=== PATIENT | female | born 1980 | race Caucasian/White ===

== ENCOUNTER 2024-10-04 16:39 | Outpatient (OUT) | payer OTHER, SELFPAY ==
--- NOTE | 2024-10-04 17:07 | US_ITS ---
[address] [address] Patient Name: TOI KNIGHT MRN: [id number] date: 1980 Sex: F Assigned Patient Location: US Current Patient Location: Accession/Order Number: [id number] Exam Date: 10/04/2024 17:50 Report Date: 10/05/2024 07:43 At the request of: ASH HAQ Procedure: US pelvis w/ transvaginal EXAMINATION: US pelvis w/ transvaginal HISTORY: Left lower quadrant abdominal pain, R10.32 COMPARISON: No relevant comparison available. TECHNIQUE: Transabdominal and/or transvaginal sonographic examination was performed as indicated by examination type. FINDINGS: UTERUS: Normal size and appearance. Small nabothian cysts within cervix. Uterus size: 10.7 x 4.7 x 4.9 cm ENDOMETRIUM: Normal homogeneous appearance. Endometrial thickness: 9 mm RIGHT OVARY: Normal size and appearance. Duplex Doppler demonstrates normal waveform and flow; resistive index 0.4. Ovary size: 3.0 x 1.6 x 2.3 cm LEFT OVARY: Contains a 1.6 cm round hypoechoic complex cyst versus mass with increased surrounding blood flow. Duplex Doppler demonstrates normal waveform and flow; resistive index 0.4. Ovary size: 3.5 x 2.1 x 2.8 cm CUL-DE-SAC: Unremarkable. No significant free fluid. BLADDER: Unremarkable. OTHER: None. US/US pelvis w/ transvaginal IMPRESSION: 1. Left ovary contains a 1.6 cm complex cyst versus mass. There is increased surrounding blood flow which can be seen with a corpus lutein cyst, however, no increased endometrial thickening to suggest . Consider follow-up ultrasound in 6 weeks to document resolution. Electronically authenticated by: EAN WEBB Date: 10/05/2024 07:43
== END 2024-10-04 16:40 | disposition home or self-care (01) ==
LOC: US 16:41
PROVIDERS: PCP Family Medicine; Visit Provider Obstetrics & Gynecology
DX: R10.32 Left lower quadrant pain (principal); N83.292 Other ovarian cyst, left side
CPT/HCPCS: 76830; 76856

== ENCOUNTER 2024-11-17 07:30 | Outpatient (OUT) | payer OTHER, SELFPAY ==
--- NOTE | 2024-11-17 07:33 | US_ITS ---
The [address] [address] Patient Name: TOI KNIGHT MRN: [id number] date: 1980 Sex: F Assigned Patient Location: US Current Patient Location: LAB Accession/Order Number: [id number] Exam Date: 11/17/2024 11:04 Report Date: 11/17/2024 11:06 At the request of: ASH HAQ DO Procedure: US pelvis w/ transvaginal Pelvic ultrasound. Reason for exam: Left lower quadrant pain. Comparison: none Technique: Transabdominal imaging of the uterus and ovaries was performed. Transvaginal imaging of the uterus and ovaries was also obtained. Additional spectral Doppler analysis of the ovaries was also obtained. Findings: Uterus measures 8.8 x 4.8 x 4.2 cm. No fibroid is seen. Endometrium measures 4.2 mm without focal abnormality. Right ovary measures 3.0 x 2.2 x 2.1 cm. Left ovary measures 2.8 x 2.8 x 2.0 cm. No adnexal mass or cyst. Normal arterial and venous Doppler waveforms. No free fluid is seen. US/US pelvis w/ transvaginal Impression: Unremarkable pelvic ultrasound. Impression dictated by: Ankit Atwood Jr., D.O.11/17/2024 11:06 AM Dictation Location: [place] [address] Electronically authenticated by: [id number] Y Date: 11/17/2024 11:06
--- OUTSIDE RECORDS SUMMARY | 2024-11-17 07:33 | XMS_ITS | CCD ---
Author Organization [facility] Care Team Providers Care 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 Name Role Phone ENRIQUE, DR HOGAN Admitting Unavailable ENRIQUE, DR HOGAN Attending Unavailable ENRIQUE, DR HOGAN Consulting Unavailable ENRIQUE, DR HOGAN Primary Care Unavailable TYRELL, DR ALEMAN Attending Unavailable TYRELL, DR ALEMAN Admitting Unavailable HOY, DR HOGAN Primary Care Unavailable TYRELL, DR ALEMAN Attending Unavailable TYRELL, DR ALEMAN Consulting Unavailable TYRELL, DR ALEMAN Admitting Unavailable ENRIQUE, DR HOGAN Primary Care Unavailable TYRELL, DR ALEMAN Attending Unavailable TYRELL, DR ALEMAN Consulting Unavailable TYRELL, DR ALEMAN Admitting Unavailable HOY, DR HOGAN Primary Care Unavailable JOSSIE CAPPS Consulting Unavailable MILO, GIOVANA HARRELL Consulting Unava ilable ENRIQUE, DR HOGAN Primary Care Unavailable TYRELL, DR ALEMAN Attending Unavailable TYRELL, DR ALEMAN Consulting Unavailable TYRELL, DR ALEMAN Admitting Unavailable Edison Timmons MD Primary Care Provider [phone] MARLENE MALONEY Attending Unavailable MARLENE MALONEY Attending Unavailable MARLENE MALONEY Attending Unavailable MARLENE MALONEY Attending Unavailable Medications Current Medications Medication Drug Class(es) Dates Sig (Normalized) Sig (Original) predniSONE 10 mg oral tablet (13 sources) Start: 06-27-2024 take 2 tablets by mouth twice daily, then take 1 tablet by mouth twice daily, then take 1 tablet by mouth once daily predniSONE (Deltasone) 10 MG tablet Indications: Plantar fasciitis Take 2 pills by mouth twice daily for 5 days, take 1 pill twice daily for 5 days then 1 pill once daily for 5 days. 35 tablet 06/27/2024 Active Problems Active Problems Problem Classification Problem Date Documented Da te Episodic/Chronic Contraceptive and procreative management (5 sources) Encounter for sterilization; Translations: [ENCOUNTER FOR STERILIZATION] Onset: 06-06-2022 Episodic Other connective tissue disease (8 sources) Plantar fasciitis; Translations: [Plantar fascial fibromatosis] 06-27-2024 Episodic Other connective tissue disease (8 sources) Pain of left heel; Translations: [Pain in left foot] 06-27-2024 Episodic Other connective tissue disease (8 sources) Pain in right heel; Translations: [Pain in right foot] 06-27-2024 Episodic Other connective tissue disease (2 sources) Bilateral heel pain; Translations: [Pain in right foot] 06-27-2024 Episodic Other gastrointestinal disorders (1 source) Peritoneal adhesions (postprocedural) (postinfection); Translations: [PERITONEAL ADHES POSTPROC POSTINF] Onset: 08-07-2022 Episodic Other nutritional; endocrine; and metabolic disorders (1 source) Obesity, unspecified; Translations: [OBESITY UNSPECIFIED] Onset: 08-07-2022 Chronic Other nutritional; endocrine; and metabolic disorders (1 source) Body mass index (BMI) 33.0-33.9, adult; Translations: [BODY MASS INDEX BMI 33.0-33.9 ADULT] Onset: 08-07-2022 Chronic Screening and history of mental health and substance abuse codes (1 source) Personal history of nicotine dependence; Translations: [PERSONAL HISTORY OF NICOTINE DEPEND] Onset: 08-07-2022 Episodic Unclassified (1 source) CONTACT W/AND (SUSP) EXPOS COVID-19; Translations: [CONTACT W/AND (SUSP) EXPOS COVID-19] Onset: 06-12-2022 Past or Other Problems Problem Classification Problem Date Documented Date Episodic/Chronic Immunizations and screening for infectious disease (1 source) Encounter for screening for human papillomavirus (HPV); Translations: [ENC SCREENING HUMAN PAPILLOMAVIRUS] Onset: 03-25-2022 Episodic Other screening for suspected conditions (not mental disorders or infectious disease) (4 sources) Encounter for screening for malignant neoplasm of cervix; Translations: [ENC SCREENING MALIG NEOPLASM CERV] Onset: 03-24-2022 Episodic Results Test Name Value Interpretation Reference Range Facility US PELVIS W/ TRANSVAGINALon 10-05-[address] [address] Ultrasound Report Signed Patient: TOI ROONEY MR#: [id number] : 1980 Acct:[id number] Age/Sex: 44 / F ADM Date: 10/04/24 Loc: US Attending Dr: Ash Santillan D.O. Ordering Physician: Ash Santillan D.O. Date of Service: 10/04/24 Procedure(s): US pelvis w/ transvaginal Accession Number(s): [id number] cc: Ash Santillan D.O.; Edison Timmons M.D. [place] [id number] Patient Name: TOI ROONEY MRN: [facility]:[id number] date: 1980 Sex: F Assigned Patient Location: US Current Patient Location: Accession/Order Number: [id number] Exam Date: 10/04/2024 17:50 Report Date: 10/05/2024 07:43 At the request of: ASH SANTILLAN Procedure: US pelvis w/ transvaginal EXAMINATION: US pelvis w/ transvaginal HISTORY: Left lower quadrant abdominal pain, R10.32 COMPARISON: No relevant comparison available. TECHNIQUE: Transabdominal and/or transvaginal sonographic examination was performed as indicated by examination type. FINDINGS: UTERUS: Normal size and appearance. Small nabothian cysts within cervix. Uterus size: 10.7 x 4.7 x 4.9 cm ENDOMETRIUM: Normal homogeneous appearance. Endometrial thickness: 9 mm RIGHT OVARY: Normal size and appearance. Duplex Doppler demonstrates normal waveform and flow; resistive index 0.4. Ovary size: 3.0 x 1.6 x 2.3 cm LEFT OVARY: Contains a 1.6 cm round hypoechoic complex cyst versus mass with increased surrounding blood flow. Duplex Doppler demonstrates normal waveform and flow; resistive index 0.4. Ovary size: 3.5 x 2.1 x 2.8 cm CUL-DE-SAC: Unremarkable. No significant free fluid. BLADDER: Unremarkable. OTHER: None. US/US pelvis w/ transvaginal IMPRESSION: 1. Left ovary contains a 1.6 cm complex cyst versus mass. There is increased surrounding blood flow which can be seen with a corpus lutein cyst, however, no increased endometrial thickening to suggest . Consider follow-up ultrasound in 6 weeks to document resolution. Electronically authenticated by: BALTAZAR DENNY Date: 10/05/2024 07:43 Dictated By: Baltazar Denny M.D. Signed By: 10/05/24 0746 DD/ TD/TT: Communication Coordinator: [facility] Radiology, Radiologist, MD - 10/05/2024 [place] [address] Ultrasound Report Signed Patient: TOI ROONEY MR#: [id number] : 1980 Acct:[id number] Age/Sex: 44 / F ADM Date: 10/04/24 Loc: US Attending Dr: Ash Santillan D.O. Ordering Physician: Ash Santillan D.O. Date of Service: 10/04/24 Procedure(s): US pelvis w/ transvaginal Accession Number(s): [id number] cc: Ash Santillan D.O.; Edison Timmons M.D. The [place] [id number] Patient Name: TOI ROONEY MRN: [facility]:[id number] date: 1980 Sex: F Assigned Patient Location: Current Patient Location: Accession/Order Number: [id number] Exam Date: 10/04/2024 17:50 Report Date: 10/05/2024 07:43 At the request of: ASH SANTILLAN Procedure: US pelvis w/ transvaginal EXAMINATION: US pelvis w/ transvaginal HISTORY: Left lower quadrant abdominal pain, R10.32 COMPARISON: No relevant comparison available. TECHNIQUE: Transabdominal and/or transvaginal sonographic examination was performed as indicated by examination type. FINDINGS: UTERUS: Normal size and appearance. Small nabothian cysts within cervix. Uterus size: 10.7 x 4.7 x 4.9 cm ENDOMETRIUM: Normal homogeneous appearance. Endometrial thickness: 9 mm RIGHT OVARY: Normal size and appearance. Duplex Doppler demonstrates normal waveform and flow; resistive index 0.4. Ovary size: 3.0 x 1.6 x 2.3 cm LEFT OVARY: Contains a 1.6 cm round hypoechoic complex cyst versus mass with increased surrounding blood flow. Duplex Doppler demonstrates normal waveform and flow; resistive index 0.4. Ovary size: 3.5 x 2.1 x 2.8 cm CUL-DE-SAC: Unremarkable. No significant free fluid. BLADDER: Unremarkable. OTHER: None. US/US pelvis w/ transvaginal IMPRESSION: 1. Left ovary contains a 1.6 cm complex cyst versus mass. There is increased surrounding blood flow which can be seen with a corpus lutein cyst, however, no increased endometrial thickening to suggest . Consider follow-up ultrasound in 6 weeks to document resolution. Electronically authenticated by: BALTAZAR DENNY Date: 10/05/2024 07:43 Dictated By: Baltazar Denny M.D. Signed By: 10/05/24 0746 DD/ 0743 TD/TT: Communication Coordinator: [facility] Radiology Study observation (narrative) [facility] US PELVIS W/ TRANSVAGINALOrd ered By: Radiologist Radiology on 10-05-[address] [facility] Work Phone: XR Calcaneus - left [facility] 06-27-2024 Imaging Result: One views of the left heel: Lateral were performed today in the office. Radiographs were read by myself and demonstrate: No evidence of acute fracture or dislocation. No coalition noted. Spur formation is noted at the plantar calcaneus [facility] Radiology Study observation (narrative) [facility] XR Calcaneus - right [facility] 06-27-2024 Imaging Result: One views of the right heel: Lateral were performed today in the office. Radiographs were read by myself and demonstrate: No evidence of acute fracture or dislocation. No coalition noted. Spur formation is noted at the plantar calcaneus [facility] Radiology Study observation (narrative) [facility] CBC AUTO DIFFon 06-13-2022 BASO # 0.0 103/ul Normal 0.0-0.1 [facility] Comment on above: Performed By: #### C BC #### [facility] [address] [place] [address] [address] Amee Mckeon Basophils/100 WBC (Bld) 0.5 % Normal 0.2-2.0 [facility] Comment on above: Performed By: #### C BC #### [facility] [address] [place] [address] Dr. Amee Mckeon EO # 0.2 103/ul Normal 0.0-0.7 [facility] Comment on above: Performed By: #### C BC #### [facility] [address] [place] [address] Dr. Amee Mckeon Eosinophils/100 WBC (Bld) 1.9 % Normal 0.9-7.0 [facility] Comment on above: Performed By: #### C BC #### [facility] [address] [place] [address] Dr. Amee Mckeon Erythrocyte distribution width (RBC) [Ratio] 11.9 % Normal 11.0-15.0 [facility] Comment on above: Performed By: #### C BC #### [facility] [address] [place] [address] Dr. Amee Mckeon Hematocrit (Bld) [Volume fraction] 43.6 % Normal 36.0-48.0 [facility] Comment on above: Performed By: #### C BC #### [facility] [address] [place] [address] Dr. Amee Mckeon Hemoglobin (Bld) [Mass/Vol] 14.8 g/dL Normal 12.0-16.0 [facility] Comment on above: Performed By: #### C BC #### [facility] [address] [place] [address] Dr. Amee Mckeon IG # 0.03 10e3/ul Normal 0.00-0.03 [facility] Comment on above: Performed By: #### C BC #### [facility] [address] [place] [address] Dr. Amee Mckeon IG % 0.4 % Normal 0.0-0.5 [facility] Comment on above: Performed By: #### C BC #### [facility] [address] [place] [address] Dr. Amee Mckeon LYMPH # 2.5 103/ul Normal 1.2-3.8 [facility] Comment on above: Performed By: #### C BC #### [facility] [address] [place] [address] Dr. Amee Mckeon Lymphocytes/100 WBC (Bld) 31.4 % Normal 20.5-60.0 [facility] Comment on above: Performed By: #### C BC #### [facility] [address] [place] [address] Dr. Amee Mckeon MANUAL DIFF REQ NO Normal [facility] Comment on above: Performed By: #### C BC #### [facility] [address] [place] [address] Dr. Amee Mckeon MCH (RBC) [Entitic mass] 31.6 pg Normal 26.7-34.0 [facility] Comment on above: Performed By: #### C BC #### [facility] [address] [place] [address] Dr. Amee Mckeon MCHC (RBC) [Mass/Vol] 33.9 g/dL Normal 29.9-35.2 [facility] Comment on above: Performed By: #### C BC #### [facility] [address] [place] [address] Dr. Amee Mckeon MCV (RBC) [Entitic vol] 93.2 fL Normal 81.0-99.0 [facility] Comment on above: Performed By: #### C BC #### [facility] [address] [place] [address] Dr. Amee Mckeon MONO # 0.5 103/ul Normal 0.3-0.8 [facility] Comment on above: Performed By: #### C BC #### [facility] [address] [place] [address] Dr. Amee Mckeon Monocytes/100 WBC (Bld) 6.8 % Normal 1.7-12.0 [facility] Comment on above: Performed By: #### C BC #### [facility] [address] [place] [address] Dr. Amee Mckeon NEUT # 4.7 103/ul Normal 1.4-6.5 [facility] Comment on above: Performed By: #### C BC #### [facility] [address] [place] [address] Dr. Amee Mckeon Neutrophils/100 WBC (Bld) 59.0 % Normal 43.0-75.0 [facility] Comment on above: Performed By: #### C BC #### [facility] [address] [place] [address] Dr. Amee Mckeon Platelet mean volume (Bld) [Entitic vol] 9.6 fL Normal 9.5-13.5 [facility] Comment on above: Performed By: #### C BC #### [facility] [address] [place] [address] Dr. Amee Mckeon PLT 289 103/ul Normal 150-450 [facility] Comment on above: Performed By: #### C BC #### [facility] [address] [place] [address] Dr. Amee Mckeon RBC 4.68 106/ul Normal 4.20-5.40 [facility] Comment on above: Performed By: #### C BC #### [facility] [address] [place] [address] Dr. Amee Mckeon WBC 7.9 103/ul Normal 4.0-11.0 [facility] Comment on above: Performed By: #### C BC #### [facility] [address] [place] [address] Dr. Amee Mckeon PREG HCG QUALon 06-13-2022 , QUAL Negative Normal NEGATIVE [facility] Comment on above: Performed By: #### P REG #### [facility] [address] [place] [address] Dr. Amee Mckeon Covid-19 PCR (CVDTBH)on 05-31 SARS-CoV-2 (COVID-19) RNA ADOLPH+probe Ql (Unsp spec) Not detected Normal NOT DETECTED [facility] Comment on above: Result Comment: This test is not yet approved or cleared by the [place] FDA. When there are no FDA-approved or cleared tests available, and other criteria are met, FDA can make tests available under an emergency access mechanism called an Emergency Use Authorization (EUA). The EUA for this test is supported by the [place] of Health and Human Service's (HHS's) declaration that circumstances exist to justify the emergency use of in vitro diagnostics for the detection and/or diagnosis of the virus that causes COVID-19. This EUA will remain in effect (meaning this test can be used) for the duration of the COVID-19 declaration justifying emergency of IVDs, unless it is terminated or revoked by FDA (after which the test may no longer be used). When diagnostic testing is negative, the possibility of a false negative should be considered in the context of a patient's recent exposures and the presence of clinical signs and symptoms consistent with SARS-CoV-2. Performed By: #### C VDTB #### [facility] [address] [place] [address] Dr. Amee Mckeon [facility] CBC AUTO DIFFon 04-17-2022 BASO # 0.0 103/ul Normal 0.0-0.1 [facility] Comment on above: Performed By: #### H FPFCBC #### [facility] [address] [place] [address] Dr. Amee Mckeon Basophils/100 WBC (Bld) 0.3 % Normal 0.2-2.0 [facility] Comment on above: Performed By: #### H FPFCBC #### [facility] [address] [place] [address] Dr. Amee Mckeon EO # 0.1 103/ul Normal 0.0-0.7 [facility] Comment on above: Performed By: #### H FPFCBC #### [facility] [address] [place] [address] Dr. Amee Mckeon Eosinophils/100 WBC (Bld) 1.5 % Normal 0.9-7.0 [facility] Comment on above: Performed By: #### H FPFCBC #### [facility] [address] [place] [address] Dr. Amee Mckeon Erythrocyte distribution width (RBC) [Ratio] 12.5 % Normal 11.0-15.0 [facility] Comment on above: Performed By: #### H FPFCBC #### [facility] [address] [place] [address] Dr. Amee Mckeon Hematocrit (Bld) [Volume fraction] 41.6 % Normal 36.0-48.0 [facility] Comment on above: Performed By: #### H FPFCBC #### [facility] [address] [place] [address] Dr. Amee Mckeon Hemoglobin (Bld) [Mass/Vol] 14.1 g/dL Normal 12.0-16.0 [facility] Comment on above: Performed By: #### H FPFCBC #### [facility] [address] [place] [address] Dr. Amee Mckeon IG # 0.03 10e3/ul Normal 0.00-0.03 [facility] Comment on above: Performed By: #### H FPFCBC #### [facility] [address] [place] [address] Dr. Amee Mckeon IG % 0.3 % Normal 0.0-0.5 [facility] Comment on above: Performed By: #### H FPFCBC #### [facility] [address] [place] [address] Dr. Amee Mckeon LYMPH # 2.2 103/ul Normal 1.2-3.8 [facility] Comment on above: Performed By: #### H FPFCBC #### [facility] [address] [place] [address] Dr. Amee Mckeon Lymphocytes/100 WBC (Bld) 25.3 % Normal 20.5-60.0 [facility] Comment on above: Performed By: #### H FPFCBC #### [facility] [address] [place] [address] Dr. Amee Mckeon MCH (RBC) [Entitic mass] 31.3 pg Normal 26.7-34.0 [facility] Comment on above: Performed By: #### H FPFCBC #### [facility] [address] [place] [address] Dr. Amee Mckeon MCHC (RBC) [Mass/Vol] 33.9 g/dL Normal 29.9-35.2 [facility] Comment on above: Performed By: #### H FPFCBC #### [facility] [address] [place] [address] Dr. Amee Mckeon MCV (RBC) [Entitic vol] 92.4 fL Normal 81.0-99.0 [facility] Comment on above: Performed By: #### H FPFCBC #### [facility] [address] [place] [address] Dr. Amee Mckeon MONO # 0.5 103/ul Normal 0.3-0.8 [facility] Comment on above: Performed By: #### H FPFCBC #### [facility] [address] [place] [address] Dr. Amee Mckeon Monocytes/100 WBC (Bld) 5.5 % Normal 1.7-12.0 [facility] Comment on above: Performed By: #### H FPFCBC #### [facility] [address] [place] [address] Dr. Amee Mckeon NEUT # 5.8 103/ul Normal 1.4-6.5 [facility] Comment on above: Performed By: #### H FPFCBC #### [facility] [address] [place] [address] Dr. Amee Mckeon Neutrophils/100 WBC (Bld) 67.1 % Normal 43.0-75.0 [facility] Comment on above: Performed By: #### H FPFCBC #### [facility] [address] [place] [address] Dr. Amee Mckeon Platelet mean volume (Bld) [Entitic vol] 10.2 fL Normal 9.5-13.5 [facility] Comment on above: Performed By: #### H FPFCBC #### [facility] [address] [place] [address] Dr. Amee Mckeon PLT 278 103/ul Normal 150-450 [facility] Comment on above: Performed By: #### H FPFCBC #### [facility] [address] [place] [address] Dr. Amee Mckeon RBC 4.50 106/ul Normal 4.20-5.40 [facility] Comment on above: Performed By: #### H FPFCBC #### [facility] [address] [place] [address] Dr. Amee Mckeon WBC 8.6 103/ul Normal 4.0-11.0 [facility] Comment on above: Performed By: #### H FPFCBC #### [facility] [address] [place] [address] Dr. Amee Mckeon [facility] PROFILEon 022 Albumin [Mass/Vol] 3.8 g/dL Normal 3.4-5.0 [facility] Comment on above: Performed By: #### H FPF #### [facility] [address] [place] [address] Dr. Amee Mckeon Albumin/Globulin [Mass ratio] 1.1 {ratio} Normal [facility] Comment on above: Performed By: #### H FPF #### [facility] [address] [place] [address] Dr. Amee Mckeon ALP [Catalytic activity/Vol] 50 U/L Normal 46-116 [facility] Comment on above: Performed By: #### H FPF #### [facility] [address] [place] [address] Dr. Amee Mckeon ALT [Catalytic activity/Vol] 31 U/L Normal 14-59 [facility] Comment on above: Performed By: #### H FPF #### [facility] [address] [place] [address] Dr. Amee Mckeon AST [Catalytic activity/Vol] 15 U/L Normal 15-37 [facility] Comment on above: Performed By: #### H FPF #### [facility] [address] [place] [address] Dr. Amee Mckeon Bilirubin [Mass/Vol] 0.6 mg/dL Normal 0.2-1.0 [facility] Comment on above: Performed By: #### H FPF #### [facility] [address] [place] [address] Dr. Amee Mckeon Calcium [Mass/Vol] 8.8 mg/dL Normal 8.5-10.1 [facility] Comment on above: Performed By: #### H FPF #### [facility] [address] [place] [address] [address] Amee Mckeon Chloride [Moles/Vol] 104 mmol/L Normal 98-107 [facility] Comment on above: Performed By: #### H FPF #### [facility] [address] [address] [address] Amee Mckeon CHOL-HDL RATIO NORM SEE BELOW Normal [facility] Comment on above: Result Comment: 3.3 - 4.4 LOW RISK 4.4 - 7.1 AVERAGE RISK 7.1 - 11.0 MODERATE RISK >11.0 HIGH RISK Performed By: #### H FPF #### [facility] [address] [place] [address] [address] Amee Mckeon Cholesterol [Mass/Vol] 216 mg/dL Critically high <=200 [facility] Comment on above: Performed By: #### H FPF #### [facility] [address] [place] [address] [address] Amee Mckeon Cholesterol in HDL [Mass/Vol] 51 mg/dL Normal 40-60 [facility] Comment on above: Performed By: #### H FPF #### [facility] [address] [place] [address] [address] Amee Mckeon Cholesterol in LDL [Mass/Vol] 141.6 mg/dL Normal [facility] Comment on above: Performed By: #### H FPF #### [facility] [address] [place] [address] [address] Amee Mckeon Cholesterol.total/[place] sterol in HDL [Mass ratio] 4.2 {ratio} Normal [facility] Comment on above: Performed By: #### H FPF #### [facility] [address] [address] [address] Amee Mckeon CO2 [Moles/Vol] 26.1 mmol/L Normal 21.0-32.0 [facility] Comment on above: Performed By: #### H FPF #### [facility] [address] [address] [address] Amee Mckeon Creatinine [Mass/Vol] 0.75 mg/dL Normal 0.55-1.02 [facility] Comment on above: Performed By: #### H FPF #### [facility] [address] [address] [address] Amee Mckeon Globulin (S) [Mass/Vol] 3.4 g/dL Normal [facility] Comment on above: Performed By: #### H FPF #### [facility] [address] [address] [address] Amee Mckeon Glucose [Mass/Vol] 94 mg/dL Normal 74-106 [facility] Comment on above: Performed By: #### H FPF #### [facility] [address] [address] [address] Amee Mckeon HDL NORMAL > or = 60 mg/dl - LOW CARDIOVASCULAR RISK <40 mg/dl - HIGH CARDIOVASCULAR RISK Normal [facility] Comment on above: Performed By: #### H FPF #### [facility] [address] [place] [address] Dr. Amee Mckeon LDL CALC NORMAL SEE BELOW Normal [facility] Comment on above: Result Comment: <100 mg/dl OPTIMAL 100 - 129 mg/dl NEAR OR ABOVE OPTIMAL 130 - 159 mg/dl BORDERLINE HIGH 160 - 189 mg/dl HIGH >190 mg/dl VERY HIGH Performed By: #### H FPF #### [facility] [address] [place] [address] Dr. Amee Mckeon Potassium [Moles/Vol] 3.7 mmol/L Normal 3.5-5.1 [facility] Comment on above: Performed By: #### H FPF #### [facility] [address] [address] [address] Amee Mckeon Protein [Mass/Vol] 7.2 g/dL Normal 6.4-8.2 [facility] Comment on above: Performed By: #### H FPF #### [facility] [address] [place] [address] Dr. Amee Mckeon Sodium [Moles/Vol] 137 mmol/L Normal 136-145 [facility] Comment on above: Performed By: #### H FPF #### [facility] [address] [address] [address] Amee Mckeon Triglyceride [Mass/Vol] 117 mg/dL Normal <=[address] [facility] Comment on above: Performed By: #### H FPF #### [facility] [address] [address] [address] Amee Mckeon TSH 1.647 uIU/mL Normal 0.358-3.740 [facility] Comment on above: Performed By: #### H FPF #### [facility] [address] [place] [address] Dr. Amee Mckeon Urea nitrogen [Mass/Vol] 18.0 mg/dL Normal 7.0-18.0 [facility] Comment on above: Performed By: #### H FPF #### [facility] [address] [place] [address] Dr. Amee Mckeon Urea nitrogen/Creatinine [Mass ratio] 24.0 mg/mg Normal [facility] Comment on above: Performed By: #### H FPF #### [facility] [address] [place] [address] Dr. Amee Mckeon VLDL CALC 23.4 mg/dL [facility] Comment on above: Performed By: #### H FPF #### [facility] [address] [place] [address] Dr. Amee Mckeon PAP ACOG PANEL 2: 30 to 65on 03-26-2022 . . Normal [facility] Comment on above: Result Comment: Perf ormed at: WB Performed By: #### [id number] #### [facility] [address] [place] [address] Dr. Amee Mckeon Age Gdln ACOG Testing 30-65 [facility] Comment on above: Performed By: #### [id number] #### [facility] [address] [place] [address] Dr. Amee Mckeon DIAGNOSIS: Comment Normal [facility] Comment on above: Result Comment: NEGA TIVE FOR INTRAEPITHELIAL LESION OR MALIGNANCY. Performed at: WB Performed By: #### [id number] #### [facility] [address] [place] [address] Dr. Amee Mckeon HPV Aptima Negative Normal Negative [facility] Comment on above: Result Comment: This nucleic acid amplification test detects fourteen high-risk HPV types (16,18,31,33,35,39,45,51,52,56,58,59,66,68) without differentiation. Performed at: =G Performed By: #### [id number] #### [facility] [address] [place] [address] Dr. Amee Mckeon Methodology: Comment Normal [facility] Comment on above: Result Comment: This liquid based ThinPrep(R) pap test was screened with the use of an image guided system. Performed at: WB Performed By: #### [id number] #### [facility] [address] [place] [address] Dr. Amee Mckeon Note: Comment Normal [facility] Comment on above: Result Comment: The Pap smear is a screening test designed to aid in the detection of premalignant and malignant conditions of the uterine cervix. It is not a diagnostic procedure and should not be used as the sole means of detecting cervical cancer. Both false-positive and false-negative reports do occur. . Performed at: WB Performed By: #### [id number] #### [facility] [address] [place] [address] Dr. Amee Mckeon Performed by: Comment Normal [facility] Comment on above: Result Comment: [employer] Map (ASCP) Performed at: WB Performed By: #### [id number] #### [facility] [address] [place] [address] Dr. Amee Mckeon Specimen adequacy: Comment Normal [facility] Comment on above: Result Comment: Sati sfactory for evaluation. No endocervical component is identified. Performed at: WB Performed By: #### [id number] #### [facility] [address] [place] [address] Dr. Amee Mckeon Encounters Encounter Date Encounter Type Care Provider Facility Start: 10-20-2024 End: 10-20-2024 Bamboo flowsheet Marlene Maloney DPM Work Phone: [facility] Start: 10-20-2024 End: 10-20-2024 Bamboo flowsheet Marlene Maloney DPM Work Phone: [facility] Start: 10-20-2024 End: 10-20-2024 Office outpatient visit 15 minutes Marlene Maloney DPM Work Phone: [facility] Comment on above: Plantar fasciitis (P rimary Dx); Pain of left heel; Pain of right heel Start: 10-20-2024 End: 10-20-2024 ambulatory MARLENE MALONEY Not Available Start: 10-05-2024 End: 10-05-2024 Clinisync Result Encounter Ash Tyrell DO Work Phone: [facility] External Department Unsolicited Start: 10-05-2024 End: 10-05-2024 Clinisync Result Encounter Ash Tyrell DO Work Phone: [facility] External Department Unsolicited Start: 09-07-2024 End: 09-07-2024 Bamboo flowsheet Marlene Maloney DPM Work Phone: [facility] Start: 09-07-2024 End: 09-07-2024 Bamboo flowsheet Marlene Strickland Maloney DPM Work Phone: [facility] Start: 09-07-2024 End: 09-07-2024 ambulatory MARLENE MALONEY Not Available Start: 09-07-2024 End: 09-07-2024 Office outpatient visit 15 minutes Marleen Maloney DPM Work Phone: [facility] Comment on above: Plantar fasciitis (P rimary Dx); Pain of left heel; Pain of right heel Start: 07-26-2024 End: 07-26-2024 Bamboo flowsheet Marlene Strickland Maloney DPM Work Phone: [facility] Start: 07-26-2024 End: 07-26-2024 Bamboo flowsheet Marlene Strickland Maloney DPM Work Phone: [facility] Start: 07-26-2024 End: 07-26-2024 ambulatory MARLENE MALONEY Not Available Start: 07-26-2024 End: 07-26-2024 Office outpatient visit 15 minutes Marlene Maloney DPM Work Phone: [facility] Comment on above: Plantar fasciitis (P rimary Dx); Pain of left heel; Pain of right heel Start: 06-27-2024 End: 06-27-2024 Bamboo flowsheet Marlene Maloney DPM Work Phone: [facility] Start: 06-27-2024 End: 06-27-2024 Bamboo flowsheet Marlene Maloney DPM Work Phone: [facility] Start: 06-27-2024 End: 06-27-2024 Telephone encounter Marlene Maloney DPM Work Phone: [facility] Comment on above: script check Start: 06-27-2024 End: 06-27-2024 ambulatory MARLENE MALONEY Not Available Start: 06-27-2024 End: 06-27-2024 Office outpatient new 30 minutes Marlene Maloney DPM Work Phone: [facility] Comment on above: Plantar fasciitis (P rimary Dx); Pain of left heel; Pain of right heel; Pain of both heels Start: 06-13-2022 End: 06-13-[address] ASH SANTILLAN Facility:[facility] Start: 06-12-2022 Encounter for preprocedural laboratory examination DR ASH SANTILLAN [facility] Start: 06-10-2022 End: 06-11-[address] ASH SANTILLAN Facility:[facility] Start: 06-10-2022 End: 06-11-2022 Encounter for preprocedural laboratory examination DR ASH SANTILLAN Facility:[facility] Start: 06-06-2022 Encounter for other preprocedural examination DR ASH SANTILLAN [facility] Start: 06-04-2022 End: 06-05-[address] ASH SANTILLAN Facility:[facility] Start: 06-04-2022 End: 06-05-2022 Encounter for other preprocedural examination DR ASH SANTILLAN Facility:[facility] Start: 04-17-2022 End: 04-18-[address] EDISON TIMMONS Facility:[facility] Start: 03-24-2022 End: 03-24-[address] EDISON TIMMONS Facility:[facility] Procedures Date Procedure Procedure Detail Performing Clinician Start: 10-05-2024 US PELVIS W/ TRANSVAGINAL Ash Santillan DO Work Phone: Start: 06-27-2024 Radex calcaneus mini mum 2 views Marlene Maloney DPM Work Phone: Start: 06-27-2024 Radex calcaneus mini mum 2 views Marlene Maloney DPM Work Phone: Plan of Treatment Date Care Activity Detail Author Start: 11-21-2024 End: 11-21-2024 Patient encounter procedure 11/21/2024 4:30 PM EDT Office Visit [facility] [address] [place] [id number] Marlene Maloney, DPM [address] [place] [address] [facility] Start: 10-20-2024 End: 10-20-2024 Patient encounter procedure 10/20/2024 11:00 AM EST Office Visit [facility] [address] [place] [address] Marlene Maloney, DPM [address] [place] [address] Arrived [facility] Comment on above: Arrived Start: 09-07-2024 End: 09-07-2024 Patient encounter procedure 09/07/2024 1:45 PM EST Office Visit [facility] [address] [place] [phone] Marlene Maloney, DPM [address] [place] [address] [facility] Start: 07-26-2024 End: 07-26-2024 Patient encounter procedure 07/26/2024 1:45 PM EST Office Visit [facility] [address] [place] [phone] Marlene Maloney, DPM [address] [place] [address] [facility] Payers Date Payer Category Payer Medicaid [id number] 2019 Private Health Insurance [id number] 1982 Unknown [id number] 2.16.84 [id number] 1982 Unknown [id number] 2.16.84 [id number] 1982 Unknown [id number] 2.16.84 [id number] 1982 Unknown [id number] 2.16.84 [id number] 1982 Unknown [id number] 2.16.84 [id number] 1982 Unknown [id number] 2.16.84 [id number] 1982 Unknown [id number] 2.16.84 [id number] 1982 Unknown [id number] 2.16.84 [id number] 1959 Self-pay [id number] 1959 Unknown [id number] 1957 Unknown [id number] Unknown [id number] 2.16.84 [id number] Social History Date Type Detail Facility Tobacco smoking stat [facility] Tobacco smoking consumption unknown [facility] Start: 1980 Sex assigned at Not on file N [facility] Start: 07-26-2024 End: 10-20-2024 Gender identity Not on file [facility] Start: 07-26-2024 Tobacco smoking stat [facility] Ex-smoker [facility] History of tobacco use Current smoker [facility] History of tobacco use Cigarette Smoker N [facility] Start: 07-26-2024 Tobacco use and exposure Smokeless t obacco non-user [facility] Start: 07-26-2024 End: 10-20-2024 History of Social function [facility] Clinical Notes 06-13-2022 to 10-20-2024 Marlene Maloney DPM - 10/20/2024 11:00 AM Joleen Maloney DPM - 09/07/2024 1:45 PM Joleen Maloney DPM - 07/26/2024 1:45 PM Joleen Maloney DPM - 06/27/2024 1:00 PM EDT Note Date & Type Note Facility 10-20-2024 History of Presen t illness Narrative Images from the original note were not included. HPI: Patient relates pain in bottom of the right and left heel for the past chronic. Pain occurs after periods of rest and when first getting out of bed consistent with post-static dyskinesia. Patient describes the pain as a sharp pain to the bottom of the heel which has increased with time. Treatment has consisted of ortotics, cortisone injections and prednisone. Pt stated prednisone helped but then the pain stared to come back but not as severe. No other complaints. Exam: General Examination: GENERAL APPEARANCE: awake, aware of surroundings, in no acute distress Vascular: DORSALIS PEDIS PULSE: 2/4, bilaterally POSTERIOR TIBIAL PULSE: 2/4, bilaterally TEMPERATURE GRADIENT: warm to cool EDEMA: none CAPILLARY FILLING TIME(sec): capillary fill intact bilateral digits less than 3 secs Neurologic: NEUROLOGIC: light touch is intact to the plantar foot Dermatologic: SKIN FINDINGS: normal HYPERKERATOSIS: none NAIL PATHOLOGY: digits 1-5 bilateral are intact SKIN PATHOLOGY: texture, turgor, hair growth, within normal limits Orthopedic: FOOT MORPHOLOGY: neutral JOINT RANGE OF MOTION: without pain or crepitus DEFORMITIES: none PAIN ELICITED WITH PALPATION OF: There is pain noted with palpation to the bilateral heel at the plantar medial tubercle of the calcaneus. positive pain to palpation of the medial band of the plantar fascia. No pain noted with compression of the calcaneus or to palpation of the Achilles tendon bilateral. No pain with palpation along the course of the posterior tibial tendon PAIN ELICITED WITH ROM: none MUSCLE STRENGTH: 5/5 for all pedal groups tested Assessments: ICD M72.2 - Plantar fasciitis: ICD M79.672 - Pain in left foot: ICD M77.32 - Calcaneal spur, left: ICD M79.671 - Pain in right foot: ICD M77.31 - Calcaneal spur, right: Plan: Plantar Fasciitis: 1. Discussed with the patient the next options for treatment including night splint, injection and physical therapy. 2. Discussed with the patient a corticosteroid injection in the plantar bilateral heel today. R/B/P/A/C discussed with the patient who consents to proceed. The area was prepped with alcohol. Attention was directed to the plantar medial tubercle where the patient was noted to have pain. Injection was performed with 2cc of 2% Lidocaine plain and 1cc of Kenalog 40. Patient tolerated the injection well. Instructed on home care. 3. Instructed patient to continue with the stretching exercises, supportive shoe gear and other conservative treatment options we have previously discussed. 4. RTC: 4-6 weeks. documented in this encounter [facility] 09-07-2024 History of Presen t illness Narrative Images from the original note were not included. HPI: Patient relates pain in bottom of the right and left heel for the past chronic. Pain occurs after periods of rest and when first getting out of bed consistent with post-static dyskinesia. Patient describes the pain as a sharp pain to the bottom of the heel which has increased with time. Treatment has consisted of ortotics, cortisone injections and prednisone. Pt stated prednisone helped but then the pain stared to come back but not as severe. No other complaints. Exam: General Examination: GENERAL APPEARANCE: awake, aware of surroundings, in no acute distress Vascular: DORSALIS PEDIS PULSE: 2/4, bilaterally POSTERIOR TIBIAL PULSE: 2/4, bilaterally TEMPERATURE GRADIENT: warm to cool EDEMA: none CAPILLARY FILLING TIME(sec): capillary fill intact bilateral digits less than 3 secs Neurologic: NEUROLOGIC: light touch is intact to the plantar foot Dermatologic: SKIN FINDINGS: normal HYPERKERATOSIS: none NAIL PATHOLOGY: digits 1-5 bilateral are intact SKIN PATHOLOGY: texture, turgor, hair growth, within normal limits Orthopedic: FOOT MORPHOLOGY: neutral JOINT RANGE OF MOTION: without pain or crepitus DEFORMITIES: none PAIN ELICITED WITH PALPATION OF: There is pain noted with palpation to the bilateral heel at the plantar medial tubercle of the calcaneus. positive pain to palpation of the medial band of the plantar fascia. No pain noted with compression of the calcaneus or to palpation of the Achilles tendon bilateral. No pain with palpation along the course of the posterior tibial tendon PAIN ELICITED WITH ROM: none MUSCLE STRENGTH: 5/5 for all pedal groups tested Assessments: ICD M72.2 - Plantar fasciitis: ICD M79.672 - Pain in left foot: ICD M77.32 - Calcaneal spur, left: ICD M79.671 - Pain in right foot: ICD M77.31 - Calcaneal spur, right: Plan: Plantar Fasciitis: Discussed with the patient further options for treatment. They are doing very well with little to minimal symptoms to the affected heel. I advised importance of continued stretching exercises as well as other conservative measures including supportive shoes and [id number] inserts or custom inserts as applicable. We did discuss that there is a slight possibility of recurrence of the heel pain but to be very vigilant about continuing with the stretching exercises especially if they notice any recurrent symptoms. Patient should follow up as needed if they have any worsening pain or symptoms to the heel. documented in this encounter [facility] 07-26-2024 History of Presen t illness Narrative Images from the original note were not included. HPI: Patient relates pain in bottom of the right and left heel for the past chronic. Pain occurs after periods of rest and when first getting out of bed consistent with post-static dyskinesia. Patient describes the pain as a sharp pain to the bottom of the heel which has increased with time. Treatment has consisted of ortotics, cortisone injections and prednisone. Pt stated prednisone helped but then the pain stared to come back but not as severe. No other complaints. Exam: General Examination: GENERAL APPEARANCE: awake, aware of surroundings, in no acute distress Vascular: DORSALIS PEDIS PULSE: 2/4, bilaterally POSTERIOR TIBIAL PULSE: 2/4, bilaterally TEMPERATURE GRADIENT: warm to cool EDEMA: none CAPILLARY FILLING TIME(sec): capillary fill intact bilateral digits less than 3 secs Neurologic: NEUROLOGIC: light touch is intact to the plantar foot Dermatologic: SKIN FINDINGS: normal HYPERKERATOSIS: none NAIL PATHOLOGY: digits 1-5 bilateral are intact SKIN PATHOLOGY: texture, turgor, hair growth, within normal limits Orthopedic: FOOT MORPHOLOGY: neutral JOINT RANGE OF MOTION: without pain or crepitus DEFORMITIES: none PAIN ELICITED WITH PALPATION OF: There is pain noted with palpation to the bilateral heel at the plantar medial tubercle of the calcaneus. positive pain to palpation of the medial band of the plantar fascia. No pain noted with compression of the calcaneus or to palpation of the Achilles tendon bilateral. No pain with palpation along the course of the posterior tibial tendon PAIN ELICITED WITH ROM: none MUSCLE STRENGTH: 5/5 for all pedal groups tested Assessments: ICD M72.2 - Plantar fasciitis: ICD M79.672 - Pain in left foot: ICD M77.32 - Calcaneal spur, left: ICD M79.671 - Pain in right foot: ICD M77.31 - Calcaneal spur, right: Plan: Plantar Fasciitis: 1. Discussed with the patient the next options for treatment including night splint, injection and physical therapy. 2. Discussed with the patient a corticosteroid injection in the plantar bilateral heel today. R/B/P/A/C discussed with the patient who consents to proceed. The area was prepped with alcohol. Attention was directed to the plantar medial tubercle where the patient was noted to have pain. Injection was performed with 2cc of 0.25% Sensorcaine plain and 1cc of Kenalog 40. Patient tolerated the injection well. Instructed on home care. 3. Instructed patient to continue with the stretching exercises, supportive shoe gear and other conservative treatment options we have previously discussed. 4. RTC: 4-6 weeks. documented in this encounter [facility] 06-27-2024 Telephone encount er Note Rx was sent to [facility] in [place]. [facility] 06-27-2024 Miscellaneous Notes Formattin g of this note might be different from the original. Rx was sent to [facility] in [place]. Pt called to check in on script, and to change her preferred pharmacy to the [facility] in [place]. documented in this encounter [facility] 06-27-2024 Telephone encount er Note Pt called to check in on script, and to change her preferred pharmacy to the [facility] in [place]. [facility] 06-27-2024 History of Presen t illness Narrative Images from the original note were not included. HPI: Patient relates pain in bottom of the right and left heel for the past chronic. Pain occurs after periods of rest and when first getting out of bed consistent with post-static dyskinesia. Patient describes the pain as a sharp pain to the bottom of the heel which has increased with time. Treatment has consisted of ortotics, cortisone injectios. No other complaints. Exam: General Examination: GENERAL APPEARANCE: awake, aware of surroundings, in no acute distress Vascular: DORSALIS PEDIS PULSE: 2/4, bilaterally POSTERIOR TIBIAL PULSE: 2/4, bilaterally TEMPERATURE GRADIENT: warm to cool EDEMA: none CAPILLARY FILLING TIME(sec): capillary fill intact bilateral digits less than 3 secs Neurologic: NEUROLOGIC: light touch is intact to the plantar foot Dermatologic: SKIN FINDINGS: normal HYPERKERATOSIS: none NAIL PATHOLOGY: digits 1-5 bilateral are intact SKIN PATHOLOGY: texture, turgor, hair growth, within normal limits Orthopedic: FOOT MORPHOLOGY: neutral JOINT RANGE OF MOTION: without pain or crepitus DEFORMITIES: none PAIN ELICITED WITH PALPATION OF: There is pain noted with palpation to the bilateral heel at the plantar medial tubercle of the calcaneus. positive pain to palpation of the medial band of the plantar fascia. No pain noted with compression of the calcaneus or to palpation of the Achilles tendon bilateral. No pain with palpation along the course of the posterior tibial tendon PAIN ELICITED WITH ROM: none MUSCLE STRENGTH: 5/5 for all pedal groups tested Assessments: ICD M72.2 - Plantar fasciitis: ICD M79.672 - Pain in left foot: ICD M77.32 - Calcaneal spur, left: ICD M79.671 - Pain in right foot: ICD M77.31 - Calcaneal spur, right: Plan: ICD M72.2 - Plantar fasciitis: I reviewed the patients condition, eitiology, options for care treatment plan and prognosis including shoe gear changes, stretching, physical therapy, immobilization, night splints and anti-inflammatories. We have three clinical objectives to reduce inflammatory processe and expedite repair of the achilles tendon, re-establish biomechanical function of the foot in relation to the Achilles tendon and re-establish appropriate strength, range of motion and tolerance to normal gait forces relative to standing, walking, and running. Our goal is for the condition and symptoms to not advance to becoming chronic or recalcitrant. 1. Patient advised to perform stretching exercise, icing, and to make appropriate shoe gear changes to include wearing athletic-type shoes with supportive insoles. No barefoot walking. Also demonstrated to patient the instructions on how to correctly perform the stretching of the Achilles tendon/calf stretches, and the heel spur/plantar fasciitis regimen and patient instructions were given. 2. Discussed with the patient OTC insoles including Powerstep which patient can purchase today if interested. Patient advised that these modalities used in conjunction are able to alleviate most symptoms from this condition. 3. Prescription for prednisone was sent to the patient's preferred pharmacy. She was instructed on side effects and use. If she encounters any side effects or contraindications she was advised to discontinue the medication and call the office. 4. RTC: 4-6 weeks. Discussed next step of steroid injection, custom FO, therapy if needed. documented in this encounter [facility] 06-27-2024 Instructions Marlene Maloney DPM - 06/27/2024 1:00 PM EDT Images from the original note were not included. Plantar Fasciitis Plantar fasciitis is an inflammatory condition involving the plantar fascia, a thick band of connective tissue found on the bottom of the foot. This is an overuse injury which may also be attributed to an increase in weight, , change in shoe gear, change in activity level, or change in working surfaces. One of the main causes of developing this type of heel pain is tightness in the calf muscle or Achilles tendon. This thick band of tissue extends from the heel to the ball of the foot, and aids in support and stabilization of the foot (especially the arch) during walking and running. Symptoms involve two areas: the arch and the bottom of the heel. Severe pain can be present, especially in the morning after getting out of bed and after periods of rest. This pain usually decreases somewhat with initial activity and then, as the day progresses, can become quite painful, depending on the activity level. Swelling, redness, and heat are usually not present. Many patients use the term stone bruise to describe this condition because of the intense, localized area of discomfort. Pain also occurs because of the extreme stretch in the fascia when standing after periods of rest that can cause tearing in the individual fibers of the fascia. The most common cause of plantar fasciitis is overuse, an excessive amount of activity over a given period of time. This excessive activity causes a stretching or pulling force on the heel area, resulting in a fatigue failure or breakdown of the tissue. Over a period of time, this traction, or pulling force, can result in heel spur formation, which can be seen on x-rays. Certain generalized arthritic problems and a specific nerve impingement can also be responsible for plantar fasciitis/heel spur syndrome and should be considered. Evaluation by the doctor will determine if further testing is needed for these conditions. Treatment of the problem is accomplished by stretching and controlling the biomechanics. The conservative treatment for plantar fasciitis is very successful at resolving symptoms, but the treatment time usually takes over 6-8 months to completely resolve your pain if not longer. Initial Treatment: Supportive/stable shoes, No barefoot walking Stretching exercises to stretch the Achilles tendon and plantar fascia. This should be done in the morning, before and after activity. Ice application after activity or at the end of the day. This can be combined with massage by using a frozen water bottle and rolling the foot and heel over the water bottle. Hmqm-zid-dusvjxo (OTC) arch supports: Spenco, Powerstep, UCOs Continued Treatment: Local anesthetic steroid injections Custom made foot orthotics Night splint - stretches plantar fascia while at rest Physical therapy: deep tissue massage, ultrasound, steroid iontophoresis, concentrated stretching and balance exercises Magnetic Resonance Imaging (MRI): to further diagnosis injury and presence of possible tearing or nerve impingement Surgery Four to twelve weeks is usually the amount of time necessary for symptoms to improve significantly. Conservative treatment is curative 95% of the time for this problem. Detailed Treatment for Plantar Fasciitis Stretching - This is the most important treatment that you can do for plantar fasciitis. Wall Stretch: Stand an arm's length away from a wall, place your hands shoulder length apart on the wall with one foot in front of the other. The painful heel should be in the back. Lean forward while keeping the back leg straight, your back straight and head up while bending the other knee. You can point your toes slightly inward. Place pressure on the back of your heel to keep it in contact with the ground. Hold this stretch for 45-60 seconds, repeat 5-10 times. You should feel this stretch in your calf and arch. Do this stretch in the morning and before activity. Towel Stretch: Place a towel, belt or exercise band across the ball of the affected foot. Pull the towel toward you while keeping your knee straight. Hold this stretch for 15-20 seconds, repeat 10 times. You will feel this stretch in the back of the calf and arch of the foot. Do this stretch in the morning before getting out of before and after periods of rest before standing or activity. Shoes- It is important that the shoes have a stiff heel counter in order to control pronation or flatting of the arch. Shoes should also have good arch supports. Try to wear your shoes at all times, do not go barefoot. Women with narrow heals often need to switch to the athletic shoe brand. When shopping for shoes, go near the end of the day when your feet may be slightly larger from swelling throughout the day. Also check to make sure that there is some built in arch support in the shoe which will help with this condition. It is also important to see that when you bend the shoe, the point of bending is not in the arch. It should be at the ball of the foot or near the toes. This shows that there is support in the arch. Also make sure that the back of the heel is stiff and that you cannot push it in with one finger. This will help to ensure that your heel stays in the shoe and in contact with an arch support if you are using one. Over the counter arch supports- These supports must have a deep heel cup as well as a firm arch support. The doctor may have given you an OTC arch support called a UCO. This is a semi-rigid device that gives arch support and also cushioning to the foot. Other options including Spenco and Powerstep which are have firm support in the arch in order to relieve stress on the plantar fascia. Custom molded orthotics- This is a prescription device that is placed in your shoe made from a mold that is taken of your foot held in its correct biomechanical position. This position allows your foot to function the way it functioned prior to injury. This device may require that you purchase shoes that are slightly larger in order to accommodate this device. Shoes worn with orthotics should have a stiff heel counter. Night Splints - These are devices that are typically worn while sleeping at night. They keep the foot at 90 to the ankle. This is allows for a constant passive stretch to the plantar fascia all night long. If interested in obtaining these, the best place is to get them is at an online supplier. [employer] offers many options for night splints. There are two main differences in the night splints offered, which are ones that goes along the back of the heel and ones that go on the front of the foot and ankle. The ones that go on the back of the heel and foot provides a better stretch because the heel cannot slide out of the device like it can for the ones that are applied on the front. The devices that are most recommended: [employer] Plantar Fasciitis Splint Plantar Fasciitis Night Splint by [employer] Night Splint Getting a brand that has various sizes based upon your specific shoe size will also provide a better overall fit than a universal one size fits all device. Also, most of these devices are able to be applied to the left or right foot. It will take some time to be able to wear this device all thru the night without waking up, but remember that any stretch will help the plantar fascia to not be as tight when you wake up in the morning and provide mcfp flexibility to help decrease the chance of this problem recurring. Icing - Place a block of ice on the bottom of the foot where the pain or inflammation is located. This should be done for twenty minutes at a time. This will help reduce the inflammation, which is the cause of the pain. Massage- Massage is also helpful to reduce the formation of thick calcification in the fascia from the repetitive tearing. Massage with a tennis ball or can of food will help to break up these tearing and relieve pain. You can combine the icing and massage by freezing a water bottle and rolling your foot over it. Anti-inflammatory medications- Take Motrin 800mg three times a day with food if instructed by your doctor. Non-steroidal anti-inflammatory product should be taken as directed or the maximum benefit will not be obtained. Do not take these products if you have gastric ulcers. Steroid injections- A small amount of steroid can be injected into the area of inflammation. This is usually mixed or used in combination with a local anesthetic. It may cause a hard nodule at the area of injection. This will be temporary, lasting only a few hours. Long-term benefits are inconsistent. Physical Therapy- Physical Therapy is helpful for plantar fasciitis because it is a dedicated stretching regimen for the calf muscle and fascia. It will also incorporate modalities such as ultrasound and electrical stimulation to help reduce the pain and symptoms in the heel. Immobilization- This is one of the most effective treatments for plantar fasciitis. Immobilization is best done with a cast, but people can get relief with a walking boot if used properly for a total period of immobilization of 6-8 weeks. documented in this encounter [facility] 10-14-2022 Note OPERATIVE NOTE OPERATION DATE: 06/13/2022 PROCEDURE: Bilateral laparoscopic salpingectomy, lysis of adhesions, omental adhesions from the anterior abdominal wall. PREOPERATIVE DIAGNOSIS: Desires permanent sterilization. POSTOPERATIVE DIAGNOSIS: Desire permanent sterilization. ANESTHESIA: General. SURGEON: Ash Santillan D.O. PATCH WORKER: SHAR Rdz URINE OUTPUT: Yellow and clear. BLOOD LOSS: 5 mL. SPECIMENS: Bilateral tubes. PROCEDURE: The patient was taken back to the Operating Room where she was given general anesthesia without difficulty. She was then prepped and draped in the normal sterile fashion after being placed in a dorsal lithotomy position. A wet sponge stick was placed into the patient's vagina. Attention was then turned to the patient's abdomen, where a scalpel was used to make a small infraumbilical incision. The S retractors were then used to dissect the underlying layers until the fascia could be seen. The fascia was then grasped with Kim clamps and tented up. A knife was then used to make a small incision to the fascia. The muscle was identified, at that time two sutures of #0 Vicryl on a GI needle was then used and placed through the fascia. The peritoneum was then identified and entered bluntly. The 10-4 Fredis was then placed into the patient's abdomen. This was confirmed with direct visualization of the bowel, using the laparoscope. The patient's abdomen was then insufflated using approximately 4 liters of CO2 gas. Survey of the patient's abdomen demonstrated ovaries were normal in appearance as well as both tubes and uterus. A second and third rt and lt lateral ports which were 7-8 and 5 mm in size, was then placed after the skin incision was made under direct visualization The patient's tube on the patient's right side was identified and tented up using a grasper, the LigaSure apparatus was then used to come across the mesosalpinx from the fimbriated end to the insertion site at the uterus, the tube was then amputated and removed in its entirety. This was done on the contralateral side. The tubes were the removed from the patient's abdomen. Excellent hemostasis was noted. The lateral ports were then moved under direct visualization with excellent hemostasis. All instruments were removed from the patient's abdomen. The fascia was closed using the #0 Vicryl on GI needle. The skin was closed using 4-0 Vicryl subcuticularly. All instruments were removed from the patient's vagina as well. The patient was taken out of the dorsal lithotomy position and placed in the supine position and taken to recovery in stable condition. Sponge, lap and needle counts were correct x2. [facility] Evaluation note Diagnosis Plantar fasciitis- Primary Plantar fascial fibromatosis Pain of left heel Pain of right heel Pain of both heels documented in this encounter [facility] HealthcareEvaluation note* Diagnosis Plantar fasciitis- Primary Plantar fascial fibromatosis Pain of left heel Pain of right heel documented in this encounter [facility] HealthcareEvaluation note* Diagnosis Plantar fasciitis- Primary Plantar fascial fibromatosis Pain of left heel Pain of right heel documented in this encounter [facility] Healthcare Summary Purpose Family History No Family History Records FoundNo Family History Records Found Advance Directives No Advanced Directives Records FoundNo Advanced Directives Records Found Additional Source Comments INFORMATION SOURCE (unrecogn ized section and content) DATE CREATED AUTHOR 08/07/2022 [facility] DATE CREATED AUTHOR AUTHOR'S ORGANIZ ATION 10/22/2024 [facility] Care Teams (unrecognized sec tion and content) 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 Relationship Specialty Start Date End Date Edison Timmons MD [address] [place] [address] PCP - General Family Medicine 06/27/24 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 Relationship Specialty Start Date End Date Edison Timmons MD [address] [place] [address] PCP - General Family Medicine 06/27/24 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 Relationship Specialty Start Date End Date Edison Timmons MD [address] [place] [address] PCP - General Family Medicine 06/27/24 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 Relationship Specialty Start Date End Date Edison Timmons MD [address] [place] [address] PCP - General Family Medicine 06/27/24 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 This clinical summary was aggregated from multiple sources. Caution should be exercised in using it in the provision of clinical care. This summary normalizes information from multiple sources, and as a consequence, information in this document may materially change the coding, format and clinical context of patient data. In addition, data may be omitted in some cases. CLINICAL DECISIONS SHOULD BE BASED ON THE PRIMARY CLINICAL RECORDS. [employer] provides no warranty or guarantee of the accuracy or completeness of information in this document.
== END 2024-11-17 07:31 | disposition home or self-care (01) ==
LOC: US 07:30
PROVIDERS: PCP Family Medicine; Visit Provider Obstetrics & Gynecology
DX: R10.32 Left lower quadrant pain (principal); R00.2 Palpitations; D64.9 Anemia, unspecified; E03.9 Hypothyroidism, unspecified
CPT/HCPCS: 36415; 76830; 76856; 80053; 83540; 84436; 84443; 84481; 85025

== ENCOUNTER 2024-11-17 10:48 | Outpatient (OUT) | payer OTHER, SELFPAY ==
--- OUTSIDE RECORDS SUMMARY | 2024-11-17 11:13 | XMS_ITS | CCD ---
Author Organization [facility] Care Team Providers Care Reimbursement Consultant Name Role Phone ENRIQUE, DR HOGAN Admitting [...] Unavailable Edison Timmons MD Primary Care Provider [phone] MARLENE MALONEY Attending Unavailable MARLENE MALONEY Attending [...] [facility] Facility US PELVIS W/ TRANSVAGINALon 10-05-[address] [address] Ultrasound Report Signed Patient: TOI ROONEY MR#: [id number] : 1980 Acct:[id number] Age/Sex: 44 / F ADM Date: 10/04/24 Loc: US Attending Dr: Ash Santillan D.O. Ordering Physician: Ash Santillan D.O. Date of Service: 10/04/24 Procedure(s): US pelvis w/ transvaginal Accession Number(s): [id number] cc: Ash Santillan D.O.; Edison Timmons M.D. [place] [address] Patient Name: TOI ROONEY MRN: [facility]:[id number] date: 1980 Sex: F Assigned Patient Location: US Current Patient Location: Accession/Order Number: [id number] Exam Date: 10/04/2024 17:50 Report Date: 10/05/2024 [...] M.D. 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 Ordering Physician: Ash Santillan D.O. Date of Service: 10/04/24 Procedure(s): US pelvis w/ transvaginal Accession Number(s): [id number] cc: Ash Santillan D.O.; Edison Timmons M.D. 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 Radiographs were read by myself and demonstrate: No evidence of acute fracture or dislocation. No coalition noted. Spur formation is noted at the plantar calcaneus [facility] Rad[facility] Study observation (narrative) [facility] XR Calcaneus - right [facility] 06-27-2024 Imaging Result: One views of the right heel: Lateral were performed today in the office. Radiographs were read by myself and demonstrate: No evidence of acute fracture or dislocation. No coalition noted. Spur formation is noted at the plantar calcaneus [facility] Study observation (narrative) [facility] CBC AUTO DIFFon 06-13-2022 BASO # 0.0 103/ul Normal 0.0-0.1 [facility] Comment on above: Performed By: #### C BC #### [facility] [address] [address] [address] Amee Mckeon Basophils/100 WBC (Bld) 0.5 % Normal 0.2-2.0 [facility] Comment on above: Performed By: #### C BC #### [facility] [address] [place] [address] Dr. Amee Mckeon EO # 0.2 103/ul Normal 0.0-0.7 [facility] Comment on above: Performed By: #### C BC #### [facility] [address] [place] [address] Dr. Amee Mckeon Eosinophils/100 WBC (Bld) 1.9 % Normal 0.9-7.0 [facility] Comment on above: Performed By: #### C BC #### [facility] [address] [place] [address] Dr. Amee Mckeon Erythrocyte distribution width (RBC) [Ratio] 11.9 % Normal 11.0-15.0 [facility] Comment on above: Performed By: #### C BC #### [facility] [address] [place] [address] Dr. Amee Mckeon Hematocrit (Bld) [Volume fraction] 43.6 % Normal 36.0-48.0 [facility] Comment on above: Performed By: #### C BC #### [facility] [address] [place] [address] Dr. Amee Mckeon Hemoglobin (Bld) [Mass/Vol] 14.8 g/dL Normal 12.0-16.0 [facility] Comment on above: Performed By: #### C BC #### [facility] [address] [place] [address] Dr. Amee Mckeon IG # 0.03 10e3/ul Normal 0.00-0.03 [facility] Comment on above: Performed By: #### C BC #### [facility] [address] [place] [address] Dr. Amee Mckeon IG % 0.4 % Normal 0.0-0.5 [facility] Comment on above: Performed By: #### C BC #### [facility] [address] [place] [address] Dr. Amee Mckeon LYMPH # 2.5 103/ul Normal 1.2-3.8 [facility] Comment on above: Performed By: #### C BC #### [facility] [address] [place] [address] Dr. Amee Mckeon Lymphocytes/100 WBC (Bld) 31.4 % Normal 20.5-60.0 [facility] Comment on above: Performed By: #### C BC #### [facility] [address] [place] [address] Dr. Amee Mckeon MANUAL DIFF REQ NO Normal [facility] Comment on above: Performed By: #### C BC #### [facility] [address] [place] [address] Dr. Amee Mckeon MCH (RBC) [Entitic mass] 31.6 pg Normal 26.7-34.0 [facility] Comment on above: Performed By: #### C BC #### [facility] [address] [place] [address] Dr. Amee Mckeon MCHC (RBC) [Mass/Vol] 33.9 g/dL Normal 29.9-35.2 [facility] Comment on above: Performed By: #### C BC #### [facility] [address] [place] [address] Dr. Amee Mckeon MCV (RBC) [Entitic vol] 93.2 fL Normal 81.0-99.0 [facility] Comment on above: Performed By: #### C BC #### [facility] [address] [place] [address] Dr. Amee Mckeon MONO # 0.5 103/ul Normal 0.3-0.8 [facility] Comment on above: Performed By: #### C BC #### [facility] [address] [place] [address] Dr. Amee Mckeon Monocytes/100 WBC (Bld) 6.8 % Normal 1.7-12.0 [facility] Comment on above: Performed By: #### C BC #### [facility] [address] [place] [address] Dr. Amee Mckeon NEUT # 4.7 103/ul Normal 1.4-6.5 [facility] Comment on above: Performed By: #### C BC #### [facility] [address] [place] [address] Dr. Amee Mckeon Neutrophils/100 WBC (Bld) 59.0 % Normal 43.0-75.0 [facility] Comment on above: Performed By: #### C BC #### [facility] [address] [place] [address] Dr. Amee Mckeon Platelet mean volume (Bld) [Entitic vol] 9.6 fL Normal 9.5-13.5 [facility] Comment on above: Performed By: #### C BC #### [facility] [address] [place] [address] Dr. Amee Mckeon PLT 289 103/ul Normal 150-450 [facility] Comment on above: Performed By: #### C BC #### [facility] [address] [place] [address] Dr. Amee Mckeon RBC 4.68 106/ul Normal 4.20-5.40 [facility] Comment on above: Performed By: #### C BC #### [facility] [address] [place] [address] Dr. Amee Mckeon WBC 7.9 103/ul Normal 4.0-11.0 [facility] Comment on above: Performed By: #### C BC #### [facility] [address] [place] [address] Dr. Amee Mckeon PREG HCG QUALon 06-13-2022 , QUAL Negative Normal NEGATIVE [facility] Comment on above: Performed By: #### P REG #### [facility] [address] [place] [address] Dr. Amee Mckeon Covid-19 PCR (CVDTBH)on 05-31 SARS-CoV-2 (COVID-19) RNA ADOLPH+probe Ql (Unsp spec) Not detected Normal NOT DETECTED [facility] Comment on above: Result Comment: This test is not yet approved or cleared by the [place] FDA. When there are no FDA-approved or cleared tests available, and other criteria are met, FDA can make tests available under an emergency access mechanism called an Emergency Use Authorization (EUA). The EUA for this test is supported by the [place] of Health and Human Service's (HHS's) declaration [...] SARS-CoV-2. Performed By: #### C VDTB #### [facility] [address] [place] [address] [facility] CBC AUTO DIFFon 04-17-2022 BASO # 0.0 103/ul Normal 0.0-0.1 [facility] Comment on above: Performed By: #### H FPFCBC #### [facility] [address] [place] [address] Dr. Amee Mckeon Basophils/100 WBC (Bld) 0.3 % Normal 0.2-2.0 [facility] Comment on above: Performed By: #### H FPFCBC #### [facility] [address] [place] [address] Dr. Amee Mckeon EO # 0.1 103/ul Normal 0.0-0.7 [facility] Comment on above: Performed By: #### H FPFCBC #### [facility] [address] [place] [address] Dr. Amee Mckeon Eosinophils/100 WBC (Bld) 1.5 % Normal 0.9-7.0 [facility] Comment on above: Performed By: #### H FPFCBC #### [facility] [address] [place] [address] Dr. Amee Mckeon Erythrocyte distribution width (RBC) [Ratio] 12.5 % Normal 11.0-15.0 [facility] Comment on above: Performed By: #### H FPFCBC #### [facility] [address] [place] [address] Dr. Amee Mckeon Hematocrit (Bld) [Volume fraction] 41.6 % Normal 36.0-48.0 [facility] Comment on above: Performed By: #### H FPFCBC #### [facility] [address] [place] [address] Dr. Amee Mckeon Hemoglobin (Bld) [Mass/Vol] 14.1 g/dL Normal 12.0-16.0 [facility] Comment on above: Performed By: #### H FPFCBC #### [facility] [address] [place] [address] Dr. Amee Mckeon IG # 0.03 10e3/ul Normal 0.00-0.03 [facility] Comment on above: Performed By: #### H FPFCBC #### [facility] [address] [place] [address] Dr. Amee Mckeon IG % 0.3 % Normal 0.0-0.5 [facility] Comment on above: Performed By: #### H FPFCBC #### [facility] [address] [place] [address] Dr. Amee Mckeon LYMPH # 2.2 103/ul Normal 1.2-3.8 [facility] Comment on above: Performed By: #### H FPFCBC #### [facility] [address] [place] [address] Dr. Amee Mckeon Lymphocytes/100 WBC (Bld) 25.3 % Normal 20.5-60.0 [facility] Comment on above: Performed By: #### H FPFCBC #### [facility] [address] [place] [address] Dr. Amee Mckeon MCH (RBC) [Entitic mass] 31.3 pg Normal 26.7-34.0 [facility] Comment on above: Performed By: #### H FPFCBC #### [facility] [address] [place] [address] Dr. Amee Mckeon MCHC (RBC) [Mass/Vol] 33.9 g/dL Normal 29.9-35.2 [facility] Comment on above: Performed By: #### H FPFCBC #### [facility] [address] [place] [address] Dr. Amee Mckeon MCV (RBC) [Entitic vol] 92.4 fL Normal 81.0-99.0 [facility] Comment on above: Performed By: #### H FPFCBC #### [facility] [address] [place] [address] Dr. Amee Mckeon MONO # 0.5 103/ul Normal 0.3-0.8 [facility] Comment on above: Performed By: #### H FPFCBC #### [facility] [address] [place] [address] Dr. Amee Mckeon Monocytes/100 WBC (Bld) 5.5 % Normal 1.7-12.0 [facility] Comment on above: Performed By: #### H FPFCBC #### [facility] [address] [place] [address] Dr. Amee Mckeon NEUT # 5.8 103/ul Normal 1.4-6.5 [facility] Comment on above: Performed By: #### H FPFCBC #### [facility] [address] [place] [address] Dr. Amee Mckeon Neutrophils/100 WBC (Bld) 67.1 % Normal 43.0-75.0 [facility] Comment on above: Performed By: #### H FPFCBC #### [facility] [address] [place] [address] Dr. Amee Mckeon Platelet mean volume (Bld) [Entitic vol] 10.2 fL Normal 9.5-13.5 [facility] Comment on above: Performed By: #### H FPFCBC #### [facility] [address] [place] [address] Dr. Amee Mckeon PLT 278 103/ul Normal 150-450 [facility] Comment on above: Performed By: #### H FPFCBC #### [facility] [address] [place] [address] Dr. Amee Mckeon RBC 4.50 106/ul Normal 4.20-5.40 [facility] Comment on above: Performed By: #### H FPFCBC #### [facility] [address] [place] [address] Dr. Amee Mckeon WBC 8.6 103/ul Normal 4.0-11.0 [facility] Comment on above: Performed By: #### H FPFCBC #### [facility] [address] [place] [address] Dr. Amee Mckeon [facility] PROFILEon 022 Albumin [Mass/Vol] 3.8 g/dL Normal 3.4-5.0 [facility] Comment on above: Performed By: #### H FPF #### [facility] [address] [place] [address] Dr. Amee Mckeon Albumin/Globulin [Mass ratio] 1.1 {ratio} Normal [facility] Comment on above: Performed By: #### H FPF #### [facility] [address] [place] [address] Dr. Amee Mckeon ALP [Catalytic activity/Vol] 50 U/L Normal 46-116 [facility] Comment on above: Performed By: #### H FPF #### [facility] [address] [place] [address] Dr. Amee Mckeon ALT [Catalytic activity/Vol] 31 U/L Normal 14-59 [facility] Comment on above: Performed By: #### H FPF #### [facility] [address] [place] [address] Dr. Amee Mckeon AST [Catalytic activity/Vol] 15 U/L Normal 15-37 [facility] Comment on above: Performed By: #### H FPF #### [facility] [address] [place] [address] Dr. Amee Mckeon Bilirubin [Mass/Vol] 0.6 mg/dL Normal 0.2-1.0 [facility] Comment on above: Performed By: #### H FPF #### [facility] [address] [place] [address] Dr. Amee Mckeon Calcium [Mass/Vol] 8.8 mg/dL Normal 8.5-10.1 [facility] Comment on above: Performed By: #### H FPF #### [facility] [address] [address] [address] Amee Mckeon Chloride [Moles/Vol] 104 mmol/L Normal 98-107 [facility] Comment on above: Performed By: #### H FPF #### [facility] [address] [address] [address] Amee Mckeon CHOL-HDL RATIO NORM SEE BELOW Normal [facility] Comment on above: Result Comment: 3.3 - 4.4 LOW RISK 4.4 - 7.1 AVERAGE RISK 7.1 - 11.0 MODERATE RISK >11.0 HIGH RISK Performed By: #### H FPF #### [facility] [address] [address] [address] Amee Mckeon Cholesterol [Mass/Vol] 216 mg/dL Critically high <=200 [facility] Comment on above: Performed By: #### H FPF #### [facility] [address] [address] [address] Amee Mckeon Cholesterol in HDL [Mass/Vol] 51 mg/dL Normal 40-60 [facility] Comment on above: Performed By: #### H FPF #### [facility] [address] [address] [address] Amee Mckeon Cholesterol in LDL [Mass/Vol] 141.6 mg/dL Normal [facility] Comment on above: Performed By: #### H FPF #### [facility] [address] [address] [address] Amee Mckeon Cholesterol.total/[place] sterol in HDL [Mass ratio] 4.2 {ratio} Normal [facility] Comment on above: Performed By: #### H FPF #### [facility] [address] [address] [address] Amee Mckeon CO2 [Moles/Vol] 26.1 mmol/L Normal 21.0-32.0 [facility] Comment on above: Performed By: #### H FPF #### [facility] [address] [address] [address] Amee Mckeon Creatinine [Mass/Vol] 0.75 mg/dL Normal 0.55-1.02 [facility] Comment on above: Performed By: #### H FPF #### [facility] [address] [address] [address] Amee Mckeon Globulin (S) [Mass/Vol] 3.4 g/dL Normal [facility] Comment on above: Performed By: #### H FPF #### [facility] [address] [address] [address] Amee Mckeon Glucose [Mass/Vol] 94 mg/dL Normal 74-106 [facility] Comment on above: Performed By: #### H FPF #### [facility] [address] [address] [address] Amee Mckeon HDL NORMAL > or = 60 mg/dl - LOW CARDIOVASCULAR RISK <40 mg/dl - HIGH CARDIOVASCULAR RISK Normal [facility] Comment on above: Performed By: #### H FPF #### [facility] [address] [place] [address] Dr. Amee Mckeon LDL CALC NORMAL SEE BELOW Normal [facility] Comment on above: Result Comment: <100 mg/dl OPTIMAL 100 - 129 mg/dl NEAR OR ABOVE OPTIMAL 130 - 159 mg/dl BORDERLINE HIGH 160 - 189 mg/dl HIGH >190 mg/dl VERY HIGH Performed By: #### H FPF #### [facility] [address] [place] [address] Dr. Amee Mckeon Potassium [Moles/Vol] 3.7 mmol/L Normal 3.5-5.1 [facility] Comment on above: Performed By: #### H FPF #### [facility] [address] [address] [address] Amee Mckeon Protein [Mass/Vol] 7.2 g/dL Normal 6.4-8.2 [facility] Comment on above: Performed By: #### H FPF #### [facility] [address] [place] [address] Dr. Amee Mckeon Sodium [Moles/Vol] 137 mmol/L Normal 136-145 [facility] Comment on above: Performed By: #### H FPF #### [facility] [address] [address] [address] Amee Mckeon Triglyceride [Mass/Vol] 117 mg/dL Normal <=150 [facility] Comment on above: Performed By: #### H FPF #### [facility] [address] [address] [address] Amee Mckeon TSH 1.647 uIU/mL Normal 0.358-3.740 [facility] Comment on above: Performed By: #### H FPF #### [facility] [address] [place] [address] Dr. Amee Mckeon Urea nitrogen [Mass/Vol] 18.0 mg/dL Normal 7.0-18.0 [facility] Comment on above: Performed By: #### H FPF #### [facility] [address] [place] [address] Dr. Amee Mckeon Urea nitrogen/Creatinine [Mass ratio] 24.0 mg/mg Normal [facility] Comment on above: Performed By: #### H FPF #### [facility] [address] [place] [address] Dr. Amee Mckeon VLDL CALC 23.4 mg/dL [facility] Comment on above: Performed By: #### H FPF #### [facility] [address] [place] [address] Dr. Amee Mckeon PAP ACOG PANEL 2: 30 to 65on 03-26-2022 . . Normal [facility] Comment on above: Result Comment: Perf ormed at: WB Performed By: #### [id number] #### [facility] [address] [place] [address] Dr. Amee Mckeon Age Gdln ACOG Testing 30-65 [facility] Comment on above: Performed By: #### [id number] #### [facility] [address] [place] [address] Dr. Amee Mckeon DIAGNOSIS: Comment Normal [facility] Comment on above: Result Comment: NEGA TIVE FOR INTRAEPITHELIAL LESION OR MALIGNANCY. Performed at: WB Performed By: #### [id number] #### [facility] [address] [place] [address] Dr. Amee Mckeon HPV Aptima Negative Normal Negative [facility] Comment on above: Result Comment: This nucleic acid amplification test detects fourteen high-risk HPV types (16,18,31,33,35,39,45,51,52,56,58,59,66,68) without differentiation. Performed at: =G Performed By: #### [id number] #### [facility] [address] [place] [address] Dr. Amee Mckeon Methodology: Comment Normal [facility] Comment on above: Result Comment: This liquid based ThinPrep(R) pap test was screened with the use of an image guided system. Performed at: WB Performed By: #### [id number] #### [facility] [address] [place] [address] Dr. Amee Mckeon Note: Comment Normal [facility] Comment on above: Result Comment: The Pap smear is a screening test designed to aid in the detection of premalignant and malignant conditions of the uterine cervix. It is not a diagnostic procedure and should not be used as the sole means of detecting cervical cancer. Both false-positive and false-negative reports do occur. . Performed at: WB Performed By: #### [id number] #### [facility] [address] [place] [address] Dr. Amee Mckeon Performed by: Comment Normal [facility] Comment on above: Result Comment: Lourdes Farrell Rotary Drill Operator (ASCP) Performed at: WB Performed By: #### [id number] #### [facility] [address] [place] [address] Dr. Amee Mckeon Specimen adequacy: Comment Normal [facility] Comment on above: Result Comment: Sati sfactory for evaluation. No endocervical component is identified. Performed at: WB Performed By: #### [id number] #### [facility] [address] [place] [address] Dr. Amee Mckeon Encounters Encounter Date Encounter Type Care Provider Facility Start: 10-20-2024 End: 10-20-2024 Bamboo flowsheet Marlene Maloney DPM Work Phone: [facility] Start: 10-20-2024 End: 10-20-2024 Bamboo flowsheet Marlene Maloney DPM Work Phone: [facility] Start: 10-20-2024 End: 10-20-2024 Office outpatient visit 15 minutes Marlene Maloney DPM Work Phone: [facility] Comment on above: Plantar fasciitis (P rimary Dx); Pain of left heel; Pain of right heel Start: 10-20-2024 End: 10-20-2024 ambulatory MARLENE MALONEY Not Available Start: 10-05-2024 End: 10-05-2024 [facility] Result Encounter Ash Tyrell DO Work Phone: [facility] External Department Unsolicited Start: 10-05-2024 End: 10-05-2024 [facility] Result Encounter Ash Tyrell DO Work Phone: [facility] External Department Unsolicited Start: 09-07-2024 End: 09-07-2024 Bamboo flowsheet Marlene Maloney DPM Work Phone: [facility] Start: 09-07-2024 End: 09-07-2024 Bamboo flowsheet Marlene Strickland Maloney DPM Work Phone: [facility] Start: 09-07-2024 End: 09-07-2024 ambulatory MARLENE MALONEY Not Available Start: 09-07-2024 End: 09-07-2024 Office outpatient visit 15 minutes Marlene Maloney DPM Work Phone: [facility] Comment on above: Plantar fasciitis (P rimary Dx); Pain of left heel; Pain of right heel Start: 07-26-2024 End: 07-26-2024 Bamboo flowsheet Marlene Strickland Maloney DPM Work Phone: [facility] Start: 07-26-2024 End: 07-26-2024 Bamboo flowsheet Marlene Strickland Maloney DPM Work Phone: [facility] Start: 07-26-2024 End: 07-26-2024 ambulatory MARLENE MALONEY Not Available Start: 07-26-2024 End: 07-26-2024 Office outpatient visit 15 minutes Marlene Maloney DPM Work Phone: [facility] Comment on above: Plantar fasciitis (P rimary Dx); Pain of left heel; Pain of right heel Start: 06-27-2024 End: 06-27-2024 Bamboo flowsheet Marlene Maloney DPM Work Phone: [facility] Start: 06-27-2024 End: 06-27-2024 Bamboo flowsheet Marlene Maloney DPM Work Phone: [facility] Start: 06-27-2024 End: 06-27-2024 Telephone encounter Marlene Maloney DPM Work Phone: [facility] Comment on above: script check Start: 06-27-2024 End: 06-27-2024 ambulatory MARLENE MALONEY Not Available Start: 06-27-2024 End: 06-27-2024 Office outpatient new 30 minutes Marlene Maloney DPM Work Phone: [facility] Comment on above: Plantar fasciitis (P rimary Dx); Pain of left heel; Pain of right heel; Pain of both heels Start: 06-13-2022 End: 06-13-[address] ASH SANTILLAN Facility:[facility] Start: 06-12-2022 Encounter for preprocedural laboratory examination DR ASH SANTILLAN [facility] Start: 06-10-2022 End: 06-11-[address] ASH SANTILLAN Facility:[facility] Start: 06-10-2022 End: 06-11-2022 Encounter for preprocedural laboratory examination DR ASH SANTILLAN Facility:[facility] Start: 06-06-2022 Encounter for other preprocedural examination DR ASH SANTILLAN [facility] Start: 06-04-2022 End: 06-05-[address] [...] [address] [place] [id number] Marlene Maloney, DPM [address] [place] [address] [facility] Start: 10-20-2024 End: 10-20-2024 Patient encounter procedure 10/20/2024 11:00 AM EST Office Visit [facility] [address] [place] [address] Marlene Maloney, DPM [address] [place] [address] Arrived [facility] [facility]ATRY Comment on above: Arrived Start: 09-07-2024 End: 09-07-2024 Patient encounter procedure 09/07/2024 1:45 PM EST Office Visit [facility] [address] [place] [phone] Marlene Maloney, DPM [address] [place] [address] [facility] Start: 07-26-2024 End: 07-26-2024 Patient encounter procedure 07/26/2024 1:45 PM EST Office Visit [facility] [address] [place] [phone] Marlene Maloney, DPM [address] [place] [address] [facility] Payers Date Payer Category Payer Medicaid [id number] 2019 Private Health Insurance [id number] 1982 Unknown [id number] 2.16.84 [id number] 1982 Unknown [id number] 2.16.84 [id number] 1982 Unknown [id number] 2.16.84 [id number] 1982 Unknown [id number] 2.16.84 [id number] 1982 Unknown [id number] 2.16.84 [id number] 1982 Unknown [id number] 2.16.84 [id number] 1982 Unknown [id number] 2.16.84 [id number] 1982 Unknown [id number] 2.16.84 [id number] 1959 Self-pay [id number] 1959 Unknown [id number] 1959 Unknown [id number] Unknown [id number] 2.16.84 [id number] Social History Date Type Detail Facility Tobacco smoking stat [facility] Tobacco smoking consumption unknown [facility] Start: 1980 Sex assigned at Not on file [facility] Start: 07-26-2024 End: 10-20-2024 Gender identity Not on file [facility] Start: 07-26-2024 Tobacco smoking stat [facility] Ex-smoker [facility] History of tobacco use Current smoker [facility] History of tobacco use Cigarette Smoker [facility] Start: 07-26-2024 Tobacco use and exposure Smokeless t obacco non-user [facility] Start: 07-26-2024 End: 10-20-2024 History of Social function [facility] Clinical Notes 06-13-2022 to 10-20-2024 Marlene [...] RTC: 4-6 weeks. documented in this encounter [facility] 09-07-2024 History of Presen t illness Narrative [...] other conservative measures including supportive shoes and vpwz-yuu-ubyzeig inserts or custom inserts as applicable. We did discuss that there is a slight possibility of recurrence of the heel pain but to be very vigilant about continuing with the stretching exercises especially if they notice any recurrent symptoms. Patient should follow up as needed if they have any worsening pain or symptoms to the heel. documented in this encounter [facility] 07-26-2024 History of Presen t illness Narrative [...] RTC: 4-6 weeks. documented in this encounter [facility] 06-27-2024 Telephone encount er Note Rx was sent to [facility] in [place]. [facility] 06-27-2024 Miscellaneous Notes Formattin g of this note might be different from the original. Rx was sent to [facility] in [place]. Pt called to check in on script, and to change her preferred pharmacy to the [facility] in [place]. documented in this encounter [facility] 06-27-2024 Telephone encount er Note Pt called to check in on script, and to change her preferred pharmacy to the [facility] in [place]. [facility] 06-27-2024 History of Presen t illness Narrative [...] therapy if needed. documented in this encounter [facility] 06-27-2024 Instructions Marlene Maloney DPM - 06/27/2024 [...] foot and heel over the water bottle. Krrk-mkv-ibfngpx (OTC) arch supports: Spenco, Powerstep, UCOs Continued [...] get them is at an online supplier. [employer] offers many options for night splints. There [...] wake up in the morning and provide penitentiary flexibility to help decrease the chance of [...] of 6-8 weeks. documented in this encounter [facility] 10-14-2022 Note OPERATIVE NOTE OPERATION DATE: 06/13/2022 PROCEDURE: Bilateral laparoscopic salpingectomy, lysis of adhesions, omental adhesions from the anterior abdominal wall. PREOPERATIVE DIAGNOSIS: Desires permanent sterilization. POSTOPERATIVE DIAGNOSIS: Desire permanent sterilization. ANESTHESIA: General. SURGEON: sAh Santillan D.O. SHINGLE CATCHER: SHAR Rdz URINE OUTPUT: Yellow and clear. [...] and needle counts were correct x2. [facility] Evaluation note Diagnosis Plantar fasciitis- Primary Plantar fascial fibromatosis Pain of left heel Pain of right heel Pain of both heels documented in this encounter [facility] Diagnosis Plantar fasciitis- Primary Plantar fascial fibromatosis Pain of left heel Pain of right heel documented in this encounter [facility] Diagnosis Plantar fasciitis- Primary Plantar fascial fibromatosis Pain of left heel Pain of right heel documented in this encounter [facility] Summary Purpose Family History No Family History Records FoundNo Family History Records Found Advance Directives No Advanced Directives Records FoundNo Advanced Directives Records Found Additional Source Comments INFORMATION SOURCE (unrecogn ized section and content) DATE CREATED AUTHOR 08/07/2022 [facility] DATE CREATED AUTHOR AUTHOR'S ORGANIZ ATION 10/22/2024 [facility] Care Teams (unrecognized sec tion and content) Reimbursement Consultant Relationship Specialty Start Date End Date Edison Timmons MD [address] [place] [address] PCP - General Family Medicine 06/27/24 Reimbursement Consultant Relationship Specialty Start Date End Date Edison Timmons MD [address] [place] [address] PCP - General Family Medicine 06/27/24 Reimbursement Consultant Relationship Specialty Start Date End Date Edison Timmons MD [address] [place] [address] PCP - General Family Medicine 06/27/24 Reimbursement Consultant Relationship Specialty Start Date End Date Edison Timmons MD [address] [place] [address] PCP - General Family Medicine 06/27/24 Reimbursement Consultant Relationship Specialty Start Date End Date Edison Timmons MD [address] [place] [address] PCP - General Family Medicine 06/27/24 Reimbursement Consultant Relationship Specialty Start Date End Date Edison Timmons MD [address] [place] [phone] PCP - General Family Medicine 06/27/24 Reason [...] BE BASED ON THE PRIMARY CLINICAL RECORDS. [employer] provides no warranty or guarantee of the accuracy or completeness of information in this document.
[2024-11-17 11:30] LABS: Basophils Percent Auto 0.4 % (0.2-2.0); Eosinophils Absolute Auto 0.1 10^3/uL (0.0-0.7); Hematocrit 44.3 % (36.0-48.0); Hemoglobin 15.3 g/dL (12.0-16.0); Immature Granulocytes Abs Auto 0.02 10^3/uL (0.00-0.03); Immature Granulocytes Pct Auto 0.2 % (0.0-0.5); Lymphocytes Absolute Auto 2.1 10^3/uL (1.2-3.8); Lymphocytes Percent Auto 22.2 % (20.5-60.0); Mean Corpuscular HGB Conc 34.5 g/dL (29.9-35.2); Mean Corpuscular Hemoglobin 32.1 pg (26.7-34.0); Mean Corpuscular Volume 93.1 fL (81.0-99.0); Mean Platelet Volume 9.9 fL (9.5-13.5); Monocytes Absolute Auto 0.5 10^3/uL (0.3-0.8); Neutrophils Absolute Auto 6.7 10^3/uL (1.4-6.5); Neutrophils Percent Auto 71.2 % (43.0-75.0); Platelet Count 287 10^3/uL (150-450); Red Blood Count 4.76 10^6/uL (4.20-5.40); Red Cell Distribution Width 11.8 % (11.0-15.0); White Blood Count 9.4 10^3/uL (4.0-11.0)
[2024-11-17 12:06] LABS: Alanine Aminotransferase 34 U/L (14-59); Albumin Globulin Ratio 1.2; Albumin Level 4.1 g/dL (3.4-5.0); Alkaline Phosphatase 61 U/L (46-116); Anion Gap 8.6; Aspartate Amino Transferase 21 U/L (15-37); BUN Creatinine Ratio 16.9; Bilirubin Total 0.6 mg/dL (0.2-1.0); Calcium 9.3 mg/dL (8.5-10.1); Carbon Dioxide 32.3 mmol/L (21.0-32.0); Chloride 105 mmol/L (98-107); Estimated GFR (African America >60 (>=60 mL/min/1.73m^2); Estimated GFR (Non-African Ame >60 (>=60 mL/min/1.73m^2); Free T3 2.59 pg/mL (2.18-3.98); Globulin 3.4 g/dL; Glucose 97 mg/dL (74-106); Potassium 3.9 mmol/L (3.5-5.1); Sodium 142 mmol/L (136-145); Thyroid Stimulating Hormone 1.604 uIU/mL (0.358-3.740); Total Protein 7.5 g/dL (6.4-8.2)
== END 2024-11-17 10:49 | disposition home or self-care (01) ==
LOC: LAB 10:51
PROVIDERS: PCP Family Medicine; Visit Provider Family Medicine
DX: R00.2 Palpitations (principal); D64.9 Anemia, unspecified
CPT/HCPCS: 36415; 80053; 83540; 84436; 84443; 84481; 85025

== ENCOUNTER 2024-11-21 07:54 | Outpatient (OUT) | payer OTHER, SELFPAY ==
--- OUTSIDE RECORDS SUMMARY | 2024-11-21 08:05 | XMS_ITS | CCD ---
Author Organization [facility] Care Team Providers Care Mold Carpenter Name Role Phone ENRIQUE, DR HOGAN Admitting [...] Unavailable Edison Timmons MD Primary Care Provider [phone] MARLENE MALONEY Attending Unavailable MARLEEN MALONEY Attending Unavailable MARLENE MALONEY Attending Unavailable [...] [facility] Facility US PELVIS W/ TRANSVAGINALon 10-05-[address] [address] Ultrasound Report Signed Patient: TOI ROONEY MR#: [id number] : 1980 Acct:[id number] Age/Sex: 44 / F ADM Date: 10/04/24 Loc: US Attending Dr: Ash Santillan D.O. Ordering Physician: Ash Santillan D.O. Date of Service: 10/04/24 Procedure(s): US pelvis w/ transvaginal Accession Number(s): [id number] cc: Ash Santillan D.O.; Edison Timmons M.D. [place] [address] Patient Name: TOI ROONEY MRN: [facility]:[id number] date: 1980 Sex: F Assigned Patient Location: US Current Patient Location: Accession/Order Number: [id number] Exam Date: 10/04/2024 17:50 Report Date: 10/05/2024 [...] M.D. Signed By: 10/05/24 0746 DD/ TD/TT: Automobile Rental Representative: [facility] Radiology, Radiologist, MD - 10/05/2024 [place] [address] Ultrasound Report Signed Patient: TOI ROONEY MR#: [id number] : 1980 Acct:[id number] Age/Sex: 44 / F ADM Date: 10/04/24 Loc: US Attending Dr: Ash Santillan D.O. Ordering Physician: Ash Santillan D.O. Date of Service: 10/04/24 Procedure(s): US pelvis w/ transvaginal Accession Number(s): [id number] cc: Ash Santillan D.O.; Edison Timmons M.D. The [place] [id number] Patient Name: TOI ROONEY MRN: [facility]:[id number] date: 1980 Sex: F Assigned Patient Location: Current Patient Location: Accession/Order Number: [id number] Exam Date: 10/04/2024 17:50 Report Date: 10/05/2024 [...] Signed By: 10/05/24 0746 DD/ 0743 TD/TT: Automobile Rental Representative: [facility] Radiology Study observation (narrative) [facility] US PELVIS W/ TRANSVAGINALOrd ered By: Radiologist Radiology on 10-05-2024 [facility] Work Phone: XR Calcaneus - left [facility] 06-27-2024 Imaging Result: One views of the left heel: Lateral were performed today in the office. Radiographs were read by myself and demonstrate: No evidence of acute fracture or dislocation. No coalition noted. Spur formation is noted at the plantar calcaneus [facility] Radiology Study observation (narrative) [facility] XR Calcaneus - right [facility] 06-27-2024 Imaging Result: One views of the right heel: Lateral were performed today in the office. Radiographs were read by myself and demonstrate: No evidence of acute fracture or dislocation. No coalition noted. Spur formation is noted at the plantar calcaneus [facility] Radiology Study observation (narrative) [facility] CBC AUTO DIFFon 06-13-2022 BASO # 0.0 103/ul Normal 0.0-0.1 [facility] Comment on above: Performed By: #### C BC #### [facility] [address] [address] [address] Amee Mckeon Basophils/100 WBC (Bld) 0.5 % Normal 0.2-2.0 [facility] Comment on above: Performed By: #### C BC #### [facility] [address] [place] [address] Dr. Amee Mckeon EO # 0.2 103/ul Normal 0.0-0.7 [facility] Comment on above: Performed By: #### C BC #### [facility] [address] [place] [address] Dr. Amee Mckeon Eosinophils/100 WBC (Bld) 1.9 % Normal 0.9-7.0 [facility] Comment on above: Performed By: #### C BC #### [facility] [address] [place] [address] Dr. Amee Mckeon Erythrocyte distribution width (RBC) [Ratio] 11.9 % Normal 11.0-15.0 [facility] Comment on above: Performed By: #### C BC #### [facility] [address] [place] [address] Dr. Amee Mckeon Hematocrit (Bld) [Volume fraction] 43.6 % Normal 36.0-48.0 [facility] Comment on above: Performed By: #### C BC #### [facility] [address] [place] [address] Dr. Amee Mckeon Hemoglobin (Bld) [Mass/Vol] 14.8 g/dL Normal 12.0-16.0 [facility] Comment on above: Performed By: #### C BC #### [facility] [address] [place] [address] Dr. Amee Mckeon IG # 0.03 10e3/ul Normal 0.00-0.03 [facility] Comment on above: Performed By: #### C BC #### [facility] [address] [place] [address] Dr. Amee Mckeon IG % 0.4 % Normal 0.0-0.5 [facility] Comment on above: Performed By: #### C BC #### [facility] [address] [place] [address] Dr. Amee Mckeon LYMPH # 2.5 103/ul Normal 1.2-3.8 [facility] Comment on above: Performed By: #### C BC #### [facility] [address] [place] [address] Dr. Amee Mckeon Lymphocytes/100 WBC (Bld) 31.4 % Normal 20.5-60.0 [facility] Comment on above: Performed By: #### C BC #### [facility] [address] [place] [address] Dr. Amee Mckeon MANUAL DIFF REQ NO Normal [facility] Comment on above: Performed By: #### C BC #### [facility] [address] [place] [address] Dr. Amee Mckeon MCH (RBC) [Entitic mass] 31.6 pg Normal 26.7-34.0 [facility] Comment on above: Performed By: #### C BC #### [facility] [address] [place] [address] Dr. Amee Mckeon MCHC (RBC) [Mass/Vol] 33.9 g/dL Normal 29.9-35.2 [facility] Comment on above: Performed By: #### C BC #### [facility] [address] [place] [address] Dr. Amee Mckeon MCV (RBC) [Entitic vol] 93.2 fL Normal 81.0-99.0 [facility] Comment on above: Performed By: #### C BC #### [facility] [address] [place] [address] Dr. Amee Mckeon MONO # 0.5 103/ul Normal 0.3-0.8 [facility] Comment on above: Performed By: #### C BC #### [facility] [address] [place] [address] Dr. Amee Mckeon Monocytes/100 WBC (Bld) 6.8 % Normal 1.7-12.0 [facility] Comment on above: Performed By: #### C BC #### [facility] [address] [place] [address] Dr. Amee Mckeon NEUT # 4.7 103/ul Normal 1.4-6.5 [facility] Comment on above: Performed By: #### C BC #### [facility] [address] [place] [address] Dr. Amee Mckeon Neutrophils/100 WBC (Bld) 59.0 % Normal 43.0-75.0 [facility] Comment on above: Performed By: #### C BC #### [facility] [address] [place] [address] Dr. Amee Mckeon Platelet mean volume (Bld) [Entitic vol] 9.6 fL Normal 9.5-13.5 [facility] Comment on above: Performed By: #### C BC #### [facility] [address] [place] [address] Dr. Amee Mckeon PLT 289 103/ul Normal 150-450 [facility] Comment on above: Performed By: #### C BC #### [facility] [address] [place] [address] Dr. Amee Mckeon RBC 4.68 106/ul Normal 4.20-5.40 [facility] Comment on above: Performed By: #### C BC #### [facility] [address] [place] [address] Dr. Amee Mckeon WBC 7.9 103/ul Normal 4.0-11.0 [facility] Comment on above: Performed By: #### C BC #### [facility] [address] [place] [address] Dr. Amee Mckeon PREG HCG QUALon 06-13-2022 , QUAL Negative Normal NEGATIVE [facility] Comment on above: Performed By: #### P REG #### [facility] [address] [place] [address] Dr. Amee Mckeon Covid-19 PCR (CVDTBH)on 05-31 SARS-CoV-2 (COVID-19) RNA ADOLPH+probe Ql (Unsp spec) Not detected Normal NOT DETECTED [facility] Comment on above: Result Comment: This test is not yet approved or cleared by the [place] FDA. When there are no FDA-approved or cleared tests available, and other criteria are met, FDA can make tests available under an emergency access mechanism called an Emergency Use Authorization (EUA). The EUA for this test is supported by the [place] of Health and Human Service's (HHS's) declaration [...] SARS-CoV-2. Performed By: #### C VDTB #### [facility] [address] [place] [address] Dr. Amee Mckeon [facility] CBC AUTO DIFFon 04-17-2022 BASO # 0.0 103/ul Normal 0.0-0.1 [facility] Comment on above: Performed By: #### H FPFCBC #### [facility] [address] [place] [address] Dr. Amee Mckeon Basophils/100 WBC (Bld) 0.3 % Normal 0.2-2.0 [facility] Comment on above: Performed By: #### H FPFCBC #### [facility] [address] [place] [address] Dr. Amee Mckeon EO # 0.1 103/ul Normal 0.0-0.7 [facility] Comment on above: Performed By: #### H FPFCBC #### [facility] [address] [place] [address] Dr. Amee Mckeon Eosinophils/100 WBC (Bld) 1.5 % Normal 0.9-7.0 [facility] Comment on above: Performed By: #### H FPFCBC #### [facility] [address] [place] [address] Dr. Amee Mckeon Erythrocyte distribution width (RBC) [Ratio] 12.5 % Normal 11.0-15.0 [facility] Comment on above: Performed By: #### H FPFCBC #### [facility] [address] [place] [address] Dr. Amee Mckeon Hematocrit (Bld) [Volume fraction] 41.6 % Normal 36.0-48.0 [facility] Comment on above: Performed By: #### H FPFCBC #### [facility] [address] [place] [address] Dr. Amee Mckeon Hemoglobin (Bld) [Mass/Vol] 14.1 g/dL Normal 12.0-16.0 [facility] Comment on above: Performed By: #### H FPFCBC #### [facility] [address] [place] [address] Dr. Amee Mckeon IG # 0.03 10e3/ul Normal 0.00-0.03 [facility] Comment on above: Performed By: #### H FPFCBC #### [facility] [address] [place] [address] Dr. Amee Mckeon IG % 0.3 % Normal 0.0-0.5 [facility] Comment on above: Performed By: #### H FPFCBC #### [facility] [address] [place] [address] Dr. Amee Mckeon LYMPH # 2.2 103/ul Normal 1.2-3.8 [facility] Comment on above: Performed By: #### H FPFCBC #### [facility] [address] [place] [address] Dr. Amee Mckeon Lymphocytes/100 WBC (Bld) 25.3 % Normal 20.5-60.0 [facility] Comment on above: Performed By: #### H FPFCBC #### [facility] [address] [place] [address] Dr. Amee Mckeon MCH (RBC) [Entitic mass] 31.3 pg Normal 26.7-34.0 [facility] Comment on above: Performed By: #### H FPFCBC #### [facility] [address] [place] [address] Dr. Amee Mckeon MCHC (RBC) [Mass/Vol] 33.9 g/dL Normal 29.9-35.2 [facility] Comment on above: Performed By: #### H FPFCBC #### [facility] [address] [place] [address] Dr. Amee Mckeon MCV (RBC) [Entitic vol] 92.4 fL Normal 81.0-99.0 [facility] Comment on above: Performed By: #### H FPFCBC #### [facility] [address] [place] [address] Dr. Amee Mckeon MONO # 0.5 103/ul Normal 0.3-0.8 [facility] Comment on above: Performed By: #### H FPFCBC #### [facility] [address] [place] [address] Dr. Amee Mckeon Monocytes/100 WBC (Bld) 5.5 % Normal 1.7-12.0 [facility] Comment on above: Performed By: #### H FPFCBC #### [facility] [address] [place] [address] Dr. Amee Mckeon NEUT # 5.8 103/ul Normal 1.4-6.5 [facility] Comment on above: Performed By: #### H FPFCBC #### [facility] [address] [place] [address] Dr. Amee Mckeon Neutrophils/100 WBC (Bld) 67.1 % Normal 43.0-75.0 [facility] Comment on above: Performed By: #### H FPFCBC #### [facility] [address] [place] [address] Dr. Amee Mckeon Platelet mean volume (Bld) [Entitic vol] 10.2 fL Normal 9.5-13.5 [facility] Comment on above: Performed By: #### H FPFCBC #### [facility] [address] [place] [address] Dr. Amee Mckeon PLT 278 103/ul Normal 150-450 [facility] Comment on above: Performed By: #### H FPFCBC #### [facility] [address] [place] [address] Dr. Amee Mckeon RBC 4.50 106/ul Normal 4.20-5.40 [facility] Comment on above: Performed By: #### H FPFCBC #### [facility] [address] [place] [address] Dr. Amee Mckeon WBC 8.6 103/ul Normal 4.0-11.0 [facility] Comment on above: Performed By: #### H FPFCBC #### [facility] [address] [place] [address] Dr. Amee Mckeon [employer] PROFILEon 022 Albumin [Mass/Vol] 3.8 g/dL Normal 3.4-5.0 [facility] Comment on above: Performed By: #### H FPF #### [facility] [address] [place] [address] Dr. Amee Mckeon Albumin/Globulin [Mass ratio] 1.1 {ratio} Normal [facility] Comment on above: Performed By: #### H FPF #### [facility] [address] [place] [address] Dr. Amee Mckeon ALP [Catalytic activity/Vol] 50 U/L Normal 46-116 [facility] Comment on above: Performed By: #### H FPF #### [facility] [address] [place] [address] Dr. Amee Mckeon ALT [Catalytic activity/Vol] 31 U/L Normal 14-59 [facility] Comment on above: Performed By: #### H FPF #### [facility] [address] [place] [address] Dr. Amee Mckeon AST [Catalytic activity/Vol] 15 U/L Normal 15-37 [facility] Comment on above: Performed By: #### H FPF #### [facility] [address] [place] [address] Dr. Amee Mckeon Bilirubin [Mass/Vol] 0.6 mg/dL Normal 0.2-1.0 [facility] Comment on above: Performed By: #### H FPF #### [facility] [address] [place] [address] Dr. Amee Mckeon Calcium [Mass/Vol] 8.8 mg/dL Normal 8.5-10.1 [facility] Comment on above: Performed By: #### H FPF #### [facility] [address] [address] [address] Amee Mckeon Chloride [Moles/Vol] 104 mmol/L Normal 98-107 [facility] Comment on above: Performed By: #### H FPF #### [facility] [address] [address] [address] Amee Mckeon CHOL-HDL RATIO NORM SEE BELOW Normal [facility] Comment on above: Result Comment: 3.3 - 4.4 LOW RISK 4.4 - 7.1 AVERAGE RISK 7.1 - 11.0 MODERATE RISK >11.0 HIGH RISK Performed By: #### H FPF #### [facility] [address] [address] [address] Amee Mckeon Cholesterol [Mass/Vol] 216 mg/dL Critically high <=200 [facility] Comment on above: Performed By: #### H FPF #### [facility] [address] [address] [address] Amee Mckeon Cholesterol in HDL [Mass/Vol] 51 mg/dL Normal 40-60 [facility] Comment on above: Performed By: #### H FPF #### [facility] [address] [address] [address] Amee Mckeon Cholesterol in LDL [Mass/Vol] 141.6 mg/dL Normal [facility] Comment on above: Performed By: #### H FPF #### [facility] [address] [address] [address] Amee Mckeon Cholesterol.total/[place] sterol in HDL [Mass ratio] 4.2 {ratio} Normal [facility] Comment on above: Performed By: #### H FPF #### [facility] [address] [address] [address] Amee Mckeon CO2 [Moles/Vol] 26.1 mmol/L Normal 21.0-32.0 [facility] Comment on above: Performed By: #### H FPF #### [facility] [address] [address] [address] Amee Mckeon Creatinine [Mass/Vol] 0.75 mg/dL Normal 0.55-1.02 [facility] Comment on above: Performed By: #### H FPF #### [facility] [address] [address] [address] Amee Mckeon Globulin (S) [Mass/Vol] 3.4 g/dL Normal T [facility] Comment on above: Performed By: #### H FPF #### [facility] [address] [address] [address] Amee Mckeon Glucose [Mass/Vol] 94 mg/dL Normal 74-106 [facility] Comment on above: Performed By: #### H FPF #### [facility] [address] [address] [address] Amee Mckeon HDL NORMAL > or = 60 mg/dl - LOW CARDIOVASCULAR RISK <40 mg/dl - HIGH CARDIOVASCULAR RISK Normal [facility] Comment on above: Performed By: #### H FPF #### [facility] [address] [place] [address] Dr. Amee Mckeon LDL CALC NORMAL SEE BELOW Normal [facility] Comment on above: Result Comment: <100 mg/dl OPTIMAL 100 - 129 mg/dl NEAR OR ABOVE OPTIMAL 130 - 159 mg/dl BORDERLINE HIGH 160 - 189 mg/dl HIGH >190 mg/dl VERY HIGH Performed By: #### H FPF #### [facility] [address] [place] [address] Dr. Amee Mckeon Potassium [Moles/Vol] 3.7 mmol/L Normal 3.5-5.1 [facility] Comment on above: Performed By: #### H FPF #### [facility] [address] [address] [address] Amee Mckeon Protein [Mass/Vol] 7.2 g/dL Normal 6.4-8.2 [facility] Comment on above: Performed By: #### H FPF #### [facility] [address] [place] [address] Dr. Amee Mckeon Sodium [Moles/Vol] 137 mmol/L Normal 136-145 [facility] Comment on above: Performed By: #### H FPF #### [facility] [address] [address] [address] Amee Mckeon Triglyceride [Mass/Vol] 117 mg/dL Normal <=150 T [facility] Comment on above: Performed By: #### H FPF #### [facility] [address] [address] [address] Amee Mckeon TSH 1.647 uIU/mL Normal 0.358-3.740 [facility] Comment on above: Performed By: #### H FPF #### [facility] [address] [place] [address] Dr. Amee Mckeon Urea nitrogen [Mass/Vol] 18.0 mg/dL Normal 7.0-18.0 [facility] Comment on above: Performed By: #### H FPF #### [facility] [address] [place] [address] Dr. Amee Mckeon Urea nitrogen/Creatinine [Mass ratio] 24.0 mg/mg Normal [facility] Comment on above: Performed By: #### H FPF #### [facility] [address] [place] [address] Dr. Amee Mckeon VLDL CALC 23.4 mg/dL [facility] Comment on above: Performed By: #### H FPF #### [facility] [address] [place] [address] Dr. Amee Mckeon PAP ACOG PANEL 2: 30 to 65on 03-26-2022 . . Normal [facility] Comment on above: Result Comment: Perf ormed at: [facility] Performed By: #### [id number] #### [facility] [address] [place] [address] Dr. Amee Mckeon Age Gdln ACOG Testing 30-[address] [facility] Comment on above: Performed By: #### [id number] #### [facility] [address] [place] [address] Dr. Amee Mckeon DIAGNOSIS: Comment Normal [facility] Comment on above: Result Comment: NEGA TIVE FOR INTRAEPITHELIAL LESION OR MALIGNANCY. Performed at: [facility] Performed By: #### [id number] #### [facility] [address] [place] [address] Dr. Amee Mckeon HPV Aptima Negative Normal Negative [facility] Comment on above: Result Comment: This nucleic acid amplification test detects fourteen high-risk HPV types (16,18,31,33,35,39,45,51,52,56,58,59,66,68) without differentiation. Performed at: =G Performed By: #### [id number] #### [facility] [address] [place] [address] Dr. Amee Mckeon Methodology: Comment Normal [facility] Comment on above: Result Comment: This liquid based ThinPrep(R) pap test was screened with the use of an image guided system. Performed at: WB Performed By: #### [id number] #### [facility] [address] [place] [address] Dr. Amee Mckeon Note: Comment Normal [facility] Comment on above: Result Comment: The Pap smear is a screening test designed to aid in the detection of premalignant and malignant conditions of the uterine cervix. It is not a diagnostic procedure and should not be used as the sole means of detecting cervical cancer. Both false-positive and false-negative reports do occur. . Performed at: WB Performed By: #### [id number] #### [facility] [address] [place] [address] Dr. Amee Mckeon Performed by: Comment Normal [facility] Comment on above: Result Comment: [employer]ourdes [employer]rell Seater [employer]sembler (ASCP) Performed at: WB Performed By: #### [id number] #### [facility] [address] [place] [address] Dr. Amee Mckeon Specimen adequacy: Comment Normal [facility] Comment on above: Result Comment: Sati sfactory for evaluation. No endocervical component is identified. Performed at: WB Performed By: #### [id number] #### [facility] [address] [place] [address] Dr. Amee Mckeon Encounters Encounter Date Encounter Type Care Provider Facility Start: 10-20-2024 End: 10-20-2024 Bamboo flowsheet Marlene Maloney DPM Work Phone: [facility] Start: 10-20-2024 End: 10-20-2024 Bamboo flowsheet Marlene Maloney DPM Work Phone: [facility] Start: 10-20-2024 End: 10-20-2024 Office outpatient visit 15 minutes Marlene Maloney DPM Work Phone: [facility] Comment on above: Plantar fasciitis (P rimary Dx); Pain of left heel; Pain of right heel Start: 10-20-2024 End: 10-20-2024 ambulatory MARLENE MALONEY Not Available Start: 10-05-2024 End: 10-05-2024 [facility] Result Encounter Ash Tyrell DO Work Phone: [facility] External Department Unsolicited Start: 10-05-2024 End: 10-05-2024 Clinisync Result Encounter Ash Tyrell DO Work Phone: [facility] External Department Unsolicited Start: 09-07-2024 End: 09-07-2024 Bamboo flowsheet Marlene Maloney DPM Work Phone: [facility] Start: 09-07-2024 End: 09-07-2024 Bamboo flowsheet Marlene Strickland Maloney DPM Work Phone: [facility] Start: 09-07-2024 End: 09-07-2024 ambulatory MARLENE MALONEY Not Available Start: 09-07-2024 End: 09-07-2024 Office outpatient visit 15 minutes Marlene Maloney DPM Work Phone: [facility] Comment on above: Plantar fasciitis (P rimary Dx); Pain of left heel; Pain of right heel Start: 07-26-2024 End: 07-26-2024 Bamboo flowsheet Marlene Strickland Maloney DPM Work Phone: [facility] Start: 07-26-2024 End: 07-26-2024 Bamboo flowsheet Marlene Strickland Maloney DPM Work Phone: [facility] Start: 07-26-2024 End: 07-26-2024 ambulatory MARLENE MALONEY Not Available Start: 07-26-2024 End: 07-26-2024 Office outpatient visit 15 minutes Marlene Maloney DPM Work Phone: [facility] Comment on above: Plantar fasciitis (P rimary Dx); Pain of left heel; Pain of right heel Start: 06-27-2024 End: 06-27-2024 Bamboo flowsheet Marlene Maloney DPM Work Phone: [facility] Start: 06-27-2024 End: 06-27-2024 Bamboo flowsheet Marlene Maloney DPM Work Phone: [facility] Start: 06-27-2024 End: 06-27-2024 Telephone encounter Marlene Maloney DPM Work Phone: [facility] Comment on above: script check Start: 06-27-2024 End: 06-27-2024 ambulatory MARLENE MALONEY Not Available Start: 06-27-2024 End: 06-27-2024 Office outpatient new 30 minutes Marlene Maloney DPM Work Phone: [facility] Comment on above: Plantar fasciitis (P rimary Dx); Pain of left heel; Pain of right heel; Pain of both heels Start: 06-13-2022 End: 06-13-[address] ASH SANTILLAN Facility:[facility] Start: 06-12-2022 Encounter for preprocedural laboratory examination DR ASH SANTILLAN [facility] Start: 06-10-2022 End: 06-11-[address] ASH SANTILLAN Facility:[facility] Start: 06-10-2022 End: 06-11-2022 Encounter for preprocedural laboratory examination DR ASH SANTILLAN Facility:[facility] Start: 06-06-2022 Encounter for other preprocedural examination DR ASH SANTILLAN [facility] Start: 06-04-2022 End: 06-05-[address] [...] [address] [place] [id number] Marlene Maloney, DPM [address] [place] [address] [facility] Start: 10-20-2024 End: 10-20-2024 Patient encounter procedure 10/20/2024 11:00 AM EST Office Visit [facility] [address] [place] [address] Marlene Maloney, DPM [address] [place] [address] Arrived [facility] Comment on above: Arrived Start: 09-07-2024 End: 09-07-2024 Patient encounter procedure 09/07/2024 1:45 PM EST Office Visit [facility] [address] [place] [phone] Marlene Maloney, DPM [address] [place] [address] [facility] Start: 07-26-2024 End: 07-26-2024 Patient encounter procedure 07/26/2024 1:45 PM EST Office Visit [facility] [address] [place] [phone] Marlene Maloney, DPM [address] [place] [address] [facility] Payers Date Payer Category Payer Medicaid [id number] 2019 Private Health Insurance [id number] 1982 Unknown [id number] 2.16.84 [id number] 1982 Unknown [id number] 2.16.84 [id number] 1982 Unknown [id number] 2.16.84 [id number] 1982 Unknown [id number] 2.16.84 [id number] 1982 Unknown [id number] 2.16.84 [id number] 1982 Unknown [id number] 2.16.84 [id number] 1982 Unknown [id number] 2.16.84 [id number] 1982 Unknown [id number] 2.16.84 [id number] 1959 Self-pay [id number] 1959 Unknown [id number] 1959 Unknown [id number] Unknown [id number] 2.16.84 [id number] Social History Date Type Detail Facility Tobacco smoking stat [facility] Tobacco smoking consumption unknown [facility] Start: 1980 Sex assigned at Not on file [facility] Start: 07-26-2024 End: 10-20-2024 Gender identity Not on file [facility] Start: 07-26-2024 Tobacco smoking stat [facility] Ex-smoker [facility] History of tobacco use Current smoker [facility] History of tobacco use Cigarette Smoker [facility] Start: 07-26-2024 Tobacco use and exposure Smokeless t obacco non-user [facility] Start: 07-26-2024 End: 10-20-2024 History of Social function [facility] Clinical Notes 06-13-2022 to 10-20-2024 Marlene [...] RTC: 4-6 weeks. documented in this encounter [facility] 09-07-2024 History of Presen t illness Narrative [...] other conservative measures including supportive shoes and ussf-sgu-qrrsunt inserts or custom inserts as applicable. We did discuss that there is a slight possibility of recurrence of the heel pain but to be very vigilant about continuing with the stretching exercises especially if they notice any recurrent symptoms. Patient should follow up as needed if they have any worsening pain or symptoms to the heel. documented in this encounter [facility] 07-26-2024 History of Presen t illness Narrative [...] RTC: 4-6 weeks. documented in this encounter [facility] 06-27-2024 Telephone encount er Note Rx was sent to [facility] in [place]. [facility] 06-27-2024 Miscellaneous Notes Formattin g of this note might be different from the original. Rx was sent to [facility] in [place]. Pt called to check in on script, and to change her preferred pharmacy to the [facility] in [place]. documented in this encounter [facility] 06-27-2024 Telephone encount er Note Pt called to check in on script, and to change her preferred pharmacy to the [facility] in [place]. [facility] 06-27-2024 History of Presen t illness Narrative [...] therapy if needed. documented in this encounter [facility] 06-27-2024 Instructions Marlene Maloney DPM - 06/27/2024 [...] foot and heel over the water bottle. Dtny-jna-zatjbqp (OTC) arch supports: Spenco, Powerstep, UCOs Continued [...] get them is at an online supplier. [employer] offers many options for night splints. There [...] wake up in the morning and provide group home flexibility to help decrease the chance of [...] of 6-8 weeks. documented in this encounter [facility] 10-14-2022 Note OPERATIVE NOTE OPERATION DATE: 06/13/2022 PROCEDURE: Bilateral laparoscopic salpingectomy, lysis of adhesions, omental adhesions from the anterior abdominal wall. PREOPERATIVE DIAGNOSIS: Desires permanent sterilization. POSTOPERATIVE DIAGNOSIS: Desire permanent sterilization. ANESTHESIA: General. SURGEON: Ash Santillan D.O. COMMERCIAL CLEANER: SHAR Rdz URINE OUTPUT: Yellow and clear. [...] and needle counts were correct x2. [facility] Evaluation note Diagnosis Plantar fasciitis- Primary Plantar fascial fibromatosis Pain of left heel Pain of right heel Pain of both heels documented in this encounter [facility]* Diagnosis Plantar fasciitis- Primary Plantar fascial fibromatosis Pain of left heel Pain of right heel documented in this encounter [facility]* Diagnosis Plantar fasciitis- Primary Plantar fascial fibromatosis Pain of left heel Pain of right heel documented in this encounter [facility] Summary Purpose Family History No Family History Records FoundNo Family History Records Found Advance Directives No Advanced Directives Records FoundNo Advanced Directives Records Found Additional Source Comments INFORMATION SOURCE (unrecogn ized section and content) DATE CREATED AUTHOR 08/07/2022 [facility] DATE CREATED AUTHOR AUTHOR'S ORGANIZ ATION 10/22/2024 [facility] Care Teams (unrecognized sec tion and content) Mold Carpenter Relationship Specialty Start Date End Date Edison Timmons MD [address] [place] [address] PCP - General Family Medicine 06/27/24 Mold Carpenter Relationship Specialty Start Date End Date Edison Timmons MD [address] [place] [address] PCP - General Family Medicine 06/27/24 Mold Carpenter Relationship Specialty Start Date End Date Edison Timmons MD [address] [place] [address] PCP - General Family Medicine 06/27/24 Mold Carpenter Relationship Specialty Start Date End Date Edison Timmons MD [address] [place] [address] PCP - General Family Medicine 06/27/24 Mold Carpenter Relationship Specialty Start Date End Date Edison Timmons MD [address] [place] [address] PCP - General Family Medicine 06/27/24 Mold Carpenter Relationship Specialty Start Date End Date Edison Timmons MD [address] [place] [phone] PCP - General Family Medicine 06/27/24 Reason [...] BE BASED ON THE PRIMARY CLINICAL RECORDS. [email or web address] provides no warranty or guarantee of the accuracy or completeness of information in this document.
== END 2024-11-21 07:55 | disposition home or self-care (01) ==
LOC: CARD 07:56
PROVIDERS: PCP Family Medicine; Visit Provider Family Medicine
DX: R00.2 Palpitations (principal)
CPT/HCPCS: 93242

== ENCOUNTER 2024-12-16 07:50 | Outpatient (OUT) | payer OTHER, SELFPAY ==
--- OUTSIDE RECORDS SUMMARY | 2024-12-16 08:06 | XMS_ITS | CCD ---
Author Organization [facility] Care Team Providers Care Tool Design Drafter Name Role Phone ENRIQUE, DR HOGAN Admitting Unavailable ENRIQUE, DR HOGAN Attending Unavailable ENRIQUE, DR HOGAN Consulting Unavailable ENRIQUE, DR HOGAN Primary Care Unavailable TYRELL, DR ALEMAN Attending Unavailable TYRELL, DR ALEMAN Admitting Unavailable ENRIQUE, DR HOGAN Primary Care Unavailable TYRELL, DR ALEMAN Attending Unavailable TYRELL, DR ALEMAN Consulting Unavailable TYRELL, DR ALEMAN Admitting Unavailable ENRIQUE, DR HOGNA Primary Care Unavailable TYRELL, DR ALEMAN Attending Unavailable TYRELL, DR ALEMAN Consulting Unavailable TYRELL, DR ALEMAN Admitting Unavailable MARIELYY, DR HOGAN Primary Care Unavailable JOSSIE CAPPS Consulting Unavailable MILO, GIOVANA HARRELL Consulting Unava ilable ENRIQUE, DR HOGAN Primary Care Unavailable TYRELL, DR ALEMAN Attending Unavailable TYRELL, DR ALEMAN Consulting Unavailable TYRELL, DR ALEMAN Admitting Unavailable Edison Timmons MD Primary Care Provider [phone] MARLENE MALONEY Attending Unavailable MARLENE MALONEY Attending Unavailable MARLENE MALONEY Attending Unavailable MARLENE MALONEY Attending Unavailable MARLENE MALONEY Attending Unavailable URSULA FALL Attending Unavailable MARLENE MALONEY Referring Unavailable URSULA FALL Attending Unavailable MARLENE MALONEY Referring Unavailable URSULA FALL Attending Unavailable MARLENE MALONEY Referring Unavailable ASH SANTILLAN Attending Unavailable URSULA FALL Attending Unavailable MARLENE MALONEY Referring Unavailable Medications Current Medications Medication Drug Class(es) Dates Sig (Normalized) Sig (Original) celecoxib 200 mg oral capsule (8 sources) Nonsteroidal Anti-inflammatory Drug Start: 11-21-2024 End: 12-21-2024 take 1 capsule by mouth once daily celecoxib (CeleBREX) 200 MG capsule Indications: Plantar fasciitis Take 1 capsule (200 mg) by mouth Daily 30 capsule 11/21/2024 12/21/2024 Active Completed/Discontinued Medications Medication Drug Class(es) Dates Sig (Normalized) Sig (Original) predniSONE 10 mg oral tablet (20 sources) Start: 06-27-2024 End: 12-13-2024 take 2 tablets by mouth twice daily, then take 1 tablet by mouth twice daily, then take 1 tablet by mouth once daily predniSONE (Deltasone) 10 MG tablet Indications: Plantar fasciitis Take 2 pills by mouth twice daily for 5 days, take 1 pill twice daily for 5 days then 1 pill once daily for 5 days. 35 tablet 06/27/2024 12/13/2024 Discontinued (Therapy completed) Problems Active Problems Problem Classification Problem Date Documented Da te Episodic/Chronic Abdominal pain (2 sources) Pain in female pelvis; Translations: [Pelvic and perineal pain] 12-13-2024 Episodic Contraceptive and procreative management (5 sources) Encounter for sterilization; Translations: [ENCOUNTER FOR STERILIZATION] Onset: 06-06-2022 Episodic Other connective tissue disease (11 sources) Plantar fasciitis; Translations: [Plantar fascial fibromatosis] 06-27-2024 Episodic Other connective tissue disease (8 sources) Pain of left heel; Translations: [Pain in left foot] 06-27-2024 Episodic Other connective tissue disease (8 sources) Pain in right heel; Translations: [Pain in right foot] 06-27-2024 Episodic Other connective tissue disease (2 sources) Bilateral heel pain; Translations: [Pain in right foot] 06-27-2024 Episodic Other connective tissue disease (4 sources) Bilateral plantar fasciitis; Translations: [Plantar fascial fibromatosis] 11-30-2024 Episodic Other endocrine disorders (2 sources) Polycystic ovary syndrome; Translations: [Polycystic ovarian syndrome] 12-13-2024 Chronic Other female genital disorders (2 sources) Abnormal uterine bleeding; Translations: [Abnormal uterine and vaginal bleeding, unspecified] 12-13-2024 Chronic Other gastrointestinal disorders (1 source) Peritoneal adhesions [...] [facility] Facility US PELVIS W/ TRANSVAGINALon 10-05-2024 [place] [address] Ultrasound Report Signed Patient: TOI ROONEY MR#: [id number] : 1980 Acct:[id number] Age/Sex: 44 / F ADM Date: 10/04/24 Loc: US Attending Dr: Ash Santillan D.O. Ordering Physician: Ash Santillan D.O. Date of Service: 10/04/24 Procedure(s): US pelvis w/ transvaginal Accession Number(s): [id number] cc: Ash Santillan D.O.; Edison Timmons M.D. [address] [address] Patient Name: TOI ROONEY MRN: [id number] date: 1980 Sex: F Assigned Patient Location: US Current Patient Location: Accession/Order Number: [id number] Exam Date: 10/04/2024 17:50 Report Date: 10/05/2024 [...] Signed By: 10/05/24 0746 DD/ 0743 TD/TT: Desulfurizer Hand: [facility] Radiology, Radiologist, MD - 10/05/2024 [place] [address] Ultrasound Report Signed Patient: TOI ROONEY MR#: [id number] : 1980 Acct:[id number] Age/Sex: 44 / F ADM Date: 10/04/24 Loc: US Attending Dr: Ash Santillan D.O. Ordering Physician: Ash Santillan D.O. Date of Service: 10/04/24 Procedure(s): US pelvis w/ transvaginal Accession Number(s): [id number] cc: Ash Santillan D.O.; Edison Timmons M.D. [place] [address] Patient Name: TOI ROONEY MRN: [id number] date: 1980 Sex: F Assigned Patient Location: US Current Patient Location: Accession/Order Number: [id number] Exam Date: 10/04/2024 17:50 Report Date: 10/05/2024 [...] Signed By: 10/05/24 0746 DD/ 0743 TD/TT: Desulfurizer Hand: [facility] Radiology Study observation (narrative) [facility] US PELVIS W/ TRANSVAGINALOrd ered By: Radiologist Radiology on 10-05-2024 [facility] Work Phone: XR Calcaneus - left [facility] 06-27-2024 Imaging Result: One views of the left heel: Lateral were performed today in the office. Radiographs were read by myself and demonstrate: No evidence of acute fracture or dislocation. No coalition noted. Spur formation is noted at the plantar calcaneus [facility] Radiology Study observation (narrative) [facility] XR Calcaneus - right [facility] 06-27-2024 Imaging Result: One views of the right heel: Lateral were performed today in the office. Radiographs were read by myself and demonstrate: No evidence of acute fracture or dislocation. No coalition noted. Spur formation is noted at the plantar calcaneus [facility] Radiology Study observation (narrative) [facility] CBC AUTO DIFFon 06-13-2022 BASO # 0.0 103/ul Normal 0.0-0.1 [facility] Comment on above: Performed By: #### C BC #### [facility] [address] [place] [address] Dr. Amee Mckeon Basophils/100 WBC (Bld) 0.5 % Normal 0.2-2.0 [facility] Comment on above: Performed By: #### C BC #### [facility] [address] [place] [address] Dr. Amee Mckeon EO # 0.2 103/ul Normal 0.0-0.7 [facility] Comment on above: Performed By: #### C BC #### [facility] [address] [address] [address] Amee Mckeon Eosinophils/100 WBC (Bld) 1.9 % Normal 0.9-7.0 [facility] Comment on above: Performed By: #### C BC #### [facility] [address] [place] [address] Dr. Amee Mckeon Erythrocyte distribution width (RBC) [Ratio] 11.9 % Normal 11.0-15.0 [facility] Comment on above: Performed By: #### C BC #### [facility] [address] [place] [address] Dr. Amee Mckeon Hematocrit (Bld) [Volume fraction] 43.6 % Normal 36.0-48.0 [facility] Comment on above: Performed By: #### C BC #### [facility] [address] [place] [address] Dr. Amee Mckeon Hemoglobin (Bld) [Mass/Vol] 14.8 g/dL Normal 12.0-16.0 [facility] Comment on above: Performed By: #### C BC #### [facility] [address] [place] [address] Dr. Amee Mckeon IG # 0.03 10e3/ul Normal 0.00-0.03 [facility] Comment on above: Performed By: #### C BC #### [facility] [address] [place] [address] Dr. Amee Mckeon IG % 0.4 % Normal 0.0-0.5 [facility] Comment on above: Performed By: #### C BC #### [facility] [address] [place] [address] Dr. Amee Mckeon LYMPH # 2.5 103/ul Normal 1.2-3.8 [facility] Comment on above: Performed By: #### C BC #### [facility] [address] [place] [address] Dr. Amee Mckeon Lymphocytes/100 WBC (Bld) 31.4 % Normal 20.5-60.0 [facility] Comment on above: Performed By: #### C BC #### [facility] [address] [place] [address] Dr. Amee Mckeon MANUAL DIFF REQ NO Normal [facility] Comment on above: Performed By: #### C BC #### [facility] [address] [place] [address] Dr. Amee Mckeon MCH (RBC) [Entitic mass] 31.6 pg Normal 26.7-34.0 [facility] Comment on above: Performed By: #### C BC #### [facility] [address] [address] [address] Amee Mckeon MCHC (RBC) [Mass/Vol] 33.9 g/dL Normal 29.9-35.2 [facility] Comment on above: Performed By: #### C BC #### [facility] [address] [address] [address] Amee Mckeon MCV (RBC) [Entitic vol] 93.2 fL Normal 81.0-99.0 [facility] Comment on above: Performed By: #### C BC #### [facility] [address] [place] [address] Dr. Amee Mckeon MONO # 0.5 103/ul Normal 0.3-0.8 [facility] Comment on above: Performed By: #### C BC #### [facility] [address] [place] [address] Dr. Amee Mckeon Monocytes/100 WBC (Bld) 6.8 % Normal 1.7-12.0 [facility] Comment on above: Performed By: #### C BC #### [facility] [address] [place] [address] Dr. Amee Mckeon NEUT # 4.7 103/ul Normal 1.4-6.5 [facility] Comment on above: Performed By: #### C BC #### [facility] [address] [place] [address] Dr. Amee Mckeon Neutrophils/100 WBC (Bld) 59.0 % Normal 43.0-75.0 [facility] Comment on above: Performed By: #### C BC #### [facility] [address] [place] [address] Dr. Amee Mckeon Platelet mean volume (Bld) [Entitic vol] 9.6 fL Normal 9.5-13.5 [facility] Comment on above: Performed By: #### C BC #### [facility] [address] [place] [address] Dr. Amee Mckeon PLT 289 103/ul Normal 150-[address] [facility] Comment on above: Performed By: #### C BC #### [facility] [address] [address] [address] Amee Mckeon RBC 4.68 106/ul Normal 4.20-5.[address] [facility] Comment on above: Performed By: #### C BC #### [facility] [address] [address] [address] Amee Mckeon WBC 7.9 103/ul Normal 4.0-11.[address] [facility] Comment on above: Performed By: #### C BC #### [facility] [address] [address] [address] Amee Mckeon PREG HCG QUALon 06-13-2022 , QUAL Negative Normal NEGATIVE [facility] Comment on above: Performed By: #### P REG #### [facility] [address] [place] [address] Dr. Amee Mckeon Covid-19 PCR (CVDTBH)on 05-31 SARS-CoV-2 (COVID-19) RNA ADOLPH+probe Ql (Unsp spec) Not detected Normal NOT DETECTED [facility] Comment on above: Result Comment: This test is not yet approved or cleared by the [place] FDA. When there are no FDA-approved or cleared tests available, and other criteria are met, FDA can make tests available under an emergency access mechanism called an Emergency Use Authorization (EUA). The EUA for this test is supported by the [place] of Health and Human Service's (HHS's) declaration [...] consistent with SARS-CoV-2. Performed By: #### C VDTBH #### [facility] [address] [address] [address] Amee Mckeon [facility] CBC AUTO DIFFon 04-17-2022 BASO # 0.0 103/ul Normal 0.0-0.1 [facility] Comment on above: Performed By: #### H FPFCBC #### [facility] [address] [place] [address] Dr. Amee Mckeon Basophils/100 WBC (Bld) 0.3 % Normal 0.2-2.0 [facility] Comment on above: Performed By: #### H FPFCBC #### [facility] [address] [place] [address] Dr. Amee Mckeon EO # 0.1 103/ul Normal 0.0-0.7 [facility] Comment on above: Performed By: #### H FPFCBC #### [facility] [address] [place] [address] Dr. Amee Mckeon Eosinophils/100 WBC (Bld) 1.5 % Normal 0.9-7.0 [facility] Comment on above: Performed By: #### H FPFCBC #### [facility] [address] [place] [address] Dr. Amee Mckeon Erythrocyte distribution width (RBC) [Ratio] 12.5 % Normal 11.0-15.0 [facility] Comment on above: Performed By: #### H FPFCBC #### [facility] [address] [place] [address] Dr. Amee Mckeon Hematocrit (Bld) [Volume fraction] 41.6 % Normal 36.0-48.0 [facility] Comment on above: Performed By: #### H FPFCBC #### [facility] [address] [place] [address] Dr. Amee Mckeon Hemoglobin (Bld) [Mass/Vol] 14.1 g/dL Normal 12.0-16.0 [facility] Comment on above: Performed By: #### H FPFCBC #### [facility] [address] [place] [address] Dr. Amee Mckeon IG # 0.03 10e3/ul Normal 0.00-0.03 [facility] Comment on above: Performed By: #### H FPFCBC #### [facility] [address] [place] [address] Dr. Amee Mckeon IG % 0.3 % Normal 0.0-0.5 [facility] Comment on above: Performed By: #### H FPFCBC #### [facility] [address] [place] [address] Dr. Amee Mckeon LYMPH # 2.2 103/ul Normal 1.2-3.8 [facility] Comment on above: Performed By: #### H FPFCBC #### [facility] [address] [place] [address] Dr. Amee Mckeon Lymphocytes/100 WBC (Bld) 25.3 % Normal 20.5-60.0 [facility] Comment on above: Performed By: #### H FPFCBC #### [facility] [address] [place] [address] Dr. Amee Mckeon MCH (RBC) [Entitic mass] 31.3 pg Normal 26.7-34.0 [facility] Comment on above: Performed By: #### H FPFCBC #### [facility] [address] [place] [address] Dr. Amee Mckeon MCHC (RBC) [Mass/Vol] 33.9 g/dL Normal 29.9-35.2 [facility] Comment on above: Performed By: #### H FPFCBC #### [facility] [address] [place] [address] Dr. Amee Mckeon MCV (RBC) [Entitic vol] 92.4 fL Normal 81.0-99.0 [facility] Comment on above: Performed By: #### H FPFCBC #### [facility] [address] [place] [address] Dr. Amee Mckeon MONO # 0.5 103/ul Normal 0.3-0.8 [facility] Comment on above: Performed By: #### H FPFCBC #### [facility] [address] [place] [address] Dr. Amee Mckeon Monocytes/100 WBC (Bld) 5.5 % Normal 1.7-12.0 [facility] Comment on above: Performed By: #### H FPFCBC #### [facility] [address] [address] [address] Amee Mckeon NEUT # 5.8 103/ul Normal 1.4-6.5 [facility] Comment on above: Performed By: #### H FPFCBC #### [facility] [address] [address] [address] Amee Mckeon Neutrophils/100 WBC (Bld) 67.1 % Normal 43.0-75.0 [facility] Comment on above: Performed By: #### H FPFCBC #### [facility] [address] [place] [address] Dr. Amee Mckeon Platelet mean volume (Bld) [Entitic vol] 10.2 fL Normal 9.5-13.5 [facility] Comment on above: Performed By: #### H FPFCBC #### [facility] [address] [place] [address] Dr. Amee Mckeon PLT 278 103/ul Normal 150-450 [facility] Comment on above: Performed By: #### H FPFCBC #### [facility] [address] [place] [address] Dr. Amee Mckeon RBC 4.50 106/ul Normal 4.20-5.40 [facility] Comment on above: Performed By: #### H FPFCBC #### [facility] [address] [place] [address] Dr. Amee Mckeon WBC 8.6 103/ul Normal 4.0-11.0 [facility] Comment on above: Performed By: #### H FPFCBC #### [facility] [address] [place] [address] Dr. Amee Mckeon [facility] PROFILEon 022 Albumin [Mass/Vol] 3.8 g/dL Normal 3.4-5.0 [facility] Comment on above: Performed By: #### H FPF #### [facility] [address] [place] [address] Dr. Amee Mckeon Albumin/Globulin [Mass ratio] 1.1 {ratio} Normal [facility] Comment on above: Performed By: #### H FPF #### [facility] [address] [address] [address] Amee Mckeon ALP [Catalytic activity/Vol] 50 U/L Normal 46-116 [facility] Comment on above: Performed By: #### H FPF #### [facility] [address] [address] [address] Amee Mckeon ALT [Catalytic activity/Vol] 31 U/L Normal 14-59 [facility] Comment on above: Performed By: #### H FPF #### [facility] [address] [address] [address] Amee Mckeon AST [Catalytic activity/Vol] 15 U/L Normal 15-37 [facility] Comment on above: Performed By: #### H FPF #### [facility] [address] [address] [address] Amee Mckeon Bilirubin [Mass/Vol] 0.6 mg/dL Normal 0.2-1.0 [facility] Comment on above: Performed By: #### H FPF #### [facility] [address] [address] [address] Amee Mckeon Calcium [Mass/Vol] 8.8 mg/dL Normal 8.5-10.1 [facility] Comment on above: Performed By: #### H FPF #### [facility] [address] [address] [address] Amee Mckeon Chloride [Moles/Vol] 104 mmol/L Normal 98-107 [facility] Comment on above: Performed By: #### H FPF #### [facility] [address] [address] [address] Amee Mckeon CHOL-HDL RATIO NORM SEE BELOW Normal [facility] Comment on above: Result Comment: 3.3 - 4.4 LOW RISK 4.4 - 7.1 AVERAGE RISK 7.1 - 11.0 MODERATE RISK >11.0 HIGH RISK Performed By: #### H FPF #### [facility] [address] [address] [address] Amee Mckeon Cholesterol [Mass/Vol] 216 mg/dL Critically high <=200 [facility] Comment on above: Performed By: #### H FPF #### [facility] [address] [address] [address] Amee Mckeon Cholesterol in HDL [Mass/Vol] 51 mg/dL Normal 40-60 [facility] Comment on above: Performed By: #### H FPF #### [facility] [address] [address] [address] Amee Mckeon Cholesterol in LDL [Mass/Vol] 141.6 mg/dL Normal [facility] Comment on above: Performed By: #### H FPF #### [facility] [address] [address] [address] Amee Mckeon Cholesterol.total/[place] sterol in HDL [Mass ratio] 4.2 {ratio} Normal [facility] Comment on above: Performed By: #### H FPF #### [facility] [address] [address] [address] Amee Mckeon CO2 [Moles/Vol] 26.1 mmol/L Normal 21.0-32.0 [facility] Comment on above: Performed By: #### H FPF #### [facility] [address] [address] [address] Amee Mckeon Creatinine [Mass/Vol] 0.75 mg/dL Normal 0.55-1.02 [facility] Comment on above: Performed By: #### H FPF #### [facility] [address] [address] [address] Amee Mckeon Globulin (S) [Mass/Vol] 3.4 g/dL Normal [facility] Comment on above: Performed By: #### H FPF #### [facility] [address] [address] [address] Amee Mckeon Glucose [Mass/Vol] 94 mg/dL Normal 74-106 [facility] Comment on above: Performed By: #### H FPF #### [facility] [address] [address] [address] Amee Mckeon HDL NORMAL > or = 60 mg/dl - LOW CARDIOVASCULAR RISK <40 mg/dl - HIGH CARDIOVASCULAR RISK Normal [facility] Comment on above: Performed By: #### H FPF #### [facility] [address] [address] [address] Amee Mckeon LDL CALC NORMAL SEE BELOW Normal [facility] Comment on above: Result Comment: <100 mg/dl OPTIMAL 100 - 129 mg/dl NEAR OR ABOVE OPTIMAL 130 - 159 mg/dl BORDERLINE HIGH 160 - 189 mg/dl HIGH >190 mg/dl VERY HIGH Performed By: #### H FPF #### [facility] [address] [address] [address] Amee Mckeon Potassium [Moles/Vol] 3.7 mmol/L Normal 3.5-5.1 [facility] Comment on above: Performed By: #### H FPF #### [facility] [address] [address] [address] Amee Mckeon Protein [Mass/Vol] 7.2 g/dL Normal 6.4-8.2 [facility] [place] Comment on above: Performed By: #### H FPF #### [facility] [address] [address] [address] Amee Mckeon Sodium [Moles/Vol] 137 mmol/L Normal 136-145 [facility] [place] Comment on above: Performed By: #### H FPF #### [facility] [address] [address] [address] Amee Mckeon Triglyceride [Mass/Vol] 117 mg/dL Normal <=150 [facility] Comment on above: Performed By: #### H FPF #### [facility] [address] [address] [address] Amee Mckeon TSH 1.647 uIU/mL Normal 0.358-3.740 [facility] Comment on above: Performed By: #### H FPF #### [facility] [address] [address] [address] Amee Mckeon Urea nitrogen [Mass/Vol] 18.0 mg/dL Normal 7.0-18.0 [facility] Comment on above: Performed By: #### H FPF #### [facility] [address] [place] [address] Dr. Amee Mckeon Urea nitrogen/Creatinine [Mass ratio] 24.0 mg/mg Normal [facility] Comment on above: Performed By: #### H FPF #### [facility] [address] [place] [address] Dr. Amee Mckeon VLDL CALC 23.4 mg/dL Normal [facility] Comment on above: Performed By: #### H FPF #### [facility] [address] [place] [address] Dr. Amee Mckeon PAP ACOG PANEL 2: 30 to 67on 03-26-2022 . . Normal [facility] Comment on above: Result Comment: Perf ormed at: WB Performed By: #### [id number] #### [facility] [address] [place] [address] Dr. Amee Mckeon Age Gdln ACOG Testing -67 [facility] Comment on above: Performed By: #### [id number] #### [facility] [address] [place] [address] Dr. Amee Mckeon DIAGNOSIS: Comment Normal [facility] Comment on above: Result Comment: NEGA TIVE FOR INTRAEPITHELIAL LESION OR MALIGNANCY. Performed at: WB Performed By: #### [id number] #### [facility] [address] [place] [address] Dr. Amee Mckeon HPV Aptima Negative Normal Negative [facility] Comment on above: Result Comment: This nucleic acid amplification test detects fourteen high-risk HPV types (16,18,31,33,35,39,45,51,52,56,58,59,66,68) without differentiation. Performed at: =G Performed By: #### [id number] #### [facility] [address] [place] [address] Dr. Amee Mckeon Methodology: Comment Normal [facility] Comment on above: Result Comment: This liquid based ThinPrep(R) pap test was screened with the use of an image guided system. Performed at: WB Performed By: #### [id number] #### [facility] [address] [place] [address] Dr. Amee Mckeon Note: Comment Normal [facility] Comment on above: Result Comment: The Pap smear is a screening test designed to aid in the detection of premalignant and malignant conditions of the uterine cervix. It is not a diagnostic procedure and should not be used as the sole means of detecting cervical cancer. Both false-positive and false-negative reports do occur. . Performed at: WB Performed By: #### [id number] #### [facility] [address] [place] [address] Dr. Amee Mckeon Performed by: Comment Normal [facility] Comment on above: Result Comment: Lourdes Farrell, Joint Filler (ASCP) Performed at: WB Performed By: #### [id number] #### [facility] [address] [place] [address] Dr. Amee Mckeon Specimen adequacy: Comment Normal [facility] Comment on above: Result Comment: Sati sfactory for evaluation. No endocervical component is identified. Performed at: WB Performed By: #### [id number] #### [facility] [address] [place] [address] Dr. Amee Mckeon Vital Signs Date Time Vital Sign Value Performing Clinician Faci lity 12-13-2024 11:02-0400 Body mass index (BMI) [Ratio] 37.55 kg/m2 [employer] Phone: [facility] Healthcare 12-13-2024 11:02-0400 Body weight 87.2 kg [employer] Phone: [facility] Healthcare Encounters Encounter Date Encounter Type Care Provider Facility Start: 12-14-2024 End: 12-14-2024 ambulatory URSULA FALL Not Available Comment on above: Plantar fasciitis, b ilateral (Primary Dx); Plantar fasciitis Start: 12-13-2024 End: 12-13-2024 Bamboo flowsheet [employer] Work Phone: [facility] Start: 12-13-2024 End: 12-13-2024 Bamboo flowsheet [employer] Work Phone: [facility] Start: 12-13-2024 End: 12-13-2024 ambulatory ASH SANTILLAN Not Available Start: 12-13-2024 End: 12-13-2024 Office outpatient visit 15 minutes Ash Santillan DO Work Phone: [facility] Comment on above: Pelvic pain in femal e; PCOS (polycystic ovarian syndrome); Abnormal uterine bleeding (AUB) Start: 12-07-2024 End: 12-08-2024 ambulatory Ursula Fall PT [facility] Comment on above: Plantar fasciitis, b ilateral (Primary Dx); Plantar fasciitis Start: 12-05-2024 End: 12-06-2024 ambulatory Ursula Fall PT [facility] Comment on above: Plantar fasciitis, b ilateral (Primary Dx) Start: 11-30-2024 End: 12-01-2024 ambulatory Ursula Fall PT [facility] Comment on above: Plantar fasciitis, b ilateral (Primary Dx); Plantar fasciitis Start: 11-30-2024 End: 11-30-2024 Bamboo flowsheet Ursula Fall PT [facility] Start: 11-30-2024 End: 11-30-2024 Bamboo flowsheet Ursula Fall PT [facility] Start: 11-21-2024 End: 11-21-2024 ambulatory MARLENE MALONEY Not Available Start: 11-21-2024 End: 11-21-2024 Bamboo flowskeshia Maloney DPM Work Phone: [facility] Start: 11-21-2024 End: 11-21-2024 Bamboo flowskeshia Maloney DPM Work Phone: [facility] Start: 10-20-2024 End: 10-20-2024 Bamboo flowskeshia Maloney DPM Work Phone: [facility] Start: 10-20-2024 End: 10-20-2024 Bamboo flowskeshia Malonye DPM Work Phone: [facility] Start: 10-20-2024 End: 10-20-2024 Office outpatient visit 15 minutes Marlene Maloney DPM Work Phone: [facility] Comment on above: Plantar fasciitis (P rimary Dx); Pain of left heel; Pain of right heel Start: 10-20-2024 End: 10-20-2024 ambulatory MARLENE MALONEY Not Available Start: 10-05-2024 End: 10-05-2024 Clinisync Result Encounter Ash Tyrell DO Work Phone: [facility] External Department Unsolicited Start: 10-05-2024 End: 10-05-2024 Clinisync Result Encounter Ash Tyrell DO Work Phone: [facility] External Department Unsolicited Start: 09-07-2024 End: 09-07-2024 Bamboo flowsheet Marlene Maloney DPM Work Phone: [facility] Start: 09-07-2024 End: 09-07-2024 Bamboo flowsheet Marlene Maloney DPM Work Phone: [facility] Start: 09-07-2024 End: 09-07-2024 ambulatory MARLENE MALONEY Not Available Start: 09-07-2024 End: 09-07-2024 Office outpatient visit 15 minutes Marlene Maloney DPM Work Phone: [facility] Comment on above: Plantar fasciitis (P rimary Dx); Pain of left heel; Pain of right heel Start: 07-26-2024 End: 07-26-2024 Bamboo flowsheet Marlene Maloney DPM Work Phone: [facility] Start: 07-26-2024 End: 07-26-2024 Bamboo flowsheet Marlene Maloney DPM Work Phone: [facility] Start: 07-26-2024 End: 07-26-2024 ambulatory MARLENE MALONEY Not Available Start: 07-26-2024 End: 07-26-2024 Office outpatient visit 15 minutes Marlene Maloney DPM Work Phone: [facility] Comment on above: Plantar fasciitis (P rimary Dx); Pain of left heel; Pain of right heel Start: 06-27-2024 End: 06-27-2024 Bamboo flowsheet Marlene Maloney DPM Work Phone: [facility] Start: 06-27-2024 End: 06-27-2024 Bamboo flowsheet Marlene Maloney DPM Work Phone: [facility] Start: 06-27-2024 End: 06-27-2024 Telephone encounter Marlene Maloney DPM Work Phone: [facility] Comment on above: script check Start: 06-27-2024 End: 06-27-2024 ambulatory MARLENE MALONEY Not Available Start: 06-27-2024 End: 06-27-2024 Office outpatient new 30 minutes Marlene Maloney DPM Work Phone: [facility] Comment on above: Plantar fasciitis (P rimary Dx); Pain of left heel; Pain of right heel; Pain of both heels Start: 06-13-2022 End: 06-13-[address] ASH SANTILLAN Facility:[facility] Start: 06-12-2022 Encounter for preprocedural laboratory examination DR ASH SANTILLAN [facility] Start: 06-10-2022 End: 06-11-[address] ASH SANTILLAN Facility:[facility] Start: 06-10-2022 End: 06-11-2022 Encounter for preprocedural laboratory examination DR ASH SANTILLAN Facility:[facility] Start: 06-06-2022 Encounter for other preprocedural examination DR ASH SANTILLAN [facility] Start: 06-04-2022 End: 06-05-[address] [...] Treatment Date Care Activity Detail Author Start: 05-11-2025 End: 05-11-2025 Patient encounter procedure 05/11/2025 9:00 AM EDT Office Visit [facility] [address] [place] [id number] Ash Santillan, DO [address] [place] [address] [facility] Start: 12-29-2024 End: 12-29-2024 Patient encounter procedure 12/29/2024 10:40 AM EDT Office Visit [facility] [address] [place] [id number] Ash Santillan, DO [address] [place] [address] [facility] Start: 12-28-2024 End: 12-28-2024 ambulatory 12/28/2024 5:00 PM EDT Treatment [facility] [address] [facility] [address] [place] [address] Ursula Fall, PT [facility] Start: 12-21-2024 End: 12-21-2024 ambulatory 12/21/2024 5:00 PM EDT Treatment [facility] [address] [facility] [address] [place] [address] Ursula Fall, PT [facility] Start: 12-19-2024 End: 12-19-2024 ambulatory 12/19/2024 5:00 PM EDT Treatment [facility] [address] [facility] [address] [place] [address] Ursula Fall, PT [facility] Start: 12-14-2024 End: 12-14-2024 ambulatory 12/14/2024 5:00 PM EDT Treatment [facility] [address] [facility] [address] [place] [address] Ursula Fall, PT [facility] Start: 12-13-2024 End: 12-13-2025 Cortisol AM Cortisol AM Lab Routine Pelvic pain in female Abnormal uterine bleeding (AUB) Expected: 12/13/2024 (Approximate), Expires: 12/13/2025 [facility] Comment on above: Expected: 12/13/2024 (Approximate), Expires: 12/13/2025 Start: 12-13-2024 End: 12-13-2025 DHEA DHEA Lab Routine PCOS (polycystic ovarian syndrome) Expected: 12/13/2024 (Approximate), Expires: 12/13/2025 [facility] Comment on above: Expected: 12/13/2024 (Approximate), Expires: 12/13/2025 Start: 12-13-2024 End: 12-13-2024 Patient encounter procedure 12/13/2024 10:50 AM EDT Office Visit [facility] [address] [facility] [phone] Ash Santillan, DO [address] [facility] [place] [place] [address] [facility] Start: 12-07-2024 End: 12-07-2024 ambulatory 12/07/2024 5:00 PM EDT Treatment [facility] [address] [facility] [address] [place] [address] Ursula Fall, PT [facility] Start: 11-21-2024 End: 11-21-2024 Patient encounter procedure [facility] Comment on above: Arrived Start: 10-20-2024 End: 10-20-2024 Patient encounter procedure 10/20/2024 11:00 AM EST [facility] [address] [place] [address] Marlene Maloney, DPM [address] [place] [address] Arrived [facility] Comment on above: Arrived Start: 09-07-2024 End: 09-07-2024 Patient encounter procedure 09/07/2024 1:45 PM EST Office Visit [facility] [address] [place] [phone] Marlene Maloney, DPM [address] [place] [address] [facility] Start: 07-26-2024 End: 07-26-2024 Patient encounter procedure 07/26/2024 1:45 PM EST Office Visit [facility] [address] [place] [address] Marlene Maloney, DPM [address] [place] [address] [facility] DHEA-sulfate DHEA-sulfate Lab Routine PCOS (polycystic ovarian syndrome) Ordered: 12/13/2024 [facility] Comment on above: Ordered: 12/13/2024 Follicle stimulating hormone Follicle stimulating hormone Lab Routine PCOS (polycystic ovarian syndrome) Ordered: 12/13/2024 [facility] Comment on above: Ordered: 12/13/2024 hCG, quantitative, hCG, quantitative, Lab Routine PCOS (polycystic ovarian syndrome) Ordered: 12/13/2024 [facility] Work Phone: Comment on above: Ordered: 12/13/2024 Hemoglobin A1c/Hemoglobin.total in Blood Hemoglobin A1c Lab Routine Pelvic pain in female Abnormal uterine bleeding (AUB) Ordered: 12/13/2024 [facility] Comment on above: Ordered: 12/13/2024 Luteinizing hormone Luteinizing hormone Lab Routine PCOS (polycystic ovarian syndrome) Ordered: 12/13/2024 [facility] Comment on above: Ordered: 12/13/2024 Prolactin Prolactin Lab Ro utine Pelvic pain in female Abnormal uterine bleeding (AUB) Ordered: 12/13/2024 [facility] Comment on above: Ordered: 12/13/2024 Payers Date Payer Category Payer Medicaid [id number] 2019 Private Health Insurance [id number] 1982 Unknown [id number] 2.16.84 [id number] 1982 Unknown [id number] 2.16.84 [id number] 1982 Unknown [id number] 2.16.84 [id number] 1982 Unknown [id number] 2.16.84 [id number] 1982 Unknown [id number] 2.16.84 0.1.465177.3.579.2.1259 1982 Unknown [id number] 2.16.84 0.1.135611.3.579.2.1259 1982 Unknown [id number] 2.16.84 0.1.228231.3.579.2.1259 1982 Unknown [id number] 2.16.84 0.1.241526.3.579.2.1259 1982 Unknown [id number] 2.16.84 0.1.621201.3.579.2.9 1982 Unknown [id number] 2.16.84 0.1.824992.3.579.2.1259 1982 Unknown [id number] 2.16.84 0.1.581172.3.579.2.1259 1982 Unknown [id number] 2.16.84 0.1.185692.3.579.2.1259 1982 Unknown [id number] 2.16.84 0.1.031436.3.579.2.1259 1982 Unknown [id number] 2.16.84 [id number] 1959 Self-pay [id number] 1959 Unknown [id number] 1959 Unknown [id number] Unknown [id number] 2.16.84 [id number] Social History Date Type Detail Facility Tobacco smoking stat [facility] Tobacco smoking consumption unknown [facility] Start: 1980 Sex assigned at Not on file [facility] Start: 07-26-2024 End: 11-21-2024 Gender identity Not on file [facility] Start: 07-26-2024 Tobacco smoking stat [facility] Ex-smoker [facility] History of tobacco use Current smoker [facility] History of tobacco use Cigarette Smoker [facility] Start: 07-26-2024 Tobacco use and exposure Smokeless t obacco non-user [facility] Start: 07-26-2024 End: 11-21-2024 History of Social function [facility] Clinical Notes 06-13-2022 to 12-14-2024 Ursual Fall, PT - 12/14/2024 5:00 PM Shivam Ortega LPN - 12/13/2024 10:50 AM Yang Fall, PT - 12/07/2024 5:00 PM Yang Fall, PT - 12/05/2024 5:00 PM EDT Note Date & Type Note Facility 12-14-2024 History of Presen t illness Narrative Images from the original note were not included. Physical Therapy Treatment Visit Patient Name: Toi Rooney Today's Date: 12/14/2024 Encounter Diagnoses Name Primary? Plantar fasciitis, bilateral Yes Plantar fasciitis Visit number: 4 Timed Code Treatment Minutes: 40 minutes Total Treatment Time: 40 minutes Time In: 1658 Time Out: 1740 History: Pt states she has been having issued with bilateral feet for quite some time. Has had multiple injections in the past. Sx's started to return in July of last year. Started on oral steroid which helped sx's but they gradually returned. Has had 2 injection since that time, each only last about 4 weeks. Pt is not currently using any time of inserts for support. Does do some stretching when pain is present. Does occasional massage at home. Precautions: Lyons Subjective: Pt states she felt better after session. Wearing arch support. States arches feel good but heels still hurt. Pain: 4-01/07 Objective: PT Evaluation (11/30/2024) Bilateral ANKLE AROM: RIGHT: 5 degrees DF knee extended, 12 degrees DF knee flexed, 32 degrees inversion, 6 degree eversion ; LEFT: 7 degrees DF knee extended, 15 degrees DF knee flexed, 33 degrees inversion, 7 degree eversion PROM: RIGHT: 12 degrees DF knee extended, 22 degrees DF knee flexed; LEFT: 11 degrees DF knee extended, 21 degrees DF knee flexed Joint play: Laxity with right anterior drawer testing right ankle Strength: grossly 4+ to 5/5 bilateral Palpation: mild to moderate tenderness with palpation bilateral calcaneus Observation: Mild to moderate pes planus bilateral, right > left Treatment: Education: HEP education with demonstration, Educated on Eval Findings and POC Manual Therapy: (12 minutes) Passive ROM, Joint mobilization, Soft Tissue Mobilization, Myofascial Release, Muscle Energy Technique, Neural Mobilization, Myofascial Cupping, Dry Needling, IASTM, and Scar mobilization as needed. IDN bilateral heels with static placement of 3 needles bilateral (not today). IASTM to bilateral lower legs in prone. Manual stretching bilateral ankles in prone to increase DF ROM. Therapeutic Exercise: (28 minutes) Strength, Endurance, Flexibility, ROM, HEP, Neural Mobilization, Power, and Core Stability as needed. Reviewed and performed HEP this date with good pt understanding. Performed exercises per grid with good/fair toni. Progressions made for strength and stability, some standing exercises performed without shoes. Therapeutic Activity: Exercises to improve dynamic activities, functional tasks, functional mobility to return to prior activity level as needed. Neuromuscular re-education: Balance Training, Muscle Facilitation, Dynamic Stability, Core Stabilization, and Blood Flow Restriction Training (BFRT) as needed. Modalities: Heat, Ice, Electrical Stimulation, Ultrasound, Cervical Mechanical Traction, Lumbar Mechanical Traction, Iontophoresis, and Fluidotherapy as needed. US x 5 mins bilateral heels (not today). CP declined this date Assessment: Pt has completed 4 PT sessions for bilateral plantar fasciitis. Pt continues with mild to moderate tenderness with palpation. Less pain reported in standing following manual therapy. ROM bilateral ankles maintains WFL. Will continue to monitor pain and progress appropriately. Outcome Measure: Lower Extremity Functional Scale (LEFS): 45/80 Rehab Diagnosis: bilateral foot pain, difficulty walking, Short Term Goal: To be met in 2 weeks Goal 1: Pt to be instructed in home exercise program. Half-Way Goals: To be met in 10 weeks Goal 1: Pt to report independence and compliance with home program. Goal 2: Pt to have little to no tenderness bilateral heels indicating improved tissue quality and tolerance to standing activities. Goal 3: Pt to achieve 5/5 strength bilateral ankle PF to assist with functional mobility and stairs. Goal 4: Pt to report pain no greater than 1/10 with prolong standing activities. Goal 5: Pt to score no less than 60/80 on LEFS indicating improved QOL. Pt will benefit from skilled PT for 2-3x/week from 11/30/2024 to 02/08/2025 to address the above impairments. I hereby deem this POC medically necessary. Please sign below. Date: documented in this encounter [facility] 12-13-2024 History of Presen t illness Narrative Reason for Appointment: Patient ID: Toi Rooney is a 44 y.o. female who presents for Pelvic Pain Patient presents today for Follow up appointment to discuss results. MEDICATIONS Current Outpatient Medications Medication Instructions celecoxib (CELEBREX) 200 mg, Oral, Daily ALLERGIES No Known Allergies PROBLEMS Active Ambulatory Problems Diagnosis Date Noted No Active Ambulatory Problems Resolved Ambulatory Problems Diagnosis Date Noted No Resolved Ambulatory Problems No Additional Past Medical History HISTORY PAST MEDICAL HISTORY SOCIAL HISTORY No past medical history on file. Social History Tobacco Use Smoking status: Former Types: Cigarettes Smokeless tobacco: Never Substance Use Topics Alcohol use: Not on file Drug use: Not on file FAMILY HISTORY No family history on file. SURGICAL HISTORY Past Surgical History: Procedure Laterality Date SECTION, CLASSIC TUBAL LIGATION REVIEW OF SYSTEMS Review of Systems: Review of Systems Constitutional: Negative. HENT: Negative. Eyes: Negative. Respiratory: Negative. Cardiovascular: Negative. Gastrointestinal: Negative. Genitourinary: Positive for pelvic pain. Musculoskeletal: Negative. Skin: Negative. Neurological: Negative. All other systems reviewed and are negative. Hematological: Negative. Endocrine: Negative. Allergic/Immunologic: Negative. OBJECTIVE Objective: Physical Exam Constitutional: Appearance: Normal appearance. She is well-developed. Cardiovascular: Rate and Rhythm: Normal rate and regular rhythm. Pulmonary: Effort: Pulmonary effort is normal. Breath sounds: Normal breath sounds. Abdominal: General: Bowel sounds are normal. There is no distension. Palpations: Abdomen is soft. Tenderness: There is no abdominal tenderness. There is no guarding or rebound. Musculoskeletal: General: No swelling. Normal range of motion. Right lower leg: No edema. Left lower leg: No edema. Neurological: Mental Status: She is alert and oriented to person, place, and time. Skin: General: Skin is warm and dry. Psychiatric: Mood and Affect: Mood normal. Behavior: Behavior normal. Vitals and nursing note reviewed. Exam conducted with a slitter creaser slotter helper present. Vitals: Estimated body mass index is 37.55 kg/m as calculated from the following: Height as of 06/26/22: 5'. Weight as of this encounter: 192 lb 4 oz. BP: No LMP recorded. ASSESSMENT & PLAN ICD-10-CM 1. Pelvic pain in female R10.2 Pt presents with pelvic pain on left side. Ultrasound remarkable- reviewed with pt. Pt to be scheduled for dx lap with poss CYNDY poss FOE, with d&c hysteroscopy. Pt having spotting for menstrual cycle. Pt has not had cycle since August. Just spotting since. Pt given labs to have obtained Pt has complaints of weight gain in face. Documented by Katalina Ortega LPN on behalf of: Ash Santillan DO documented in this encounter [facility] 12-07-2024 History of Presen t illness Narrative Images from the original note were not included. Physical Therapy Treatment Visit Patient Name: Toi Rooney Today's Date: 12/07/2024 Encounter Diagnoses Name Primary? Plantar fasciitis, bilateral Yes Plantar fasciitis Visit number: 3 Timed Code Treatment Minutes: 25 minutes Total Treatment Time: 25 minutes Time In: 1658 Time Out: 1730 History: Pt states she has been having issued with bilateral feet for quite some time. Has had multiple injections in the past. Sx's started to return in July of last year. Started on oral steroid which helped sx's but they gradually returned. Has had 2 injection since that time, each only last about 4 weeks. Pt is not currently using any time of inserts for support. Does do some stretching when pain is present. Does occasional massage at home. Precautions: Lyons Subjective: Pt states bilateral calf muscles and heels were sore after last session. Heels still a little painful today. Inserts were delivered today. Pain: 5/10 Objective: PT Evaluation (11/30/2024) Bilateral ANKLE AROM: RIGHT: 5 degrees DF knee extended, 12 degrees DF knee flexed, 32 degrees inversion, 6 degree eversion ; LEFT: 7 degrees DF knee extended, 15 degrees DF knee flexed, 33 degrees inversion, 7 degree eversion PROM: RIGHT: 12 degrees DF knee extended, 22 degrees DF knee flexed; LEFT: 11 degrees DF knee extended, 21 degrees DF knee flexed Joint play: Laxity with right anterior drawer testing right ankle Strength: grossly 4+ to 5/5 bilateral Palpation: mild to moderate tenderness with palpation bilateral calcaneus Observation: Mild to moderate pes planus bilateral, right > left Treatment: Education: HEP education with demonstration, Educated on Eval Findings and POC Manual Therapy: Passive ROM, Joint mobilization, Soft Tissue Mobilization, Myofascial Release, Muscle Energy Technique, Neural Mobilization, Myofascial Cupping, Dry Needling, IASTM, and Scar mobilization as needed. IDN bilateral heels with static placement of 3 needles bilateral (not today) Therapeutic Exercise: (25 minutes) Strength, Endurance, Flexibility, ROM, HEP, Neural Mobilization, Power, and Core Stability as needed. Reviewed and performed HEP this date with good pt understanding. Performed exercises per grid with good/fair toni. Progressions made for strength and stability. Therapeutic Activity: Exercises to improve dynamic activities, functional tasks, functional mobility to return to prior activity level as needed. Neuromuscular re-education: Balance Training, Muscle Facilitation, Dynamic Stability, Core Stabilization, and Blood Flow Restriction Training (BFRT) as needed. Modalities: Heat, Ice, Electrical Stimulation, Ultrasound, Cervical Mechanical Traction, Lumbar Mechanical Traction, Iontophoresis, and Fluidotherapy as needed. US x 5 mins bilateral heels (not today). CP declined this date Assessment: Pt has completed 3 PT sessions for bilateral plantar fasciitis. Held manual therapy this date and progressed HEP. Pt with improved comfort reported with shoe inserts. Will continue to progress as able. Outcome Measure: Lower Extremity Functional Scale (LEFS): 45/80 Rehab Diagnosis: bilateral foot pain, difficulty walking, Short Term Goal: To be met in 2 weeks Goal 1: Pt to be instructed in home exercise program. [employer] Education Science Teacher Goals: To be met in 10 weeks Goal 1: Pt to report independence and compliance with home program. Goal 2: Pt to have little to no tenderness bilateral heels indicating improved tissue quality and tolerance to standing activities. Goal 3: Pt to achieve 5/5 strength bilateral ankle PF to assist with functional mobility and stairs. Goal 4: Pt to report pain no greater than 1/10 with prolong standing activities. Goal 5: Pt to score no less than 60/80 on LEFS indicating improved QOL. Pt will benefit from skilled PT for 2-3x/week from 11/30/2024 to 02/08/2025 to address the above impairments. I hereby deem this POC medically necessary. Please sign below. Date: documented in this encounter [facility] 12-05-2024 History of Presen t illness Narrative Images from the original note were not included. Physical Therapy Treatment Visit Patient Name: Toi Rooney Today's Date: 12/05/2024 Encounter Diagnoses Name Primary? Plantar fasciitis, bilateral Yes Visit number: 2 Timed Code Treatment Minutes: 35 minutes Total Treatment Time: 50 minutes Time In: 1655 Time Out: 1751 History: Pt states she has been having issued with bilateral feet for quite some time. Has had multiple injections in the past. Sx's started to return in July of last year. Started on oral steroid which helped sx's but they gradually returned. Has had 2 injection since that time, each only last about 4 weeks. Pt is not currently using any time of inserts for support. Does do some stretching when pain is present. Does occasional massage at home. Precautions: [place] Subjective: Pt states heels feel about the same. Stretching at home without difficulty. Still has not purchased OTC inserts. Pain: 5/10 Objective: PT Evaluation (11/30/2024) Bilateral ANKLE AROM: RIGHT: 5 degrees DF knee extended, 12 degrees DF knee flexed, 32 degrees inversion, 6 degree eversion ; LEFT: 7 degrees DF knee extended, 15 degrees DF knee flexed, 33 degrees inversion, 7 degree eversion PROM: RIGHT: 12 degrees DF knee extended, 22 degrees DF knee flexed; LEFT: 11 degrees DF knee extended, 21 degrees DF knee flexed Joint play: Laxity with right anterior drawer testing right ankle Strength: grossly 4+ to 5/5 bilateral Palpation: mild to moderate tenderness with palpation bilateral calcaneus Observation: Mild to moderate pes planus bilateral, right > left Treatment: Education: HEP education with demonstration, Educated on Eval Findings and POC Manual Therapy: Passive ROM, Joint mobilization, Soft Tissue Mobilization, Myofascial Release, Muscle Energy Technique, Neural Mobilization, Myofascial Cupping, Dry Needling, IASTM, and Scar mobilization as needed. IDN bilateral heels with static placement of 3 needles bilateral (5 mins, no charge) Therapeutic Exercise: (25 minutes) Strength, Endurance, Flexibility, ROM, HEP, Neural Mobilization, Power, and Core Stability as needed. Reviewed and performed HEP this date with good pt understanding. Performed exercises per grid with good/fair toni. Therapeutic Activity: Exercises to improve dynamic activities, functional tasks, functional mobility to return to prior activity level as needed. Neuromuscular re-education: Balance Training, Muscle Facilitation, Dynamic Stability, Core Stabilization, and Blood Flow Restriction Training (BFRT) as needed. Modalities: Heat, Ice, Electrical Stimulation, Ultrasound, Cervical Mechanical Traction, Lumbar Mechanical Traction, Iontophoresis, and Fluidotherapy as needed. US x 5 mins bilateral heels (10 minutes, no charge). CP x 10 mins at end of session in sitting. Assessment: Pt has completed 2 PT sessions for bilateral plantar fasciitis. Performed heel raises this date; however, pt with reports of pain increase from 5-7/10 during last set. Will continue with focus on pain reduction. Outcome Measure: Lower Extremity Functional Scale (LEFS): 45/80 Rehab Diagnosis: bilateral foot pain, difficulty walking, Short Term Goal: To be met in 2 weeks Goal 1: Pt to be instructed in home exercise program. Half-Way Goals: To be met in 10 weeks Goal 1: Pt to report independence and compliance with home program. Goal 2: Pt to have little to no tenderness bilateral heels indicating improved tissue quality and tolerance to standing activities. Goal 3: Pt to achieve 5/5 strength bilateral ankle PF to assist with functional mobility and stairs. Goal 4: Pt to report pain no greater than 1/10 with prolong standing activities. Goal 5: Pt to score no less than 60/80 on LEFS indicating improved QOL. Pt will benefit from skilled PT for 2-3x/week from 11/30/2024 to 02/08/2025 to address the above impairments. I hereby deem this POC medically necessary. Please sign below. Date: documented in this encounter [facility] 10-20-2024 History of Presen t illness Narrative [...] RTC: 4-6 weeks. documented in this encounter [facility] 09-07-2024 History of Presen t illness Narrative [...] other conservative measures including supportive shoes and upik-xlu-obpwxpm inserts or custom inserts as applicable. We did discuss that there is a slight possibility of recurrence of the heel pain but to be very vigilant about continuing with the stretching exercises especially if they notice any recurrent symptoms. Patient should follow up as needed if they have any worsening pain or symptoms to the heel. documented in this encounter [facility] 07-26-2024 History of Presen t illness Narrative [...] RTC: 4-6 weeks. documented in this encounter [facility] 06-27-2024 Telephone encount er Note Rx was sent to [facility] in [place]. [facility] 06-27-2024 Miscellaneous Notes Formattin g of this note might be different from the original. Rx was sent to [facility] in [place]. Pt called to check in on script, and to change her preferred pharmacy to the [facility] in [place]. documented in this encounter [facility] 06-27-2024 Telephone encount er Note Pt called to check in on script, and to change her preferred pharmacy to the [facility] in [place]. [facility] 06-27-2024 History of Presen t illness Narrative [...] therapy if needed. documented in this encounter [facility] 06-27-2024 Instructions Marlene Maloney DPM - 06/27/2024 [...] foot and heel over the water bottle. Brbl-vrs-dahorrk (OTC) arch supports: Arlyn Martineztep, [employer] Continued Treatment: Local anesthetic steroid injections [...] get them is at an online supplier. [employer] offers many options for night splints. There [...] front. The devices that are most recommended: Hema Plantar Fasciitis Splint Plantar Fasciitis Night Splint [...] wake up in the morning and provide nursing home flexibility to help decrease the chance [...] of 6-8 weeks. documented in this encounter [facility] 06-13-2022 Note OPERATIVE NOTE OPERATION DATE: 06/13/2022 PROCEDURE: Bilateral laparoscopic salpingectomy, lysis of adhesions, omental adhesions from the anterior abdominal wall. PREOPERATIVE DIAGNOSIS: Desires permanent sterilization. POSTOPERATIVE DIAGNOSIS: Desire permanent sterilization. ANESTHESIA: General. SURGEON: Ash Santillan D.O. PMO LEAD: SHAR Rdz URINE OUTPUT: Yellow and clear. [...] and needle counts were correct x2. The [facility] Evaluation note Diagnosis Plantar fasciitis- Primary Plantar fascial fibromatosis Pain of left heel Pain of right heel Pain of both heels documented in this encounter [facility] HealthcareEvaluation note* Diagnosis Plantar fasciitis- Primary Plantar fascial fibromatosis Pain of left heel Pain of right heel documented in this encounter [facility] HealthcareEvaluation note* Diagnosis Plantar fasciitis- Primary Plantar fascial fibromatosis Pain of left heel Pain of right heel documented in this encounter [facility]* Diagnosis Plantar fasciitis, bilateral- Primary Plantar fasciitis Plantar fascial fibromatosis documented in this encounter [facility] HealthcareEvaluation note* Diagnosis Plantar fasciitis, bilateral- Primary documented in this encounter [facility]Evaluation note* Diagnosis Plantar fasciitis, bilateral- Primary Plantar fasciitis Plantar fascial fibromatosis documented in this encounter [facility]Evaluation note* Diagnosis Pelvic pain in female Unspecified symptom associated with female genital organs PCOS (polycystic ovarian syndrome) Polycystic ovaries Abnormal uterine bleeding (AUB) documented in this encounter [facility]* Diagnosis Plantar fasciitis, bilateral- Primary Plantar fasciitis Plantar fascial fibromatosis documented in this encounter [facility] HealthcareReason for visit Narrative* Rehabilitation - Outpatient (Routine) - Pending Review Specialty Diagnoses / Procedures Referred By Long redding Referred To Contact Physical Therapy Diagnoses Plantar fasciitis Procedures [place] OFFICE/OUTPATIENT [facility] 60 MINUTES Marlene Maloney DPM [address] [place] [address] Phone: tel: fax: Ursula Fall, PT Referral ID Status Reason Start Date Expiration Date Visits Requested Visits Authorized [id number] Pending Review Specialty Services Required 11/21/2024 05/20/2025 2 2 [facility]* Rehabilitation - Outpatient (Routine) - Authorized Specialty Diagnoses / Procedures Referred By Long t Referred To Contact Physical Therapy Diagnoses Plantar fasciitis Procedures [place] OFFICE/OUTPATIENT [facility] 60 MINUTES Marlene Maloney, DPM [address] [place] [address] Phone: tel: fax: Ursula Fall, SINDY Referral ID Status Reason Start Date Expiration Date Visits Requested Visits Authorized [id number] Authorized Specialty Services Required 11/21/2024 08/30/2025 12 12 [facility] Summary Purpose Family History No Family History Records FoundNo Family History Records Found Advance Directives No Advanced Directives Records FoundNo Advanced Directives Records Found Additional Source Comments INFORMATION SOURCE (unrecogn ized section and content) DATE CREATED AUTHOR 08/07/2022 [facility] pital DATE CREATED AUTHOR AUTHOR'S ORGANIZ ATION 12/14/2024 [facility] EPIC Care Teams (unrecognized sec tion and content) Tool Design Drafter Relationship Specialty Start Date End Date Edison Timmons MD [address] [place] [address] PCP - General Family Medicine 06/27/24 Tool Design Drafter Relationship Specialty Start Date End Date Edison Timmons MD [address] [place] [address] PCP - General Family Medicine 06/27/24 Tool Design Drafter Relationship Specialty Start Date End Date Edison Timmons MD [address] [place] [address] PCP - General Family Medicine 06/27/24 Tool Design Drafter Relationship Specialty Start Date End Date Edison Timmons MD [address] [facility] [place] [address] PCP - General Family Medicine 06/27/24 Tool Design Drafter Relationship Specialty Start Date End Date Edison Timmons MD [address] [facility] [place] [address] PCP - General Family Medicine 06/27/24 Tool Design Drafter Relationship Specialty Start Date End Date Edison Timmons MD [address] [facility] [place] [address] PCP - General Family Medicine 06/27/24 Tool Design Drafter Relationship Specialty Start Date End Date Edison Timmons MD [address] [facility] [place] [address] PCP - General Family Medicine 06/27/24 Tool Design Drafter Relationship Specialty Start Date End Date Edison Timmons MD [address] [facility] [place] [address] PCP - General Family Medicine 06/27/24 Tool Design Drafter Relationship Specialty Start Date End Date Edison Timmons MD [address] [facility] [place] [address] PCP - General Family Medicine 06/27/24 Tool Design Drafter Relationship Specialty Start Date End Date Edison Timmons MD [address] [facility] [place] [address] PCP - General Family Medicine 06/27/24 Tool Design Drafter Relationship Specialty Start Date End Date Edison Timmons MD [address] [facility] [place] [address] PCP - General Family Medicine 06/27/24 Tool Design Drafter Relationship Specialty Start Date End Date Edison Timmons MD [address] [place] [address] PCP - General Family Medicine 06/27/24 Tool Design Drafter Relationship Specialty Start Date End Date Edison Timmons MD [address] [place] [address] [phone] PCP - General Family Medicine 06/27/24 Reason for Visit (unrecogniz ed section and content) Reason Onset Date Comments script check 06/27/2024 Reason Comments Pelvic Pain FOR RECORDS PERTAINING TO PATIENTS WHO ARE [...] BE BASED ON THE PRIMARY CLINICAL RECORDS. [employer] [facility]. provides no warranty or guarantee of the accuracy or completeness of information in this document.
[2024-12-16 08:50] LABS: HCG Quantitative <1 mIU/mL
[2024-12-16 09:37] LABS: Estimated Average Glucose 103 mg/dL; Glycohemoglobin A1C 5.2 % (4.5-6.2)
[2024-12-17 04:07] LABS: DHEA-Sulfate 34.4 ug/dL (57.3-279.2); FSH 7.1 mIU/mL (.); Luteinizing Hormone(LH) 15.5 mIU/mL (.); Prolactin 12.7 ng/mL (4.8-33.4)
== END 2024-12-16 07:51 | disposition home or self-care (01) ==
LOC: LAB 07:52
PROVIDERS: PCP Family Medicine; Visit Provider Obstetrics & Gynecology
DX: E28.2 Polycystic ovarian syndrome (principal); R10.2 Pelvic and perineal pain; N93.9 Abnormal uterine and vaginal bleeding, unspecified
CPT/HCPCS: 36415; 82533; 82626; 82627; 83001; 83002; 83036; 84146; 84702

== ENCOUNTER 2024-12-27 16:27 | Outpatient (OUT) | payer OTHER, SELFPAY ==
[2024-12-27 17:06] LABS: INR 0.98; Partial Thromboplastin Time 23.7 sec (22.3-36.2); Prothrombin Time 10.4 sec (9.0-11.6)
== END 2024-12-27 16:28 | disposition home or self-care (01) ==
LOC: LAB 16:27
PROVIDERS: PCP Family Medicine; Visit Provider Family Medicine
DX: Z01.812 Encounter for preprocedural laboratory examination (principal); Z01.818 Encounter for other preprocedural examination
CPT/HCPCS: 36415; 85610; 85730

== ENCOUNTER 2025-01-18 12:28 | Outpatient (OUT) | payer OTHER, SELFPAY ==
--- OUTSIDE RECORDS SUMMARY | 2024-12-19 12:49 | XMS_ITS ---
Author Organization The [facility] in [place] Address [address] [place] [address] Care Team Providers Care Draw End Hand Name Role Phone Francis Timmons Primary Care Provider [phone] REASON FOR VISIT Holter Results Encounters Encounter Location Date Provider Diagnosis [facility] [address] [place] [address] 12/19/2024 Francis Timmons Encounter for other preprocedural examination Z01.818 Assessments Encounter Date Diagnosis (ICD Code) Assessment Notes Treatment Notes Treatment Clinical Notes Section Notes 12/19/2024 Encounter for other preprocedural examination (ICD-10 - Z01.818) Plan Of Treatment Pending Test Test Name Order Date PT (PROTIME), INR AND PTT (PT/INR AND PT T) 12/19/2024 Progress Notes * Racheal KNIGHT LDOB:[birth year] (44 yo F)Acc No.[id number]:12/19/2024 Patient: Chaparro CJ Racheal Desouza :1980 A ge:44 Y S ex:Female Address:[address] [place] [phone] Subjective: * Chief Complaints: * H olter Results * Medical History: * Surgical History: * Hospitalization/Major Diagno stic Procedure: * Medications: Objective: * Vitals: * Physical Examination: Assessment: * Assessment: 1. E ncounter for other preprocedural examination - Z01.818 (Primary) Plan: * Treatment: * Procedure Codes: * true * Date: Generated for Charles delgado/Sander/Octaviano on: 0 01/18/2025 12:30 PM EDT
--- OUTSIDE RECORDS SUMMARY | 2024-12-21 16:15 | XMS_ITS ---
Author Organization The [facility] in [place] Address [address] [place] [address] Care Team Providers Care Asphalt Paving Machine Operator Name Role Phone Francis Timmons Primary Care Provider REASON FOR VISIT Holter results Encounters Encounter Location Date Provider Diagnosis [facility] [address] [place] [address] 12/21/2024 Francis Timmons Plan Of Treatment No Information Progress Notes * Racheal KNIGHT LDOB:[birth year] (44 yo F)Acc No.[id number]:12/21/2024 Patient: Chaparro Racheal CORONA :1980 A ge:44 Y S ex:Female Address:[address] [place] [phone] * true * Date: Generated for Charles delgado/Sander/eTransmitting on: 0 01/18/2025 12:31 PM EDT
--- OUTSIDE RECORDS SUMMARY | 2025-01-09 07:30 | XMS_ITS ---
Author Organization [facility] [place] Address [address] [place] [address] Care Team Providers Care Bible Teacher Name Role Phone Francis Timmons Primary Care Provider Allergies No Known Allergies REASON FOR VISIT Presents to office for surgery clearance with Dr. Maloney at [facility] in [place]. Plantar fasciitis left foot Social History Tobacco [...] fasciitis, left (M72.2) Active confirmed Vital Signs Blood pressure systolic 122 mm Hg 01/10/20 25 Blood pressure diastolic 78 mm Hg 025 Height 61 in 01/09/2025 Weight 194.4 lbs 01/09/2025 BMI 36.73 kg/m2 01/09/2025 Encounters Encounter Location Date Provider Diagnosis [facility] [address] [place] [address] 01/09/2025 Francis Timmons Plantar fasciitis, left M72.2 Assessments Encounter Date Diagnosis (ICD Code) Assessment Notes Treatment Notes Treatment Clinical Notes Section Notes 01/09/2025 Plantar fasciitis, left (ICD-10 - M72.2) clered for OR Plan Of Treatment Treatment Notes Assessment Notes Plantar fasciitis, left clered for OR Progress Notes * Racheal KNIGHT LDOB:[birth year] (44 yo F)Acc No.[id number]:01/09/2025 Progress Note Patient: Racheal COLLINS Provider: Jose Antonio Timmons ([facility])MD :1980 A ge:44 Y S ex:Female Date:01/09/2025 Address:[address] [place], [place] [id number] Check In:11:29 AM ESTCheck O ut:12:13 PM EST Subjective: * Chief Complaints: * P resents to office for surgery clearance with Dr. Maloney at [facility] in [place]. Plantar fasciitis left foot * HPI: G [...] Procedure Codes: * Preventive Medicine: Screenings/Counseling: B AK ACTION PLAN Above Normal BMI Follow-up D ietary management education, guidance, and counseling See treatment section of progress note for complete details of management plan. * * Sign off status: Completed Visit Status: C HK (Check Out) true * Provider: Jose Antonio Timmons ([facility])MD Date: 0 01/09/2025 Generated for Printi ng/Farufinag/eTransmitting on: 0 01/18/2025 12:31 PM EDT History and Physical Notes * [...]
--- OUTSIDE RECORDS SUMMARY | 2025-01-09 13:30 | XMS_ITS | Encounter Summary ---
Author Organization [facility] Address [address] [place] [address] Care Team Providers Care Floating Operator Name Role Phone Harsha Timmons MD Primary Care Provider [phone] Reason for Visit * Reason Comments Pre-op Visit Encounter Details Date Type Department Care Team ([facility] Contact Info) Description 01/09/2025 1:30 PM EDT Consult [facility] [address] [place] [phone] Jhon Santillan DO [address] [place] [address] Pre-op examination; Pelvic pain in female; PCOS (polycystic ovarian syndrome); Abnormal uterine bleeding (AUB); Left lower quadrant abdominal pain Social History Tobacco Use Types Packs/Day Years Used Date Smoking Tobacco: Former Cigarettes Smokeless Tobacco: Never Comments Unknown Sex and Gender Information Value Date Recorded Sex Assigned at Not on file Legal Sex Female 7:08 PM EDT Gender Identity Not on file Sexual Orientation Not on file documented as of this encounter Last Filed Vital Signs Vital Sign Reading Time Taken Comments Blood Pressure 120/76 01/09/2025 1:58 PM EDT Pulse - - Temperature - - Respiratory Rate - - Oxygen Saturation - - Inhaled Oxygen Concentration - - Weight 88 kg (194 lb) 01/09/2025 1:58 PM EDT Height - - Body Mass Index 37.89 06/26/2022 12:00 PM EDT documented in this encounter Progress Notes * Alanis Hill - 01/09/2025 1:30 PM EDT Reason for Appointment: Patient ID: Racheal Rooney is a 44 y.o. female who presents for Pre-op Visit Patient presents today for Pre Op appointment. Patient is scheduled to undergo Diagnostic Laparoscopy, possible CYNDY, possible FOE, possible BSO and D&C Hysteroscopy, possible Myosure on 01/27/[address] Santillan at [facility]. MEDICATIONS No current outpatient medications ALLERGIES No Known Allergies PROBLEMS Active Ambulatory Problems Diagnosis Date Noted ??? No Active Ambulatory Problems Resolved Ambulatory Problems Diagnosis Date Noted ??? No Resolved Ambulatory Problems No Additional Past Medical History HISTORY PAST MEDICAL HISTORY SOCIAL HISTORY History reviewed. No pertinent past medical history. Social History Tobacco Use ??? Smoking status: Former Types: Cigarettes ??? Smokeless tobacco: Never Substance Use Topics ??? Alcohol use: Not on file ??? Drug use: Not on file FAMILY HISTORY No family history on file. SURGICAL HISTORY Past Surgical History: Procedure Laterality Date ??? SECTION, LOW TRANSVERSE 05/19/2014 ??? SECTION, LOW TRANSVERSE 01/10/2011 ??? TUBAL LIGATION 06/13/2022 REVIEW OF SYSTEMS Review of Systems: Review of Systems Constitutional: Negative. HENT: Negative. Eyes: Negative. Respiratory: Negative. Cardiovascular: Negative. Gastrointestinal: Negative. Genitourinary: Positive for menstrual problem and pelvic pain. Musculoskeletal: Negative. Skin: Negative. Neurological: Negative. All other systems reviewed and are negative. Hematological: Negative. Endocrine: Negative. Allergic/Immunologic: Negative. OBJECTIVE Objective: Physical Exam Constitutional: Appearance: Normal appearance. She is well-developed. Genitourinary: Vulva normal. Cardiovascular: Rate and Rhythm: Normal rate and [...] nursing note reviewed. Exam conducted with a superintendent production present. Vitals: Estimated body mass index is 37.89 kg/m?? as calculated from the following: Height as of 22: 5'. Weight as of this encounter: 194 lb. BP: 120/76 Patient's last menstrual period was 01/07/2025. ASSESSMENT & PLAN ICD-10-CM 1. Pre-op examination Z01.818 POCT , urine manually resulted POCT urinalysis dipstick manually resulted 2. Pelvic pain in female R10.2 3. PCOS (polycystic ovarian syndrome) E28.2 4. Abnormal uterine bleeding (AUB) N93.9 5. Left lower quadrant abdominal pain R10.32 Patient presents today for an annual exam and PAP will be deferred at post op appointment. Patient is to schedule Annual with Dr. Santillan, so then post operative appointment could be discussed at that time as well. Discussed Endometrial Ablation in the future and patient will setup Ablation appointment. Patient does have up coming foot surgery for podiatry reasons. Pre Op: Patient is doing well but has complaints of pelvic pain and AUB. I have discussed conservative management vs. surgical management with the patient in detail and patient desires surgical management atthis time. Patient will undergo Diagnostic Laparoscopy, possible CYNDY, possible FOE, possible BSO and D&C Hysteroscopy, possible Myosure on 01/27/25. Surgical consents were signed, mmc was reviewed, and patient is to proceed to [facility] OR. Follow Up: Patient is to follow up between 1-2 weeks post operative to assess proper healing and recovery fromprocedure. Documented by Adriana Dale LPN on behalf of: Jhon Santillan DO documented in this encounter Plan of Treatment Upcoming Encounters Date Type Department Care Team (Late st Contact Info) Description 01/24/2025 11:30 AM EDT Office Visit [facility] [address] [place] [phone] Candelario Rojas DPM [address] [place] [address] 02/13/2025 9:50 AM EDT Office Visit [facility] [address] [place] [phone] Jhon Santillan, DO [address] [place] [address] 02/13/2025 11:00 AM EDT Office Visit [facility] [address] [place] [phone] Nikkie Maloney, DPM [address] [place] [address] documented as of this encounter Procedures Procedure Name Priority Date/Time Associated Diagnosis Comments POCT , URINE Routine 01/09/2025 2:04 PM EDT Pre-op examination POCT URINALYSIS DIPSTICK Routine 01/09/2025 2:04 PM EDT Pre-op examination documented in this encounter Results * POCT urinalysis dipstick manually resulted (01/09/2025 2:04 PM EDT) Color, UA Yellow Clarity, UA Clear Glucose, UA Negative Negative - 2000(110) ++++ mg/dL Bilirubin, UA Negative Negative - 4(70) +++ mg/dL Ketones, UA Negative Negative - 160(16) ++++ mg/dL Spec Grav, UA 1.025 1 - 1.03 Blood, UA Negative Negative - 50 Efrain/mcL pH, UA 6.5 5 - 9 Protein, UA Negative Negative - 2000(20) ++++ mg/dL Urobilinogen, UA 0.2 0.2 - 12 mg/dL Leukocytes, UA Negative Negative - 500+++ Diana/mcL Nitrite, UA Negative Negative - Positive Urine 01/09/2025 2:04 PM EDT us Jhon Santillan DO POINT OF CARE TEST ENTER/EDIT OR DERABLES Final Result * POCT , urine manually resulted (01/09/2025 2:04 PM EDT) Preg Test, Ur Negative Negative Urine 01/09/2025 2:04 PM EDT Jhon Santillan DO POINT OF CARE TEST ENTER/EDIT OR DERABLES Final Result documented in this encounter Visit Diagnoses Diagnosis Pre-op examination Pelvic pain in female Unspecified symptom associated with female genital organs PCOS (polycystic ovarian syndrome) Polycystic ovaries Abnormal uterine bleeding (AUB) Left lower quadrant abdominal pain documented in this encounter Care Teams Floating Operator Relationship Specialty Start Date End Date Harsha Timmons MD PCP - General Family Medicine 06/27/24 documented as of this encounter
--- OUTSIDE RECORDS SUMMARY | 2025-01-16 10:45 | XMS_ITS | Encounter Summary ---
Author Organization [facility] Address [address] [place] [address] Care Team Providers Care Canary Breeder Name Role Phone Harsha Timmons MD Primary Care Provider [phone] Encounter Details Date Type Department Care Team (Late st Contact Info) Description 01/16/2025 10:45 AM EDT Office Visit [facility] [address] [facility] 100 [place] [phone] Nikkie Maloney DPM [address] [facility] 100 [place] [address] Plantar fasciitis (Primary Dx); Postoperative examination [Z09]; Pain of left heel Social History Tobacco Use Types Packs/Day Years Used Date Smoking Tobacco: Former Cigarettes Smokeless Tobacco: Never Comments Unknown Sex and Gender Information Value Date Recorded Sex Assigned at Not on file Legal Sex Female 7:08 PM EDT Gender Identity Not on file Sexual Orientation Not on file documented as of this encounter Progress Notes * Nikkie Maloney DPM - 01/16/2025 10:45 AM EDT Images from the original note were not included. HPI: Racheal Rooney presents today for post-op appointment of EPF left foot. Surgery was performed on 01/13/2025 at [facility]. Patient complains of pain 0. Current symptoms are dull. Majority of her symptoms are along the surgical sites. Patient has been icing and elevating as instructed. Exam: General Examination: GENERAL APPEARANCE: awake, aware of surroundings, in no acute distress Vascular: DORSALIS PEDIS PULSE: 2/4, bilaterally POSTERIOR TIBIAL PULSE: 2/4, bilaterally TEMPERATURE GRADIENT: warm to cool EDEMA: to the medial/lateral left heel CAPILLARY FILLING TIME(sec): capillary fill intact bilateral digits less than 3 secs Neurologic: NEUROLOGIC: light touch is intact to the plantar foot Dermatologic: SKIN FINDINGS: incision sites to the medial and lateral heel are well copated with sutures intact. There is ecchymosis noted to the medial, lateral and plantar heel HYPERKERATOSIS: none NAIL PATHOLOGY: digits 1-5 bilateral are intact SKIN PATHOLOGY: texture, turgor, hair growth, within normal limits Orthopedic: FOOT MORPHOLOGY: neutral JOINT RANGE OF MOTION: without pain or crepitus DEFORMITIES: none PAIN ELICITED WITH PALPATION OF: Mild pain with palpation to the surgical sites left heel. No evidence of tightness along the course of the plantar fascia left. There is pain noted with palpation to the right heel at the plantar medial tubercle of the calcaneus. positive pain to palpation of the medial band of the plantar fascia. No pain noted with compression of the calcaneus or to palpation of the Achilles tendon right. No pain with palpation along the course of the posterior tibial tendon PAIN ELICITED WITH ROM: none MUSCLE STRENGTH: 5/5 for all pedal groups tested Assessments: Surgery follow-up examination: ICD M72.2 - Plantar fasciitis: ICD M79.672 - Pain in left foot: ICD M77.32 - Calcaneal spur, left: ICD M79.671 - Pain in right foot: ICD M77.31 - Calcaneal spur, right: Plan: Surgery Follow-up Examination: Betadine and Band-Aid was applied to the incision sites along the medial and lateral heel. Patient was given dressing supplies and instructed that they can begin to get the area wet and should use Betadine over the incisions after bathing. If she notices any increased moisture or maceration, I advised them to keep the area dry and continue with the Betadine. Encouraged patient to continue with use of the walking boot at all times when weightbearing. She can begin passive range of motion exercises if needed to help prevent stiffness in the ankle. Patient will follow-up in 10-14 days for sutureremoval. documented in this encounter Plan of Treatment Upcoming Encounters Date Type Department Care Team (Late st Contact Info) Description 01/24/2025 11:30 AM EDT Office Visit [facility] [address] [facility] 100 [place] [phone] Candelario Rojas, COREY [address] [facility] 100 [place] [address] 02/13/2025 9:50 AM EDT Office Visit [facility] [address] [place] [phone] Jhon Santillan, DO [address] [place] [address] 02/13/2025 11:00 AM EDT Office Visit [facility] [address] [facility] [address] [place] [phone] Nikkie Maloney, DPM [address] [facility] [address] [place] [address] documented as of this encounter Visit Diagnoses Diagnosis Plantar fasciitis- Primary Plantar fascial fibromatosis Postoperative examination [Z09] Follow-up examination, following unspecified surgery Pain of left heel documented in this encounter Care Teams Canary Breeder Relationship Specialty Start Date End Date Harsha Timmons MD PCP - General Family Medicine 06/27/24 documented as of this encounter
--- OUTSIDE RECORDS SUMMARY | 2025-01-18 12:31 | XMS_ITS | Encounter Summary ---
Author Organization [facility] Address [address] [place] [address] Care Team Providers Care Sausage Grinder Name Role Phone Harsha Timmons MD Primary Care Provider [phone] Encounter Details Date Type Department Care Team (Latest Contact Info) Description 01/16/2025 Travel Social History Tobacco Use Types Packs/Day Years Used Date Smoking Tobacco: Former Cigarettes Smokeless Tobacco: Never Comments Unknown Sex and Gender Information Value Date Recorded Sex Assigned at Not on file Legal Sex Female 7:08 PM EDT Gender Identity Not on file Sexual Orientation Not on file documented as of this encounter Plan of Treatment Upcoming Encounters Date Type Department Care Team (Late st Contact Info) Description 01/24/2025 11:30 AM EDT Office Visit [facility] [address] [facility] 100 [place] [phone] Candelario Rojas DPM [address] [facility] 100 [place] [address] 02/13/2025 9:50 AM EDT Office Visit [facility] [address] [facility] [place] [phone] Jhon Santillan DO [address] [facility] [place] [address] 02/13/2025 11:00 AM EDT Office Visit [facility] [address] [facility] [address] [place] [phone] Nikkie Maloney DPM [address] [facility] 100 [place] [address] documented as of this encounter Visit Diagnoses Not on filedocumented in this encounter Care Teams Sausage Grinder Relationship Specialty Start Date End Date Harsha Timmons MD PCP - General Family Medicine 06/27/24 documented as of this encounter
--- OUTSIDE RECORDS SUMMARY | 2025-01-18 12:31 | XMS_ITS | Encounter Summary ---
Author Organization [facility] Address [address] [place] [address] Care Team Providers Care Heavy Equipment Sales Manager Name Role Phone Harsha Timmons MD Primary Care Provider [phone] Encounter Details Date Type Department Care Team (Late Contact Info) Description 01/09/2025 Bamboo flowsheet [facility] [address] [place] [address] Jhon Santillan, DO [address] [place], [facility] Social History Tobacco Use Types Packs/Day Years Used Date Smoking Tobacco: Former Cigarettes Smokeless Tobacco: Never Comments Unknown Sex and Gender Information Value Date Recorded Sex Assigned at Not on file Legal Sex Female 7:08 PM EDT Gender Identity Not on file Sexual Orientation Not on file documented as of this encounter Plan of Treatment Upcoming Encounters Date Type Department Care Team (Late Contact Info) Description 01/24/2025 11:30 AM EDT Office Visit [facility] [address] [facility] 100 [place] [address] Candelario Rojas DPM [address] [facility] 100 [place] [address] 02/13/2025 9:50 AM EDT Office Visit [facility] [address] [facility] [place] [address] Jhon Santillan, DO [address] [place] [address] 02/13/2025 11:00 AM EDT Office Visit [facility] [address] [facility] 100 [place] [phone] Nikkie Maloney DPM [address] [facility] [address] [facility] 100 [place] [address] documented as of this encounter Visit Diagnoses Not on filedocumented in this encounter Care Teams Heavy Equipment Sales Manager Relationship Specialty Start Date End Date Harsha Timmons MD PCP - General Family Medicine 06/27/24 documented as of this encounter
--- OUTSIDE RECORDS SUMMARY | 2025-01-18 12:31 | XMS_ITS | Encounter Summary ---
Author Organization [facility] Address [address] [facility] [place] [address] Care Team Providers Care Crepe Box Tender Name Role Phone Harsha Timmons MD Primary Care Provider [phone] Encounter Details Date Type Department Care Team (Late Contact Info) Description 01/16/2025 Bamboo flowsheet [facility] [address] [facility] 100 [place] [phone] Nikkie Maloney DPM [address] [facility] 100 [place] [address] Social History Tobacco Use Types Packs/Day Years [...] [facility] [address] [facility] 100 [place] [phone] Candelario Rojas DPM [address] [facility] 100 [place] [address] 02/13/2025 9:50 AM EDT Office Visit [facility] [address] [place] [phone] Jhon Santillan DO [address] [facility] [place] [address] 02/13/2025 11:00 AM EDT Office Visit [facility] [address] [facility] 100 [place] [phone] Nikkie Maloney DPM [address] [facility] 100 [place] [address] documented as of this encounter Visit Diagnoses Not on filedocumented in this encounter Care Teams Crepe Box Tender Relationship Specialty Start Date End Date Harsha Timmons MD PCP - General Family Medicine 06/27/24 documented as of this encounter
--- OUTSIDE RECORDS SUMMARY | 2025-01-18 12:31 | XMS_ITS | Encounter Summary ---
Author Organization [facility] Address [address] [place] [address] Care Team Providers Care Metal Tile Setter Name Role Phone Harsha Timmons MD Primary Care Provider [phone] Encounter Details Date Type Department Care Team (Late Contact Info) Description 01/12/2025 Abstract [facility] [address] [place] [phone] Jhon Santillan, [facility] David [place], [facility]11 Social History Tobacco Use Types Packs/Day Years [...] Office Visit [facility] [address] [facility] 100 [place] [address] Candelario Rojas DPM [address] [facility] 100 [place] [address] 02/13/2025 9:50 AM EDT Office Visit [facility] [address] [place] [phone] Jhon Santillan, DO [address] [place] [address] 02/13/2025 11:00 AM EDT Office Visit [facility] [address] [facility] 100 [place] [address] Nikkie Maloney DPM [address] [facility] 100 [place] [address] documented as of this encounter Visit Diagnoses Not on filedocumented in this encounter Care Teams Metal Tile Setter Relationship Specialty Start Date End Date Harsha Timmons MD PCP - General Family Medicine 06/27/24 documented as of this encounter
--- OUTSIDE RECORDS SUMMARY | 2025-01-18 12:32 | XMS_ITS | Patient Health Record ---
Author Organization [facility] in [place] Address [address] [place] [address] Care Team Providers Care Property Management Specialist Name Role Phone Francis Timmons Primary Care Provider [phone] Allergies No Known Allergies Results Component Value Reference Range Notes CBC AUTO DIFF Reviewed date:04/17/2024 05:03:25 PM Interpretation: Performing Lab: Notes/Report: [facility] , White Blood Count 9.8 4.0-11.0 10 3/uL Red Blood Count 4.75 4.20-5.40 10 6/uL Hemoglobin 14.7 12.0-16.0 g/dL Hematocrit 44.0 36.0-48.0 % Mean Corpuscular Volume 92.6 81.0-99.0 fL Mean Corpuscular Hemoglobin 30.9 26.7-34.0 pg Mean Corpuscular HGB Conc 33.4 29.9-35.2 g/dL Red Cell Distribution Width 12.4 11.0-15.0 % Platelet Count 324 150-450 10 3/uL Mean Platelet Volume 10.2 9.5-13.5 fL Neutrophils Percent Auto 56.0 43.0-75.0 % Lymphocytes Percent Auto 33.2 20.5-60.0 % Monocytes Percent Auto 5.3 1.7-12.0 % Eosinophils Percent Auto 4.3 0.9-7.0 % Basophils Percent Auto 0.9 0.2-2.0 % Immature Granulocytes Pct Auto 0.3 0.0-0.5 % Neutrophils Absolute Auto 5.5 1.4-6.5 10 3/uL Lymphocytes Absolute Auto 3.3 1.2-3.8 10 3/uL Monocytes Absolute Auto 0.5 0.3-0.8 10 3/uL Eosinophils Absolute Auto 0.4 0.0-0.7 10 3/uL Basophils Absolute Auto 0.1 0.0-0.1 10 3/uL Immature Granulocytes Abs Auto 0.03 0.00-0.03 10 3/uL Performing Lab: see note ML - [facility] US pelvis w/ transvaginal Reviewed date:10/19/2024 06:57:01 PM Interpretation: Performing Lab: Notes/Report: Source Facility: [place] [address] Ultrasound Report Signed Patient: BONNIE KNIGHT MR#: [id number] : 1980 Acct:[id number] Age/Sex: 44 / F ADM Date: 10/04/24 Loc: US Attending Dr: Ash Santillan D.O. Ordering Physician: Ash Santillan D.O. Date of Service: 10/04/24 Procedure(s): US pelvis w/ transvaginal Accession Number(s): [id number] cc: Ash Santillan D.O.; Harsha Timmons M.D. [place] [address] Patient Name: BONNIE KNIGHT MRN: [id number] date: 1980 Sex: F Assigned Patient Location: Current Patient Location: Accession/Order Number: [id number] Exam Date: 10/04/2024 17:50 Report Date: 10/05/2024 [...] Dictated By: Baltazar Denny M.D. Signed By: 10/05/2446 DD/ TD/TT: [facility]: [place] [address] Ultrasound Report Signed Patient: TANYA KNIGHT MR#: [id number] : 1980 Acct:[id number] Age/Sex: 44 / F ADM Date: 10/04/24 Loc: US Attending Dr: Ash Santillan D.O. Ordering Physician: Ash Santillan D.O. Date of Service: 10/04/24 Procedure(s): US pelvis w/ transvaginal Accession Number(s): [id number] cc: Ash Santillan D.O. ; Harsha Timmons M.D. [address] [address] Patient Name: BONNIE KNIGHT MRN: [id number] date: 1980 Sex: F Assigned Patient Location: US Current Patient Location: Accession/Order Number: [id number] Exam Date: 10/04/2024 17:50 Report Date: 10/05/2024 07:43 At the request of: ASH SANTILLAN Procedure: US pelvis w/ transvaginal EXAMINATION: US pelv is w/ transvaginal HISTORY: Left lower quadrant abdominal pain, R10.32 COMPARISON: No relevant comparison available. TECHNIQUE: Transabdominal and/or transvaginal sonographic examination was performed as indicat ed by examination type. FINDINGS: UTERUS: Normal size and appearance. Small nabothian cysts within cervix. Uterus size: 10.7 x 4.7 x 4 .9 cm ENDOMETRIUM: Normal homogeneous appearance. Endometrial thickness: 9 mm RIGHT OVARY: Normal size and appearance. Duplex Doppler demonstrates normal waveform and flow; resistive index 0.4. Ovary size: 3.0 x 1.6 x 2.3 cm LEFT OVARY: Contains a 1.6 cm round hypoechoic complex cyst versus mass with increased surroundin g blood flow. Duplex Doppler demonstrates normal waveform and flow; resistive index 0.4. Ovary size: 3.5 x 2.1 x 2.8 cm CUL-DE-SAC: Unremarkable. No significant free fluid. BLADDER: Unremarkable. OTHER: None. US/US pelvis w/ transvaginal IMPRESSION: 1. Left ovary contai ns a 1.6 cm complex cyst versus mass. There is increased surrounding blood fl ow which can be seen with a corpus lutein cyst, however, no increased endometria l thickening to suggest . Consider follow-up ultrasound in 6 week s to document resolution. Electronically authenticated by: BALTAZAR DENNY Date: 10/05/2024 07:43 Dictated By: Baltazar Denny M.D. Signed By: 10/05/24 0746 DD/ 0743 TD/TT: [facility]: CBC AUTO DIFF Reviewed date:11/17/2024 06:24:49 PM Interpretation: Performing Lab: Notes/Report: [facility] , White Blood Count 9.4 4.0-11.0 10 3/uL Red Blood Count 4.76 4.20-5.40 10 6/uL Hemoglobin 15.3 12.0-16.0 g/dL Hematocrit 44.3 36.0-48.0 % Mean Corpuscular Volume 93.1 81.0-99.0 fL Mean Corpuscular Hemoglobin 32.1 26.7-34.0 pg Mean Corpuscular HGB Conc 34.5 29.9-35.2 g/dL Red Cell Distribution Width 11.8 11.0-15.0 % Platelet Count 287 150-450 10 3/uL Mean Platelet Volume 9.9 9.5-13.5 fL Neutrophils Percent Auto 71.2 43.0-75.0 % Lymphocytes Percent Auto 22.2 20.5-60.0 % Monocytes Percent Auto 5.0 1.7-12.0 % Eosinophils Percent Auto 1.0 0.9-7.0 % Basophils Percent Auto 0.4 0.2-2.0 % Immature Granulocytes Pct Auto 0.2 0.0-0.5 % Neutrophils Absolute Auto 6.7 1.4-6.5 10 3/uL Lymphocytes Absolute Auto 2.1 1.2-3.8 10 3/uL Monocytes Absolute Auto 0.5 0.3-0.8 10 3/uL Eosinophils Absolute Auto 0.1 0.0-0.7 10 3/uL Basophils Absolute Auto 0.0 0.0-0.1 10 3/uL Immature Granulocytes Abs Auto 0.02 0.00-0.03 10 3/uL Performing Lab: see note ML - [facility] FREE T3 Reviewed date:11/17/2024 06:24:49 PM Interpretation: Performing Lab: Notes/Report: [facility] , Free T3 2.59 2.18-3.98 pg/mL Performing Lab: see note ML - [facility] LB IRON Reviewed date:11/17/2024 06:24:49 PM Interpretation: Performing Lab: Notes/Report: [facility] , Iron 82.0 50.0-170.0 ug/dL Performing Lab: see note ML - [facility] LB PROF 14(COMP METB) Reviewed date:11/17/2024 06:24:49 PM Interpretation: Performing Lab: Notes/Report: [facility] , Sodium 142 136-145 mmol/L Potassium 3.9 3.5-5.1 mmol/L Chloride 105 98-107 mmol/L Carbon Dioxide 32.3 21.0-32.0 mmol/L Anion Gap 8.6 Glucose 97 74-106 mg/dL Blood Urea Nitrogen 14.0 7.0-18.0 mg/dL Creatinine 0.83 0.55-1.02 mg/dL Estimated GFR ( Chely >60 >=60 mL/min/1.73m 2 Estimated GFR (Non- Anuja >60 >=60 mL/min/1.73m 2 BUN Creatinine Ratio 16.9 Calcium 9.3 8.5-10.1 mg/dL Bilirubin Total 0.6 0.2-1.0 mg/dL Aspartate Amino Transferase 21 15-37 U/L Alanine Aminotransferase 34 14-59 U/L Alkaline Phosphatase 61 46-116 U/L Total Protein 7.5 6.4-8.2 g/dL Albumin Level 4.1 3.4-5.0 g/dL Globulin 3.4 Albumin Globulin Ratio 1.2 Performing Lab: see note ML - [facility] LB T4 Reviewed date:11/17/2024 06:24:49 PM Interpretation: Performing Lab: Notes/Report: [facility] , T4 Thyroxine 10.30 4.80-13.90 ug/dL Performing Lab: see note ML - [facility] LB TSH Reviewed date:11/17/2024 06:24:49 PM Interpretation: Performing Lab: Notes/Report: [facility] , Thyroid Stimulating Hormone 1.604 0.358-3.740 uIU/mL Performing Lab: see note ML - [facility] LB CORTISOL AM Reviewed date:12/19/2024 02:04:58 PM Interpretation: Performing Lab: Notes/Report: [facility] , Cortisol - AM 17.0 6.2-19.4 ug/dL [address] [place], [place] [id number] Logging Crew Supervisor: Leonardo House PhD, Phone: [phone] Performed at: - [facility] Performing Lab: see note - [facility] LB PREG QUANT HCG Reviewed date:12/17/2024 11:42:21 AM Interpretation: Performing Lab: Notes/Report: [facility] , HCG Quantitative <1 500-10,000 3-4 WEEKS 5-50 0.2-1 WEEK 10,000-100,000 2-3 MONTHS 50-500 1-2 WEEKS 15,000-200,000 6-8 WEEKS 1,000-50,000 4-5 WEEKS 10,000-100,000 5-6 WEEKS 100-5,000 2-3 WEEKS Performing Lab: see note - [facility] PROLACTIN Reviewed date:12/19/2024 02:04:58 PM Interpretation: Performing Lab: Notes/Report: [facility] , Prolactin 12.7 4.8-33.4 ng/mL [address] [place], [place] [id number] Logging Crew Supervisor: Leonardo House PhD, Phone: [phone] Performed at: [facility] Performing Lab: see note [facility] DHEA, Serum Reviewed date:12/27/2024 12:22:11 PM Interpretation: Performing Lab: Notes/Report: [facility] , DHEA, Serum 47 31-701 ng/dL approved by the Food and Drug Administration. Performed at: [facility] Logging Crew Supervisor: Roxanna Manrique MD, Phone: [phone] [address] [place] [phone] This test was developed and its performance characteristics determined by [facility]. It has not been cleared or Performing Lab: see note [facility] FSH Reviewed date:12/19/2024 02:04:58 PM Interpretation: Performing Lab: Notes/Report: [facility] , FSH 7.1 . mIU/mL Follicular phase 3.5 - 12.5 Adult Female Range Postmenopausal 25.8 - 134.8 Ovulation phase 4.7 - 21.5 Luteal phase 1.7 - 7.7 Performing Lab: see note [facility] PTT Reviewed date:12/27/2024 06:59:41 PM Interpretation: Performing Lab: Notes/Report: [facility] , Partial Thromboplastin Time 23.7 22.3-36.2 sec Performing Lab: see note ML - [facility] Prothrombin Time INR Reviewed date:12/27/2024 06:59:41 PM Interpretation: Performing Lab: Notes/Report: [facility] , Prothrombin Time 10.4 9.0-11.6 sec INR 0.98 2.5-3.5 RECURRENT THROMBOSIS DESIRED INR: 2.0-3.0 CONDITIONS NOT LISTED BELOW 2.5-3.5 FOR PROSTHETIC HEART VALVE REPLACEMENT Performing Lab: see note - [facility] DHEA-Sulfate Reviewed date:12/19/2024 02:04:58 PM Interpretation: Performing Lab: Notes/Report: [facility] , DHEA-Sulfate 34.4 57.3-279.2 ug/dL Performing Lab: see note - [facility] LB Luteinizing Hormone(LH) Reviewed date:12/19/2024 02:04:58 PM Interpretation: Performing Lab: Notes/Report: [facility] , Luteinizing Hormone(LH) 15.5 . mIU/mL Luteal phase 1.0 - 11.4 Postmenopausal 7.7 - 58.5 Follicular phase 2.4 - 12.6 Adult Female Range Ovulation phase 14.0 - 95.6 Performing Lab: see note LC - [facility] LB GLYCOHEMOGLOBIN A1C Reviewed date:12/17/2024 11:42:21 AM Interpretation: Performing Lab: Notes/Report: [facility] , Glycohemoglobin A1C 5.2 4.5-6.2 % ADA RECOMMENDED LIMIT 4.0 - 6.0 ACTION SUGGESTED > 7.0 ADA THERAPEUTIC TARGET < 7.0 Estimated Average Glucose 103 Performing Lab: see note [facility] US pelvis w/ transvaginal Reviewed date:11/17/2024 06:24:49 PM Interpretation: Performing Lab: Notes/Report: Source Facility: [place] [address] Ultrasound Report Signed Patient: BONNIE KNIGHT MR#: [id number] : 1980 Acct:[id number] Age/Sex: 44 / F ADM Date: 11/17/24 Loc: US Attending Dr: Ash Santillan D.O. Ordering Physician: Ash Santillan D.O. Date of Service: 11/17/24 Procedure(s): US pelvis w/ transvaginal Accession Number(s): [id number] cc: Ash Santillan D.O.; Harsha Timmons M.D. [place] [address] Patient Name: BONNIE KNIGHT MRN: [id number] date: 1980 Sex: F Assigned Patient Location: US Current Patient Location: LAB Accession/Order Number: [id number] Exam Date: 11/17/2024 11:04 Report Date: 11/17/2024 11:06 At the request of: ASH SANTILLAN DO Procedure: US pelvis w/ transvaginal Pelvic ultrasound. Reason for exam: Left lower quadrant pain. Comparison: none Technique: Transabdominal imaging of the uterus and ovaries was performed. Transvaginal imaging of the uterus and ovaries was also obtained. Additional spectral Doppler analysis of the ovaries was also obtained. Findings: Uterus measures 8.8 x 4.8 x 4.2 cm. No fibroid is seen. Endometrium measures 4.2 mm without focal abnormality. Right ovary measures 3.0 x 2.2 x 2.1 cm. Left ovary measures 2.8 x 2.8 x 2.0 cm. No adnexal mass or cyst. Normal arterial and venous Doppler waveforms. No free fluid is seen. US/US pelvis w/ transvaginal Impression: Unremarkable pelvic ultrasound. Impression dictated by: Ankit Atwood Jr., D.O.11/17/2024 11:06 AM Dictation Location: [place] [address] Electronically authenticated by: [id number] Y Date: 11/17/2024 11:06 Dictated By: Ankit Atwood M.D. Signed By: 11/17/24 1109 DD/ 1106 TD/TT: [facility]: [place] [address] Ultrasound Report Signed Patient: TANYA KNIGHT MR#: [id number] : 1980 Acct:[id number] Age/Sex: 44 / F ADM Date: 11/17/24 Loc: US Attending Dr: Ash Santillan D.O. Ordering Physician: Ash Santillan D.O. Date of Service: 11/17/24 Procedure(s): US pelvis w/ transvaginal Accession Number(s): [id number] cc: Ash Santillan D.O. ; Harsha Timmons M.D. [place] [id number] Patient Name: BONNIE KNIGHT MRN: [facility]:[id number] date: 1980 Sex: F Assigned Patient Location: Current Patient Location: LAB Accession/Order Number: [id number] Exam Date: 11/17/2024 11:04 Report Date: 11/17/2024 11:06 At the request of: ASH SANTILLAN DO Procedure: US pelvis w/ transvaginal Pelvic ultrasound. Reason for exam: Lef t lower quadrant pain. Comparison: none Technique: Transabdominal imaging of the uterus and ovaries was performed. Transvaginal imaging of the uterus and ovaries was also obtained. Additional spectral Doppler analysis of the ovaries was also obtained. Findings: Uterus measures 8.8 x 4.8 x 4.2 cm. No fibroid is seen. Endometrium measures 4.2 mm without focal abnormality. Right ovary measures 3.0 x 2.2 x 2.1 cm. Left ovary measures 2.8 x 2.8 x 2.0 cm. No adnexal mass or cyst. Normal arterial and venous Doppler waveforms. No free fluid is seen. US/US pelvis w/ transvaginal Impression: Unremarkable pelvic ultrasound. Impression dictated by: Ankit Atwood Jr., D.O.11/17/2024 11:06 AM Dictation Location: [place] [address] Electronically authenticated by: [id number] Y Date: 11/17/2024 11:06 Dictated By: Ankit Atwood M.D. Signed By: 11/17/24 1109 DD/ 1106 TD/TT: [facility]: TSH Reviewed date:04/17/2024 05:03:25 PM Interpretation: Performing Lab: Notes/Report: [facility] , Thyroid Stimulating Hormone 2.517 0.358-3.740 uIU/mL Performing Lab: see note ML - [facility] LB PROF 14(COMP METB) Reviewed date:04/17/2024 05:03:25 PM Interpretation: Performing Lab: Notes/Report: [facility] , Sodium 138 136-145 mmol/L Potassium 4.2 3.5-5.1 mmol/L Chloride 102 98-107 mmol/L Carbon Dioxide 28.5 21.0-32.0 mmol/L Anion Gap 11.7 Glucose 79 74-106 mg/dL Blood Urea Nitrogen 16.0 7.0-18.0 mg/dL Creatinine 0.69 0.55-1.02 mg/dL Estimated GFR ( Chely >60 >=60 Estimated GFR (Non- Anuja >60 >=60 BUN Creatinine Ratio 23.2 Calcium 8.9 8.5-10.1 mg/dL Bilirubin Total 0.7 0.2-1.0 mg/dL Aspartate Amino Transferase 29 15-37 U/L Alanine Aminotransferase 62 14-59 U/L Alkaline Phosphatase 64 46-116 U/L Total Protein 6.9 6.4-8.2 g/dL Albumin Level 3.7 3.4-5.0 g/dL Globulin 3.2 Albumin Globulin Ratio 1.2 Performing Lab: see note ML - [facility] LB LIPID PROFILE Reviewed date:04/17/2024 05:03:25 PM Interpretation: Performing Lab: Notes/Report: [facility] , Triglycerides 255 <=150 mg/dL Cholesterol 216 <=200 mg/dL HDL Cholesterol 40 40-60 mg/dL <40 mg/dl - HIGH CARDIOVASCULAR RISK > or =60 mg/dl - LOW CARDIOVASCULAR RISK LDL Cholesterol Calculated 125.0 >190 mg/dl VERY HIGH 130-159 mg/dl BORDERLINE HIGH 100-129 mg/dl NEAR OR ABOVE OPTIMAL <100 mg/dl OPTIMAL 160-189 mg/dl HIGH VLDL CHOLESTEROL 51.0 Chol HDL Ratio 5.4 4.4 - 7.1 AVERAGE RISK >11.0 HIGH RISK 7.1 - 11.0 MODERATE RISK 3.3 - 4.4 LOW RISK Performing Lab: see note ML - [facility] LB Reason For Referral No Information Social History Tobacco Use: Social History Observation Description Date Details (start date - stop date) Former Smoker 10/29/2001 - 10/29/2012 Tobacco Control (Standard) Question Answer Notes Tobacco use: Former smoker When did you start smoking? 10/29/2001 When did you stop smoking? 10/29/2012 How long has it been since you last smoked? [address] ter than 10 years AUDIT-C (Standard) Question [...] Problem Status W/U Status Risk Notes Problem Palpitations (70118697) Palpitation (R00.2) Active confirmed Problem Hypertriglyceridemia (656869745) Hypertriglyceridemia (E78.1) Active confirmed Problem Plantar fasciiti s, left (M72.2) Active confirmed Vital Signs Blood pressure diastolic 78 mm Hg 01/09/2025 Height 61 in 01/09/2025 Blood pressure systolic 122 mm Hg 01/09/2025 Weight 194.4 lbs 01/09/2025 BMI 36.73 kg/m2 01/09/2025 Procedures Procedure Date Ordered Date Performed Result Body Sit e Holter Monitor - 3 days up to 14 days 11/17/2024 N/A Encounters Encounter Location Date Provider Diagnosis [place] [address] [place] [address] 04/17/2024 Francis Timmons [place] [address] [place] [address] 11/17/2024 Francis [facility] [address] [place] [address] 12/19/2024 Francis Timmons Encounter for other preprocedural examination Z01.818 [place] [address] [place] [address] 12/21/2024 Francis Timmons [facility] [address] [place] [address] 01/09/2025 Francis Timmons Plantar fasciitis, l eft M72.2 [place] [address] [place] [address] 11/17/2024 Francis Timmons Palpitation R00.2 Assessments Encounter Date Diagnosis (ICD Code) Assessment Notes Treatment Notes Treatment Clinical Notes Section Notes 11/17/2024 Palpitation (ICD-10 - R00.2) 01/09/2025 Plantar fasciitis, left (ICD-10 - M72.2) clered for OR 12/19/2024 Encounter for other preprocedural examination (ICD-10 - Z01.818) Plan Of Treatment Pending Test Test Name Order Date IRON, TOTAL 11/17/2024 PT (PROTIME), INR AND PTT (PT/INR AND PT T) 12/19/2024 THYROID PANEL (T4/TSH/FREE T3) 5 Holter Monitor - 3 days up to 14 days CMP (COMP MET STOLL) w/eGFR CKD-EPI 2024 CBC WITH DIFF 11/17/2024 Insurance Providers Payer Name Payer Address Payer Phone Subscriber Number Group Number Insured Name Patient Relationship to Insured Coverage Start Date Coverage End Date MMO [employer] [address] [place] [address] [phone] [id number] Bonnie Knight Self - patient is the insured [employer] [place] [employer] [address] [place] [address] [id number] Bonnie Knight Self - patient is the insured Medical (General) History Medical History History ICD Code Hypertriglyceridemia E78.1 Surgical History Surgery Date(Month/Year) tubal ligation x2 Hospitalization History Reason Date(Month/Year) see above
--- OUTSIDE RECORDS SUMMARY | 2025-01-18 12:33 | XMS_ITS | CCD ---
Author Organization [facility] CliniSywv Care Team Providers Care Knot Picker Cloth Name Role Phone ENRIQUE, DR HOGAN Admitting Unavailable ENRIQUE, DR HOGAN Attending Unavailable ENRIQUE, DR HOGAN Consulting Unavailable ENRIQUE, DR HOGAN Primary Care Unavailable TYRELL, DR ALEMAN Attending Unavailable TYRELL, DR ALEMAN Admitting Unavailable ENRIQUE, DR HOGAN Primary Care Unavailable TYRELL, DR ALEMAN Attending Unavailable TYRELL, DR ALEMAN Consulting Unavailable TYRELL, DR ALMEAN Admitting Unavailable ENRIQUE, DR HOGAN Primary Care Unavailable TYRELL, DR ALEMAN Attending Unavailable TYRELL, DR ALEMAN Consulting Unavailable TYRELL, DR ALEMAN Admitting Unavailable MARIELYY, DR HOGAN Primary Care Unavailable JOSSIE CAPPS Consulting Unavailable GIOVANA PEDRAZA Consulting Unava ilable ENRIQUE, DR HOGAN Primary Care Unavailable TYRELL, DR ALEMAN Attending Unavailable TYRELL, DR ALEMAN Consulting Unavailable TYRELL, DR ALEMAN Admitting Unavailable Edison Timmons MD Primary Care Provider [phone] Edison Timmons MD Primary Care Provider [phone] MARLENE MALONEY Attending Unavailable MARLENE MALONEY Attending Unavailable URSULA FALL Attending Unavailable JASMINA MALONEYANDRA H Referring Unavailable URSULA FALL Attending Unavailable JASMINA MALONEYANDRA H Referring Unavailable URSULA FALL Attending Unavailable JASMINA MALONEYANDRA H Referring Unavailable ASH SANTILLAN Attending Unavailable MARLENE MALONEY Attending Unavailable MARLENE MALONEY Attending Unavailable URSULA FALL Attending Unavailable GIUSEPPE, MARLENE H Referring Unavailable URSULA FALL Attending Unavailable GIUSEPPE, MARLENE H Referring Unavailable MARLENE MALONEY H Attending Unavailable MARLENE MALONEY Attending Unavailable ASH SANTILLAN Attending Unavailable MARLENE MALONEY Attending Unavailable MARLENE MALONEY Attending Unavailable Medications Current Medications Medication Drug Class(es) Dates Sig (Normalized) Sig (Original) celecoxib 200 mg oral capsule (13 sources) Nonsteroidal Anti-inflammatory Drug Start: 11-21-2024 End: 12-21-2024 take 1 capsule by mouth once daily celecoxib (CeleBREX) 200 MG capsule Indications: Plantar fasciitis Take 1 capsule (200 mg) by mouth Daily 30 capsule 11/21/2024 12/21/2024 Active Completed/Discontinued Medications Medication Drug Class(es) Dates Sig (Normalized) Sig (Original) acetaminophen 325 mg / HYDROcodone bitartrate 5 mg oral tablet (3 sources) Opioid Agonist Start: 12-29-2024 End: 01-09-2025 take 1 tablet by mouth every six hours for pain HYDROcodone-acetami nophen (Aurora) 5-325 MG tablet Indications: Plantar fasciitis Take 1 tablet by mouth every 6 (six) hours if needed for severe pain for up to 5 days 20 tablet 12/29/2024 01/09/2025 Discontinued predniSONE 10 mg oral tablet (20 sources) [...] Date Documented Da te Episodic/Chronic Abdominal pain (4 sources) Pain in female pelvis; Translations: [Pelvic and perineal pain] 12-13-2024 Episodic Contraceptive and procreative management (5 sources) Encounter for sterilization; Translations: [ENCOUNTER FOR STERILIZATION] Onset: 06-06-2022 Episodic Other aftercare (2 sources) Surgical follow-up; Translations: [Encounter for follow-up examination after completed treatment for conditions other than malignant neoplasm] 01-16-2025 Episodic Other connective tissue disease (18 sources) Plantar fasciitis; Translations: [Plantar fascial fibromatosis] 06-27-2024 Episodic Other connective tissue disease (14 sources) Pain of left heel; Translations: [Pain in left foot] 06-27-2024 Episodic Other connective tissue disease (10 sources) Pain in right heel; Translations: [Pain in right foot] 06-27-2024 Episodic Other connective tissue disease (2 sources) Bilateral heel pain; Translations: [Pain in right foot] 06-27-2024 Episodic Other connective tissue disease (5 sources) Bilateral plantar fasciitis; Translations: [Plantar fascial fibromatosis] 11-30-2024 Episodic Other endocrine disorders (3 sources) Polycystic ovary syndrome; Translations: [Polycystic ovarian syndrome] 12-13-2024 Chronic Other female genital disorders (3 sources) Abnormal uterine bleeding; Translations: [Abnormal uterine [...] Test Name Value Interpretation Reference Range Facility HCG ( test) Ql (U)O rdered By: Alka Martinez on 01-09-2025 Interpretation and review of laboratory results Normal [facility] Work Phone: Preg Test, Ur Negative Negative [facility] Work Phone: [facility] Work Phone: Urinalysis macro (dipstick) panel (U)on 01-09-2025 Bilirubin, UA Negative Negative - 4(70) +++ mg/dL [facility] Blood, UA Negative Negative - 50 Efrain/mcL [facility] Clarity, UA Clear [facility] Color, UA Yellow [facility] Glucose, UA Negative Negative - 1999(110) ++++ mg/dL [facility] Interpretation and review of laboratory results Normal [facility] Ketones, UA Negative Negative - 160(16) ++++ mg/dL [facility] Leukocytes, UA Negative Negative - 500+++ Diana/mcL [facility] Nitrite, UA Negative Negative - Positive [facility] pH, UA 6.5 5 - 9 [facility] Protein, UA Negative Negative - 1999(20) ++++ mg/dL [facility] Spec Grav, UA 1.025 1 - 1.03 [facility] Urobilinogen, UA 0.2 0.2 - 12 mg/dL [facility] PREG QUANT HCGon 025 HCG QUANTITATIVE <1 mIU/mL [facility] Comment on above: 5-50 0.2-1 WEEK 50-500 1-2 WEEKS 100-5,000 2-3 WEEKS 500-10,000 3-4 WEEKS 1,000-50,000 4-5 WEEKS 10,000-100,000 5-6 WEEKS 15,000-200,000 6-8 WEEKS 10,000-100,000 2-3 MONTHS [facility] US PELVIS W/ TRANSVAGINALon 10-05-2024 [place] [address] Ultrasound Report Signed Patient: TOI ROONEY MR#: [id number] : 1980 Acct:[id number] Age/Sex: 44 / F ADM Date: 10/04/24 Loc: US Attending Dr: Ash Santillan D.O. Ordering Physician: Ash Santillan D.O. Date of Service: 10/04/24 Procedure(s): US pelvis w/ transvaginal Accession Number(s): [id number] cc: Ash Santillan D.O.; Edison Timmons M.D. [facility] [place] [id number] Patient Name: TOI ROONEY MRN: [facility]:[id number] date: 1980 Sex: F Assigned Patient Location: US Current Patient Location: Accession/Order Number: [id number] Exam Date: 10/04/2024 17:50 Report Date: 10/05/2024 [...] Signed By: 10/05/24 0746 DD/ 0743 TD/TT: Demonstrator Knitting: [facility] Radiology, Radiologist, MD - 10/05/2024 [place] [address] Ultrasound Report Signed Patient: TOI ROONEY MR#: [id number] : 1980 Acct:[id number] Age/Sex: 44 / F ADM Date: 10/04/24 Loc: US Attending Dr: Ash Santillan D.O. Ordering Physician: Ash Santillan D.O. Date of Service: 10/04/24 Procedure(s): US pelvis w/ transvaginal Accession Number(s): [id number] cc: Ash Santillan D.O.; Edison Timmons M.D. [facility] [place] [id number] Patient Name: TOI ROONEY MRN: [id number] date: 1980 Sex: F Assigned Patient Location: US Current Patient Location: Accession/Order Number: [id number] Exam Date: 10/04/2024 17:50 Report Date: 10/05/2024 [...] Denny M.D. Signed By: 10/05/2446 DD/ TD/TT: Demonstrator Knitting: [facility] Radiology Study observation (narrative) [facility] US PELVIS W/ TRANSVAGINALOrd ered By: Radiologist Radiology on 10-05-2024 [facility] Work Phone: XR Calcaneus - left [facility] 06-27-2024 Imaging Result: One views of the left heel: Lateral were performed today in the office. Radiographs were read by myself and demonstrate: No evidence of acute fracture or dislocation. No coalition noted. Spur formation is noted at the plantar calcaneus [facility] Study observation (narrative) [facility] XR Calcaneus - right [facility] 06-27-2024 Imaging Result: One views of the right heel: Lateral were performed today in the office. Radiographs were read by myself and demonstrate: No evidence of acute fracture or dislocation. No coalition noted. Spur formation is noted at the plantar calcaneus [facility] Study observation (narrative) [facility] CBC AUTO DIFFon 06-13-2022 BASO # 0.0 103/ul Normal 0.0-0.[address] [facility] Comment on above: Performed By: #### C BC #### [facility] [address] [address] [address] Amee Mckeon Basophils/100 WBC (Bld) 0.5 % Normal 0.2-2.0 [facility] Comment on above: Performed By: #### C BC #### [facility] [address] [address] [address] Amee Mckeon EO # 0.2 103/ul Normal 0.0-0.[address] [facility] Comment on above: Performed By: #### C BC #### [facility] [address] [place] [address] Dr. Amee Mckeon Eosinophils/100 WBC (Bld) 1.9 % Normal 0.9-7.[address] [facility] Comment on above: Performed By: #### C BC #### [facility] [address] [place] [address] Dr. Amee Mckeon Erythrocyte distribution width (RBC) [Ratio] 11.9 % Normal 11.0-15.[address] [facility] Comment on above: Performed By: #### C BC #### [facility] [address] [place] [address] Dr. Amee Mckeon Hematocrit (Bld) [Volume fraction] 43.6 % Normal 36.0-48.[address] [facility] Comment on above: Performed By: #### C BC #### [facility] [address] [place] [address] Dr. Amee Mckeon Hemoglobin (Bld) [Mass/Vol] 14.8 g/dL Normal 12.0-16.[address] [facility] Comment on above: Performed By: #### C BC #### [facility] [address] [place] [address] Dr. Amee Mckeon IG # 0.03 10e3/ul Normal 0.00-0.[address] [facility] Comment on above: Performed By: #### C BC #### [facility] [address] [place] [address] Dr. Amee Mckeon IG % 0.4 % Normal 0.0-0.5 [facility] Comment on above: Performed By: #### C BC #### [facility] [address] [place] [address] Dr. Amee Mckeon LYMPH # 2.5 103/ul Normal 1.2-3.8 [facility] Comment on above: Performed By: #### C BC #### [facility] [address] [place] [address] Dr. Amee Mckeon Lymphocytes/100 WBC (Bld) 31.4 % Normal 20.5-60.0 [facility] Comment on above: Performed By: #### C BC #### [facility] [address] [place] [address] Dr. Amee Mckeon MANUAL DIFF REQ NO Normal [facility] Comment on above: Performed By: #### C BC #### [facility] [address] [place] [address] Dr. Amee Mckeon MCH (RBC) [Entitic mass] 31.6 pg Normal 26.7-34.[address] [facility] Comment on above: Performed By: #### C BC #### [facility] [address] [place] [address] Dr. Amee Mckeon MCHC (RBC) [Mass/Vol] 33.9 g/dL Normal 29.9-35.[address] [facility] Comment on above: Performed By: #### C BC #### [facility] [address] [place] [address] Dr. Amee Mckeon MCV (RBC) [Entitic vol] 93.2 fL Normal 81.0-99.0 [facility] Comment on above: Performed By: #### C BC #### [facility] [address] [place] [address] Dr. Amee Mckeon MONO # 0.5 103/ul Normal 0.3-0.[address] [facility] Comment on above: Performed By: #### C BC #### [facility] [address] [place] [address] Dr. Amee Mckeon Monocytes/100 WBC (Bld) 6.8 % Normal 1.7-12.0 [facility] Comment on above: Performed By: #### C BC #### [facility] [address] [place] [address] Dr. Amee Mckeon NEUT # 4.7 103/ul Normal 1.4-6.[address] [facility] Comment on above: Performed By: #### C BC #### [facility] [address] [place] [address] Dr. Amee Mckeon Neutrophils/100 WBC (Bld) 59.0 % Normal 43.0-75.[address] [facility] Comment on above: Performed By: #### C BC #### [facility] [address] [address] [address] Amee Mckeon Platelet mean volume (Bld) [Entitic vol] 9.6 fL Normal 9.5-13.[address] [facility] Comment on above: Performed By: #### C BC #### [facility] [address] [place] [address] Dr. Amee Mckeon PLT 289 103/ul Normal 150-450 [facility] Comment on above: Performed By: #### C BC #### [facility] [address] [place] [address] Dr. Amee Mckeon RBC 4.68 106/ul Normal 4.20-5.[address] [facility] Comment on above: Performed By: #### C BC #### [facility] [address] [place] [address] Dr. Amee Mckeon WBC 7.9 103/ul Normal 4.0-11.[address] [facility] Comment on above: Performed By: #### C BC #### [facility] [address] [place] [address] Dr. Amee Mckeon PREG HCG QUALon 06-13-2022 , QUAL Negative Normal NEGATIVE [facility] Comment on above: Performed By: #### P REG #### [facility] [address] [place] [address] Dr. Amee Mckeon Covid-19 PCR (CVDTB)on 05-31 SARS-CoV-2 (COVID-19) RNA ADOLPH+probe Ql (Unsp spec) Not detected Normal NOT DETECTED [facility] Comment on above: Result Comment: This test is not yet approved or cleared by the [place] FDA. When there are no FDA-approved or cleared tests available, and other criteria are met, FDA can make tests available under an emergency access mechanism called an Emergency Use Authorization (EUA). The EUA for this test is supported by the Em Physician of Health and Human Service's (HHS's) declaration [...] SARS-CoV-2. Performed By: #### C VDTBH #### [facility] [address] [place] [address] Dr. Amee Mckeon [facility] CBC AUTO DIFFon 04-17-2022 BASO # 0.0 103/ul Normal 0.0-0.[address] [facility] Comment on above: Performed By: #### H FPFCBC #### [facility] [address] [place] [address] Dr. Amee Mckeon Basophils/100 WBC (Bld) 0.3 % Normal 0.2-2.0 [facility] Comment on above: Performed By: #### H FPFCBC #### [facility] [address] [place] [address] Dr. Amee Mckeon EO # 0.1 103/ul Normal 0.0-0.[address] [facility] Comment on above: Performed By: #### H FPFCBC #### [facility] [address] [place] [address] Dr. Amee Mckeon Eosinophils/100 WBC (Bld) 1.5 % Normal 0.9-7.[address] [facility] Comment on above: Performed By: #### H FPFCBC #### [facility] [address] [place] [address] Dr. Amee Mckeon Erythrocyte distribution width (RBC) [Ratio] 12.5 % Normal 11.0-15.[address] [facility] Comment on above: Performed By: #### H FPFCBC #### [facility] [address] [place] [address] Dr. Amee Mckeon Hematocrit (Bld) [Volume fraction] 41.6 % Normal 36.0-48.[address] [facility] Comment on above: Performed By: #### H FPFCBC #### [facility] [address] [place] [address] Dr. Amee Mckeon Hemoglobin (Bld) [Mass/Vol] 14.1 g/dL Normal 12.0-16.[address] [facility] Comment on above: Performed By: #### H FPFCBC #### [facility] [address] [place] [address] Dr. Amee Mckeon IG # 0.03 10e3/ul Normal 0.00-0.[address] [facility] Comment on above: Performed By: #### H FPFCBC #### [facility] [address] [place] [address] Dr. Amee Mckeon IG % 0.3 % Normal 0.0-0.[address] [facility] Comment on above: Performed By: #### H FPFCBC #### [facility] [address] [place] [address] Dr. Amee Mckeon LYMPH # 2.2 103/ul Normal 1.2-3.[address] [facility] Comment on above: Performed By: #### H FPFCBC #### [facility] [address] [place] [address] Dr. Amee Mckeon Lymphocytes/100 WBC (Bld) 25.3 % Normal 20.5-60.[address] [facility] Comment on above: Performed By: #### H FPFCBC #### [facility] [address] [place] [address] Dr. Amee Mckeon MCH (RBC) [Entitic mass] 31.3 pg Normal 26.7-34.[address] [facility] Comment on above: Performed By: #### H FPFCBC #### [facility] [address] [place] [address] Dr. Amee Mckeon MCHC (RBC) [Mass/Vol] 33.9 g/dL Normal 29.9-35.[address] [facility] Comment on above: Performed By: #### H FPFCBC #### [facility] [address] [place] [address] Dr. Amee Mckeon MCV (RBC) [Entitic vol] 92.4 fL Normal 81.0-99.0 [facility] Comment on above: Performed By: #### H FPFCBC #### [facility] [address] [place] [address] Dr. Amee Mckeon MONO # 0.5 103/ul Normal 0.3-0.[address] [facility] Comment on above: Performed By: #### H FPFCBC #### [facility] [address] [place] [address] Dr. Amee Mckeon Monocytes/100 WBC (Bld) 5.5 % Normal 1.7-12.0 [facility] Comment on above: Performed By: #### H FPFCBC #### [facility] [address] [place] [address] Dr. Amee Mckeon NEUT # 5.8 103/ul Normal 1.4-6.[address] [facility] Comment on above: Performed By: #### H FPFCBC #### [facility] [address] [place] [address] Dr. Amee Mckeon Neutrophils/100 WBC (Bld) 67.1 % Normal 43.0-75.[address] [facility] Comment on above: Performed By: #### H FPFCBC #### [facility] [address] [place] [address] Dr. Amee Mckeon Platelet mean volume (Bld) [Entitic vol] 10.2 fL Normal 9.5-13.[address] [facility] Comment on above: Performed By: #### H FPFCBC #### [facility] [address] [place] [address] Dr. Amee Mckeon PLT 278 103/ul Normal 150-450 [facility] Comment on above: Performed By: #### H FPFCBC #### [facility] [address] [place] [address] Dr. Amee Mckeon RBC 4.50 106/ul Normal 4.20-5.[address] [facility] Comment on above: Performed By: #### H FPFCBC #### [facility] [address] [place] [address] Dr. Amee Mckeon WBC 8.6 103/ul Normal 4.0-11.0 [facility] Comment on above: Performed By: #### H FPFCBC #### [facility] [address] [place] [address] Dr. Amee Mckeon [facility] PROFILEon 04-17- 022 Albumin [Mass/Vol] 3.8 g/dL Normal 3.4-5.0 [facility] Comment on above: Performed By: #### H FPF #### [facility] [address] [place] [address] Dr. Amee Mckeon Albumin/Globulin [Mass ratio] 1.1 {ratio} Normal [facility] Comment on above: Performed By: #### H FPF #### [facility] [address] [place] [address] Dr. Amee Mckeon ALP [Catalytic activity/Vol] 50 U/L Normal 46-[address] [facility] Comment on above: Performed By: #### H FPF #### [facility] [address] [place] [address] Dr. Amee Mckeon ALT [Catalytic activity/Vol] 31 U/L Normal 14-[address] [facility] Comment on above: Performed By: #### H FPF #### [facility] [address] [place] [address] Dr. Amee Mckeon AST [Catalytic activity/Vol] 15 U/L Normal 15-[address] [facility] Comment on above: Performed By: #### H FPF #### [facility] [address] [place] [address] Dr. Amee Mckeon Bilirubin [Mass/Vol] 0.6 mg/dL Normal 0.2-1.[address] [facility] Comment on above: Performed By: #### H FPF #### [facility] [address] [place] [address] Dr. Amee Mckeon Calcium [Mass/Vol] 8.8 mg/dL Normal 8.5-10.1 [facility] Comment on above: Performed By: #### H FPF #### [facility] [address] [place] [address] Dr. Amee Mckeon Chloride [Moles/Vol] 104 mmol/L Normal 98-107 [facility] Comment on above: Performed By: #### H FPF #### [facility] [address] [place], [place] [id number] Dr. Amee Mckeon CHOL-HDL RATIO NORM SEE BELOW Normal [facility] Comment on above: Result Comment: 3.3 - 4.4 LOW RISK 4.4 - 7.1 AVERAGE RISK 7.1 - 11.0 MODERATE RISK >11.0 HIGH RISK Performed By: #### H FPF #### [facility] [address] [place] [address] Dr. Amee Mckeon Cholesterol [Mass/Vol] 216 mg/dL Critically high <=[address] [facility] Comment on above: Performed By: #### H FPF #### [facility] [address] [address] [address] Amee Mckeon Cholesterol in HDL [Mass/Vol] 51 mg/dL Normal 40-[address] [facility] Comment on above: Performed By: #### H FPF #### [facility] [address] [place] [address] Dr. Amee Mckeon Cholesterol in LDL [Mass/Vol] 141.6 mg/dL Normal [facility] Comment on above: Performed By: #### H FPF #### [facility] [address] [place] [address] Dr. Amee Mckeon Cholesterol.total/Idalia sterol in HDL [Mass ratio] 4.2 {ratio} Normal [facility] Comment on above: Performed By: #### H FPF #### [facility] [address] [place] [address] Dr. Amee Mckeon CO2 [Moles/Vol] 26.1 mmol/L Normal 21.0-32.0 [facility] Comment on above: Performed By: #### H FPF #### [facility] [address] [place] [address] Dr. Amee Mckeon Creatinine [Mass/Vol] 0.75 mg/dL Normal 0.55-1.[address] [facility] Comment on above: Performed By: #### H FPF #### [facility] [address] [place] [address] Dr. Amee Mckeon Globulin (S) [Mass/Vol] 3.4 g/dL Normal [facility] Comment on above: Performed By: #### H FPF #### [facility] [address] [address] [address] Amee Mckeon Glucose [Mass/Vol] 94 mg/dL Normal 74-106 [facility] Comment on above: Performed By: #### H FPF #### [facility] [address] [address] [address] Amee Mckeon HDL NORMAL > or = 60 mg/dl - LOW CARDIOVASCULAR RISK <40 mg/dl - HIGH CARDIOVASCULAR RISK Normal [facility] Comment on above: Performed By: #### H FPF #### [facility] [address] [place] [address] Dr. Amee Mckeon LDL CALC NORMAL SEE BELOW Normal [facility] Comment on above: Result Comment: <100 mg/dl OPTIMAL 100 - 129 mg/dl NEAR OR ABOVE OPTIMAL 130 - 159 mg/dl BORDERLINE HIGH 160 - 189 mg/dl HIGH >190 mg/dl VERY HIGH Performed By: #### H FPF #### [facility] [address] [place] [address] Dr. Amee Mckeon Potassium [Moles/Vol] 3.7 mmol/L Normal 3.5-5.[address] [facility] Comment on above: Performed By: #### H FPF #### [facility] [address] [place] [address] Dr. Amee Mckeon Protein [Mass/Vol] 7.2 g/dL Normal 6.4-8.2 [facility] Comment on above: Performed By: #### H FPF #### [facility] [address] [place] [address] Dr. Amee cMkeon Sodium [Moles/Vol] 137 mmol/L Normal 136-145 [facility] Comment on above: Performed By: #### H FPF #### [facility] [address] [place] [address] Dr. Amee Mckeon Triglyceride [Mass/Vol] 117 mg/dL Normal <=150 [facility] Comment on above: Performed By: #### H FPF #### [facility] [address] [place] [address] Dr. Amee Mckeon TSH 1.647 uIU/mL Normal 0.358-3.740 [facility] Comment on above: Performed By: #### H FPF #### [facility] [address] [place] [address] Dr. Amee Mckeon Urea nitrogen [Mass/Vol] 18.0 mg/dL Normal 7.0-18.[address] [facility] Comment on above: Performed By: #### H FPF #### [facility] [address] [place] [address] Dr. Amee Mckeon Urea nitrogen/Creatinine [Mass ratio] 24.0 mg/mg Normal [facility] Comment on above: Performed By: #### H FPF #### [facility] [address] [place] [address] Dr. Amee Mckeon VLDL CALC 23.4 mg/dL Normal [facility] Comment on above: Performed By: #### H FPF #### [facility] [address] [place] [address] Dr. Amee Mckeon PAP ACOG PANEL 2: 30 to 65on 03-26-2022 . . Normal [facility] Comment on above: Result Comment: Perf ormed at: WB Performed By: #### [id number] #### [facility] [address] [place] [address] Dr. Amee Mckeon Age Gdln ACOG Testing 30-65 [facility] Comment on above: Performed By: #### [id number] #### [facility] [address] [place] [address] Dr. Amee Mckeon DIAGNOSIS: Comment Normal [facility] Comment on above: Result Comment: NEGA TIVE FOR INTRAEPITHELIAL LESION OR MALIGNANCY. Performed at: WB Performed By: #### [id number] #### [facility] [address] [place] [address] Dr. Amee Mckeon HPV Aptima Negative Normal Negative [facility] Comment on above: Result Comment: This nucleic acid amplification test detects fourteen high-risk HPV types (16,18,31,33,35,39,45,51,52,56,58,59,66,68) without differentiation. Performed at: =G Performed By: #### [id number] #### [facility] [address] [place] [address] Dr. Amee Mckeon Methodology: Comment Normal [facility] Comment on above: Result Comment: This liquid based ThinPrep(R) pap test was screened with the use of an image guided system. Performed at: WB Performed By: #### [id number] #### [facility] [address] [place] [address] Dr. Amee Mckeon Note: Comment Normal [facility] Comment on above: Result Comment: The Pap smear is a screening test designed to aid in the detection of premalignant and malignant conditions of the uterine cervix. It is not a diagnostic procedure and should not be used as the sole means of detecting cervical cancer. Both false-positive and false-negative reports do occur. . Performed at: WB Performed By: #### [id number] #### [facility] [address] [place] [address] Dr. Amee Mckeon Performed by: Comment Normal [facility] Comment on above: Result Comment: Lourdes Farrell Control Supervisor (ASCP) Performed at: WB Performed By: #### [id number] #### [facility] [address] [place] [address] Dr. Amee Mckeon Specimen adequacy: Comment Normal [facility] Comment on above: Result Comment: Sati sfactory for evaluation. No endocervical component is identified. Performed at: WB Performed By: #### [id number] #### [facility] [address] [place] [address] Dr. Amee Mckeon Vital Signs Date Time Vital Sign Value Performing Clinician Maxi harp 01-09-2025 13:58-0400 Body mass index (BMI) [Ratio] 37.89 kg/m2 oneforty Work Phone: [facility] 01-09-2025 13:58-0400 Body weight 88 kg oneforty Work Phone: [facility] 01-09-2025 13:58-0400 Diastolic blood pressure 76 mm[Hg] Ash Tyrell DO Work Phone: [facility] 01-09-2025 13:58-0400 Systolic blood pressure 120 mm[Hg] Ash Tyrell DO Work Phone: [facility] 12-13-2024 11:02-0400 Body mass index (BMI) [Ratio] 37.55 kg/m2 Ash Tyrell Nubli Work Phone: [facility] 12-13-2024 11:02-0400 Body weight 87.2 kg oneforty Work Phone: [facility] Encounters Encounter Date Encounter Type Care Provider Facility Start: 01-16-2025 End: 01-16-2025 Bamboo Snapciouskeshia Maloney DPM Work Phone: [facility] Start: 01-16-2025 End: 01-16-2025 Bamboo Snapciousheet Marlene Maloney DPM Work Phone: [facility] Start: 01-16-2025 End: 01-16-2025 Postop follow up visit related to original px Marlene Maloney DPM Work Phone: [facility] Comment on above: Plantar fasciitis (P rimary Dx); Postoperative examination [Z09]; Pain of left heel Start: 01-16-2025 End: 01-16-2025 ambulatory MARLENE MALONEY Not Available Start: 01-09-2025 End: 01-09-2025 Bamboo flowsheet Ash Tyrell DO Work Phone: [facility] Start: 01-09-2025 End: 01-09-2025 Bamboo flowsheet Ash Tyrell DO Work Phone: [facility] Start: 01-09-2025 End: 01-09-2025 Office outpatient visit 15 minutes TargAnoxo DO Work Phone: [facility] Comment on above: Pre-op examination; Pelvic pain in female; PCOS (polycystic ovarian syndrome); Abnormal uterine bleeding (AUB); Left lower quadrant abdominal pain Start: 01-09-2025 End: 01-09-2025 Preprocedural examination done Ash Tyrell DO Work Phone: [facility] Start: 01-09-2025 End: 01-09-2025 ambulatory ASH TYRELL Not Available Start: 12-29-2024 End: 12-29-2024 Office outpatient visit 15 minutes Marlene Maloney DPM Work Phone: [facility] Comment on above: Plantar fasciitis (P rimary Dx); Pain of left heel Start: 12-29-2024 End: 12-29-2024 ambulatory MARLENE MALONEY Not Available Start: 12-29-2024 End: 12-29-2024 Bamboo flowsheet Marlene Maloney DPM Work Phone: [facility] Start: 12-29-2024 End: 12-29-2024 Bamboo flowsheet Marlene Maloney DPM Work Phone: [facility] Start: 12-21-2024 End: 12-21-2024 Office outpatient visit 25 minutes Marlene Maloney DPM Work Phone: [facility] Comment on above: Plantar fasciitis (P rimary Dx); Pain of left heel; Pain of right heel Start: 12-21-2024 End: 12-21-2024 ambulatory MARLENE MALONEY Not Available Start: 12-21-2024 End: 12-21-2024 Bamboo flowsheet Marlene Maloney DPM Work Phone: [facility] Start: 12-21-2024 End: 12-21-2024 Bamboo flowsheet Marlene Maloney DPM Work Phone: [facility] Start: 12-20-2024 End: 12-20-2024 ambulatory URSULA FALL Not Available Start: 12-19-2024 End: 12-19-2024 ambulatory Ursula Fall PT [facility] Comment on above: Plantar fasciitis, b ilateral (Primary Dx); Plantar fasciitis Start: 12-16-2024 End: 12-16-2024 Clinisync Result Encounter Ash Tyrell DO Work Phone: [facility] Unsolicited Start: 12-16-2024 End: 12-16-2024 Clinisync Result Encounter Ash Tyrell DO Work Phone: [facility] Unsolicited Start: 12-14-2024 End: 12-14-2024 ambulatory Ursula Fall PT [facility] Comment on above: Plantar fasciitis, b ilateral (Primary Dx); Plantar fasciitis Start: 12-13-2024 End: 12-13-2024 Bamboo flowsheet Ash Tyrell DO Work Phone: [facility] Start: 12-13-2024 End: 12-13-2024 Bamboo flowsheet Ash Tyrell DO Work Phone: [facility] Start: 12-13-2024 End: 12-13-2024 ambulatory ASH TYRELL Not Available Start: 12-13-2024 End: 12-13-2024 Office outpatient visit 15 minutes Ash Tyrell DO Work Phone: [facility] Comment [...] Not Available Start: 11-21-2024 End: 11-21-2024 Bamboo flowsheet Marlene Maloney DPM Work Phone: [facility] Start: 11-21-2024 End: 11-21-2024 Bamboo flowsheet Marlene Maloney DPM Work Phone: [facility] Start: 10-20-2024 End: 10-20-2024 Bamboo flowsheet Marlene Maloney DPM Work Phone: [facility] Start: 10-20-2024 End: 10-20-2024 Bamboo flowsheet Marlene Maloney DPM Work Phone: [facility] Start: 10-20-2024 End: 10-20-2024 Office outpatient visit 15 minutes Marlene Maloney DPM Work Phone: [facility] Comment on above: Plantar fasciitis (P rimary Dx); Pain of left heel; Pain of right heel Start: 10-20-2024 End: 10-20-2024 ambulatory MARLENE MALONEY Not Available Start: 10-05-2024 End: 10-05-2024 Clinisync Result Encounter Ash Tyrell DO Work Phone: [facility] Unsolicited Start: 10-05-2024 End: 10-05-2024 Clinisync Result Encounter Ash Tyrell DO Work Phone: [facility] Unsolicited Start: 09-07-2024 End: 09-07-2024 Bamboo flowsheet Marlene Maloney DPM Work Phone: [facility] Start: 09-07-2024 End: 09-07-2024 Bamboo flowsheet Marlene Maloney DPM Work Phone: [facility] Start: 09-07-2024 End: 09-07-2024 ambulatory MARLENE MALONEY Not Available Start: 09-07-2024 End: 09-07-2024 Office outpatient visit 15 minutes Marlene Maloney DPM Work Phone: [facility] Comment on above: Plantar fasciitis (P rimary Dx); Pain of left heel; Pain of right heel Start: 07-26-2024 End: 07-26-2024 Bamboo flowsheet Marlene Maloney DPM Work Phone: [facility] Start: 07-26-2024 End: 07-26-2024 Bamboo flowsheet Marlene Maloney DPM Work Phone: [facility] Start: 07-26-2024 End: 07-26-2024 ambulatory MARLENE MALONEY Not Available Start: 07-26-2024 End: 07-26-2024 Office outpatient visit 15 minutes Marlene Maloney DPM Work Phone: [facility] Comment on above: Plantar fasciitis (P rimary Dx); Pain of left heel; Pain of right heel Start: 06-27-2024 End: 06-27-2024 Bamboo flowsheet Marlene Maloney DPM Work Phone: [facility] Start: 06-27-2024 End: 06-27-2024 Bamboo flowsheet Marlene Maloney DPM Work Phone: [facility] Start: 06-27-2024 End: 06-27-2024 Telephone encounter Marlene Maloney DPM Work Phone: [facility] Comment on above: script check Start: 06-27-2024 End: 06-27-2024 ambulatory MARLENE MALONEY Not Available Start: 06-27-2024 End: 06-27-2024 Office outpatient new 30 minutes Marlene Maloney DPM Work Phone: [facility] Comment on above: Plantar fasciitis (P rimary Dx); Pain of left heel; Pain of right heel; Pain of both heels Start: 06-13-2022 End: 06-13-[address] ASH SANTILLAN Facility:[facility] Start: 06-12-2022 Encounter for preprocedural laboratory examination DR ASH SANTILLAN [facility] Start: 06-10-2022 End: 06-11-[address] ASH SANTILLAN Facility:[facility] Start: 06-10-2022 End: 06-11-2022 Encounter for preprocedural laboratory examination DR ASH SANTILLAN Facility:[facility] Start: 06-06-2022 Encounter for other preprocedural examination DR ASH SANTILLAN [facility] Start: 06-04-2022 End: 06-05-[address] ASH SANTILLAN Facility:[facility] Start: 06-04-2022 End: 06-05-2022 Encounter for other preprocedural examination DR ASH SANTILLAN Facility:[facility] Start: 04-17-2022 End: 04-18-[address] EDISON TIMMONS Facility:[facility] Start: 03-24-2022 End: 03-24-[address] EDISON TIMMONS Facility:[facility] Procedures Date Procedure Procedure Detail Performing Clinician Start: 01-09-2025 Urnls dip stick/tabl et rgnt non-auto w/o micrscp Ash Tyrell DO Work Phone: Start: 12-16-2024 [facility] PREG QUANT HCG Core y Tyrell DO Work Phone: Start: 10-05-2024 US PELVIS W/ TRANSVAGINAL Ash Tyrell DO Work Phone: Start: 06-27-2024 Radex calcaneus mini mum 2 views Marlene Maloney DPM Work Phone: Start: 06-27-2024 Radex calcaneus mini mum 2 views Marlene Maloney DPM Work Phone: Plan of Treatment Date Care Activity Detail Author Start: 05-11-2025 End: 05-11-2025 Patient encounter procedure 05/11/2025 9:00 AM EDT Office Visit [facility] [address] [place] [address] [place] [address] Ash Santillan, DO [address] [place] [address] [facility] Start: 02-13-2025 End: 02-13-2025 Patient encounter procedure [facility] Start: 01-24-2025 End: 01-24-2025 Patient encounter procedure 01/24/2025 11:30 AM EDT Office Visit [facility] [address] [place] [address] Candelario Rojas, DPM [address] [place] [address] [facility] Start: 01-16-2025 End: 01-16-2025 Patient encounter procedure [facility] Comment on above: Arrived Start: 01-09-2025 End: 01-09-2025 Patient encounter procedure [facility] Comment on above: Arrived Start: 12-29-2024 End: 12-29-2024 Patient encounter procedure 12/29/2024 3:15 PM EDT Office Visit [facility] [address] [place] [address] Marlene Maloney, DPM [address] [place] [address] Arrived [facility] Comment on above: Arrived Start: 12-29-2024 End: 12-29-2024 Patient encounter procedure 12/29/2024 10:40 AM EDT [facility] [address] [facility] [place] [id number] Ash Santillan, DO [address] [place] [address] [facility] Start: 12-28-2024 End: 12-28-2024 ambulatory 12/28/2024 5:00 PM EDT Treatment [facility] [address] [place] [address] Ursula Fall, PT [facility] Start: 12-21-2024 End: 12-21-2024 ambulatory 12/21/2024 5:00 PM EDT Treatment [facility] [address] [place] [address] Ursula Fall, PT [facility] Start: 12-21-2024 End: 12-21-2024 Patient encounter procedure 12/21/2024 2:15 PM EDT Office Visit [facility] [address] [place] [id number] Marlene Maloney DPM [address] [place] [address] Arrived [facility] Comment on above: Arrived Start: 12-19-2024 End: 12-19-2024 ambulatory 12/19/2024 5:00 PM EDT Treatment [facility] [address] [place] [address] Ursula Fall, PT [facility] Start: 12-14-2024 End: 12-14-2024 ambulatory 12/14/2024 5:00 PM EDT Treatment [facility] [address] [place] [address] Ursula Fall, PT [facility] Start: 12-13-2024 End: 12-13-2025 Cortisol AM Cortisol AM Lab Routine Pelvic pain in female Abnormal uterine bleeding (AUB) Expected: 12/13/2024 (Approximate), Expires: 12/13/2025 [facility] Comment on above: Expected: 12/13/2024 (Approximate), Expires: 12/13/2025 Start: 12-13-2024 End: 12-13-2025 DHEA DHEA Lab Routine PCOS (polycystic ovarian syndrome) Expected: 12/13/2024 (Approximate), Expires: 12/13/2025 [facility] Comment on above: Expected: 12/13/2024 (Approximate), Expires: 12/13/2025 Start: 12-13-2024 End: 12-13-2024 Patient encounter procedure 12/13/2024 10:50 AM EDT Office Visit [facility] [address] [facility] [place] [address] Ash Santillan, DO [address] [facility] [place] [address] [facility] Start: 12-07-2024 End: 12-07-2024 ambulatory 12/07/2024 5:00 PM EDT Treatment [facility] [address] [place] [address] Ursula Fall, PT [facility] Start: 11-21-2024 End: 11-21-2024 Patient encounter procedure [facility] Comment on above: Arrived Start: 10-20-2024 End: 10-20-2024 Patient encounter procedure 10/20/2024 11:00 AM EST Office Visit [facility] [address] [place] [id number] Marlene Maloney, DPM [address] [place] [address] Arrived [facility] Comment on above: Arrived Start: 09-07-2024 End: 09-07-2024 Patient encounter procedure 09/07/2024 1:45 PM EST Office Visit [facility] [address] [place] [phone] Marlene Maloney, DPM [address] [place] [address] [facility] Start: 07-26-2024 End: 07-26-2024 Patient encounter procedure 07/26/2024 1:45 PM EST Office Visit [facility] [address] [place] [address] Marlene Maloney DPM [address] [place] [address] [facility] DHEA-sulfate DHEA-sulfate Lab Routine PCOS (polycystic ovarian syndrome) Ordered: 12/13/2024 [facility] Comment on above: Ordered: 12/13/2024 Follicle stimulating hormone Follicle stimulating hormone Lab Routine PCOS (polycystic ovarian syndrome) Ordered: 12/13/2024 [facility] Comment on above: Ordered: 12/13/2024 hCG, quantitative, hCG, quantitative, Lab Routine PCOS (polycystic ovarian syndrome) Ordered: 12/13/2024 [facility] Work Phone: Comment on above: Ordered: 12/13/2024 Hemoglobin A1c/Hemoglobin.total in Blood Hemoglobin A1c Lab Routine Pelvic pain in female Abnormal uterine bleeding (AUB) Ordered: 12/13/2024 [facility] Comment on above: Ordered: 12/13/2024 Luteinizing hormone Luteinizing hormone Lab Routine PCOS (polycystic ovarian syndrome) Ordered: 12/13/2024 [facility] Comment on above: Ordered: 12/13/2024 Prolactin Prolactin Lab Ro utine Pelvic pain in female Abnormal uterine bleeding (AUB) Ordered: 12/13/2024 [facility] Comment on above: Ordered: 12/13/2024 Payers Date Payer Category Payer Medicaid [id number] 2019 Private Health Insurance [id number] 1982 Unknown [id number] 2.16.84 [id number] 1982 Unknown [id number] 2.16.84 0.1.985626.3.579.2.593 1982 Unknown [id number] 2.16.84 0.1.536587.3.579.2.593 1982 Unknown [id number] 2.16.84 0.1.804379.3.579.2.593 1982 Unknown [id number] 2.16.84 0.1.990583.3.579.2.1258 1982 Unknown [id number] 2.16.84 0.1.195109.3.579.2.1258 1982 Unknown [id number] 2.16.84 0.1.071450.3.579.2.1258 1982 Unknown [id number] 2.16.84 0.1.407635.3.579.2.1258 1982 Unknown [id number] 2.16.84 0.1.495797.3.579.2.1258 1982 Unknown [id number] 2.16.84 0.1.769843.3.579.2.1258 1982 Unknown [id number] 2.16.84 0.1.116117.3.579.2.1258 1982 Unknown [id number] 2.16.84 0.1.457122.3.579.2.1258 1982 Unknown [id number] 2.16.84 0.1.448301.3.579.2.1258 1982 Unknown [id number] 2.16.84 0.1.739370.3.579.2.1258 1982 Unknown [id number] 2.16.84 0.1.510006.3.579.2.1258 1982 Unknown [id number] 2.16.84 0.1.124361.3.579.2.1258 1982 Unknown [id number] 2.16.84 0.1.268719.3.579.2.1258 1982 Unknown [id number] 2.16.84 0.1.834089.3.579.2.1258 1982 Unknown [id number] 2.16.84 0.1.476040.3.579.2.9 1959 Self-pay [id number] 1959 Unknown [id number] 1959 Unknown [id number] Unknown [id number] 2.16.84 0.1.265231.3.579.2.593 Social History Date Type Detail Facility Tobacco smoking stat [facility] Tobacco smoking consumption unknown [facility] Start: 1980 Sex assigned at Not on file [facility] Start: 07-26-2024 End: 12-29-2024 Gender identity Not on file [facility] Start: 07-26-2024 Tobacco smoking stat [facility] Ex-smoker [facility] History of tobacco use Current smoker [facility] History of tobacco use Cigarette Smoker N [facility] Start: 07-26-2024 Tobacco use and exposure Smokeless t obacco non-user [facility] Start: 07-26-2024 End: 12-29-2024 History of Social function [facility] Clinical Notes 06-13-2022 to 01-16-2025 Marlene Maloney DPM - 01/16/2025 10:45 AM [place] - 01/09/2025 1:30 PM EDTCjeffrey Maloney DPM - 12/29/2024 3:15 PM EDTPatient InstructionsPatient InstructionsPatient Instructions Note Date & Type Note Facility 01-16-2025 History of Presen t illness Narrative Images from the original note were not included. HPI: Toi Rooney presents today for post-op appointment of EPF left foot. Surgery was performed on 01/13/2025 at [facility]. Patient complains of pain 0. Current symptoms [...] Patient will follow-up in 10-14 days for suture removal. documented in this encounter [facility] 01-09-2025 History of Presen t illness Narrative Reason for Appointment: Patient ID: Toi Rooney is a 44 y.o. female who presents for Pre-op Visit Patient presents today for Pre Op appointment. Patient is scheduled to undergo Diagnostic Laparoscopy, possible CYNDY, possible FOE, possible BSO and D&C Hysteroscopy, possible Myosure on 01/27/[address] Santillan at [facility]. MEDICATIONS No current outpatient medications ALLERGIES No Known Allergies PROBLEMS Active Ambulatory Problems Diagnosis Date Noted No Active Ambulatory Problems Resolved Ambulatory Problems Diagnosis Date Noted No Resolved Ambulatory Problems No Additional Past Medical History HISTORY PAST MEDICAL HISTORY SOCIAL HISTORY History reviewed. No pertinent past medical history. Social History Tobacco Use Smoking status: Former Types: Cigarettes Smokeless tobacco: Never Substance Use Topics Alcohol use: Not on file Drug use: Not on file FAMILY HISTORY No family history on file. SURGICAL HISTORY Past Surgical History: Procedure Laterality Date SECTION, LOW TRANSVERSE 05/19/2014 SECTION, LOW TRANSVERSE 01/10/2011 TUBAL LIGATION 06/13/2022 REVIEW OF SYSTEMS Review [...] nursing note reviewed. Exam conducted with a sap bw consultant present. Vitals: Estimated body mass index is 37.89 kg/m as calculated from the following: Height as of 06/26/22: 5'. Weight as of this encounter: 194 [...] in detail and patient desires surgical management at this time. Patient will undergo Diagnostic Laparoscopy, possible CYNDY, possible FOE, possible BSO and D&C Hysteroscopy, possible Myosure on 01/27/25. Surgical consents were signed, mmc was reviewed, and patient is to proceed to [facility] OR. Follow Up: Patient is to follow up between 1-2 weeks post operative to assess proper healing and recovery from procedure. Documented by Adriana Dale LPN on behalf of: Ash Santillan DO documented in this encounter [facility] 12-29-2024 History of Presen t illness Narrative Images from the original note were not included. HPI: Patient presents today for their pre-operative appointment. The patient is scheduled for EPF left foot at [facility] with Dr. Maloney on 01/13/2025 at 10:45am. The patient is here to sign surgery paperwork, receive post-operative shoe (if needed), post-operative instructions and any post-operative prescriptions. Patient relates pain in bottom of the [...] but not as severe. No other complaints. History reviewed. No pertinent past medical history. No current outpatient medications on file prior to visit. No current facility-administered medications on file prior to visit. Allergies: No Known Allergies Social History Tobacco Use Smoking status: Former Types: Cigarettes Smokeless tobacco: Never 06/26/2022 12:00 PM 12/13/2024 11:02 AM Vitals BMI 33.2 kg/m2 37.55 kg/m2 BSA (m2) 1.81 m2 1.92 m2 Systolic 118 Diastolic 70 Height (in) 5' Weight (lb) 170 192.25 Visit Report Report Exam: General Examination: GENERAL APPEARANCE: awake, aware [...] - Calcaneal spur, right: Plan: Plantar Fasciitis: Patient presents today for their pre-operative appointment for proposed procedure: ENDOSCOPIC PLANTAR FASCIOTOMY left. Surgical paperwork was completed and signed. The patient elects to proceed with surgical intervention at this time. The risks, complications, benefits, alternatives to surgery including 2nd opinion, OR personnel and bethany and post-op care were discussed in detail with the patient. The elective nature of the procedure was also discussed in detail with the patient. Specific complications related to this surgery were also discussed including, but not limited to: possible infection, the need for oral or IV antibiotics, hospitalization, additional surgery including removal of hardware, prolonged pain, stiffness or reoccurrence. Other complications include blood clot, hematoma, loss of use, loss of toe, foot and or leg. Possible complications relating to over activity and limitations during the post-operative period were reviewed in detail. We have reviewed the fact that prolonged swelling is possible up to a year after surgery and could delay return to normal shoes and activities. Patient was dispensed their postoperative prescriptions including: [place]. We discussed the postoperative instructions including protected weight bearing on the surgical foot for at least 6-8 weeks with use of a walking boot. The patient was told that no guarantee could be made as to the outcome of the procedure patient consented to the procedure. They will be contacted by the surgery center/hospital regarding their surgical appointment time. Patient was reminded to be NPO at midnight prior to their procedure. Patient will schedule post-op appointment for 3-5 days after surgery. documented in this encounter [facility] 12-29-2024 Instructions Marlene Maloney DPM - 12/29/2024 3:15 PM EDT [facility] [place] [id number] Arrive at 9:45 on 01/13 documented in this encounter [facility] 12-21-2024 History of Presen t illness Narrative Images [...] Calcaneal spur, right: Plan: Plantar Fasciitis: Discussed all treatment options with patient in detail - both conservative and surgical. The further conservative treatment options were discussed with the patient including further stretching, anti-inflammatories, immobilization or additional physical therapy. The patient elects to proceed with surgical intervention at this time. The risks, complications, benefits, alternatives to surgery including 2nd opinion, OR personnel and bethany and post-op care were discussed in detail with the patient. The elective nature of the procedure was also discussed in detail with the patient. Specific complications related to this surgery were also discussed including, but not limited to: possible infection, the need for oral or IV antibiotics, hospitalization, additional surgery including removal of hardware, prolonged pain, stiffness or reoccurrence. Other complications include blood clot, hematoma, loss of use, loss of toe, foot and or leg. We have reviewed the fact that prolonged swelling is possible up to a year after surgery and could delay return to normal shoes and activities. The clinical and radiographic findings were reviewed with the patient. Patient was instructed that they will be in a walking boot and may have to use a walker or crutches protected weight bearing on the surgical foot for at least 6-12 weeks. The patient was told that no guarantee could be made as to the outcome of the procedure patient consented to the proposed procedure: ENDOSCOPIC PLANTAR FASCIOTOMY left. The patient will be contacted for surgical scheduling. The patient will call if any problems or questions arise prior to their surgery date. documented in this encounter [facility] 12-21-2024 Instructions Marlene Maloney DPM - 12/21/2024 2:15 PM EDT Instructions for Surgery Today you discussed surgery on your foot or ankle with Dr. Maloney. The following information is to help answer any questions that you may have prior to your surgery. If you have further questions prior to surgery, please contact the office at [phone]. PRE-OPERATIVELY Scheduling Once the paperwork is completed for your surgery, you will be contacted within the next 5-[address] Maloney's nurse/MA ([phone] ext [phone]) to schedule your surgery. The date is based on the days that Dr. Maloney performs surgery and when her surgery schedule is open. We will check your insurance benefits prior to surgery to ensure that this will be approved by your insurance. You will be informed about what your out of pocket cost will be prior to scheduling. Most outpatient surgeries are done at the [facility] at the [facility] on [facility]. Your surgery may also be scheduled at [facility] depending upon your insurance and what type of procedure is being performed. Pre-op Testing Once your surgery has been scheduled, you will need to contact your primary care physician (PCP) in order to schedule an appointment for pre-surgical clearance. At this appointment, they will perform a history & physical and obtain needed lab work, EKG or chest x-rays that may needed based on the surgical procedure you are having and your medical history. If you choose, a pre-operative appointment can be scheduled at the hospital to obtain any necessary lab tests, physical examination and order any other tests that may be necessary for your surgery. In some cases, you may also need to have additional testing or medical clearance prior to your surgery. This will be determined by your personal medical history, physical examination and the staff at the [facility] or hospital. Preparing your home This is the time to start thinking about preparing your home. Following surgery you will have either a bulky dressing, splint or cast on your foot or ankle that is not to be removed. When you go home, you may not be able to place any weight on the foot that was operated on. Look around your house and imagine that you cannot place any weight on your foot and that you will be using a walker or crutches to get around. You will need to get out of your vehicle when you get home, get into the house and go to the bathroom. You will need to prepare a place to sleep where you can get to the bathroom and get food or water. If you know that you do not have any one at home to help you, consider staying with a friend or family member for the first 2-3 days following surgery. This will allow for an easy transition following surgery and help to ensure your safety. Prescription Medications During your pre-operative testing appointment, you will be given instructions on what prescription medications should be taken the day of your surgery. These are usually taken with a small sip of water. If you take over the counter medications such as Aspirin, Ibuprofen, Aleve or Motrin; please stop taking these medications 7-10 days prior to your surgery unless otherwise directed by your doctor. Also any blood thinners, such as Warfarin/Coumadin, Plavix or Aspirin should be discontinued at least 7 days prior to surgery. Night before Surgery The anesthesiologist requires that you have nothing to eat or drink after midnight the night before your surgery. Being under anesthesia with anything in your stomach places you at risk for complications. If you are having a procedure done under local then you can eat or drink as normal. Day of Surgery Parking is readily available at the [facility] and at the hospital. Please make sure to have a ride to and from your place of surgery. You are not allowed to drive following your procedure due to the medications that you will receive during anesthesia. Please bring with you your crutches or walker if they are needed following surgery. This will allow for easy transport to and from your car and into your home when you arrive. POST-OPERATIVELY Medications All patients having surgery will receive a prescription for pain medications. For the first day following surgery it is important to take your pain medication on a timely schedule. This will ensure that you are the most comfortable. It is easier for you to control pain before it completely sets in then trying to catch back up with your pain. Expect to be in some pain following surgery. The soft tissues and bones in your foot are being manipulated during surgery to correct the problem, which will cause pain. The pain will usually subside within a few days to 1-2 weeks following the surgery, depending upon the type of surgery. Because the pain medication that you are given may contain a small amount of acetaminophen, you should avoid Tylenol or any other medication containing acetaminophen while you are taking the prescription pain medicine. Some anti-inflammatory medications (Motrin, Aleve, Advil, etc.) may impede bone healing and the doctor may ask you to stop these NSAID's during the postoperative period. You may also be given a prescription for an anti-nausea medication. If you have experienced nausea, upset stomach, vomiting or other problems with pain medications in the past, take this medication as directed: 30 minutes prior to your pain medication. If you have not had problems in the past then you can take your pain medications and use the anti-nausea medication if you encounter problems. You may also be given a prescription for a blood thinner. This is reserved for surgeries that would require a significant amount of time in a cast and being immobilized following surgery. Driving You need to have a ride home the day of surgery. You also are not to drive while you are taking pain medications. When you no longer need medications for pain, you can return to driving. We recommend that you do not drive with a cast or post-op shoe on your foot, especially the right side. Please plan on not being able to drive until you are able to wear a normal tennis shoe on both feet. Dressing Please keep the dressing, splint or cast on your foot until your post-operative appointment. It is important to do so to ensure that you protect yourself from developing an infection at your surgical site. Ice Unless instructed not to do so, you may place ice around your surgical site. This is the most important for the first 3-5 days following surgery. You can ice with a bag of frozen vegetables or ice bag for 20 minutes an hour, 3-4 times daily. If you have a large dressing, you can place the ice behind your knee and this is just as effective as placing it over your foot. Elevation It is important for everyone following surgery to elevate their foot. In order to effectively do so, lie on a bed or couch and have your surgical leg elevated above the level of your heart. This will help to reduce the swelling and associated pain to your foot and ankle. You may also want to do gentle range of motion exercises with your foot or ankle following surgery. If you are in a cast, you can wiggle your toes. This will help to reduce swelling and stiffness following surgery. Other Concerns Nausea: If you encounter upset stomach or vomiting following surgery then take the anti-nausea medication if one was given to you. Otherwise, eating bland foods such as crackers, toast, rice and bananas may help. Also take your pain medications with food. Numbness: You may encounter numbness in your foot or ankle following surgery. This is normal as long as your toes are warm and their normal color. A block using anesthetic is performed on your surgical foot/ankle which will provide pain relief following surgery, but you may notice a numb or tingling feeling. You may also have a block that is done on the nerve behind your knee. This is reserved for surgeries where you may have more pain due to the amount of work being done. In this case, you may notice numbness in the leg for up to 24 hours following surgery. This will be discussed with you the day of your surgery with Dr. Maloney and the anesthesiologist. Bleeding/Drainage: Drainage and bleeding following surgery are normal. You may notice blood or drainage on the splint or dressing which is okay. It is okay to place extra gauze or an GABRIELLA wrap over the dressing, but do not take the dressing off. If you notice that your dressing is soaked with wet blood, call the office and speak with a nurse or you will get a number to call after-hours. Skin Itching: Skin itching may be a side effect of the pain medications or anesthesia. You can take over the counter Benadryl 25mg if you need for the itching. Please call if you notice large welts, hives or rash accompany the itching. Constipation: Narcotic pain medications and anesthesia can cause constipation. If you encounter this problem, take an over the counter stool softener as needed. Drinking plenty of water and eating fruits and vegetables will help this. If you experience trouble breathing, fever, nausea or pain that is not controlled with your medication then please call the office. If you feel you are having a life threatening problem, call 911 or go to your local emergency department. Activities You should plan on refraining from your normal activities for the first 1-2 weeks following your surgery. The time frame for how long you can do these activities depends upon the type of surgery that you had. Bathing: You will not be able to get the dressing on your foot wet. You will not be able to get the foot wet until the stitches are removed. This is usually 2-3 weeks following surgery depending upon how your skin heals. You can take a bath with the foot hanging over the outside, or you may want to consider a plastic protector for your cast or dressing. These can be obtained at most drug stores. Deep Breathing: If you had general anesthesia (a tube down your throat) it is normal for you to experience some discomfort in your throat or with swallowing. It is important for you to do deep breathing exercises following surgery. Also breathing in and out while saying tse will help your lungs recover from the anesthesia. Stairs: If you are comfortable with walking up/down stairs, then it is okay to do so following surgery. If you are in a post-op shoe, make sure to support yourself with the railing or having someone walk in front of or behind you. If you are on crutches or using a walker, please go up and down the stairs with caution and when you feel comfortable and strong enough to do so. Exercise: When it is okay with Dr. Maloney, the best exercising to start following surgery is swimming (once your stitches are out), elliptical biking or upper body strength training. Return to your full level of activity and exercise will depend upon your healing and the surgical procedure that was performed. Appointments You will receive the time for your first post-operative appointment on the day of surgery. At that time, the dressing on your foot will be removed and examined. You can discuss further questions regarding your post-op course at that time. documented in this encounter [facility] 12-19-2024 History of Presen t illness Narrative Images from the original note were not included. Physical Therapy Treatment Visit Patient Name: Toi Rooney Today's Date: 12/19/2024 Encounter Diagnoses Name Primary? Plantar fasciitis, bilateral Yes Plantar fasciitis Visit number: 5 Timed Code Treatment Minutes: 40 minutes Total Treatment Time: 43 minutes Time In: 1700 Time Out: 1743 History: Pt states she has been having [...] present. Does occasional massage at home. Precautions: Baldwin Subjective: Pt states she felt better after session. Wearing arch support. States arches feel good but heels still hurt. Pain: 4-5/10 Objective: PT Evaluation (11/30/2024) Bilateral ANKLE AROM: [...] declined this date Assessment: Pt has completed 5 PT sessions for bilateral plantar fasciitis. Held heel raises this date due to complaints of increase discomfort last session. Relief noted with manual therapy. Will continue to progress as pt tolerates. Outcome Measure: Lower Extremity Functional Scale (LEFS): 45/80 Rehab Diagnosis: bilateral foot pain, difficulty walking, Short Term Goal: To be met in 2 weeks Goal 1: Pt to be instructed in home exercise program. Central Scheduler Goals: To be met in 10 weeks [...] sign below. Date: documented in this encounter [facility] 12-14-2024 History of Presen t illness Narrative [...] present. Does occasional massage at home. Precautions: Baldwin Subjective: Pt states she felt better after session. Wearing arch support. States arches feel good but heels still hurt. Pain: 4-510 Objective: PT Evaluation (11/30/2024) Bilateral ANKLE AROM: [...] to be instructed in home exercise program. Central Scheduler Goals: To be met in 10 weeks [...] sign below. Date: documented in this encounter [facility] 12-13-2024 History of Presen t illness Narrative [...] nursing note reviewed. Exam conducted with a sap bw consultant present. Vitals: Estimated body mass index is 37.55 kg/m as calculated from the following: Height as of 22: 5'. Weight as of this encounter: 192 [...] Ash Santillan DO documented in this encounter [facility] 12-07-2024 History of Presen t illness Narrative [...] present. Does occasional massage at home. Precautions: Baldwin Subjective: Pt states bilateral calf muscles and [...] to be instructed in home exercise program. Central Scheduler Goals: To be met in 10 weeks [...] sign below. Date: documented in this encounter [facility] 04-07-2025 History of Presen t illness Narrative Images [...] present. Does occasional massage at home. Precautions: Baldwin Subjective: Pt states heels feel about the [...] to be instructed in home exercise program. Residential Goals: To be met in 10 weeks [...] sign below. Date: documented in this encounter [facility] 10-20-2024 History of Presen t illness Narrative [...] RTC: 4-6 weeks. documented in this encounter [facility] 09-07-2024 History of Presen t illness Narrative [...] other conservative measures including supportive shoes and [id number]-[id number] inserts or custom inserts as applicable. We did discuss that there is a slight possibility of recurrence of the heel pain but to be very vigilant about continuing with the stretching exercises especially if they notice any recurrent symptoms. Patient should follow up as needed if they have any worsening pain or symptoms to the heel. documented in this encounter [facility] 07-26-2024 History of Presen t illness Narrative [...] RTC: 4-6 weeks. documented in this encounter [facility] 06-27-2024 Telephone encount er Note Rx was sent to [facility] in [place]. [facility] 06-27-2024 Miscellaneous Notes Formattin g of this note might be different from the original. Rx was sent to [facility] in [place]. Pt called to check in on script, and to change her preferred pharmacy to the [facility] in [place]. documented in this encounter [facility] 06-27-2024 Telephone encount er Note Pt called to check in on script, and to change her preferred pharmacy to the [facility] in [place]. [facility] 06-27-2024 History of Presen t illness Narrative [...] therapy if needed. documented in this encounter [facility] 06-27-2024 Instructions Marlene Maloney DPM - 06/27/2024 [...] foot and heel over the water bottle. [id number] (OTC) arch supports: Spenco, Powerstep, UCOs Continued [...] get them is at an online supplier. [employer] offers many options for night splints. There [...] wake up in the morning and provide snf flexibility to help decrease the chance of [...] of 6-8 weeks. documented in this encounter [facility] 06-13-2022 Note OPERATIVE NOTE OPERATION DATE: 06/13/2022 PROCEDURE: Bilateral laparoscopic salpingectomy, lysis of adhesions, omental adhesions from the anterior abdominal wall. PREOPERATIVE DIAGNOSIS: Desires permanent sterilization. POSTOPERATIVE DIAGNOSIS: Desire permanent sterilization. ANESTHESIA: General. SURGEON: Ash Santillan D.O. WORKERS COMPENSATION ATTORNEY: SHAR Rdz URINE OUTPUT: Yellow and clear. [...] and needle counts were correct x2. [facility] Evaluation note Diagnosis Plantar fasciitis- Primary Plantar fascial fibromatosis Pain of left heel Pain of right heel Pain of both heels [facility] Diagnosis Plantar fasciitis- Primary Plantar fascial fibromatosis Pain of left heel Pain of right heel [facility] Diagnosis Plantar fasciitis- Primary Plantar fascial fibromatosis Pain of left heel Pain of right heel [facility]* Diagnosis Plantar fasciitis, bilateral- Primary Plantar fasciitis Plantar fascial fibromatosis [facility]* Diagnosis Plantar fasciitis, bilateral- Primary [facility]* Diagnosis Plantar fasciitis, bilateral- Primary Plantar fasciitis Plantar fascial fibromatosis [facility]* Diagnosis Pelvic pain in female Unspecified symptom associated with female genital organs PCOS (polycystic ovarian syndrome) Polycystic ovaries Abnormal uterine bleeding (AUB) [facility] Diagnosis Plantar fasciitis, bilateral- Primary Plantar fasciitis Plantar fascial fibromatosis [facility] Diagnosis Plantar fasciitis, bilateral- Primary Plantar fasciitis Plantar fascial fibromatosis [facility]* Diagnosis Plantar fasciitis- Primary Plantar fascial fibromatosis Pain of left heel Pain of right heel [facility]* Diagnosis Plantar fasciitis- Primary Plantar fascial fibromatosis Pain of left heel documented in this encounter [facility]* Diagnosis Pre-op examination Pelvic pain in female Unspecified symptom associated with female genital organs PCOS (polycystic ovarian syndrome) Polycystic ovaries Abnormal uterine bleeding (AUB) Left lower quadrant abdominal pain documented in this encounter [facility]* Diagnosis Plantar fasciitis- Primary Plantar fascial fibromatosis Postoperative examination [Z09] Follow-up examination, following unspecified surgery Pain of left heel [facility] Rehabilitation - Outpatient (Routine) - Pending Review Specialty Diagnoses / Procedures Referred By Long redding Referred To Contact Physical Therapy Diagnoses Plantar fasciitis Procedures [place] OFFICE/OUTPATIENT NEW HIGH MDM 60 MINUTES Marlene Maloney, DPM [address] [place] [address] Phone: tel: fax: Ursula Fall, SINDY Referral ID Status Reason Start Date Expiration Date Visits Requested Visits Authorized [id number] Pending Review Specialty Services Required 11/21/2024 05/20/2025 2 2 [facility] N[facility]ative* Rehabilitation - Outpatient (Routine) - Authorized Specialty Diagnoses / Procedures Referred By Long redding Referred To Contact Physical Therapy Diagnoses Plantar fasciitis Procedures [place] OFFICE/OUTPATIENT NEW HIGH MDM 60 MINUTES Marlene Maloney, DPM [address] [place] [address] Phone: tel: fax: Ursula Fall, PT Referral ID Status Reason Start Date Expiration Date Visits Requested Visits Authorized [id number] Authorized Specialty Services Required 11/21/2024 08/30/2025 12 12 [facility] Summary Purpose Family History No Family History Records FoundNo Family History Records Found Advance Directives No Advanced Directives Records FoundNo Advanced Directives Records Found Additional Source Comments INFORMATION SOURCE (unrecogn ized section and content) DATE CREATED AUTHOR 08/07/2022 [facility] DATE CREATED AUTHOR AUTHOR'S ORGANIZ ATION 01/16/2025 [facility] Care Teams (unrecognized sec tion and content) [employer] Relationship Specialty Start Date End Date Edison Timmons MD [address] [place] [facility] [place] [address] PCP - General Family Medicine 06/27/24 Knot Picker Cloth Relationship Specialty Start Date End Date Edison Timmons MD [address] [place] [facility] [place] [address] PCP - General Family Medicine 06/27/24 Knot Picker Cloth Relationship Specialty Start Date End Date Edison Timmons MD [address] [facility], [facility] PCP - General Family Medicine 06/27/24 Knot Picker Cloth Relationship Specialty Start Date End Date Edison Timmons MD [address] [facility], [facility] PCP - General Family Medicine 06/27/24 Knot Picker Cloth Relationship Specialty Start Date End Date Edison Timmons MD [address] [facility], [facility] PCP - General Family Medicine 06/27/24 Knot Picker Cloth Relationship Specialty Start Date End Date Edison Timmons MD [address] [place] [facility] [place] [address] PCP - General Family Medicine 06/27/24 Knot Picker Cloth Relationship Specialty Start Date End Date Edison Timmons MD [address] [place] [facility] [place] [address] PCP - General Family Medicine 06/27/24 Knot Picker Cloth Relationship Specialty Start Date End Date Edison Timmons MD [address] [place] [facility] [place] [address] PCP - General Family Medicine 06/27/24 Knot Picker Cloth Relationship Specialty Start Date End Date Edison Timmons MD [address] [place] [facility] [place] [address] PCP - General Family Medicine 06/27/24 Knot Picker Cloth Relationship Specialty Start Date End Date Edison Timmons MD [address] [place] [facility] [place] [address] PCP - General Family Medicine 06/27/24 Knot Picker Cloth Relationship Specialty Start Date End Date Edison Timmons MD [address] [place] [facility] [place] [address] PCP - General Family Medicine 06/27/24 Knot Picker Cloth Relationship Specialty Start Date End Date Edison Timmons MD [address] [place] [facility] [place] [address] PCP - General Family Medicine 06/27/24 Knot Picker Cloth Relationship Specialty Start Date End Date Edison Timmons MD [address] [place] [facility] [place] [address] PCP - General Family Medicine 06/27/24 Knot Picker Cloth Relationship Specialty Start Date End Date Edison Timmons MD [address] [place] [facility] [place] [address] PCP - General Family Medicine 06/27/24 Knot Picker Cloth Relationship Specialty Start Date End Date Edison Timmons MD [address] [place] [facility] [place] [address] PCP - General Family Medicine 06/27/24 Knot Picker Cloth Relationship Specialty Start Date End Date Edison Timmons MD PCP - General Family Medicine 06/27/24 Knot Picker Cloth Relationship Specialty Start Date End Date Edison Timmons MD PCP - General Family Medicine 06/27/24 Knot Picker Cloth Relationship Specialty Start Date End Date Edison Timmons MD PCP - General Family Medicine 06/27/24 Knot Picker Cloth Relationship Specialty Start Date End Date Edison Timmons MD PCP - General Family Medicine 06/27/24 Reason for Visit (unrecogniz ed section and content) Reason Onset Date Comments script check 06/27/2024 Reason Comments Pelvic Pain Reason Comments Pre-op Visit FOR RECORDS PERTAINING TO PATIENTS WHO ARE [...] BE BASED ON THE PRIMARY CLINICAL RECORDS. [email or web address] [facility]. provides no warranty or guarantee of the accuracy or completeness of information in this document.
== END 2025-01-18 12:29 | disposition home or self-care (01) ==
LOC: PST 12:29
PROVIDERS: PCP Family Medicine; Visit Provider Obstetrics & Gynecology
DX: Z01.818 Encounter for other preprocedural examination (principal); R10.2 Pelvic and perineal pain; E28.2 Polycystic ovarian syndrome; N93.9 Abnormal uterine and vaginal bleeding, unspecified; R10.32 Left lower quadrant pain

== ENCOUNTER 2025-01-27 06:11 | Day surgery (SDC) | payer OTHER, SELFPAY ==
--- OUTSIDE RECORDS SUMMARY | 2024-12-21 16:15 | XMS_ITS ---
Author Organization The [facility] in [place] Address [address] [place] [address] Care Team Providers Care Plant Operations Coordinator Name Role Phone Francis Timmons Primary Care Provider REASON FOR VISIT Holter results Encounters Encounter Location Date Provider Diagnosis [facility] [address] [place] [address] 12/21/2024 Francis Timmons Plan Of Treatment No Information Progress Notes * Racheal KNIGHT LDOB:[birth year] (44 yo F)Acc No.[id number]:12/21/2024 Patient: Chaparro Racheal CORONA :1980 A ge:44 Y S ex:Female Address:[address] [place] [phone] * true * Date: Generated for Mattiei sandy/Sander/eTransmitting on: 0 01/27/2025 06:14 AM EDT
--- OUTSIDE RECORDS SUMMARY | 2025-01-09 07:30 | XMS_ITS ---
Author Organization [facility] [place] Address [address] [place] [address] Care Team Providers Care Skewer Up Name Role Phone Francis Timmons Primary Care Provider Allergies No Known Allergies REASON FOR VISIT Presents to office for surgery clearance with Dr. Maloney at [facility] surgery center in [place]. Plantar fasciitis left foot Social History Tobacco [...] 01/09/2025 Encounters Encounter Location Date Provider Diagnosis [facility] [address] [place] [address] 01/09/2025 Farncis Timmons Plantar fasciitis, left M72.2 Assessments Encounter Date Diagnosis (ICD Code) Assessment Notes Treatment Notes Treatment Clinical Notes Section Notes 01/09/2025 Plantar fasciitis, left (ICD-10 - M72.2) clered for OR Plan Of Treatment Treatment Notes Assessment Notes Plantar fasciitis, left clered for OR Progress Notes * Racheal KNIGHT LDOB:[birth year] (44 yo F)Acc No.[id number]:01/09/2025 Progress Note Patient: Racheal COLLINS Provider: Jose Antonio Timmons ([facility])MD :1980 A ge:44 Y S ex:Female Date:01/09/2025 Address:[address] [place], [place] [id number] Check In:11:29 AM ESTCheck O ut:12:13 PM EST Subjective: * Chief Complaints: * P resents to office for surgery clearance with Dr. Maloney at [facility] in [place]. Plantar fasciitis left foot * HPI: G [...] Procedure Codes: * Preventive Medicine: Screenings/Counseling: B LA ACTION PLAN Above Normal BMI Follow-up D ietary management education, guidance, and counseling See treatment section of progress note for complete details of management plan. * * Sign off status: Completed Visit Status: C HK (Check Out) true * Provider: Jose Antonio Timmons ([facility])MD Date: 0 01/09/2025 Generated for Printi ng/Farufinag/eTransmitting on: 0 01/27/2025 06:14 AM EDT History and Physical Notes * [...]
--- OUTSIDE RECORDS SUMMARY | 2025-01-16 10:45 | XMS_ITS | Encounter Summary ---
Author Organization [facility] Address [address] [place] [address] Care Team Providers Care Barrel Builder Name Role Phone Harsha Timmons MD Primary Care Provider [phone] Encounter Details Date Type Department Care Team (Late st Contact Info) Description 01/16/2025 10:45 AM EDT Office Visit [facility] [address] [facility] 100 [place] [phone] Nikkie Maloney DPM [address] [facility] 100 [place] [address] Plantar fasciitis (Primary Dx); Postoperative examination [Z09]; [...] foot. Surgery was performed on 01/13/2025 at [facility]. Patient complains of pain 0. Current symptoms [...] Care Team (Late st Contact Info) Description 02/02/2025 3:45 PM EDT Office Visit [facility] [address] [facility] 100 [place] [phone] Candelario Rojas, COREY [address] [facility] 100 [place] [address] 02/13/2025 9:50 AM EDT Office Visit [facility] [address] [place] [phone] Jhon Santillan, DO [address] [facility] [place] [address] 02/16/2025 8:45 AM EDT Office Visit [facility] [address] [facility] 100 [place] [phone] Nikkie Maloney, DPM [address] [facility] 100 [place] [address] documented as of this encounter Visit Diagnoses Diagnosis Plantar fasciitis- Primary Plantar fascial fibromatosis Postoperative examination [Z09] Follow-up examination, following unspecified surgery Pain of left heel documented in this encounter Care Teams Barrel Builder Relationship Specialty Start Date End Date Harsha Timmons MD PCP - General Family Medicine 06/27/24 01/25/25 documented as of this encounter
[2025-01-18 12:58] VITALS: BP 134/82; PULSE 72; TEMP 36.3; O2SAT 96; BMI 37.2
--- OUTSIDE RECORDS SUMMARY | 2025-01-26 15:45 | XMS_ITS | Encounter Summary ---
Author Organization [facility] Address [address] [place] [address] Care Team Providers Care Radiology Equipment Servicer Name Role Phone Harsha Timmons MD Primary Care Provider [phone] Encounter Details Date Type Department Care Team (Late Contact Info) Description 01/26/2025 3:45 PM EDT Office Visit [facility] [address] [facility] [address] [place] [address] Candelario Rojas DPM [address] [facility] [address] [place] [address] Post-operative state (Primary Dx) Social History Tobacco Use Types Packs/Day Years Used Date Smoking Tobacco: Former Cigarettes Smokeless Tobacco: Never Comments Unknown Sex and Gender Information Value Date Recorded Sex Assigned at Not on file Legal Sex Female 7:08 PM EDT Gender Identity Not on file Sexual Orientation Not on file documented as of this encounter Patient Instructions * Patient Instructions* Candelario Rojas DPM - 01/26/2025 3:45 PM EDT Continue weight bearing as tolerated in CAM boot OK to remove at rest Continue gentle range of motion exercises Apply betadine and bandage to site daily Monitor for sign of infection documented in this encounter Progress Notes * Candelario Rojas DPM - 01/26/2025 3:45 PM EDT FOOT & ANKLE POSTOP VISIT DOS: 01/13/25 POD: 13 POV: 2 Procedure: L EPF This 44 y.o. female presents for a post op visit after L EPF with Dr. Maloney, patient being seen in Dr. Maloneys absence. Patient states she is doing well. Pain is well controlled. Has been elevating the extremity as instructed preoperatively and has been WBAT in CAM boot to the left lower extremity. States she has been performing gentle ROM exercises without pain. States the sutures are painful andrelates she has been having drainage from her portal sites. States she has been applying antibioticointment to site daily with bandage. Denies any current nausea, vomiting, fever, chills, shortness of breath, chest pain or calf pain. Denies any other pedal complaints No past medical history on file. No current outpatient medications on file. No current facility-administered medications for this visit. No Known Allergies Objective: [facility] 01/07/2025 Patient presents WBAT in CAM to left leg. Dressing is dry, clean, and intact with no strike throughnoted. Problem focus examination to the left lower extremity: Medial incision site is coapted at proximal and distal portion with gapping at central portion withassociated mild maceration to medial and lateral portal site. There is mild dehiscence to lateral portal site with serous drainage. Mild erythema and edema surrounding surgical site. Mild ecchymosis to plantar instep. No lymphadenopathy. No lymphangitis. No surrounding cellulitis. No gross signs ofinfection. Mild pain to plantar instep without palpable medial band noted. Patient has no pain to palpation of calf. The calf is soft, supple and nontender without evidence of DVT. Negative David's test. Pedal pulses are palpable. Capillary refill time is less than three seconds to all digits. Sensations are intact to light touch. Assessment: Satisfactory post-operative progress Plan: The patient was educated on clinical examination findings, postoperative prognosis and protocol. All questions were answered to patient's apparent satisfaction. - Bandage removed and new dressing applied. - Sutures were not removed at today's visit due to maceration with mild dehiscence noted without gross sign of infection. Steri strips applied today as well as betadine and bandage to operative sites. Discussed patient is to start betadine paint to incision sites daily with application of bandage. Patient expressed understanding. - Patient to continue WBAT in CAM boot to the operative extremity. - Continue gentle ROM exercises for LLE. - Continue to monitor for sign of infection - Continue elevation of LLE and tubigrip which was dispensed today. -OTC analgesia as needed for pain Follow up [address] Maloney for suture removal. Candelario Rojas DPM documented in this encounter Plan of Treatment Upcoming Encounters Date Type Department Care Team (Late st Contact Info) Description 02/02/2025 3:45 PM EDT Office Visit [facility] [address] [place] [address] Candelario Rojas DPM [address] [place] [address] 02/13/2025 9:50 AM EDT Office Visit [facility] [address] [phone] Jhon Santillan, DO [address] [place] [address] 02/16/2025 8:45 AM EDT Office Visit [facility] [address] [place] [phone] Nikkie Maloney DPM [address] [place] [address] documented as of this encounter Visit Diagnoses Diagnosis Post-operative state- Primary Other postprocedural status documented in this encounter Care Teams Radiology Equipment Servicer Relationship Specialty Start Date End Date Harsha Timmons MD [address] [facility] [place] [address] PCP - General Family Medicine 01/26/25 documented as of this encounter
[2025-01-27] VITALS (24 sets, daily range): BP systolic 83–158; BP diastolic 62–93; PULSE 71–101; TEMP 36.1–36.5; O2SAT 75–97; BMI 36.6
--- OUTSIDE RECORDS SUMMARY | 2025-01-27 06:14 | XMS_ITS | Clinical Summary ---
Author Organization [facility] Address [address] [place] [address] Care Team Providers Care Ship'S Engineer Name Role Phone Harsha Timmons MD Primary Care Provider [phone] Allergies No known active allergies Medications HYDROcodone-sheree taminophen ([place]) 5-325 MG tabletIndicatio ns:Plantar fasciitis Take 1 tablet by mouth every 6 (six) hours if needed for severe pain for up to 5 days 20 tablet 5 01/10/20 25 Discontinued Active Problems No known active problems Encounters Date Type Department Care Team Description 01/26/2025 3:45 PM EDT Office Visit [facility] [address] [place] [address] Candelario Rojas DPM Post-operative state (Primary Dx) 01/26/2025 Bamboo flowsheet [facility] [address] [place] [address] Candelario Rojas DPM 01/26/2025 Travel 01/20/2025 Telephone [facility] [address] [place] [address] Dariela Goldman MA Refill Rx 01/16/2025 10:45 AM EDT Office Visit [facility] [address] [place] [address] Nikkie Maloney DPHelen Plantar fasciitis (Primary Dx); Postoperative examination [Z09]; Pain of left heel 01/16/2025 Bamboo flowsheet [facility] [address] [place] [address] Nikkie Maloney, DPM 01/16/2025 Travel 01/12/2025 Abstract [facility] [address] [place] [address] Ash Santillan DO 01/09/2025 1:30 PM EDT Consult [facility] [address] [place] [address] Ash Santillan, Pre-op examination; Pelvic pain in female; PCOS (polycystic ovarian syndrome); Abnormal uterine bleeding (AUB); Left lower quadrant abdominal pain 01/09/2025 Bamboo flowsheet [facility] [address] [place] [address] Ash Santillan, 12/29/2024 3:15 PM EDT Office Visit [facility] [address] [place] [address] Nikkie Maloney, DPM Plantar fasciitis (Primary Dx); Pain of left heel 12/29/2024 Bamboo flowsheet [facility] [address] [place] [address] Nikkie Maloney, DPM 12/29/2024 Travel 12/26/[address] [facility] [address] [place] [address] Angeline Donato MA 12/21/2024 2:15 PM EDT Office Visit [facility] [address] [place] [address] Nikkie Maloney, DPM Plantar fasciitis (Primary Dx); Pain of left heel; Pain of right heel 12/21/2024 Bamboo flowsheet [facility] [address] [place] [address] Nikkie Maloney DPM 12/21/2024 Travel 12/20/2024 Travel 12/19/2024 5:00 PM EDT Treatment [facility] [address] [facility] [address] [place] [address] Natalya Fall, PT Plantar fasciitis, bilateral (Primary Dx); Plantar fasciitis 12/16/2024 Clinisync Result Encounter [facility] External Department Unsolicited Ash Santillan, 12/14/2024 5:00 PM EDT Treatment [facility] [address] [facility] [address] [place] [address] Natalya Fall, PT Plantar fasciitis, bilateral (Primary Dx); Plantar fasciitis 12/14/2024 Travel 12/13/2024 10:50 AM EDT Office Visit [facility] [address] [facility] [place] [address] Ash Santillan DO Pelvic pain in female; PCOS (polycystic ovarian syndrome); Abnormal uterine bleeding (AUB) 12/13/2024 Bamboo flowsheet [facility] [address] [facility] [place] [address] Ash Santillan, 12/07/2024 5:00 PM EDT Treatment [facility] [address] [facility] [address] [place] [address] Natalya Fall, PT Plantar fasciitis, bilateral (Primary Dx); Plantar fasciitis 12/07/2024 Travel 12/05/2024 5:00 PM EDT Treatment [facility] [address] [facility] [address] [place] [address] Natalya Fall, PT Plantar fasciitis, bilateral (Primary Dx) 12/05/2024 Travel 12/01/2024 Plan of Care Documentation [facility] [address] [facility] [address] [place] [address] 11/30/2024 5:00 PM EDT Evaluation [facility] [address] [facility] [address] [place] [address] Natalya Fall, PT Plantar fasciitis, bilateral (Primary Dx); Plantar fasciitis 11/30/2024 Bamboo flowsheet [facility] [address] [place] [address] Natalya Fall, PT 11/30/2024 Travel 11/29/2024 Travel 11/21/2024 4:30 PM EDT Office Visit [facility] [address] [place] [address] Nikkie Maloney, COREY Plantar fasciitis (Primary Dx); Pain of left heel; Pain of right heel 11/21/2024 Bamboo flowsheet [facility] [address] [place] [address] Nikkie Maloney DPM 11/21/2024 Travel 11/17/2024 Clinisync Result Encounter [facility] External Department Unsolicited Ash Santillan DO from Last 3 Months Social History Tobacco Use Types Packs/Day Years Used Date Smoking Tobacco: Former Cigarettes Smokeless Tobacco: Never Tobacco Cessation:Counseling Given: Not Answered Comments Unknown Sex and Gender Information Value Date Recorded Sex Assigned at Not on file Legal Sex Female 7:08 PM EDT Gender Identity Not on file Sexual Orientation Not on file Last Filed Vital Signs Vital Sign Reading Time Taken Comments Blood Pressure 120/76 01/09/2025 1:58 PM EDT Pulse - - Temperature - - Respiratory Rate - - Oxygen Saturation - - Inhaled Oxygen Concentration - - Weight 88 kg (194 lb) 01/09/2025 1:58 PM EDT Height 152.4 cm (5') 06/26/2022 12:00 PM EDT Body Mass Index 37.89 06/26/2022 12:00 PM EDT Plan of Treatment Upcoming Encounters Date Type Department Care Team (Late st Contact Info) Description 02/02/2025 3:45 PM EDT Office Visit [facility] [address] [place] [address] Candelario Rojas DPM [address] [place] [address] 02/13/2025 9:50 AM EDT Office Visit [facility] [address] [facility] [place] [address] Ash Santillan, DO [address] [facility] [place] [address] 02/16/2025 8:45 AM EDT Office Visit [facility] [address] [place] [address] Nikkie Maloney, DPM [address] [place] [address] Procedures Procedure Name Priority Date/Time Associated Diagnosis Comments POCT URINALYSIS DIPSTICK Routine 025 2:04 PM EDT Pre-op examination POCT , URINE Routine 01/09/2025 2:04 PM EDT Pre-op examination ALL DEHYDROEPIANDROSTERONE Routine 12/16 8:05 AM EDT [facility] CORTISOL AM Routine 12/16/2024 8:05 AM EDT [facility] PROLACTIN Routine 12/16/2024 8:05 AM EDT ALL FOLLICLE STIMULATING HORMONE Routine 12/16/2024 8:05 AM EDT ALL LUTEINIZING HORMONE Routine 12/17/19 25 8:05 AM EDT ALL DHEA SULFATE Routine 12/16/2024 8:05 AM EDT MLR HEMOGLOBIN A1C Routine 12/16/2024 8: 05 AM EDT [facility] PREG QUANT HCG Routine 12/16/2024 8: 05 AM EDT US PELVIS W/ TRANSVAGINAL 2024 11:06 AM EDT from Last 3 Months Results * POCT , urine manually resulted (01/09/2025 2:04 PM EDT) Preg Test, Ur Negative Negative Urine 01/09/2025 2:04 PM EDT [facility] POINT OF CARE TEST ENTER/EDIT OR DERABLES Final Result * POCT urinalysis dipstick manually resulted (01/09/2025 [...] - Positive Urine 01/09/2025 2:04 PM EDT [facility] POINT OF CARE TEST ENTER/EDIT OR DERABLES Final Result * [facility] PROLACTIN (12/16/2024 8:05 AM EDT) PROLACTIN 12.7 4.8 - 33.4 ng/mL [facility] Comment: Performed at: [address] [id number] Construction Quality Control Manager: Leonardo House PhD, Phone: [phone] 12/16/2024 8:05 AM EDT 12/16/2024 8:07 AM EDT Narrative [facility]INIS[facility] - 12/19/2024 12:08 PM EDT Ash Tyrell DO CLINIS[facility] Final Result [facility] * [facility] PREG QUANT HCG (12/16/2024 8:05 AM EDT) HCG QUANTITATIVE <1 mIU/mL [facility] Comment: 5-50 0.2-1 WEEK 50-500 1-2 WEEKS 100-5,000 2-3 WEEKS 500-10,000 3-4 WEEKS 1,000-50,000 4-5 WEEKS 10,000-100,000 5-6 WEEKS 15,000-200,000 6-8 WEEKS 10,000-100,000 2-3 MONTHS 12/16/2024 8:05 AM EDT 12/16/2024 8:07 AM EDT Narrative [facility]IN[facility] - 12/16/2024 8:50 AM EDT Ash Tyrell DO CLINISYNC Final Result Performing Organization Address [facility] Co de Phone Number [facility] * [facility] CORTISOL AM (12/16/2024 8:05 AM EDT) CORTISOL - AM 17.0 6.2 - 19.4 ug/dL [facility] Comment: Performed at: [address] [id number] Construction Quality Control Manager: Leonardo House PhD, Phone: [phone] 12/16/2024 8:05 AM EDT 12/16/2024 8:07 AM EDT Narrative CLINISYNC - 12/19/2024 12:08 PM EDT Ash Tyrell DO CLINIS[facility] Final Result [facility] * MLR HEMOGLOBIN A1C (12/16/2024 8:05 AM EDT) GLYCOHEMOGLOBIN A1C 5.2 4.5 - 6.2 % [facility] Comment: ADA RECOMMENDED LIMIT 4.0 - 6.0 ADA THERAPEUTIC TARGET < 7.0 ACTION SUGGESTED > 7.0 ESTIMATED AVERAGE GLUCOSE 103 mg/dL [facility] 12/16/2024 8:05 AM EDT 12/16/2024 8:07 AM EDT Narrative CLINISYNC - 12/16/2024 9:50 AM EDT Ash Tyrell DO CLINISYNC Final Result [facility] * ALL LUTEINIZING HORMONE (12/16/2024 8:05 AM EDT) [facility] LUTEINIZING HORMONE(LH) 15.5 . mIU/mL TB Comment: Adult Female Range Follicular phase 2.4 - 12.6 Ovulation phase 14.0 - 95.6 Luteal phase 1.0 - 11.4 Postmenopausal 7.7 - 58.5 12/16/2024 8:05 AM EDT 12/16/2024 8:07 AM EDT Narrative CLINISYNC - 12/19/2024 12:08 PM EDT Ash Tyrell DO CLINISYNC Final Result Performing Organization Address [facility] Co de Phone Number [facility] * ALL FOLLICLE STIMULATING HORMONE (12/16/2024 8:05 AM EDT) [facility] [address] FSH 7.1 . mIU/mL [facility] Comment: Adult Female Range Follicular phase 3.5 - 12.5 Ovulation phase 4.7 - 21.5 Luteal phase 1.7 - 7.7 Postmenopausal 25.8 - 134.8 12/16/2024 8:05 AM EDT 12/16/2024 8:07 AM EDT Narrative CLINISYNC - 12/19/2024 12:08 PM EDT Ash Tyrell DO CLINISYNC Final Result Performing Organization Address City/[facility]/ZIP Co de Phone Number [facility] * (ABNORMAL) ALL DHEA SULFATE (12/16/2024 8:05 AM EDT) DHEA-SULFATE 34.4(A) 57.3 - 279.2 ug/dL [facility] 12/16/2024 8:05 AM EDT 12/16/2024 8:07 AM EDT Narrative CLINISYNC - 12/19/2024 12:08 PM EDT us Ash Tyrell DO CLINISYNC Final Result Performing Organization Address City/[facility]/ZIP Co de Phone Number [facility] * ALL DEHYDROEPIANDROSTERONE (12/16/2024 8:05 AM EDT) DHEA, SERUM 47 31 - 701 ng/dL [facility] Comment: This test was developed and its performance characteristics determined by [facility]. It has not been cleared or approved by the Food and Drug Administration. Performed at: [address] [id number] Construction Quality Control Manager: Roxanna Manrique MD, Phone: [phone] 12/16/2024 8:05 AM EDT 12/16/2024 8:07 AM EDT Narrative CLINISYNC - 12/27/2024 10:10 AM EDT us Ash Tyrell DO CLINISYNC Final Result Performing Organization Address City/[facility]/ZIP Co de Phone Number [facility] * US PELVIS W/ TRANSVAGINAL (11/17/2024 11:06 AM EDT) Anatomical Region Laterality Modality Other 11/17/2024 11:0 6 AM EDT Narrative 11/17/2024 11:09 AM EDT The [address] [address] Ultrasound Report Signed Patient: TOI ROONEY MR#: [id number] : 1980 Acct:[id number] Age/Sex: 44 / F ADM Date: 11/17/24 Loc: US Attending Dr: Ash Santillan D.O. Ordering Physician: Ash Santillan D.O. Date of Service: 11/17/24 Procedure(s): US pelvis w/ transvaginal Accession Number(s): [id number] cc: Ash Santillan D.O.; Harsha Timmons M.D. The [place] [id number] Patient Name: TOI ROONEY MRN: [facility]:[id number] date: 1980 Sex: F Assigned Patient Location: US Current Patient Location: LAB Accession/Order Number: [id number] Exam Date: 11/17/2024 11:04 Report Date: 11/17/2024 [...] Atwood Jr., D.O.11/17/2024 11:06 AM Dictation Location: [place] [address] Electronically authenticated by: [id number] Y Date: 11/17/2024 11:06 Dictated By: Ankit Atwood M.D. Signed By: 11/17/24 1109 DD/ 1106 TD/TT: Clinical Specialty Rep: Procedure Note Radiology, Radiologist, - 11/17/2024 [place] [address] Ultrasound Report Signed Patient: TOI ROONEY LMR#: [id number] : 1980Acct:[id number] Age/Sex: 44 / FADM Date: 11/17/24 Loc: US Attending Dr: Ash Santillan D.O. Ordering Physician: Ash Santillan D.O. Date of Service: 11/17/24 Procedure(s): US pelvis w/ transvaginal Accession Number(s): [id number] cc: Ash Santillan D.O.; Harsha Timmons M.D. [place] [address] Patient Name: TOI ROONEY MRN: [facility]:[id number] date: 1980 Sex: F Assigned Patient Location: US Current Patient Location: LAB Accession/Order Number: [id number] Exam Date: 11/17/2024 11:04 Report Date: 11/17/2024 11:06 At the request of: ASH SANTILLAN DO Procedure: US pelvis w/ transvaginal Pelvic ultrasound. Reason for exam: Left lower quadrant pain. Comparison: none Technique: Transabdominal imaging of the uterus and ovaries was performed. Transvaginal imaging of the uterus and ovaries was also obtained.Additional spectral Doppler analysis of the ovaries was also obtained. Findings: Uterus measures 8.8 x 4.8 x 4.2 cm. No fibroid is seen. Endometrium measures 4.2 mm without focal abnormality. Right ovary measures 3.0 x 2.2 x 2.1 cm. Left ovary measures 2.8 x 2.8 x2.0 cm. No adnexal mass or cyst. Normal arterial and venous Dopplerwaveforms. No free fluid is seen. US/US pelvis w/ transvaginal Impression: Unremarkable pelvic ultrasound. Impression dictated by: Ankit Atwood Jr., D.O.11/17/2024 11:06 AM Dictation Location: [place] [address] Electronically authenticated by: [id number] Y Date: 1:06 Dictated By: Ankit Atwood M.D. Signed By:11/17/24 1109 DD/ 1106 TD/TT: Clinical Specialty Rep: Ash Santillan DO [facility] IMAGING Final Result from Last 3 Months Insurance [employer] Care Teams Ship'S Engineer Relationship Specialty Start Date End Date Harsha Timmons MD [address] [place] [address] PCP - General Family Medicine 01/26/25
--- OUTSIDE RECORDS SUMMARY | 2025-01-27 06:14 | XMS_ITS | Encounter Summary ---
Author Organization [facility] Address [address] [place] [address] Care Team Providers Care Glaze Supervisor Name Role Phone Harsha Timmons MD Primary Care Provider [phone] Encounter Details Date Type Department Care Team (Late Contact Info) Description 01/26/2025 Bamboo flowsheet [facility] [address] [phone] Candelario Rojas DPM [address] [place] [address] Social History Tobacco Use Types Packs/Day Years [...] Department Care Team (Late Contact Info) Description 02/02/2025 3:45 PM EDT Office Visit [facility] [address] [facility] [address] [place] [phone] Candelario Rojas DPM [address] [place] [address] 02/13/2025 9:50 AM EDT Office Visit [facility] [address] [phone] Jhon Santillan DO [address] [place] [address] [place] [address] 02/16/2025 8:45 AM EDT Office Visit [facility] [address] [place] [address] [place] [phone] Nikkie Maloney DPM [address] [facility] [address] [place] [address] documented as of this encounter Visit Diagnoses Not on filedocumented in this encounter Care Teams Glaze Supervisor Relationship Specialty Start Date End Date Harsha Timmons MD [address] [facility] [place] [phone] PCP - General Family Medicine 01/26/25 documented as of this encounter
--- OUTSIDE RECORDS SUMMARY | 2025-01-27 06:14 | XMS_ITS | Encounter Summary ---
Author Organization [facility] Address [address] [place] [address] Care Team Providers Care Edge Sawyer Name Role Phone Harsha Timmons MD Primary Care Provider [phone] Encounter Details Date Type Department Care Team (Late Contact Info) Description 01/16/2025 Bamboo flowsheet [facility] [address] [facility] [address] [place] [phone] Nikkie Maloney DPM [address] [facility] [address] [place] [address] Social History Tobacco Use Types Packs/Day Years [...] [facility] [address] [facility] [address] [place] [phone] Candelario Rojas DPM [address] [facility] [address] [place] [address] 02/13/2025 9:50 AM EDT Office Visit [facility] [address] [facility] [place] [address] Jhon Santillan DO [address] [facility] [place] [address] 02/16/2025 8:45 AM EDT Office Visit [facility] [address] [facility] [address] [place] [phone] Nikkie Maloney DPM [address] [facility] [address] [place] [address] documented as of this encounter Visit Diagnoses Not on filedocumented in this encounter Care Teams Edge Sawyer Relationship Specialty Start Date End Date Harsha Timmons MD PCP - General Family Medicine 06/27/24 01/25/25 documented as of this encounter
--- OUTSIDE RECORDS SUMMARY | 2025-01-27 06:14 | XMS_ITS | CCD ---
Author Organization [facility]ini[facility] Care Team Providers Care Wire Inspector Name Role Phone ENRIQUE, DR HOGAN Admitting [...] Unavailable Edison Timmons MD Primary Care Provider [phone] Edison Timmons MD Primary Care Provider [phone] MARLENE MALONEY Attending Unavailable MARLENE MALONEY Attending [...] MALONEY Attending Unavailable MARLENE MALONEY Attending Unavailable Edison Timmons MD Primary Care Provider [phone] Medications Current Medications Medication Drug Class(es) Dates [...] every six hours for pain HYDROcodone-acetami nophen ([place]) 5-325 MG tablet Indications: Plantar fasciitis Take [...] INDEX BMI 33.0-33.9 ADULT] Onset: 08-07-2022 Chronic Residual codes; unclassified (2 sources) Postoperative state; Translations: [Other specified postprocedural states] 01-26-2025 Episodic Screening and history of mental health and [...] Interpretation and review of laboratory results Normal [facility] Work Phone: Preg Test, Ur Negative Negative [facility] Work Phone: [facility] Work Phone: Urinalysis macro (dipstick) panel (U)on 01-09-2025 Bilirubin, UA Negative Negative - 4(70) +++ mg/dL [facility] Blood, UA Negative Negative - 50 Efrain/mcL [facility] Clarity, UA Clear [facility] Color, UA Yellow [facility] Glucose, UA Negative Negative - 1999(110) ++++ mg/dL [facility] Interpretation and review of laboratory results Normal [facility] Ketones, UA Negative Negative - 160(16) ++++ mg/dL [facility] Leukocytes, UA Negative Negative - 500+++ Diana/mcL [facility] Nitrite, UA Negative Negative - Positive [facility] pH, UA 6.5 5 - 9 [facility] Protein, UA Negative Negative - 1999(20) ++++ mg/dL [facility] Spec Grav, UA 1.025 1 - 1.03 [facility] Urobilinogen, UA 0.2 0.2 - 12 mg/dL [facility] PREG QUANT HCGon 025 HCG QUANTITATIVE <1 mIU/mL [facility] Comment on above: 5-50 0.2-1 WEEK 50-500 1-2 WEEKS 100-5,000 2-3 WEEKS 500-10,000 3-4 WEEKS 1,000-50,000 4-5 WEEKS 10,000-100,000 5-6 WEEKS 15,000-200,000 6-8 WEEKS 10,000-100,000 2-3 MONTHS [facility] US PELVIS W/ TRANSVAGINALon 10-05-[address] [address] Ultrasound Report Signed Patient: TOI ROONEY MR#: [id number] : 1980 Acct:[id number] Age/Sex: 44 / F ADM Date: 10/04/24 Loc: US Attending Dr: Ash Santillan D.O. Ordering Physician: Ash Santillan D.O. Date of Service: 10/04/24 Procedure(s): US pelvis w/ transvaginal Accession Number(s): [id number] cc: Ash Santillan D.O.; Edison Timmons M.D. [place] [id number] Patient Name: TOI ROONEY MRN: [id number] date: 1980 Sex: F Assigned Patient Location: US Current Patient Location: Accession/Order Number: [id number] Exam Date: 10/04/2024 17:50 Report Date: 10/05/2024 [...] Signed By: 10/05/24 0746 DD/ 0743 TD/TT: Medical Laboratory Technician: [facility] Radiology, Radiologist, - 10/05/2024 [place] [address] Ultrasound Report Signed Patient: TOI ROONEY MR#: [id number] : 1980 Acct:[id number] Age/Sex: 44 / F ADM Date: 10/04/24 Loc: US Attending Dr: Ash Santillan D.O. Ordering Physician: Ash Santillan D.O. Date of Service: 10/04/24 Procedure(s): US pelvis w/ transvaginal Accession Number(s): [id number] cc: Ash Santillan D.O.; Edison Timmons M.D. [place] [address] Patient Name: TOI ROONEY MRN: [facility]:[id number] date: 1980 Sex: F Assigned Patient Location: US Current Patient Location: Accession/Order Number: [id number] Exam Date: 10/04/2024 17:50 Report Date: 10/05/2024 [...] Denny M.D. Signed By: 10/05/2446 DD/ TD/TT: Medical Laboratory Technician: [facility] Radiology Study [...] formation is noted at the plantar calcaneus [facility] Rad[facility] Study observation (narrative) [facility] XR Calcaneus - right Viewson 06-27-2024 Imaging Result: One views of the right heel: Lateral were performed today in the office. Radiographs were read by myself and demonstrate: No evidence of acute fracture or dislocation. No coalition noted. Spur formation is noted at the plantar calcaneus [facility] Radiology Study observation (narrative) [facility] CBC AUTO DIFFon 06-13-2022 BASO # 0.0 103/ul Normal 0.0-0.1 [facility] Comment on above: Performed By: #### C BC #### [facility] [address] [place], [place] [address] Dr. Amee Mckeon Basophils/100 WBC (Bld) 0.5 % Normal 0.2-2.0 [facility] Comment on above: Performed By: #### C BC #### [facility] [address] [place] [address] Dr. Amee Mckeon EO # 0.2 103/ul Normal 0.0-0.7 [facility] Comment on above: Performed By: #### C BC #### [facility] [address] [place] [address] Dr. Amee Mckeon Eosinophils/100 WBC (Bld) 1.9 % Normal 0.9-7.0 [facility] Comment on above: Performed By: #### C BC #### [facility] [address] [place] [address] Dr. Amee Mckeon Erythrocyte distribution width (RBC) [Ratio] 11.9 % Normal 11.0-15.0 [facility] Comment on above: Performed By: #### C BC #### [facility] [address] [place] [address] Dr. Amee Mckeon Hematocrit (Bld) [Volume fraction] 43.6 % Normal 36.0-48.0 [facility] Comment on above: Performed By: #### C BC #### [facility] [address] [place] [address] Dr. Amee Mckeon Hemoglobin (Bld) [Mass/Vol] 14.8 g/dL Normal 12.0-16.0 [facility] Comment on above: Performed By: #### C BC #### [facility] [address] [place] [address] Dr. Amee Mckeon IG # 0.03 10e3/ul Normal 0.00-0.03 [facility] Comment on above: Performed By: #### C BC #### [facility] [address] [place] [address] Dr. Amee Mckeon IG % 0.4 % Normal 0.0-0.5 [facility] Comment on above: Performed By: #### C BC #### [facility] [address] [place] [address] Dr. Amee Mckeon LYMPH # 2.5 103/ul Normal 1.2-3.8 [facility] Comment on above: Performed By: #### C BC #### [facility] [address] [place] [address] Dr. Amee Mckeon Lymphocytes/100 WBC (Bld) 31.4 % Normal 20.5-60.0 [facility] Comment on above: Performed By: #### C BC #### [facility] [address] [place] [address] Dr. Amee Mckeon MANUAL DIFF REQ NO Normal [facility] Comment on above: Performed By: #### C BC #### [facility] [address] [place] [address] Dr. Amee Mckeon MCH (RBC) [Entitic mass] 31.6 pg Normal 26.7-34.0 [facility] Comment on above: Performed By: #### C BC #### [facility] [address] [place] [address] Dr. Amee Mckeon MCHC (RBC) [Mass/Vol] 33.9 g/dL Normal 29.9-35.2 [facility] Comment on above: Performed By: #### C BC #### [facility] [address] [place] [address] Dr. Amee Mckeon MCV (RBC) [Entitic vol] 93.2 fL Normal 81.0-99.0 [facility] Comment on above: Performed By: #### C BC #### [facility] [address] [place] [address] Dr. Amee Mckeon MONO # 0.5 103/ul Normal 0.3-0.8 [facility] Comment on above: Performed By: #### C BC #### [facility] [address] [place] [address] Dr. Amee Mckeon Monocytes/100 WBC (Bld) 6.8 % Normal 1.7-12.0 [facility] Comment on above: Performed By: #### C BC #### [facility] [address] [place] [address] Dr. Amee Mckeon NEUT # 4.7 103/ul Normal 1.4-6.5 [facility] Comment on above: Performed By: #### C BC #### [facility] [address] [place] [address] Dr. Amee Mckeon Neutrophils/100 WBC (Bld) 59.0 % Normal 43.0-75.0 [facility] Comment on above: Performed By: #### C BC #### [facility] [address] [place] [address] Dr. Amee Mckeon Platelet mean volume (Bld) [Entitic vol] 9.6 fL Normal 9.5-13.5 [facility] Comment on above: Performed By: #### C BC #### [facility] [address] [place] [address] Dr. Amee Mckeon PLT 289 103/ul Normal 150-450 [facility] Comment on above: Performed By: #### C BC #### [facility] [address] [place] [address] Dr. Amee Mckeon RBC 4.68 106/ul Normal 4.20-5.40 [facility] Comment on above: Performed By: #### C BC #### [facility] [address] [place] [address] Dr. Amee Mckeon WBC 7.9 103/ul Normal 4.0-11.0 [facility] Comment on above: Performed By: #### C BC #### [facility] [address] [place] [address] Dr. Amee Mckeon PREG HCG QUALon 06-13-2022 , QUAL Negative Normal NEGATIVE [facility] Comment on above: Performed By: #### P REG #### [facility] [address] [place] [address] Dr. Amee Mckeon Covid-19 PCR (CVDTBH)on 05-31 SARS-CoV-2 (COVID-19) RNA ADOLPH+probe Ql (Unsp spec) Not detected Normal NOT DETECTED [facility] Comment on above: Result Comment: This test is not yet approved or cleared by the [place] FDA. When there are no FDA-approved or cleared tests available, and other criteria are met, FDA can make tests available under an emergency access mechanism called an Emergency Use Authorization (EUA). The EUA for this test is supported by the [place] of Health and Human Service's (HHS's) declaration [...] SARS-CoV-2. Performed By: #### C VDTBH #### [facility] [address] [place] [address] Dr. Amee Mckeon [facility] CBC AUTO DIFFon 04-17-2022 BASO # 0.0 103/ul Normal 0.0-0.1 [facility] Comment on above: Performed By: #### H FPFCBC #### [facility] [address] [place] [address] Dr. Amee Mckeon Basophils/100 WBC (Bld) 0.3 % Normal 0.2-2.0 [facility] Comment on above: Performed By: #### H FPFCBC #### [facility] [address] [place] [address] Dr. Amee Mckeon EO # 0.1 103/ul Normal 0.0-0.7 [facility] Comment on above: Performed By: #### H FPFCBC #### [facility] [address] [place] [address] Dr. Amee Mckeon Eosinophils/100 WBC (Bld) 1.5 % Normal 0.9-7.0 [facility] Comment on above: Performed By: #### H FPFCBC #### [facility] [address] [place] [address] Dr. Amee Mckeon Erythrocyte distribution width (RBC) [Ratio] 12.5 % Normal 11.0-15.0 [facility] Comment on above: Performed By: #### H FPFCBC #### [facility] [address] [place] [address] Dr. Amee Mckeon Hematocrit (Bld) [Volume fraction] 41.6 % Normal 36.0-48.0 [facility] Comment on above: Performed By: #### H FPFCBC #### [facility] [address] [place] [address] Dr. mAee Mckeon Hemoglobin (Bld) [Mass/Vol] 14.1 g/dL Normal 12.0-16.0 [facility] Comment on above: Performed By: #### H FPFCBC #### [facility] [address] [place] [address] Dr. Amee Mckeon IG # 0.03 10e3/ul Normal 0.00-0.03 [facility] Comment on above: Performed By: #### H FPFCBC #### [facility] [address] [place] [address] Dr. Amee Mckeon IG % 0.3 % Normal 0.0-0.5 [facility] Comment on above: Performed By: #### H FPFCBC #### [facility] [address] [place] [address] Dr. Amee Mckeon LYMPH # 2.2 103/ul Normal 1.2-3.8 [facility] Comment on above: Performed By: #### H FPFCBC #### [facility] [address] [place] [address] Dr. Amee Mckeon Lymphocytes/100 WBC (Bld) 25.3 % Normal 20.5-60.0 [facility] Comment on above: Performed By: #### H FPFCBC #### [facility] [address] [place] [address] Dr. Amee Mckeon MCH (RBC) [Entitic mass] 31.3 pg Normal 26.7-34.0 [facility] Comment on above: Performed By: #### H FPFCBC #### [facility] [address] [place] [address] Dr. Amee Mckeon MCHC (RBC) [Mass/Vol] 33.9 g/dL Normal 29.9-35.2 [facility] Comment on above: Performed By: #### H FPFCBC #### [facility] [address] [place] [address] Dr. Amee Mckeon MCV (RBC) [Entitic vol] 92.4 fL Normal 81.0-99.0 [facility] Comment on above: Performed By: #### H FPFCBC #### [facility] [address] [place] [address] Dr. Amee Mckeon MONO # 0.5 103/ul Normal 0.3-0.8 [facility] Comment on above: Performed By: #### H FPFCBC #### [facility] [address] [place] [address] Dr. Amee Mckeon Monocytes/100 WBC (Bld) 5.5 % Normal 1.7-12.0 [facility] Comment on above: Performed By: #### H FPFCBC #### [facility] [address] [place] [address] Dr. Amee Mckeon NEUT # 5.8 103/ul Normal 1.4-6.5 [facility] Comment on above: Performed By: #### H FPFCBC #### [facility] [address] [place] [address] Dr. Amee Mckeon Neutrophils/100 WBC (Bld) 67.1 % Normal 43.0-75.0 [facility] Comment on above: Performed By: #### H FPFCBC #### [facility] [address] [place] [address] Dr. Amee Mckeon Platelet mean volume (Bld) [Entitic vol] 10.2 fL Normal 9.5-13.5 [facility] Comment on above: Performed By: #### H FPFCBC #### [facility] [address] [place] [address] Dr. Amee Mckeon PLT 278 103/ul Normal 150-450 [facility] Comment on above: Performed By: #### H FPFCBC #### [facility] [address] [place] [address] Dr. Amee Mckeon RBC 4.50 106/ul Normal 4.20-5.40 [facility] Comment on above: Performed By: #### H FPFCBC #### [facility] [address] [place] [address] Dr. Amee Mckeon WBC 8.6 103/ul Normal 4.0-11.0 [facility] Comment on above: Performed By: #### H FPFCBC #### [facility] [address] [place] [address] Dr. Amee Mckeon [facility] PROFILEon 022 Albumin [Mass/Vol] 3.8 g/dL Normal 3.4-5.0 [facility] Comment on above: Performed By: #### H FPF #### [facility] [address] [place] [address] Dr. Amee Mckeon Albumin/Globulin [Mass ratio] 1.1 {ratio} Normal [facility] Comment on above: Performed By: #### H FPF #### [facility] [address] [place] [address] Dr. Amee Mckeon ALP [Catalytic activity/Vol] 50 U/L Normal 46-116 [facility] Comment on above: Performed By: #### H FPF #### [facility] [address] [place] [address] Dr. Amee Mckeon ALT [Catalytic activity/Vol] 31 U/L Normal 14-59 [facility] Comment on above: Performed By: #### H FPF #### [facility] [address] [place] [address] Dr. Amee Mckeon AST [Catalytic activity/Vol] 15 U/L Normal 15-37 [facility] Comment on above: Performed By: #### H FPF #### [facility] [address] [place] [address] Dr. Amee Mckeon Bilirubin [Mass/Vol] 0.6 mg/dL Normal 0.2-1.0 [facility] Comment on above: Performed By: #### H FPF #### [facility] [address] [place] [address] Dr. Amee Mckeon Calcium [Mass/Vol] 8.8 mg/dL Normal 8.5-10.1 [facility] Comment on above: Performed By: #### H FPF #### [facility] [address] [place] [address] Dr. Amee Mckeon Chloride [Moles/Vol] 104 mmol/L Normal 98-107 [facility] Comment on above: Performed By: #### H FPF #### [facility] [address] [place] [address] [address] Amee Mckeon CHOL-HDL RATIO NORM SEE BELOW Normal [facility] Comment on above: Result Comment: 3.3 - 4.4 LOW RISK 4.4 - 7.1 AVERAGE RISK 7.1 - 11.0 MODERATE RISK >11.0 HIGH RISK Performed By: #### H FPF #### [facility] [address] [place] [address] [address] Amee Mckeon Cholesterol [Mass/Vol] 216 mg/dL Critically high <=200 [facility] Comment on above: Performed By: #### H FPF #### [facility] [address] [place] [address] [address] Amee Mckeon Cholesterol in HDL [Mass/Vol] 51 mg/dL Normal 40-60 [facility] Comment on above: Performed By: #### H FPF #### [facility] [address] [place] [address] [address] Amee Mckeon Cholesterol in LDL [Mass/Vol] 141.6 mg/dL Normal [facility] Comment on above: Performed By: #### H FPF #### [facility] [address] [place] [address] [address] Amee Mckeon Cholesterol.total/[place] sterol in HDL [Mass ratio] 4.2 {ratio} Normal [facility] Comment on above: Performed By: #### H FPF #### [facility] [address] [place] [address] [address] Amee Mckeon CO2 [Moles/Vol] 26.1 mmol/L Normal 21.0-32.0 [facility] Comment on above: Performed By: #### H FPF #### [facility] [address] [place] [address] [address] Amee Mckeon Creatinine [Mass/Vol] 0.75 mg/dL Normal 0.55-1.02 [facility] Comment on above: Performed By: #### H FPF #### [facility] [address] [place] [address] [address] Amee Mckeon Globulin (S) [Mass/Vol] 3.4 g/dL Normal [facility] Comment on above: Performed By: #### H FPF #### [facility] [address] [place] [address] [address] Amee Mckeon Glucose [Mass/Vol] 94 mg/dL Normal 74-106 [facility] Comment on above: Performed By: #### H FPF #### [facility] [address] [place] [address] [address] Amee Mckeon HDL NORMAL > or = 60 mg/dl - LOW CARDIOVASCULAR RISK <40 mg/dl - HIGH CARDIOVASCULAR RISK Normal [facility] Comment on above: Performed By: #### H FPF #### [facility] [address] [place] [address] Dr. Amee Mckeon LDL CALC NORMAL SEE BELOW Normal [facility] Comment on above: Result Comment: <100 mg/dl OPTIMAL 100 - 129 mg/dl NEAR OR ABOVE OPTIMAL 130 - 159 mg/dl BORDERLINE HIGH 160 - 189 mg/dl HIGH >190 mg/dl VERY HIGH Performed By: #### H FPF #### [facility] [address] [place] [address] Dr. Amee Mckeon Potassium [Moles/Vol] 3.7 mmol/L Normal 3.5-5.1 [facility] Comment on above: Performed By: #### H FPF #### [facility] [address] [place] [address] [address] Amee Mckeon Protein [Mass/Vol] 7.2 g/dL Normal 6.4-8.2 [facility] Comment on above: Performed By: #### H FPF #### [facility] [address] [place] [address] Dr. Amee Mckeon Sodium [Moles/Vol] 137 mmol/L Normal 136-145 [facility] Comment on above: Performed By: #### H FPF #### [facility] [address] [place] [address] [address] Amee Mckeon Triglyceride [Mass/Vol] 117 mg/dL Normal <=150 [facility] Comment on above: Performed By: #### H FPF #### [facility] [address] [place] [address] [address] Amee Mckeon TSH 1.647 uIU/mL Normal 0.358-3.740 [facility] Comment on above: Performed By: #### H FPF #### [facility] [address] [place] [address] [address] Amee Mckeon Urea nitrogen [Mass/Vol] 18.0 mg/dL Normal 7.0-18.0 [facility] Comment on above: Performed By: #### H FPF #### [facility] [address] [place] [address] [address] Amee Mckeon Urea nitrogen/Creatinine [Mass ratio] 24.0 mg/mg Normal [facility] Comment on above: Performed By: #### H FPF #### [facility] [address] [place] [address] [address] Amee Mckeon VLDL CALC 23.4 mg/dL [facility] Comment on above: Performed By: #### H FPF #### [facility] [address] [place] [address] [address] Amee Mckeon PAP ACOG PANEL 2: 30 to 65on 03-26-2022 . . Normal [facility] Comment on above: Result Comment: Perf ormed at: WB Performed By: #### [id number] #### [facility] [address] [place] [address] [address] Amee Mckeon Age Gdln ACOG Testing -67 Normal [facility] Comment on above: Performed By: #### [id number] #### [facility] [address] [place] [address] [address] Amee Mckeon DIAGNOSIS: Comment Normal [facility] Comment on above: Result Comment: NEGA TIVE FOR INTRAEPITHELIAL LESION OR MALIGNANCY. Performed at: WB Performed By: #### [id number] #### [facility] [address] [place] [address] [address] Amee Mckeon HPV Aptima Negative Normal Negative [facility] Comment on above: Result Comment: This nucleic acid amplification test detects fourteen high-risk HPV types (16,18,31,33,35,39,45,51,52,56,58,59,66,68) without differentiation. Performed at: =G Performed By: #### [id number] #### [facility] [address] [place] [address] Dr. Amee Mckeon Methodology: Comment Normal [facility] Comment on above: Result Comment: This liquid based ThinPrep(R) pap test was screened with the use of an image guided system. Performed at: WB Performed By: #### [id number] #### [facility] [address] [place] [address] Dr. Amee Mckeon Note: Comment Normal [facility] Comment on above: Result Comment: The Pap smear is a screening test designed to aid in the detection of premalignant and malignant conditions of the uterine cervix. It is not a diagnostic procedure and should not be used as the sole means of detecting cervical cancer. Both false-positive and false-negative reports do occur. . Performed at: WB Performed By: #### [id number] #### [facility] [address] [place] [address] Dr. Amee Mckeon Performed by: Comment Normal [facility] Comment on above: Result Comment: [employer]visor ([employer]) Performed at: WB Performed By: #### [id number] #### [facility] [address] [place] [address] Dr. Amee Mckeon Specimen adequacy: Comment Normal [facility] Comment on above: Result Comment: Sati sfactory for evaluation. No endocervical component is identified. Performed at: WB Performed By: #### [id number] #### [facility] [address] [place] [address] Dr. Amee Mckeon Vital Signs Date Time Vital Sign Value Performing Clinician Maxi harp 01-09-2025 13:58-0400 Body mass index (BMI) [Ratio] 37.89 kg/m2 3FLOZ Phone: [facility] 01-09-2025 13:58-0400 Body weight 88 kg Ash Tyrell DO Work Phone: [facility] 01-09-2025 13:58-0400 Diastolic blood pressure 76 mm[Hg] Ash Tyrell DO Work Phone: [facility] 01-09-2025 13:58-0400 Systolic blood pressure 120 mm[Hg] Ash Tyrell DO Work Phone: [facility] 12-13-2024 11:02-0400 Body mass index (BMI) [Ratio] 37.55 kg/m2 Ash Tyrell DO Work Phone: [facility] 12-13-2024 11:02-0400 Body weight 87.2 kg [email or web address] DO Work Phone: [facility] Healthcare Encounters Encounter Date Encounter Type Care Provider Facility Start: 01-26-2025 End: 01-26-2025 Postop follow up visit related to original px Candelario Rojas DPM Work Phone: [facility] Comment on above: Post-operative state (Primary Dx) Start: 01-26-2025 End: 01-26-2025 Bamboo flowsheet Candelario Rojas DPM Work Phone: [facility] Start: 01-26-2025 End: 01-26-2025 Bamboo flowsheet Candelario Rojas DPM Work Phone: [facility] Start: 01-16-2025 End: 01-16-2025 Bamboo flowsheet Marlene Maloney DPM Work Phone: [facility] Start: 01-16-2025 End: 01-16-2025 Bamboo flowsheet Marlene Maloney DPM Work Phone: [facility] Start: 01-16-2025 End: 01-16-2025 Postop follow up visit related to original px Marlene Maloney DPM Work Phone: [facility] Comment on above: Plantar fasciitis (P rimary Dx); Postoperative examination [Z09]; Pain of left heel Start: 01-16-2025 End: 01-16-2025 ambulatory MARLENE MALONEY Not Available Start: 01-09-2025 End: 01-09-2025 Bamboo flowsheet Ash Tyrell DO Work Phone: [facility] Start: 01-09-2025 End: 01-09-2025 Bamboo flowsheet Ash Tyrell DO Work Phone: [facility] Start: 01-09-2025 End: 01-09-2025 Office outpatient visit 15 minutes Ash Tyrell DO Work Phone: [facility] Comment on above: Pre-op examination; Pelvic pain in female; PCOS (polycystic ovarian syndrome); Abnormal uterine bleeding (AUB); Left lower quadrant abdominal pain Start: 01-09-2025 End: 01-09-2025 Preprocedural examination done Ash Tyrell DO Work Phone: [facility] Start: 01-09-2025 End: 01-09-2025 ambulatory ASH TYRELL Not Available Start: 12-29-2024 End: 12-29-2024 Office outpatient visit 15 minutes Marlene Maloney DPM Work Phone: [facility] Comment on above: Plantar fasciitis (P rimary Dx); Pain of left heel Start: 12-29-2024 End: 12-29-2024 ambulatory MARLENE MALONEY Not Available Start: 12-29-2024 End: 12-29-2024 Bamboo flowsheet Marlene Maloney DPM Work Phone: [facility] Start: 12-29-2024 End: 12-29-2024 Bamboo flowsheet Marlene Maloney DPM Work Phone: [facility] Start: 12-21-2024 End: 12-21-2024 Office outpatient visit 25 minutes Marlene Maloney DPM Work Phone: [facility] Comment on above: Plantar fasciitis (P rimary Dx); Pain of left heel; Pain of right heel Start: 12-21-2024 End: 12-21-2024 ambulatory MARLENE MALONEY Not Available Start: 12-21-2024 End: 12-21-2024 Bamboo flowsheet Marlene Maloney DPM Work Phone: [facility] Start: 12-21-2024 End: 12-21-2024 Bamboo flowsheet Marlene Maloney DPM Work Phone: [facility] Start: 12-20-2024 End: 12-20-2024 ambulatory URSULA FALL Not Available Start: 12-19-2024 End: 12-19-2024 ambulatory Ursual Fall PT [facility] Comment on [...] Bamboo flowsheet Marlene Maloney DPM Work Phone: [facility] Start: 11-21-2024 End: 11-21-2024 Bamboo flowsheet Marlene Maloney DPM Work Phone: [facility] Start: 10-20-2024 End: 10-20-2024 Bamboo flowskeshia Maloney DPM Work Phone: [facility] Start: 10-20-2024 End: 10-20-2024 Bamboo flowsheet Marlene Maloney DPM Work Phone: [facility] Start: 10-20-2024 End: 10-20-2024 Office outpatient visit 15 minutes Marlene Maloney DPM Work Phone: [facility] Comment on above: Plantar fasciitis (P rimary Dx); Pain of left heel; Pain of right heel Start: 10-20-2024 End: 10-20-2024 ambulatory MARLENE MALONEY Not Available Start: 10-05-2024 End: 10-05-2024 Clinisync Result Encounter Ash Tyrell DO Work Phone: [facility] External Department Unsolicited Start: 10-05-2024 End: 10-05-2024 Clinisync Result Encounter Ash Tyrell DO Work Phone: [facility] External Department Unsolicited Start: 09-07-2024 End: 09-07-2024 Bamboo flowsheet Marlene Maloney DPM Work Phone: [facility] Start: 09-07-2024 End: 09-07-2024 Bamboo flowsheet Marlene Maloney DPM Work Phone: [facility] Start: 09-07-2024 End: 09-07-2024 ambulatory MARLENE MALONEY Not Available Start: 09-07-2024 End: 09-07-2024 Office outpatient visit 15 minutes Marlene Maloney DPM Work Phone: [facility] Comment on above: Plantar fasciitis (P rimary Dx); Pain of left heel; Pain of right heel Start: 07-26-2024 End: 07-26-2024 Bamboo flowskeshia Maloney DPM Work Phone: [facility] Start: 07-26-2024 End: 07-26-2024 Bamboo flowsheet Marlene Maloney DPM Work Phone: [facility] Start: 07-26-2024 End: 07-26-2024 ambulatory MARLENE MALONEY Not Available Start: 07-26-2024 End: 07-26-2024 Office outpatient visit 15 minutes Marlene Maloney DPM Work Phone: [facility] Comment on above: Plantar fasciitis (P rimary Dx); Pain of left heel; Pain of right heel Start: 06-27-2024 End: 06-27-2024 Bamboo flowsheet Marlene Maloney DPM Work Phone: [facility] Start: 06-27-2024 End: 06-27-2024 Bamboo flowsheet Marlene Maloney DPM Work Phone: [facility] Start: 06-27-2024 End: 06-27-2024 Telephone encounter Marlene Maloney DPM Work Phone: [facility] Comment on above: script check Start: 06-27-2024 End: 06-27-2024 ambulatory MARLENE MALONEY Not Available Start: 06-27-2024 End: 06-27-2024 Office outpatient new 30 minutes Marlene Maloney DPM Work Phone: [facility] Comment on above: Plantar fasciitis (P rimary Dx); Pain of left heel; Pain of right heel; Pain of both heels Start: 06-13-2022 End: 06-13-[address] ASH SANTILLAN Facility:[facility] Start: 06-12-2022 Encounter for preprocedural laboratory examination DR ASH SANTILLAN [facility] Start: 06-10-2022 End: 06-11-[address] ASH SANTILLAN Facility:[facility] Start: 06-10-2022 End: 06-11-2022 Encounter for preprocedural laboratory examination DR ASH SANTILLAN Facility:[facility] Start: 06-06-2022 Encounter for other preprocedural examination DR ASH SANTILLAN [facility] Start: 06-04-2022 End: 06-05-[address] ASH SANTILLAN Facility:[facility] Start: 06-04-2022 End: 06-05-2022 Encounter for other preprocedural examination DR ASH SANTILLAN Facility:[facility] Start: 04-17-2022 End: 04-18-[address] EDISON TIMMONS Facility:[facility] Start: 03-24-2022 End: 03-24-[address] EDISON TIMMONS Facility:[facility] Procedures Date Procedure Procedure Detail Performing Clinician Start: 01-09-2025 Urnls dip stick/tabl et rgnt non-auto w/o micrscp Ash Santillan DO Work Phone: Start: 12-16-2024 [facility] P[facility] [...] EDT Office Visit [facility] [address] [place] [id number] Ash Santillan, DO [address] [place] [address] [facility] Start: 02-16-2025 End: 02-16-2025 Patient encounter procedure 02/16/2025 8:45 AM EDT Office Visit [facility] [address] [place] [phone] Marlene Maloney DPM [address] [place] [address] [facility] Start: 02-13-2025 End: 02-13-2025 Patient encounter procedure [facility] Start: 02-02-2025 End: 02-02-2025 Patient encounter procedure 02/02/2025 3:45 PM EDT Office Visit [facility] [address] [place] [address] Candelario Rojas, DPM [address] [place] [address] [facility] Start: 01-26-2025 End: 01-26-2025 Patient encounter procedure 01/26/2025 3:45 PM EDT Office Visit [facility] [address] [place] [phone] Candelario Rojas, DPM [address] [place] [address] Post-operative state (Primary Dx) [facility] Comment on above: Post-operative state (Primary Dx) Start: 01-24-2025 End: 01-24-2025 Patient encounter procedure 01/24/2025 11:30 AM EDT Office Visit [facility] [address] [place] [phone] Candelario Rojas, DPM [address] [place] [address] [facility] Start: 01-16-2025 End: 01-16-2025 Patient encounter procedure [facility] Comment on above: Arrived Start: 01-09-2025 End: 01-09-2025 Patient encounter procedure [facility] Comment on above: Arrived Start: 12-29-2024 End: 12-29-2024 Patient encounter procedure 12/29/2024 3:15 PM EDT Office Visit [facility] [address] [place] [address] Marlene Maloney DPM [address] [place] [address] Arrived [facility] Comment on above: Arrived Start: 12-29-2024 End: 12-29-2024 Patient encounter procedure 12/29/2024 10:40 AM EDT Office Visit [facility] [address] [place] [address] Ash Santillan, [address] [place] [address] [facility] Start: 12-28-2024 End: 12-28-2024 ambulatory 12/28/2024 5:00 PM EDT Treatment [facility] [address] [place] [address] Ursula Fall, PT [facility] Start: 12-21-2024 End: 12-21-2024 ambulatory 12/21/2024 5:00 PM EDT Treatment [facility] [address] [place] [address] Ursula Fall, PT [facility] Start: 12-21-2024 End: 12-21-2024 Patient encounter procedure 12/21/2024 2:15 PM EDT Office Visit [facility] [address] [place] [address] Marlene Maloney DPM [address] [place] [address] Arrived [facility] Comment on above: Arrived Start: 12-19-2024 End: 12-19-2024 ambulatory 12/19/2024 5:00 PM EDT Treatment [facility] [address] [place] [address] Ursula Fall, PT [facility] Start: 12-14-2024 End: 12-14-2024 ambulatory 12/14/2024 5:00 PM EDT Treatment [facility] [address] [place] [address] Ursula Fall, PT [facility] Start: [...] EDT Office Visit [facility] [address] [place] [address] Ash Santillan DO [address] [place] [address] [facility] Start: 12-07-2024 End: 12-07-2024 ambulatory 12/07/2024 5:00 PM EDT Treatment [facility] [address] [place] [address] Ursula Fall, PT [facility] Start: 11-21-2024 End: 11-21-2024 Patient encounter procedure [facility] Comment on above: Arrived Start: 10-20-2024 End: 10-20-2024 Patient encounter procedure 10/20/2024 11:00 AM EST Office Visit [facility] [address] [place] [address] Marlene Maloney, DPM [address] [place] [address] Arrived [facility] Comment on above: Arrived Start: 09-07-2024 End: 09-07-2024 Patient encounter procedure 09/07/2024 1:45 PM EST Office Visit [facility] [address] [place] [address] Marlene Maloney, DPM [address] [place] [address] [facility] Start: 07-26-2024 End: 07-26-2024 Patient encounter procedure 07/26/2024 1:45 PM EST Office Visit [facility] [address] [place] [address] Marlene Maloney DPM [address] [place] [address] [facility] DHEA-sulfate DHEA-sulfate Lab Routine PCOS [...] 12/13/2024 Payers Date Payer Category Payer Medicaid [id number] 2019 Private Health Insurance [id number] 1982 Unknown [id number] 2.16.84 [id number] 1982 Unknown [id number] 2.16.84 0.1.150249.3.579.2.593 1982 Unknown [id number] 2.16.84 0.1.085167.3.579.2.593 1982 Unknown [id number] 2.16.84 0.1.288103.3.579.2.593 1982 Unknown [id number] 2.16.84 0.1.932096.3.579.2.1258 1982 Unknown [id number] 2.16.84 0.1.627485.3.579.2.1258 1982 Unknown [id number] 2.16.84 0.1.386599.3.579.2.1258 1982 Unknown [id number] 2.16.84 0.1.158749.3.579.2.1258 1982 Unknown [id number] 2.16.84 0.1.245380.3.579.2.1258 1982 Unknown [id number] 2.16.84 0.1.160708.3.579.2.1258 1982 Unknown [id number] 2.16.84 0.1.597327.3.579.2.1258 1982 Unknown [id number] 2.16.84 0.1.202634.3.579.2.1258 1982 Unknown [id number] 2.16.84 0.1.411456.3.579.2.1258 1982 Unknown [id number] 2.16.84 0.1.510561.3.579.2.1258 1982 Unknown [id number] 2.16.84 0.1.462797.3.579.2.1258 1982 Unknown [id number] 2.16.84 0.1.842331.3.579.2.1258 1982 Unknown [id number] 2.16.84 0.1.328691.3.579.2.1258 1982 Unknown [id number] 2.16.84 0.1.395598.3.579.2.1259 1982 Unknown [id number] 2.16.84 0.1.439683.3.579.2.1259 1959 Self-pay [id number] 1959 Unknown [id number] 1959 Unknown [id number] Unknown [id number] 2.16.84 0.1.672320.3.579.2.593 Social History Date Type Detail Facility Tobacco smoking stat [facility] Tobacco smoking consumption unknown [facility] Start: 1980 Sex assigned at Not on file [facility] Start: 07-26-2024 End: 01-16-2025 Gender identity Not on file [facility] Start: 07-26-2024 Tobacco smoking stat [facility] Ex-smoker [facility] History of tobacco use Current smoker [facility] History of tobacco use Cigarette Smoker N [facility] Start: 07-26-2024 Tobacco use and exposure Smokeless t obacco non-user [facility] Start: 07-26-2024 End: 01-16-2025 History of Social function [facility] Clinical Notes 06-13-2022 to 01-26-2025 Candelario Rojas DPM - 01/26/2025 3:45 PM EDTPatient InstructionsCaivan Maloney DPM - 01/16/2025 10:45 AM EDTBluisito Hill - 01/09/2025 1:30 PM EDTPatient InstructionsPatient Instructions Note Date & Type Note Facility 01-26-2025 History of Presen t illness Narrative FOOT & ANKLE POSTOP VISIT DOS: 01/13/25 POD: 13 POV: 2 Procedure: L EPF This 44 y.o. female presents for a post op visit after L EPF with Dr. Maloney, patient being seen in Dr. Lantigua absence. Patient states she is doing well. Pain is well controlled. Has been elevating the extremity as instructed preoperatively and has been WBAT in CAM boot to the left lower extremity. States she has been performing gentle ROM exercises without pain. States the sutures are painful and relates she has been having drainage from her portal sites. States she has been applying antibiotic ointment to site daily with bandage. Denies any current nausea, vomiting, fever, chills, shortness of breath, chest pain or calf pain. Denies any other pedal complaints No past medical history on file. No current outpatient medications on file. No current facility-administered medications for this visit. No Known Allergies Objective: [facility] 01/07/2025 Patient presents WBAT in CAM to left leg. Dressing is dry, clean, and intact with no strike through noted. Problem focus examination to the left lower extremity: Medial incision site is coapted at proximal and distal portion with gapping at central portion with associated mild maceration to medial and lateral portal site. There is mild dehiscence to lateral portal site with serous drainage. Mild erythema and edema surrounding surgical site. Mild ecchymosis to plantar instep. No lymphadenopathy. No lymphangitis. No surrounding cellulitis. No gross signs of infection. Mild pain to plantar instep without palpable [...] Candelario Rojas DPM documented in this encounter [facility] 01-26-2025 Instructions Candelario Rojas DPM - 01/26/2025 3:45 PM EDT Continue weight bearing as tolerated in CAM boot OK to remove at rest Continue gentle range of motion exercises Apply betadine and bandage to site daily Monitor for sign of infection documented in this encounter [facility] 01-16-2025 History of Presen t illness Narrative Images from the original note were not included. HPI: Toi Rooney presents today for post-op appointment of EPF left foot. Surgery was performed on 01/13/2025 at [facility]. Patient complains of pain 0. Current symptoms [...] for suture removal. documented in this encounter [facility] 01-09-2025 History of Presen t illness Narrative Reason for Appointment: Patient ID: Toi Rooney is a 44 y.o. female who presents for Pre-op Visit Patient presents today for Pre Op appointment. Patient is scheduled to undergo Diagnostic Laparoscopy, possible CYNDY, possible FOE, possible BSO and D&C Hysteroscopy, possible Myosure on 01/27/[address] Santillan at [facility]. MEDICATIONS No current outpatient medications ALLERGIES No [...] nursing note reviewed. Exam conducted with a recycling worker present. Vitals: Estimated body mass index is [...] time. Patient will undergo Diagnostic Laparoscopy, possible YCNDY, possible FOE, possible BSO and D&C Hysteroscopy, possible Myosure on 01/27/25. Surgical consents were signed, mmc was reviewed, and patient is to proceed to [facility] OR. Follow Up: Patient is to follow up between 1-2 weeks post operative to assess proper healing and recovery from procedure. Documented by Adriana Dale LPN on behalf of: Ash Santillan DO documented in this encounter [facility] 12-29-2024 History of Presen t illness Narrative Images from the original note were not included. HPI: Patient presents today for their pre-operative appointment. The patient is scheduled for EPF left foot at [facility] with Dr. Maloney on 01/13/2025 at 10:45am. [...] Patient was dispensed their postoperative prescriptions including: [place]. We discussed the postoperative instructions including protected [...] days after surgery. documented in this encounter [facility] 12-29-2024 Instructions Marlene Maloney DPM - 12/29/2024 3:15 PM EDT [facility] [place] [id number] Arrive at 9:45 on 01/13 documented in this encounter [facility] 12-21-2024 History of Presen t illness Narrative [...] their surgery date. documented in this encounter [facility] 12-21-2024 Instructions Marlene Maloney DPM - 12/21/2024 2:15 PM EDT Instructions for Surgery Today you discussed surgery on your foot or ankle with Dr. Maloney. The following information is to help answer any questions that you may have prior to your surgery. If you have further questions prior to surgery, please contact the office at [phone]. PRE-OPERATIVELY Scheduling Once the paperwork is completed for your surgery, you will be contacted within the next 5-[address] Maloney's nurse/MA ([phone] ext [phone]) to schedule your surgery. The date is [...] the [facility] ([facility] at the [facility] Surgery [place] on [facility]. Your surgery may also be scheduled at [facility] depending upon your insurance and what type [...] physical examination and the staff at the [facility] or hospital. Preparing your home [...] Surgery Parking is readily available at the [facility] and at the hospital. Please [...] the day of your surgery with Dr. Maolney and the anesthesiologist. Bleeding/Drainage: Drainage and bleeding [...] at that time. documented in this encounter [facility] 12-19-2024 History of Presen t illness Narrative [...] present. Does occasional massage at home. Precautions: [place] Subjective: Pt states she felt better after [...] to be instructed in home exercise program. Usp Goals: To be met in 10 weeks [...] this encounter [facility] 12-14-2024 History of Presen t illness Narrative [...] present. Does occasional massage at home. Precautions: [place] Subjective: Pt states she felt better after [...] to be instructed in home exercise program. Usp Goals: To be met in 10 weeks [...] nursing note reviewed. Exam conducted with a recycling worker present. Vitals: Estimated body mass index is 37.55 kg/m as calculated from the following: Height as of 06/26/22: 5'. Weight as of this encounter: 192 lb 4 oz. BP: No LMP recorded. ASSESSMENT & PLAN ICD-10-CM 1. Pelvic pain in female R10.2 Pt presents with pelvic pain on left side. Ultrasound remarkable- reviewed with pt. Pt to be scheduled for dx lap with iona PEREA, with d&c hysteroscopy. Pt having spotting for [...] present. Does occasional massage at home. Precautions: [place] Subjective: Pt states bilateral calf muscles and heels were sore after last session. Heels still a little painful today. Inserts were delivered today. Pain: /10 Objective: PT Evaluation (11/30/2024) Bilateral ANKLE AROM: [...] to be instructed in home exercise program. Usp Goals: To be met in 10 weeks [...] present. Does occasional massage at home. Precautions: [place] Subjective: Pt states heels feel about the [...] to be instructed in home exercise program. Cooking Chef Goals: To be met in 10 weeks [...] other conservative measures including supportive shoes and meeu-jsc-yexjfyo inserts or custom inserts as applicable. We [...] encount er Note Rx was sent to [facility] in [place]. [facility] 06-27-2024 Miscellaneous Notes Formattin g of this note might be different from the original. Rx was sent to [facility] in [place]. Pt called to check in on script, and to change her preferred pharmacy to the [facility] in [place]. documented in this encounter [facility] 06-27-2024 Telephone encount er Note Pt called to check in on script, and to change her preferred pharmacy to the [facility] in [place]. [facility] 06-27-2024 History [...] foot and heel over the water bottle. Yxat-lwq-zcydmtg (OTC) arch supports: Spenco, Powerstep, UCOs Continued [...] get them is at an online supplier. [employer] offers many options for night splints. There [...] front. The devices that are most recommended: [employer] Plantar Fasciitis Splint Plantar Fasciitis [...] wake up in the morning and provide meterman flexibility to help decrease the chance of [...] sterilization. ANESTHESIA: General. SURGEON: Ash Santillan D.O. MANAGER USER EXPERIENCE: SHAR Rdz URINE OUTPUT: Yellow and clear. [...] counts were correct x2. [facility] Evaluation note Diagnosis Plantar fasciitis- Primary Plantar fascial fibromatosis Pain of left heel Pain of right heel Pain of both heels documented in this encounter [facility] note* Diagnosis Plantar fasciitis- Primary Plantar [...] fasciitis, bilateral- Primary documented in this encounter [facility]* Diagnosis Plantar fasciitis, bilateral- Primary Plantar fasciitis Plantar fascial fibromatosis documented in this encounter [facility]* Diagnosis Pelvic pain in female [...] of right heel documented in this encounter [facility]* Diagnosis Plantar fasciitis- Primary Plantar fascial fibromatosis Pain of left heel documented in this encounter [facility]* Diagnosis Pre-op examination Pelvic pain in female Unspecified symptom associated with female genital organs PCOS (polycystic ovarian syndrome) Polycystic ovaries Abnormal uterine bleeding (AUB) Left lower quadrant abdominal pain documented in this encounter [facility]* Diagnosis Plantar fasciitis- Primary Plantar fascial fibromatosis Postoperative examination [Z09] Follow-up examination, following unspecified surgery Pain of left heel documented in this encounter [facility] Healthcare[facility] note* Diagnosis Post-operative state- Primary Other postprocedural status documented in this encounter [facility] for [facility] Narrative* Rehabilitation - Outpatient (Routine) - Pending Review Specialty Diagnoses / Procedures Referred By Contac t Referred To Contact Physical Therapy Diagnoses Plantar fasciitis Procedures [place] OFFICE/OUTPATIENT NEW HIGH MDM 60 MINUTES Marlene Maloney, DPM [address] [place] [address] Phone: tel: fax: Ursula Fall, PT Referral ID Status Reason Start Date Expiration Date Visits Requested Visits Authorized [id number] Pending Review Specialty Services Required 11/21/2024 05/20/2025 2 2 [facility] - Outpatient (Routine) - Authorized Specialty Diagnoses / Procedures Referred By Contac t Referred To Contact Physical Therapy Diagnoses Plantar fasciitis Procedures [place] OFFICE/OUTPATIENT NEW HIGH MDM 60 MINUTES Marlene Maloney, DPM [address] [place] [address] Phone: tel: fax: Ursula Fall, PT Referral ID Status Reason Start Date Expiration Date Visits Requested Visits Authorized [id number] Authorized Specialty Services Required 11/21/2024 08/30/2025 12 12 [facility] Summary Purpose Family History No Family History Records FoundNo Family History Records Found Advance Directives No Advanced Directives Records FoundNo Advanced Directives Records Found Additional Source Comments INFORMATION SOURCE (unrecogn ized section and content) DATE CREATED AUTHOR 08/07/2022 [facility] DATE CREATED AUTHOR AUTHOR'S ORGANIZ ATION 01/16/2025 [facility] dical Specialists EPIC Care Teams (unrecognized sec tion and content) Wire Inspector Relationship Specialty Start Date End Date Edison Timmons MD [address] [place] [address] PCP - General Family Medicine 06/27/24 Wire Inspector Relationship Specialty Start Date End Date Edison Timmons MD [address] [place] [address] PCP - General Family Medicine 06/27/24 Wire Inspector Relationship Specialty Start Date End Date Edison Timmons MD [address] [place] [facility] [address] PCP - General Family Medicine 06/27/24 Wire Inspector Relationship Specialty Start Date End Date Edison Timmons MD [address] [facility], [facility] PCP - General Family Medicine 06/27/24 Wire Inspector Relationship Specialty Start Date End Date Edison Timmons MD [address] [facility], [facility] PCP - General Family Medicine 06/27/24 Wire Inspector Relationship Specialty Start Date End Date Edison Timmons MD [address] [facility], [facility] PCP - General Family Medicine 06/27/24 Wire Inspector Relationship Specialty Start Date End Date Edison Timmons MD [address] [facility], [facility] PCP - General Family Medicine 06/27/24 Wire Inspector Relationship Specialty Start Date End Date Edison Timmons MD [address] [facility], [facility] PCP - General Family Medicine 06/27/24 Wire Inspector Relationship Specialty Start Date End Date Edison Timmons MD [address] [place] [facility] [address] PCP - General Family Medicine 06/27/24 Wire Inspector Relationship Specialty Start Date End Date Edison Timmons MD [address] [place] [facility] [address] PCP - General Family Medicine 06/27/24 Wire Inspector Relationship Specialty Start Date End Date Edison Timmons MD [address] [place] [facility] [address] PCP - General Family Medicine 06/27/24 Wire Inspector Relationship Specialty Start Date End Date Edison Timmons MD [address] [place] [facility] [address] PCP - General Family Medicine 06/27/24 Wire Inspector Relationship Specialty Start Date End Date Edison Timmons MD [address] [place] [facility] [address] PCP - General Family Medicine 06/27/24 Wire Inspector Relationship Specialty Start Date End Date Edison Timmons MD [address] [place] [facility] [address] PCP - General Family Medicine 06/27/24 Wire Inspector Relationship Specialty Start Date End Date Edison Timmons MD [address] [place] [facility] [address] PCP - General Family Medicine 06/27/24 Wire Inspector Relationship Specialty Start Date End Date Edison Timmons MD PCP - General Family Medicine 06/27/24 Wire Inspector Relationship Specialty Start Date End Date Edison Timmons MD PCP - General Family Medicine 06/27/24 Wire Inspector Relationship Specialty Start Date End Date Edison Timmons MD PCP - General Family Medicine 06/27/24 Wire Inspector Relationship Specialty Start Date End Date Edison Timmons MD PCP - General Family Medicine 06/27/24 Wire Inspector Relationship Specialty Start Date End Date Edison Timmons MD [address] [place] [address] [phone] PCP - General Family Medicine 01/26/25 Wire Inspector Relationship Specialty Start Date End Date Edison Timmons MD [address] [place] [address] PCP - General Family Medicine 01/26/25 Reason for Visit (unrecogniz ed section and [...] BE BASED ON THE PRIMARY CLINICAL RECORDS. [facility] [employer] [facility]. provides no warranty or guarantee of the accuracy or completeness of information in this document.
--- OUTSIDE RECORDS SUMMARY | 2025-01-27 06:14 | XMS_ITS | Encounter Summary ---
Author Organization [facility] Address [address] [facility] [place] [address] Care Team Providers Care Freedom Of Information Officer Name Role Phone Harsha Timmons MD Primary Care Provider + Harsha Timmons MD Primary Care Provider + Encounter Details Date Type Department Care Team (Late Contact Info) Description 01/12/2025 Abstract [facility] OB [address] [place] [address] Jhon Santillan DO [address] [facility] [address] [place], [place] [phone] Social History Tobacco Use Types Packs/Day Years [...] Office Visit [facility] [address] [facility] [address] [place] [address] Candelario Rojas DPM [address] [facility] [address] [place] [address] 02/13/2025 9:50 AM EDT Office Visit [facility] OB [address] [facility] [place] [address] Jhon Santillan DO [address] [facility] [place] [address] 02/16/2025 8:45 AM EDT Office Visit [facility] [address] [place] [address] Nikkie Maloney DPHelen [address] [facility] [address] [place] [address] documented as of this encounter Visit Diagnoses Not on filedocumented in this encounter Care Teams Freedom Of Information Officer Relationship Specialty Start Date End Date Harsha Timmons MD PCP - General Family Medicine 06/27/24 01/25/25 Harsha Timmons MD [address] [facility] [place] [address] PCP - General Family Medicine 01/26/25 documented as of this encounter
--- OUTSIDE RECORDS SUMMARY | 2025-01-27 06:14 | XMS_ITS | Encounter Summary ---
Author Organization [facility] Address [address] [place] [address] Care Team Providers Care Sound Technician Name Role Phone Harsha Timmons MD Primary Care Provider [phone] Encounter Details Date Type Department Care Team (Latest Contact Info) Description 01/26/2025 Travel Social History Tobacco Use Types Packs/Day [...] [facility] [address] [facility] [address] [place] [address] Candelario Rojas DPM [address] [facility] [address] [place] [address] 02/13/2025 9:50 AM EDT Office Visit [facility] OB [address] [facility] [place] [address] Jhon Santillan DO [address] [facility] [place] [address] 02/16/2025 8:45 AM EDT Office Visit [facility] [address] [place] [address] Nikkie Maloney DPM [address] [facility] [address] [place] [address] documented as of this encounter Visit Diagnoses Not on filedocumented in this encounter Care Teams Sound Technician Relationship Specialty Start Date End Date Harsha Timmons MD [address] [facility] [place] [address] PCP - General Family Medicine 01/26/25 documented as of this encounter
--- OUTSIDE RECORDS SUMMARY | 2025-01-27 06:15 | XMS_ITS | Encounter Summary ---
Author Organization [facility] Address [address] [place] [address] Care Team Providers Care Children'S Book Author Name Role Phone Harsha Timmons MD Primary [...] [facility] [address] [facility] 100 [place] [address] Candelario Rojas DPM [address] [facility] [address] [place] [address] 02/13/2025 9:50 AM EDT Office Visit [facility] OB [address] [place] [address] Jhon Santillan DO [address] [facility] [place] [address] 02/16/2025 8:45 AM EDT Office Visit [facility] [address] [place] [address] Nikkie Maloney DPM [address] [place] [address] documented as of this encounter Visit Diagnoses Not on filedocumented in this encounter Care Teams Children'S Book Author Relationship Specialty Start Date End Date Harsha Timmons MD PCP - General Family Medicine 06/27/24 01/25/25 documented as of this encounter
--- OUTSIDE RECORDS SUMMARY | 2025-01-27 06:15 | XMS_ITS | Patient Health Record ---
Author Organization [facility] [place] Address [address] [place] [address] Care Team Providers Care Bundle Sorter Name Role Phone Francis Timmons Primary Care Provider Allergies No Known Allergies Results Component Value Reference Range Notes LIPID PROFILE Reviewed date:04/17/2024 05:03:25 PM Interpretation: Performing Lab: Notes/Report: [facility] , Triglycerides 255 <=150 mg/dL Cholesterol 216 <=200 mg/dL HDL Cholesterol 40 40-60 mg/dL > or =60 mg/dl - LOW CARDIOVASCULAR RISK <40 mg/dl - HIGH CARDIOVASCULAR RISK LDL Cholesterol Calculated 125.0 <100 mg/dl OPTIMAL 100-129 mg/dl NEAR OR ABOVE OPTIMAL 130-159 mg/dl BORDERLINE HIGH 160-189 mg/dl HIGH >190 mg/dl VERY HIGH VLDL CHOLESTEROL 51.0 Chol HDL Ratio 5.4 3.3 - 4.4 LOW RISK 4.4 - 7.1 AVERAGE RISK 7.1 - 11.0 MODERATE RISK >11.0 HIGH RISK Performing Lab: see note ML - [facility] LB PROF 14(COMP METB) Reviewed date:04/17/2024 05:03:25 PM Interpretation: Performing Lab: Notes/Report: [facility] , Sodium 138 136-145 mmol/L Potassium 4.2 [...] 1.2 Performing Lab: see note ML - [facility] LB TSH Reviewed date:04/17/2024 05:03:25 PM Interpretation: Performing Lab: Notes/Report: [facility] , Thyroid Stimulating Hormone 2.517 0.358-3.740 uIU/mL Performing Lab: see note - [facility] LB DHEA-Sulfate Reviewed date:12/19/2024 02:04:58 PM Interpretation: Performing Lab: Notes/Report: [facility] , DHEA-Sulfate 34.4 57.3-279.2 ug/dL Performing Lab: see note [facility] FSH Reviewed date:12/19/2024 02:04:58 PM Interpretation: Performing Lab: Notes/Report: [facility] , FSH 7.1 . mIU/mL Adult Female Range Follicular phase 3.5 - 12.5 Ovulation phase 4.7 - 21.5 Luteal phase 1.7 - 7.7 Postmenopausal 25.8 - 134.8 Performing Lab: see note [facility] LB Luteinizing Hormone(LH) Reviewed date:12/19/2024 02:04:58 PM Interpretation: Performing Lab: Notes/Report: [facility] , Luteinizing Hormone(LH) 15.5 . mIU/mL Adult Female Range Follicular phase 2.4 - 12.6 Ovulation phase 14.0 - 95.6 Luteal phase 1.0 - 11.4 Postmenopausal 7.7 - 58.5 Performing Lab: see note [facility] LB DHEA, Serum Reviewed date:12/27/2024 12:22:11 PM Interpretation: Performing Lab: Notes/Report: [facility] , DHEA, Serum 47 31-701 ng/dL This test was developed and its performance characteristics determined by [facility]. It has not been cleared or approved by the Food and Drug Administration. Performed at: [address] [id number] Supervisor Dehydrogenation: Roxanna Manrique MD, Phone: [phone] Performing Lab: see note [facility] PROLACTIN Reviewed date:12/19/2024 02:04:58 PM Interpretation: Performing Lab: Notes/Report: [facility] , Prolactin 12.7 4.8-33.4 ng/mL Performed at: [address] [id number] Supervisor Dehydrogenation: Leonardo House PhD, Phone: [phone] Performing Lab: see note [facility] PREG QUANT HCG Reviewed date:12/17/2024 11:42:21 AM Interpretation: Performing Lab: Notes/Report: [facility] , HCG Quantitative <1 5-50 0.2-1 WEEK 50-500 1-2 WEEKS 100-5,000 2-3 WEEKS 500-10,000 3-4 WEEKS 1,000-50,000 4-5 WEEKS 10,000-100,000 5-6 WEEKS 15,000-200,000 6-8 WEEKS 10,000-100,000 2-3 MONTHS Performing Lab: see note - [facility] GLYCOHEMOGLOBIN A1C Reviewed date:12/17/2024 11:42:21 AM Interpretation: Performing Lab: Notes/Report: [facility] , Glycohemoglobin A1C 5.2 4.5-6.2 % ADA RECOMMENDED LIMIT 4.0 - 6.0 ADA THERAPEUTIC TARGET < 7.0 ACTION SUGGESTED > 7.0 Estimated Average Glucose 103 Performing Lab: see note - [facility] CORTISOL AM Reviewed date:12/19/2024 02:04:58 PM Interpretation: Performing Lab: Notes/Report: [facility] , Cortisol - AM 17.0 6.2-19.4 ug/dL Performed at: [address] [id number] Supervisor Dehydrogenation: Leonardo House PhD, Phone: [phone] Performing Lab: see note LC - [facility] LB US pelvis w/ transvaginal Reviewed date:11/17/2024 06:24:49 PM Interpretation: Performing Lab: Notes/Report: Source Facility: [place] [address] Ultrasound Report Signed Patient: BONNIE KNIGHT MR#: [id number] : 1980 Acct:[id number] Age/Sex: 44 / F ADM Date: 11/17/24 Loc: US Attending Dr: Ash Santillan D.O. Ordering Physician: Ash Santillan D.O. Date of Service: 11/17/24 Procedure(s): US pelvis w/ transvaginal Accession Number(s): [id number] cc: Ash Santillan D.O.; Harsha Timmons M.D. The [place] [address] Patient Name: BONNIE KNIGHT MRN: [id number] date: 1980 Sex: F Assigned Patient Location: US Current Patient Location: LAB Accession/Order Number: [id number] Exam Date: 11/17/2024 11:04 Report Date: 11/17/2024 [...] Impression: Unremarkable pelvic ultrasound. Impression dictated by: Catherine Murphy Jr.OMarek11/17/2024 11:06 AM Dictation Location: [place] [address] Electronically authenticated by: [id number] Y Date: 11/17/2024 11:06 Dictated By: Ankit Atwood M.D. Signed By: 11/17/24 1109 DD/ 110 TD/TT: Dietetic Intern: [place] [address] Ultrasound Report Signed Patient: TANYA KNIGHT MR#: [id number] : 1980 Acct:[id number] Age/Sex: 44 / F ADM Date: 11/17/24 Loc: US Attending Dr: Ash Santillan D.O. Ordering Physician: Ash Santillan D.O. Date of Service: 11/17/24 Procedure(s): US pelvis w/ transvaginal Accession Number(s): [id number] cc: Ash Santillan D.O. ; Harsha Timmons M.D. [place] [id number] Patient Name: BONNIE KNIGHT MRN: [id number] date: 1980 Sex: F Assigned Patient Location: US Current Patient Location: LAB Accession/Order Number: [id number] Exam Date: 11/17/2024 11:04 Report Date: 11/17/2024 [...] Atwood Jr., D.O.11/17/2024 11:06 AM Dictation Location: [place] [address] Electronically authenticated by: [id number] Y Date: 11/17/2024 11:06 Dictated By: Ankit Atwood M.D. Signed By: 11/17/24 1109 DD/ 1106 TD/TT: Dietetic Intern: TSH Reviewed date:11/17/2024 06:24:49 PM Interpretation: Performing Lab: Notes/Report: [facility] , Thyroid Stimulating Hormone 1.604 0.358-3.740 uIU/mL Performing Lab: see note ML - [facility] LB T4 Reviewed date:11/17/2024 06:24:49 PM Interpretation: Performing Lab: Notes/Report: [facility] , T4 Thyroxine 10.30 4.80-13.90 ug/dL Performing Lab: see note ML - [facility] LB IRON Reviewed date:11/17/2024 06:24:49 PM Interpretation: Performing Lab: Notes/Report: [facility] , Iron 82.0 50.0-170.0 ug/dL Performing Lab: see note ML - [facility] LB FREE T3 Reviewed date:11/17/2024 06:24:49 PM Interpretation: Performing Lab: Notes/Report: [facility] , Free T3 2.59 2.18-3.98 pg/mL Performing Lab: see note ML - [facility] LB US pelvis w/ transvaginal Reviewed date:10/19/2024 06:57:01 PM Interpretation: Performing Lab: Notes/Report: Source Facility: [facility] [place] [address] [place] [address] Ultrasound Report Signed Patient: BONNIE KNIGHT MR#: [id number] : 1980 Acct:[id number] Age/Sex: 44 / F ADM Date: 10/04/24 Loc: US Attending Dr: Ash Santillan D.O. Ordering Physician: Ash Santillan D.O. Date of Service: 10/04/24 Procedure(s): US pelvis w/ transvaginal Accession Number(s): [id number] cc: Ash Santillan D.O.; Harsha Timmons M.D. [place] [address] Patient Name: BONNIE KNIGHT MRN: [facility]:[id number] date: 1980 Sex: F Assigned Patient Location: US Current Patient Location: Accession/Order Number: [id number] Exam Date: 10/04/2024 17:50 Report Date: 10/05/2024 [...] Denny M.D. Signed By: 10/05/2446 DD/ TD/TT: Dietetic Intern: [place] [address] Ultrasound Report Signed Patient: TANYA KNIGHT MR#: [id number] : 1980 Acct:[id number] Age/Sex: 44 / F ADM Date: 10/04/24 Loc: US Attending Dr: Ash Santillan D.O. Ordering Physician: Ash Santillan D.O. Date of Service: 10/04/24 Procedure(s): US pelvis w/ transvaginal Accession Number(s): [id number] cc: Ash Santillan D.O. ; Harsha Timmons M.D. [place] [address] Patient Name: BONNIE KNIGHT MRN: [id number] date: 1980 Sex: F Assigned Patient Location: US Current Patient Location: Accession/Order Number: [id number] Exam Date: 10/04/2024 17:50 Report Date: 10/05/2024 [...] M.D. Signed By: 10/05/24 0746 DD/ TD/TT: Dietetic Intern: CBC AUTO DIFF Reviewed date:04/17/2024 05:03:25 PM Interpretation: Performing Lab: Notes/Report: [facility] , White Blood Count 9.8 4.0-11.0 10 [...] 3/uL Performing Lab: see note ML - [facility] LB Prothrombin Time INR Reviewed date:12/27/2024 06:59:41 PM Interpretation: Performing Lab: Notes/Report: [facility] , Prothrombin Time 10.4 9.0-11.6 sec INR 0.98 DESIRED INR: 2.0-3.0 CONDITIONS NOT LISTED BELOW 2.5-3.5 FOR PROSTHETIC HEART VALVE REPLACEMENT 2.5-3.5 RECURRENT THROMBOSIS Performing Lab: see note ML - [facility] LB PTT Reviewed date:12/27/2024 06:59:41 PM Interpretation: Performing Lab: Notes/Report: [facility] , Partial Thromboplastin Time 23.7 22.3-36.2 sec Performing Lab: see note [facility] PROF 14(COMP METB) Reviewed date:11/17/2024 06:24:49 PM Interpretation: Performing Lab: Notes/Report: [facility] , Sodium 142 136-145 mmol/L Potassium 3.9 [...] Globulin Ratio 1.2 Performing Lab: see note - [facility] CBC AUTO DIFF Reviewed date:11/17/2024 06:24:49 PM Interpretation: Performing Lab: Notes/Report: [facility] , White Blood Count 9.4 4.0-11.0 10 [...] Performing Lab: see note ML - [facility] Reason For Referral No Information Social History [...] Status W/U Status Risk Notes Problem Palpitations (82881553) Palpitation (R00.2) Active confirmed Problem Hypertriglyceridemia (158019376) Hypertriglyceridemia (E78.1) Active confirmed Problem Plantar fascial fibromatosis (21643945) Plantar fasciitis, left (M72.2) Active confirmed Vital Signs Blood pressure diastolic 78 mm Hg 01/09/2025 Height 61 in 01/09/2025 Blood pressure systolic 122 mm Hg 01/09/2025 Weight 194.4 lbs 01/09/2025 BMI 36.73 kg/m2 01/09/2025 Procedures Procedure Date Ordered Date Performed Result Body Sit e Holter Monitor - 3 days up to 14 days 11/17/2024 N/A Encounters Encounter Location Date Provider Diagnosis [place] [address] [place] [address] 04/17/2024 Francis Timmons [facility] [address] [place] [address] [facility] [address] [place] [address] 12/19/2024 Francis Timmons Encounter for other preprocedural examination Z01.818 [facility] [address] [place] [address] 12/21/2024 Francis Timmons [facility] [address] [place] [address] 01/09/2025 Francis Timmons Plantar fasciitis, l eft M72.2 [facility] [address] [place] [address] 11/17/2024 Francis Timmons Palpitation R00.2 Assessments Encounter [...] Date MMO [employer] [address] [place] [address] [phone] [id number] Bonnie Knight Self - patient is the insured [employer] [place] MEDICA[employer] [address] [place] [address] [id number] Bonnie Knight Self - patient is the insured Medical (General) History Medical History History ICD Code Hypertriglyceridemia E78.1 Surgical History Surgery Date(Month/Year) tubal ligation x2 Hospitalization History Reason Date(Month/Year) see above
--- OUTSIDE RECORDS SUMMARY | 2025-01-27 06:15 | XMS_ITS | Encounter Summary ---
Author Organization [facility] Address [address] [facility] [place] [address] Care Team Providers Care Outer Diameter Grinder Tool Name Role Phone Harsha Timmons MD Primary Care Provider +- Harsha Timmons MD Primary Care Provider + Reason for Visit * Reason Onset Date Comments Refill Rx 01/20/2025 Encounter Details Date Type Department Care Team (Late st Contact Info) Description 01/20/2025 Telephone [facility] [address] [facility] [address] [place] [address] Dariela Goldman MA Refill Rx Social History Tobacco Use Types Packs/Day Years Used Date Smoking Tobacco: Former Cigarettes Smokeless Tobacco: Never Comments Unknown Sex and Gender Information Value Date Recorded Sex Assigned at Not on file Legal Sex Female 7:08 PM EDT Gender Identity Not on file Sexual Orientation Not on file documented as of this encounter Miscellaneous Notes * Telephone Encounter - Dariela Goldman MA - 01/20/2025 1:29 PM EDT Patient called and stated that she would like a refill of Rx for pain. Please advise, thank you. documented in this encounter Plan of Treatment Upcoming Encounters Date Type Department Care Team (Late st Contact Info) Description 02/02/2025 3:45 PM EDT Office Visit [facility] [address] [place] [address] Candelario Rojas DPM [address] [facility] [address] [place] [address] 02/13/2025 9:50 AM EDT Office Visit [facility] [address] [address] Jhon Santillan, DO [address] [facility] [address] [place], [place] [address] 02/16/2025 8:45 AM EDT Office Visit [facility] [address] [facility] [address] [place] [address] Nikkie Maloney DPM [address] [facility] [address] [place] [address] documented as of this encounter Visit Diagnoses Not on filedocumented in this encounter Care Teams Outer Diameter Grinder Tool Relationship Specialty Start Date End Date Harsha Timmons MD PCP - General Family Medicine 06/27/24 01/25/25 Harsha Timmons MD [address] [facility] [place] [address] PCP - General Family Medicine 01/26/25 documented as of this encounter
[2025-01-27 06:24] LABS: Basophils Absolute Auto 0.1 10^3/uL (0.0-0.1); Basophils Percent Auto 0.6 % (0.2-2.0); Eosinophils Absolute Auto 0.4 10^3/uL (0.0-0.7); Eosinophils Percent Auto 2.9 % (0.9-7.0); Hematocrit 41.3 % (36.0-48.0); Hemoglobin 14.4 g/dL (12.0-16.0); Immature Granulocytes Abs Auto 0.06 10^3/uL (0.00-0.03); Immature Granulocytes Pct Auto 0.5 % (0.0-0.5); Lymphocytes Absolute Auto 3.1 10^3/uL (1.2-3.8); Lymphocytes Percent Auto 24.8 % (20.5-60.0); Mean Corpuscular HGB Conc 34.9 g/dL (29.9-35.2); Mean Corpuscular Hemoglobin 31.5 pg (26.7-34.0); Mean Corpuscular Volume 90.4 fL (81.0-99.0); Mean Platelet Volume 9.8 fL (9.5-13.5); Monocytes Absolute Auto 0.8 10^3/uL (0.3-0.8); Monocytes Percent Auto 6.2 % (1.7-12.0); Neutrophils Absolute Auto 8.1 10^3/uL (1.4-6.5); Platelet Count 284 10^3/uL (150-450); Red Blood Count 4.57 10^6/uL (4.20-5.40); Red Cell Distribution Width 12.2 % (11.0-15.0); White Blood Count 12.5 10^3/uL (4.0-11.0)
[2025-01-27 06:46] LABS: HCG Quantitative <1 mIU/mL
--- NOTE | 2025-01-27 07:23 | PC.NURSE ---
Dr. Santillan aware of WBC count and patient not stopping Ibuprofen preop.
[2025-01-27] MEDS: LACTATED RINGER'S SOLUTION 1,000 ML 50 ML IV ×3 (07:30→09:43)
--- NOTE | 2025-01-27 08:33 | P.ON_ITS ---
Brief Operative Note Date of procedure: 01/27/25 Pre-op diagnosis general: pelvic pain, menorrhagia Post-op diagnosis: same as pre-op Procedure: NAME OF PROCEDURE: [ D&c hysteroscopy with myosure, diagnostic laparoscopy with lysis of adhesions] PROCEDURE: The patient was taken back to the Operating Room where she was prepped and draped in normal sterile fashion after being placed under general anesthesia without difficulty. She was also placed in the dorsal lithotomy position. A weighted speculum was placed in the patient?s vagina. The anterior lip of the cervix was identified and grasped with a single tooth tenaculum. The patient?s uterus was then sounded roughly to [? 8] cm. The patient was then gently dilated using Hegar dilators. The hysteroscope was passed through the patient?s cervix into the uterus. Both ostia were identified. fluffy appearing endometrium. No gross evidence of malignancy, no gross evidence of polyps or fibroids. The myosure apparatus was placed through the scope, The myosure was engaged and endometrial curretting were removed along with endometrial polyp, The hysteroscope was then removed from the uterus. The endometrial curettings were sent out to pathology. The single tooth tenaculum was then removed from the patient's anterior lip of the cervix where excellent hemostasis was noted. All instruments were removed from the patient?s vagina. A sponge stick was placed into the patient's vagina. Attention was turned to the patient's abdomen, where a small umbilical incision was made. The fascia was tented using Kim clamps and the fascia was entered sharply. Confirmation of intraabdominal placement of the 10 mm port was confirmed under direct visualization using a laparoscope. The patient's abdomen was then insufflated using CO2 gas with approximately 4 liters. A second port was placed left laterally, this was done under direct visualization with a 5 mm port. Survey of the patient's abdomen demonstrated normal liver and gallbladder. Survey of the patient's pelvic anatomy demonstrated normal appearing rt and lt ovary as well as normal appearing uterus except for adhesion to anterior abdominal wall, lysis of adhesion bluntly and sharply performed, absent tubes, No endometrial implants could be noted, no evidence of any pelvic disease was seen, normal appearing pelvic cavity. All instruments were removed from the patient's abdomen. The patient's abdomen was deinsufflated of CO2 gas. The patient tolerated the procedure well. Sponge stick was removed from the patient's vagina. The patient's infraumbilical fascia was closed using #0 Vicryl on a GI needle. The patient's skin was closed laterally and infraumbilically using 4-0 Vicryl. The patient tolerated the procedure well. Sponge, lap and needle counts were correct x 2. The patient was taken to Recovery Room in stable condition. Anesthesia: SIMONE Surgeon: Jhon Santillan Management Planner: Leslie Mondragon Estimated blood loss (mL): 5 Pathology: other (endometrial polyp and currettings) Condition: stable Disposition: PACU Urinary Catheter Management Urinary Catheter Management Urethral: Cath placed during this visit: no
--- NOTE | 2025-01-27 11:49 | PC.NURSE ---
Up to bathroom and voids clear yellow without difficulty
== END 2025-01-27 11:52 | disposition home or self-care (01) ==
PROVIDERS: PCP Family Medicine; Visit Provider Obstetrics & Gynecology
PROC: (CPT 840; principal; 2025-01-27 07:30)
DX: R10.2 Pelvic and perineal pain (principal); E28.2 Polycystic ovarian syndrome; N93.9 Abnormal uterine and vaginal bleeding, unspecified; R10.32 Left lower quadrant pain; K66.0 Peritoneal adhesions (postprocedural) (postinfection); N84.0 Polyp of corpus uteri; Z98.51 Tubal ligation status; Z87.891 Personal history of nicotine dependence; K21.9 Gastro-esophageal reflux disease without esophagitis
CPT/HCPCS: 49329; 58558; 36415; 84702; 85025; 88305; J0131; J1100; J1171; J1885; J2250; J2405; J2704; J3010

== ENCOUNTER 2025-02-13 12:57 | Outpatient (REF) | payer OTHER, SELFPAY ==
--- OUTSIDE RECORDS SUMMARY | 2025-02-02 15:45 | XMS_ITS | Encounter Summary ---
Author Organization [facility] Address [address] [place] [address] Care Team Providers Care House Supervisor Name Role Phone Harsha Timmons MD Primary Care Provider [phone] Encounter Details Date Type Department Care Team (Late st Contact Info) Description 02/02/2025 3:45 PM EDT Office Visit [facility] [address] [facility] [address] [place] [address] Nikkie Maloney DPM [address] [facility] 100 [place] [address] Post-operative state (Primary Dx); Plantar fasciitis; Pain of left heel Social History Tobacco Use Types Packs/Day Years Used Date Smoking Tobacco: Former Cigarettes Smokeless Tobacco: Never Comments Unknown Sex and Gender Information Value Date Recorded Sex Assigned at Not on file Legal Sex Female 7:08 PM EDT Gender Identity Not on file Sexual Orientation Not on file documented as of this encounter Progress Notes * Nikkie Maloney DPM - 02/02/2025 3:45 PM EDT Images from the original note were not included. HPI: Racheal Rooney presents today for post-op appointment of EPF left foot. Surgery was performed on 01/13/2025 at [facility]. Patient complains of pain 0. Current [...] Calcaneal spur, right: Plan: Surgery Follow-up Examination: Sutures are removed to the incision site along the medial and lateral aspects of the heel. Patient was instructed that they can begin to get the area wet but to avoid soaking until the skin is completely healed. Encouraged patient to gradually start stretching exercises to the left heel as long as this does not cause any increased pain or symptoms. I would recommend continued use of the walking boot for an additional 2-4 weeks until symptoms reduce or resolve. Patient will follow-up in 3 weeks for recheck. documented in this encounter Plan of Treatment Upcoming Encounters Date Type Department Care Team (Late st Contact Info) Description 02/16/2025 8:45 AM EDT Office Visit [facility] [address] [facility] 100 [place] [address] Nikkie Maloney, DPM [address] [facility] 100 [place] [address] 03/22/2025 10:50 AM EDT Office Visit [facility] [address] [facility] [place] [address] Jhon Santillan, DO [address] [facility] [place] [address] 02/20/2026 10:00 AM EDT Office Visit [facility] [address] [facility] [place] [address] Jhon Santillan, DO [address] [facility] [address] [place], [place] [id number] documented as of this encounter Visit Diagnoses Diagnosis Post-operative state- Primary Other postprocedural status Plantar fasciitis Plantar fascial fibromatosis Pain of left heel documented in this encounter Care Teams House Supervisor Relationship Specialty Start Date End Date Harsha Timmons MD [address] [facility] [place] [address] PCP - General Family Medicine 01/26/25 documented as of this encounter
--- OUTSIDE RECORDS SUMMARY | 2025-02-13 09:50 | XMS_ITS | Encounter Summary ---
Author Organization [facility] Address [address] [place] [address] Care Team Providers Care Key Carrier Name Role Phone Harsha Timmons MD Primary Care Provider [phone] Reason for Visit * Reason Comments Gynecologic Exam Pt present today for annual visit. Encounter Details Date Type Department Care Team (Late Contact Info) Description 02/13/2025 9:50 AM EDT Office Visit [facility] [address] [facility] [place] [address] Jhon Santillan, DO [address] [facility] [place] [address] PCOS (polycystic ovarian syndrome) (Primary Dx); Well woman exam with routine gynecological exam; Pre-op examination; Pelvic pain; Menorrhagia with regular cycle; Abnormal uterine bleeding (AUB); Breast cancer screening by mammogram Social History Tobacco Use Types Packs/Day Years Used Date Smoking Tobacco: Former Cigarettes Smokeless Tobacco: Never Comments No Sex and Gender Information Value Date Recorded Sex Assigned at Not on file Legal Sex Female 7:08 PM EDT Gender Identity Not on file Sexual Orientation Not on file documented as of this encounter Last Filed Vital Signs Vital Sign Reading Time Taken Comments Blood Pressure 120/74 02/13/2025 10:17 AM EDT Pulse - - Temperature - - Respiratory Rate - - Oxygen Saturation - - Inhaled Oxygen Concentration - - Weight 88.5 kg (195 lb) 02/13/2025 10:17 AM EDT Height - - Body Mass Index 38.08 06/26/2022 12:00 PM EDT documented in this encounter Plan of Treatment Upcoming Encounters Date Type Department Care Team (Late Contact Info) Description 02/16/2025 8:45 AM EDT Office Visit [facility] [address] [place] [phone] Nikkie Maloney DPM [address] [place] [address] [place] [address] 03/22/2025 10:50 AM EDT Office Visit [facility] [address] [place] [phone] Jhon Santillan, DO [address] [place], [place] [phone] 02/20/2026 10:00 AM EDT Office Visit [facility] [address] [facility] [place] [address] Jhon Santillan, DO [address] [facility] [address] [place], [place] [phone] Scheduled Orders Name Type Priority Associated Diagnoses Orde r Schedule Bilateral screening mammogram Imaging Routine Breast cancer screening by mammogram Expected: 02/13/2025 (Approximate), Expires: 04/15/2026 THIN PREP TIS PAP AND HR HPV DNA Pathology and Cytology Routine Well woman exam with routine gynecological exam Ordered: 02/13/2025 documented as of this encounter Visit Diagnoses Diagnosis PCOS (polycystic ovarian syndrome)- Primary Polycystic ovaries Well woman exam with routine gynecological exam Routine gynecological examination Pre-op examination Pelvic pain Menorrhagia with regular cycle Abnormal uterine bleeding (AUB) Breast cancer screening by mammogram documented in this encounter Care Teams Key Carrier Relationship Specialty Start Date End Date Harsha Timmons MD [address] [place] [address] PCP - General Family Medicine 01/26/25 documented as of this encounter
--- OUTSIDE RECORDS SUMMARY | 2025-02-13 13:01 | XMS_ITS | Encounter Summary ---
Author Organization [facility] Address [address] [place] [address] Care Team Providers Care Denture Packer Name Role Phone Harsha Timmons MD Primary Care Provider [phone] Encounter Details Date Type Department Care Team (Late Contact Info) Description 02/02/2025 Bamboo flowsheet [facility] [address] [facility] 100 [place] [phone] Nikkie Maloney DPM [address] [facility] [address] [facility] 100 [place] [address] Social History Tobacco Use Types Packs/Day Years [...] [facility] [address] [facility] 100 [place] [phone] Nikkie Maloney DPM [address] [place] [address] [place] [address] 03/22/2025 10:50 AM EDT Office Visit [facility] [address] [facility] [place] [address] Jhon Santillan DO [address] [place], [place] [address] 02/20/2026 10:00 AM EDT Office Visit [facility] [address] [address] Jhon Santillan DO [address] [facility] [place] [address] documented as of this encounter Visit Diagnoses Not on filedocumented in this encounter Care Teams Denture Packer Relationship Specialty Start Date End Date Harsha Timmons MD [address] [facility] [place] [address] PCP - General Family Medicine 01/26/25 documented as of this encounter
--- OUTSIDE RECORDS SUMMARY | 2025-02-13 13:01 | XMS_ITS | Encounter Summary ---
Author Organization [facility] Address [address] [facility] [place] [address] Care Team Providers Care Enrollment Manager Name Role Phone Harsha Timmons MD Primary Care Provider [phone] Encounter Details Date Type Department Care Team (Latest Contact Info) Description 02/02/2025 Travel Social History Tobacco Use Types Packs/Day [...] Office Visit [facility] [address] [facility] 100 [place] [phone] Nikkie Maloney, DPM [address] [facility] 100 [place] [address] 03/22/2025 10:50 AM EDT Office Visit [facility] [address] [place] [address] Jhon Santillan, DO [address] [place], [place] [address] 02/20/2026 10:00 AM EDT Office Visit [facility] [address] [place] [address] Jhon Santillan, DO [address] [place] [address] documented as of this encounter Visit Diagnoses Not on filedocumented in this encounter Care Teams Enrollment Manager Relationship Specialty Start Date End Date Harsha Timmons MD [address] [facility] [place] [address] PCP - General Family Medicine 01/26/25 documented as of this encounter
--- OUTSIDE RECORDS SUMMARY | 2025-02-13 13:01 | XMS_ITS | Encounter Summary ---
Author Organization [facility] Address [address] [place] [address] Care Team Providers Care Obstetrics Technician Name Role Phone Harsha Timmons MD Primary Care Provider [phone] Encounter Details Date Type Department Care Team (Late Contact Info) Description 01/27/2025 Abstract [facility] OB [address] [place] [phone] Jhon Santillan DO [address] [place] [address] Social History Tobacco Use Types Packs/Day Years [...] Visit [facility] [address] [facility] 100 [place] [phone] Nikkie Maloney DPM [address] [place] [address] [place] [address] 03/22/2025 10:50 AM EDT Office Visit [facility] [address] [facility] [place] [phone] Jhon Santillan DO [address] [place] [place], [place] [address] 02/20/2026 10:00 AM EDT Office Visit [facility] [address] [facility] [place] [address] Jhon Santillan DO [address] [facility] [address] [place], [place] [address] documented as of this encounter Visit Diagnoses Not on filedocumented in this encounter Care Teams Obstetrics Technician Relationship Specialty Start Date End Date Harsha Timmons MD [address] [facility] [place] [address] PCP - General Family Medicine 01/26/25 documented as of this encounter
--- OUTSIDE RECORDS SUMMARY | 2025-02-13 13:01 | XMS_ITS | Encounter Summary ---
Author Organization [facility] Address [address] [place] [address] Care Team Providers Care Lead Sql Developer Name Role Phone Harsha Timmons MD Primary Care Provider + Harsha Timmons MD Primary Care Provider + Reason for Visit * Reason Onset Date Comments Refill Rx 01/20/2025 Encounter Details Date Type Department Care Team (Late st Contact Info) Description 01/20/2025 Telephone [facility] [address] [facility] 100 [place] [address] Dariela Goldman MA Refill Rx Social History Tobacco Use Types Packs/Day Years Used Date Smoking Tobacco: Former Cigarettes Smokeless Tobacco: Never Comments Unknown Sex and Gender Information Value Date Recorded Sex Assigned at Not on file Legal Sex Female 7:08 PM EDT Gender Identity Not on file Sexual Orientation Not on file documented as of this encounter Miscellaneous Notes * Telephone Encounter - Nikkie Maloney DPM - 02/01/2025 9:05 AM EDT Refill request was approved. Prescription was sent to her preferred pharmacy. * Telephone Encounter - Dariela Goldman MA [...] [address] [place] [address] Nikkie Maloney DPM [address] [place] [address] [place] [address] 03/22/2025 10:50 AM EDT Office Visit [facility] [address] [facility] [place] [address] Jhon Santillan, DO [address] [place] [address] 02/20/2026 10:00 AM EDT Office Visit [facility] [address] [facility] [place] [address] Jhon Santillan, DO [address] [facility] [place] [address] documented as of this encounter Visit Diagnoses Diagnosis Postoperative examination- Primary Follow-up examination, following unspecified surgery documented in this encounter Care Teams Lead Sql Developer Relationship Specialty Start Date End Date Harsha Timmons MD PCP - General Family Medicine 06/27/24 01/25/25 Harsha Timmons MD [address] [facility] [place] [address] PCP - General Family Medicine 01/26/25 documented as of this encounter
--- OUTSIDE RECORDS SUMMARY | 2025-02-13 13:01 | XMS_ITS | Encounter Summary ---
Author Organization [facility] Address [address] [place] [address] Care Team Providers Care Track Repairer Helper Name Role Phone Harsha Timmons MD Primary Care Provider + Harsha Timmons MD Primary Care Provider + Encounter Details Date Type Department Care Team (Late st Contact Info) Description 01/12/2025 Abstract [facility] [address] [facility] [place] [address] Jhon Santillan DO [address] [facility] [address] [place], [place] [address] Social History Tobacco Use Types Packs/Day Years [...] [facility] [address] [facility] 100 [place] [address] Nikkie Maloney DPM [address] [place] [address] [place] [address] 03/22/2025 10:50 AM EDT Office Visit [facility] [address] [facility] [place] [address] Jhon Santillan DO [address] [facility] [place] [address] 02/20/2026 10:00 AM EDT Office Visit [facility] [address] [facility] [place] [address] Jhon Santillan, DO [address] [facility] [address] [place], [place] [address] documented as of this encounter Visit Diagnoses Not on filedocumented in this encounter Care Teams Track Repairer Helper Relationship Specialty Start Date End Date Harsha Timmons MD PCP - General Family Medicine 06/27/24 01/25/25 [place] [address] [place] [address] [place] [address] PCP - General Family Medicine 01/26/25 documented as of this encounter
--- OUTSIDE RECORDS SUMMARY | 2025-02-13 13:01 | XMS_ITS | Encounter Summary ---
Author Organization [facility] Address [address] [place] [address] Care Team Providers Care Poultry Offal Icer Name Role Phone Harsha Timmons MD Primary Care Provider [phone] Encounter Details Date Type Department Care Team ([facility] Contact Info) Description 01/30/2025 Telephone [facility] [address] [facility] [place] [address] Samia Cueto PA [address] [facility] [address] [place], [place] [address] Social History Tobacco Use Types Packs/Day Years Used Date Smoking Tobacco: Former Cigarettes Smokeless Tobacco: Never Comments Unknown Sex and Gender Information Value Date Recorded Sex Assigned at Not on file Legal Sex Female 7:08 PM EDT Gender Identity Not on file Sexual Orientation Not on file documented as of this encounter Miscellaneous Notes * Telephone Encounter - Alka Martinez LPN - 01/30/2025 10:09 AM EDT Patient called the office and she does have an appointment on 6- Eye lids bruised and blood shot she states that she did vomit while in surgery, she was advised this could be from the vomiting and that she will continue to monitor if does not improve to contact office. PVU documented in this encounter Plan of Treatment Upcoming Encounters Date Type Department Care Team ([facility] Contact Info) Description 02/16/2025 8:45 AM EDT Office Visit [facility] [address] [place] [address] [place] [address] Nikkie Maloney, DPM [address] [facility] 100 [place] [address] 03/22/2025 10:50 AM EDT Office Visit [facility] [address] [facility] [place] [address] Jhon Santillan, [address] [facility] [place] [address] 02/20/2026 10:00 AM EDT Office Visit [facility] [address] [facility] [place] [address] Jhon Santillan, [address] [facility] [place] [address] documented as of this encounter Visit Diagnoses Not on filedocumented in this encounter Care Teams Poultry Offal Icer Relationship Specialty Start Date End Date Harsha Timmons MD [address] [facility] [place] [address] PCP - General Family Medicine 01/26/25 documented as of this encounter
--- OUTSIDE RECORDS SUMMARY | 2025-02-13 13:01 | XMS_ITS | Clinical Summary ---
Author Organization [facility] Address [address] [facility] [place] [address] Care Team Providers Care Home Lending Officer Name Role Phone Harsha Timmons MD Primary Care Provider [phone] Allergies No known active allergies Medications ibuprofen 800 MG tablet Take 800 mg by mouth every 8 (eight) hours 01/27/2025 Active metFORMIN XR (Glucophage-XR) 500 MG 24 hr tabletIndication s:PCOS (polycystic ovarian syndrome) Take 1 tablet (500 mg) by mouth in the evening. Take with meals Do not crush, chew, or split. 30 tablet 11 02/13/2025 03/15/20 25 Active oxyCODONE-acetam inophen (Percocet) 5-325 MG tabletIndication s:Postoperative examination Take 1 tablet by mouth every 8 (eight) hours if needed for severe pain for up to 5 days 15 tablet 02/01/2025 02/07/20 25 Active Problems No known active problems Encounters Date Type Department Care Team Description 02/13/2025 9:50 AM EDT Office Visit [facility] [address] [facility] [address] [place] [phone] Ash Santillan DO PCOS (polycystic ovarian syndrome) (Primary Dx); Well woman exam with routine gynecological exam; Pre-op examination; Pelvic pain; Menorrhagia with regular cycle; Abnormal uterine bleeding (AUB); Breast cancer screening by mammogram 02/06/2025 Telephone [facility] [address] [place] [phone] Brenda Moore MA 02/02/2025 3:45 PM EDT Office Visit [facility] [address] [place] [address] Nikkie Maloney, DPM Post-operative state (Primary Dx); Plantar fasciitis; Pain of left heel 02/02/2025 Bamboo flowsheet [facility] [address] [place] [phone] Nikkie Maloney, DPM 02/02/2025 Travel 01/30/2025 Telephone [facility] [address] [facility] [address] [place] [address] Samia Cueto PA 01/27/2025 Abstract [facility] [address] [place] [address] Ash Santillan, DO 01/27/2025 Clinisync Result Encounter [facility] External Department Unsolicited Ash Santillan, DO 01/26/2025 3:45 PM EDT Office Visit [facility] [address] [place] [address] Candelario Rojas, DPHelen Post-operative state (Primary Dx) 01/26/2025 Bamboo flowsheet [facility] [address] [place] [address] Candelario Rojas, AGGIEM 01/26/2025 Travel 01/20/2025 Telephone [facility] [address] [place] [address] Dariela Goldman MA Refill Rx 01/16/2025 10:45 AM EDT Office Visit [facility] [address] [place] [address] Nikkie Maloney, DPM Plantar fasciitis (Primary Dx); Postoperative examination [Z09]; Pain of left heel 01/16/2025 Bamboo flowsheet [facility] [address] [place] [phone] Nikkie Maloney, DPM 01/16/2025 Travel 01/12/20[address] Abstract [facility] [address] [place] [address] Ash Santillan DO 01/09/2025 1:30 PM EDT Consult [facility] [address] [place] [address] Ash Santillan DO Pre-op examination; Pelvic pain in female; PCOS (polycystic ovarian syndrome); Abnormal uterine bleeding (AUB); Left lower quadrant abdominal pain 01/09/2025 Bamboo flowsheet [facility] [address] [place] [address] Ash Santillan DO 12/29/2024 3:15 PM EDT Office Visit [facility] [address] [place] [address] Nikkie Maloney, DPM Plantar fasciitis (Primary Dx); Pain of left heel 12/29/2024 Bamboo flowsheet [facility] [address] [place] [address] Nikkie Maloney, DPM 12/29/2024 Travel 12/26/[address] [address] [place] [address] Angeline Donato MA 12/21/2024 2:15 PM EDT Office Visit [facility] [address] [place] [address] Nikkie Maloney, DPM Plantar fasciitis (Primary Dx); Pain of left heel; Pain of right heel 12/21/2024 Bamboo flowsheet [facility] [address] [place] [address] Nikkie Maloney, DPM 12/21/2024 Travel 12/20/2024 Travel 12/19/2024 5:00 PM EDT Treatment [facility] [address] [facility] [address] [place] [address] Natalya Fall, PT Plantar fasciitis, bilateral (Primary Dx); Plantar fasciitis 12/16/2024 Clinisync Result Encounter [facility] External Department Unsolicited Ash Santillan DO 12/14/2024 5:00 PM EDT Treatment [facility] [address] [facility] [address] [place] [address] Elvia Falla, PT Plantar fasciitis, bilateral (Primary Dx); Plantar fasciitis 12/14/2024 Travel 12/13/2024 10:50 AM EDT Office Visit [facility] [address] [place] [address] [place] [address] Ash Santillan, Pelvic pain in female; PCOS (polycystic ovarian syndrome); Abnormal uterine bleeding (AUB) 12/13/2024 Bamboo flowsheet [facility] [address] [place] [address] [place] [address] Ash Santillan, 12/07/2024 5:00 PM EDT Treatment [facility] [address] [facility] [address] [place] [address] Natalya Fall, PT Plantar fasciitis, bilateral (Primary Dx); Plantar fasciitis 12/07/2024 Travel 12/05/2024 5:00 PM EDT Treatment [facility] [address] [facility] [address] [place] [address] Natalya Fall, PT Plantar fasciitis, bilateral (Primary Dx) 12/05/2024 Travel 12/01/2024 Plan of Care Documentation [facility] [address] [facility] [address] [place] [address] 11/30/2024 5:00 PM EDT Evaluation [facility] [address] [facility] [address] [place] [address] Natalya Fall, PT Plantar fasciitis, bilateral (Primary Dx); Plantar fasciitis 11/30/2024 Bamboo flowsheet [facility] [address] [place] [address] Dimitris Fallmantha, PT 11/30/2024 Travel 11/29/2024 Travel 11/21/2024 4:30 PM EDT Office Visit [facility] [address] [place] [address] Nikkie Maloney DPM Plantar fasciitis (Primary Dx); Pain of left heel; Pain of right heel 11/21/2024 Bamboo flowsheet [facility] [address] [place] [address] Nikkie Maloney DPM 11/21/2024 Travel 11/17/2024 Clinisync Result Encounter [facility] External Department Unsolicited Ash Santillan DO from Last 3 Months Social History Tobacco Use Types Packs/Day Years Used Date Smoking Tobacco: Former Cigarettes Smokeless Tobacco: Never Tobacco Cessation:Counseling Given: Not Answered Comments No Sex and Gender Information Value [...] (195 lb) 02/13/2025 10:17 AM EDT Height 152.4 cm (5') 06/26/2022 12:00 PM EDT Body Mass Index 38.08 06/26/2022 12:00 PM EDT Plan of Treatment Upcoming Encounters Date Type Department Care Team (Late st Contact Info) Description 02/16/2025 8:45 AM EDT Office Visit [facility] [address] [place] [address] Nikkie Maloney DPM [address] [place] [address] 03/22/2025 10:50 AM EDT Office Visit [facility] [address] [facility] [place] [address] Ash Santillan, DO [address] [facility] [place] [address] 02/20/2026 10:00 AM EDT Office Visit [facility] [address] [facility] [place] [address] Ash Santillan, DO [address] [facility] [place] [address] Procedures Procedure Name Priority Date/Time Associated Diagnosis Comments TBH PREG QUANT HCG Routine 01/27/2025 6: 20 AM EDT ALL CBC WITH AUTO DIFF Routine 6:20 AM EDT POCT URINALYSIS DIPSTICK Routine 025 2:04 PM [...] EDT from Last 3 Months Results * [facility] PREG QUANT HCG (01/27/2025 6:20 AM EDT) Only the most recent of2 resultswithin the time period is included. Pathologist [facility] HCG QUANTITATIVE <1 mIU/mL TBH Comment: 5-50 0.2-1 WEEK 50-500 1-2 WEEKS 100-5,000 2-3 WEEKS 500-10,000 3-4 WEEKS 1,000-50,000 4-5 WEEKS 10,000-100,000 5-6 WEEKS 15,000-200,000 6-8 WEEKS 10,000-100,000 2-3 MONTHS 01/27/2025 6:20 AM EDT 01/27/2025 6:20 AM EDT Narrative CLINISYNC - 01/27/2025 6:46 AM EDT us Ash Tyrell DO CLINISYNC Final Result [facility] * (ABNORMAL) ALL CBC WITH AUTO DIFF (01/27/2025 6:20 AM EDT) Pathologist [facility] TBH WBC 12.5(H) 4.0 - 11.0 10 3/uL TBH TBH RBC 4.57 4.20 - 5.40 10 6/uL TBH TBH HGB 14.4 12.0 - 16.0 g/dL TBH TBH HCT 41.3 36.0 - 48.0 % TBH TBH MCV 90.4 81.0 - 99.0 fL TBH TBH MCH 31.5 26.7 - 34.0 pg TBH TBH MCHC 34.9 29.9 - 35.2 g/dL TBH TBH RDW 12.2 11.0 - 15.0 % TBH TBH PLT 284 150 - 450 10 3/uL TBH TBH MPV 9.8 9.5 - 13.5 fL TBH NEUTROPHILS PERCENT AUTO 65.0 43.0 - 75.0 % TBH LYMPHOCYTES PERCENT AUTO 24.8 20.5 - 60.0 % TBH MONOCYTES PERCENT AUTO 6.2 1.7 - 12.0 % TBH TBH EO % 2.9 0.9 - 7.0 % TBH BASOPHILS PERCENT AUTO 0.6 0.2 - 2.0 % TBH IMMATURE GRANULOCYTES PCT AUTO 0.5 0.0 - 0.5 % TBH NEUTROPHILS ABSOLUTE AUTO 8.1(H) 1.4 - 6.5 10 3/uL TBH LYMPHOCYTES ABSOLUTE AUTO 3.1 1.2 - 3.8 10 3/uL TBH MONOCYTES ABSOLUTE AUTO 0.8 0.3 - 0.8 10 3/uL TBH TBH EO # 0.4 0.0 - 0.7 10 3/uL TBH BASOPHILS ABSOLUTE AUTO 0.1 0.0 - 0.1 10 3/uL TBH IMMATURE GRANULOCYTES ABS AUTO 0.06(H) 0.00 - 0.03 10 3/uL TBH 01/27/2025 6:20 AM EDT 01/27/2025 6:20 AM EDT Narrative CLINISYNC - 01/27/2025 6:25 AM EDT [facility] [place] DO CLINISYNC Final Result [facility] * POCT , urine manually resulted (01/09/2025 2:04 PM EDT) Preg Test, Ur Negative Negative Urine 01/09/2025 2:04 PM EDT Ash Tyrell DO POINT OF CARE TEST ENTER/EDIT OR [...] - Positive Urine 01/09/2025 2:04 PM EDT Ash Tyrell DO POINT OF CARE TEST ENTER/EDIT OR DERABLES Final Result * TBH PROLACTIN (12/16/2024 8:05 AM EDT) PROLACTIN 12.7 4.8 - 33.4 ng/mL TBH Comment: Performed at: [address] [id number] Tying Machine Operator Lumber: Leonardo House PhD, Phone: [phone] 12/16/2024 8:05 AM EDT 12/16/2024 8:07 AM EDT Narrative CLINISYNC - 12/19/2024 12:08 PM EDT Ash Tyrell DO [facility]NC Final Result [facility] * TBH CORTISOL AM (12/16/2024 8:05 AM EDT) CORTISOL - AM 17.0 6.2 - 19.4 ug/dL TBH Comment: Performed at: [address] [id number] Tying Machine Operator Lumber: Leonardo House PhD, Phone: [phone] 12/16/2024 8:05 AM EDT 12/16/2024 8:07 AM EDT Narrative CLINISYNC - 12/19/2024 12:08 PM EDT us Ash Tyrell DO CLINISYNC Final Result Performing Organization Address [facility] de Phone Number CLINOZZYFORMERLY [facility] * MLR HEMOGLOBIN A1C (12/16/2024 8:05 AM EDT) GLYCOHEMOGLOBIN A1C 5.2 4.5 - 6.2 % [facility] Comment: ADA RECOMMENDED LIMIT 4.0 - 6.0 ADA THERAPEUTIC TARGET < 7.0 ACTION SUGGESTED > 7.0 ESTIMATED AVERAGE GLUCOSE 103 mg/dL TB 12/16/2024 8:05 AM EDT 12/16/2024 8:07 AM EDT Narrative CLINISYNC - 12/16/2024 9:50 AM EDT [facility] CL[facility] Final Result Performing Organization Address [facility] Phone Number ASADFORMERLY [facility] * ALL LUTEINIZING HORMONE (12/16/2024 8:05 AM EDT) LUTEINIZING HORMONE(LH) 15.5 . mIU/mL TBH Comment: Adult Female Range Follicular phase 2.4 - 12.6 Ovulation phase 14.0 - 95.6 Luteal phase 1.0 - 11.4 Postmenopausal 7.7 - 58.5 12/16/2024 8:05 AM EDT 12/16/2024 8:07 AM EDT Narrative CLINISYNC - 12/19/2024 12:08 PM EDT [facility] Tyrell DO CLINISYNC Final Result Performing Organization Address [facility] Phone Number ASADFORMERLY [facility] * ALL FOLLICLE STIMULATING HORMONE (12/16/2024 8:05 AM EDT) FSH 7.1 . mIU/mL TBH Comment: Adult Female Range Follicular phase 3.5 - 12.5 Ovulation phase 4.7 - 21.5 Luteal phase 1.7 - 7.7 Postmenopausal 25.8 - 134.8 12/16/2024 8:05 AM EDT 12/16/2024 8:07 AM EDT Narrative CLINISYNC - 12/19/2024 12:08 PM EDT us Ash Tyrell DO CLINISYNC Final Result Performing Organization Address City/[facility]/ZIP Co de Phone Number CLINISYWA TB * (ABNORMAL) ALL DHEA SULFATE (12/16/2024 8:05 AM EDT) DHEA-SULFATE 34.4(A) 57.3 - 279.2 ug/dL TBH 12/16/2024 8:05 AM EDT 12/16/2024 8:07 AM EDT Narrative CLINISYNC - 12/19/2024 12:08 PM EDT us Ash Tyrell DO CLINISYNC Final Result Performing Organization Address [facility] Co de Phone Number CLINISYNC TB * ALL DEHYDROEPIANDROSTERONE (12/16/2024 8:05 AM EDT) DHEA, SERUM 47 31 - 701 ng/dL TB Comment: This test was developed and its performance characteristics determined by [employer]. It has not been cleared or approved by the Food and Drug Administration. Performed at: [address] [id number] Tying Machine Operator Lumber: Roxanna Manrique MD, Phone: [phone] 12/16/2024 8:05 AM EDT 12/16/2024 8:07 AM EDT Narrative CLINISYNC - 12/27/2024 10:10 AM EDT us Ash Tyrell DO CLINISYNC Final Result CLINISYNC TB * US PELVIS W/ TRANSVAGINAL (11/17/2024 11:06 AM EDT) Anatomical Region Laterality Modality Other 11/17/2024 11:0 6 AM EDT Narrative 11/17/2024 11:09 AM EDT The [address] [address] Ultrasound Report Signed Patient: TOI ROONEY MR#: [id number] : 1980 Acct:[id number] Age/Sex: 44 / F ADM Date: 11/17/24 Loc: US Attending Dr: Ash Santillan D.O. Ordering Physician: Ash Santillan D.O. Date of Service: 11/17/24 Procedure(s): US pelvis w/ transvaginal Accession Number(s): [id number] cc: Ash Santillan D.O.; Harsha Timmons M.D. [place] [address] Patient Name: TOI ROONEY MRN: [id number] date: 1980 Sex: F Assigned Patient Location: US Current Patient Location: LAB Accession/Order Number: [id number] Exam Date: 11/17/2024 11:04 Report Date: 11/17/2024 [...] Atwood Jr., D.O.11/17/2024 11:06 AM Dictation Location: [place] [address] Electronically authenticated by: [id number] Y Date: 11/17/2024 11:06 Dictated By: Ankit Atwood M.D. Signed By: 11/17/24 1109 DD/ 1106 TD/TT: Campus Security Officer: Procedure Note Radiology, Radiologist, - 11/17/2024 [place] [address] Ultrasound Report Signed Patient: TOI ROONEY LMR#: [id number] : 1980Acct:[id number] Age/Sex: 44 / FADM Date: 11/17/24 Loc: US Attending Dr: Ash Santillan D.O. Ordering Physician: Ash Santillan D.O. Date of Service: 11/17/24 Procedure(s): US pelvis w/ transvaginal Accession Number(s): [id number] cc: Ash Santillan D.O.; Harsha Timmons M.D. The [place] [id number] Patient Name: TOI ROONEY MRN: [id number] date: 1980 Sex: F Assigned Patient Location: US Current Patient Location: LAB Accession/Order Number: [id number] Exam Date: 11/17/2024 11:04 Report Date: 11/17/2024 [...] Atwood Jr., D.O.11/17/2024 11:06 AM Dictation Location[facility] Electronically authenticated by: [id number] Y Date: :06 Dictated By: Ankit Atwood M.D. Signed By:11/17/24 1109 DD/ 1106 TD/TT: Campus Security Officer: Ash Santillan DO [facility] IMAGING Final Result from Last 3 Months Insurance [employer] Care Teams Home Lending Officer Relationship Specialty Start Date End Date Harsha Timmons MD [address] [place] [address] PCP - General Family Medicine 01/26/25
--- OUTSIDE RECORDS SUMMARY | 2025-02-13 13:01 | XMS_ITS | Encounter Summary ---
Author Organization [facility] Address [address] [place] [address] Care Team Providers Care Septic Tank Servicer Name Role Phone Harsha Timmons MD Primary Care Provider [phone] Encounter Details Date Type Department Care Team (Late Contact Info) Description 02/06/2025 Telephone [facility] [address] [place] [address] Brenda Moore MA Social History Tobacco Use Types Packs/Day Years Used Date Smoking Tobacco: Former Cigarettes Smokeless Tobacco: Never Comments Unknown Sex and Gender Information Value Date Recorded Sex Assigned at Not on file Legal Sex Female 7:08 PM EDT Gender Identity Not on file Sexual Orientation Not on file documented as of this encounter Miscellaneous Notes * Telephone Encounter - Brenda Moore MA - 02/06/2025 1:20 PM EDT Hi, my name is Racheal Rooney. I just had a question for a nurse. I had a D+C. I just been having a lot of bleeding and I just wondered if it was safe to, like, use a tampon or if I need to continue with pads. That is pretty much it. So if you could call me back at [phone]. Again, it is Racheal Rooney. Pt advised nothing in the vagina for 2wks post op. Pt voices understanding documented in this encounter Plan of Treatment Upcoming Encounters Date Type Department Care Team (Late Contact Info) Description 02/16/2025 8:45 AM EDT Office Visit [facility] [address] [facility] [address] [place] [address] Nikkie Maloney, DPM [address] [facility] [address] [place] [address] 03/22/2025 10:50 AM EDT Office Visit [facility] [address] [place] [address] Jhon Santillan, DO [address] [facility] [place] [address] 02/20/2026 10:00 AM EDT Office Visit [facility] [address] [place] [address] Jhon Santillan, DO [address] [facility] [place] [address] documented as of this encounter Visit Diagnoses Not on filedocumented in this encounter Care Teams Septic Tank Servicer Relationship Specialty Start Date End Date Harsha Timmons MD [address] [facility] [place] [address] PCP - General Family Medicine 01/26/25 documented as of this encounter
--- OUTSIDE RECORDS SUMMARY | 2025-02-13 13:31 | XMS_ITS | CCD ---
Author Organization [facility]iniSyn[facility] Care Team Providers Care Wood Floor Layer Name Role Phone ENRIQUE, DR HOGAN Admitting [...] Unavailable ENRIQUE, DR HOGAN Primary Care Unavailable JOSSIE CAPPS Consulting Unavailable GIOVANA PEDRAZA Consulting Unava ilable ENRIQUE, DR HOGAN Primary Care Unavailable TYRELL, DR ALEMAN Attending Unavailable TYRELL, DR ALEMAN Consulting Unavailable TYRELL, DR ALEMAN Admitting Unavailable Edison Timmons MD Primary Care Provider [phone] Edison Timmons MD Primary Care Provider [phone] Edison Timmons MD Primary Care Provider [phone] MARLENE MALONEY Attending Unavailable MARLENE MALONEY Attending Unavailable URSULA FALL Attending Unavailable MARLENE MALONEY Referring Unavailable URSULA FALL Attending Unavailable MARLENE MALONEY Referring Unavailable URSULA FALL Attending Unavailable MARLENE MALONEY Referring Unavailable ASH SANTILLAN Attending Unavailable URSULA FALL Attending Unavailable MARLENE MALONEY Referring Unavailable URSULA FALL Attending Unavailable MARLENE MALONEY Referring Unavailable MARLENE MALONEY Attending Unavailable MARLENE MALONEY Attending Unavailable ASH SANTILLAN Attending Unavailable MARLENE MALONEY Attending Unavailable BOOGIE KATE Attending Unavailabl e MARLENE MALONEY Attending Unavailable MARLENE MALONEY Attending Unavailable MARLENE MALONEY Attending Unavailable MARLENE MALONEY Attending Unavailable Medications Current Medications Medication Drug Class(es) Dates Sig (Normalized) Sig (Original) acetaminophen 325 mg / oxyCODONE hydrochloride 5 mg oral tablet (3 sources) Opioid Agonist Start: 02-01-2025 End: 02-06-2025 take 1 tablet by mouth every eight hours for pain oxyCODONE-acetamino phen (Percocet) 5-325 MG tablet Indications: Postoperative examination Take 1 tablet by mouth every 8 (eight) hours if needed for severe pain for up to 5 days 15 tablet 02/01/2025 02/06/2025 Active celecoxib 200 mg oral capsule (13 sources) Nonsteroidal Anti-inflammatory Drug Start: 11-21-2024 End: 12-21-2024 take 1 capsule by mouth once daily celecoxib (CeleBREX) 200 MG capsule Indications: Plantar fasciitis Take 1 capsule (200 mg) by mouth Daily 30 capsule 11/21/2024 12/21/2024 Active ibuprofen 800 mg oral tablet (4 sources) Nonsteroidal Anti-inflammatory Drug Start: 01-27-2025 take 1 tablet by mouth every eight hours ibuprofen 800 MG tablet Take 800 mg by mouth every 8 (eight) hours 01/27/2025 Active 24 hr metFORMIN hydrochloride 500 mg extended release oral tablet (2 sources) Biguanide Start: 02-13-2025 End: 03-15-2025 take 1 tablet by mouth every twenty-four hours at mealtime metFORMIN XR (Glucophage-XR) 500 MG 24 hr tablet Indications: PCOS (polycystic ovarian syndrome) Take 1 tablet (500 mg) by mouth in the evening. Take with meals Do not crush, chew, or split. 30 tablet 11 02/13/2025 03/15/2025 Active Completed/Discontinued Medications Medication Drug Class(es) Dates Sig (Normalized) Sig (Original) acetaminophen 325 mg / HYDROcodone bitartrate 5 mg oral tablet (3 sources) Opioid Agonist Start: 12-29-2024 End: 01-09-2025 take 1 tablet by mouth every six hours for pain HYDROcodone-acetami nophen ([place]) 5-325 MG tablet Indications: Plantar fasciitis Take [...] Date Documented Da te Episodic/Chronic Abdominal pain (6 sources) Pain in female pelvis; Translations: [Pelvic and perineal pain] 12-13-2024 Episodic Contraceptive and procreative management (5 sources) Encounter for sterilization; Translations: [ENCOUNTER FOR STERILIZATION] Onset: 06-06-2022 Episodic Menstrual disorders (2 sources) Menorrhagia; Translations: [Excessive and frequent menstruation with regular cycle] 02-13-2025 Chronic Other aftercare (2 sources) Surgical follow-up; Translations: [Encounter for follow-up examination after completed treatment for conditions other than malignant neoplasm] 01-16-2025 Episodic Other connective tissue disease (20 sources) Plantar fasciitis; Translations: [Plantar fascial fibromatosis] 06-27-2024 Episodic Other connective tissue disease (16 sources) Pain of left heel; Translations: [Pain in left foot] 06-27-2024 Episodic Other connective tissue disease (10 sources) Pain in right heel; Translations: [Pain in right foot] 06-27-2024 Episodic Other connective tissue disease (2 sources) Bilateral heel pain; Translations: [Pain in right foot] 06-27-2024 Episodic Other connective tissue disease (5 sources) Bilateral plantar fasciitis; Translations: [Plantar fascial fibromatosis] 11-30-2024 Episodic Other endocrine disorders (5 sources) Polycystic ovary syndrome; Translations: [Polycystic ovarian syndrome] 12-13-2024 Chronic Other female genital disorders (5 sources) Abnormal uterine bleeding; Translations: [Abnormal uterine [...] INDEX BMI 33.0-33.9 ADULT] Onset: 08-07-2022 Chronic Other screening for suspected conditions (not mental disorders or infectious disease) (6 sources) Encounter for screening for malignant neoplasm of cervix; Translations: [Patient encounter status] Onset: 03-24-2022 Episodic Residual codes; unclassified (4 sources) Postoperative state; Translations: [Other specified postprocedural [...] [ENC SCREENING HUMAN PAPILLOMAVIRUS] Onset: 03-25-2022 Episodic Results Test Name Value Interpretation Reference Range Facility ALL CBC WITH AUTO DIFFon BASOPHILS ABSOLUTE AUTO [facility] Basophils/100 WBC (Bld) 0.6 % 0.2 - 2.0 % [facility] Eosinophils/100 WBC (Bld) 2.9 % 0.9 - 7.0 % [facility] Erythrocyte distribution width (RBC) [Ratio] 12.2 % 11.0 - 15.0 % [facility] Hematocrit (Bld) [Volume fraction] 41.3 % 36.0 - 48.0 % [facility] Hemoglobin (Bld) [Mass/Vol] 14.4 g/dL 12.0 - 16.0 g/dL [facility] IMMATURE GRANULOCYTES ABS [facility]/100 WBC (Bld) 0.5 % 0.0 - 0.5 % [facility] Interpretation and review of laboratory results Abnormal [facility] LYMPHOCYTES ABSOLUTE AUTO 3.1 [facility] Lymphocytes/100 WBC (Bld) 24.8 % 20.5 - 60.0 % [facility] MCH (RBC) [Entitic mass] 31.5 pg 26.7 - 34.0 pg [facility] MCHC (RBC) [Mass/Vol] 34.9 g/dL 29.9 - 35.2 g/dL [facility] MCV (RBC) [Entitic vol] 90.4 fL 81.0 - 99.0 fL [facility] MONOCYTES ABSOLUTE AUTO 0.8 [facility] Monocytes/100 WBC (Bld) 6.2 % 1.7 - 12.0 % [facility] NEUTROPHILS ABSOLUTE AUTO 8.1 High [facility] Neutrophils/100 WBC (Bld) 65 % 43.0 - 75.0 % [facility] Platelet mean volume (Bld) [Entitic vol] 9.8 fL 9.5 - 13.5 fL [facility] TBH EO # 0.4 [facility] TB PLT 284 [facility] RBC 4.57 [facility] WBC 12.5 High [facility] HCG ( test) Ql (U)O rdered By: Alka Martinez on 01-09-2025 Interpretation and review of laboratory results Normal [facility] Work Phone: Preg Test, Ur Negative Negative [facility] Work Phone: [facility] Work Phone: Urinalysis macro (dipstick) panel (U)on 01-09-2025 Bilirubin, UA Negative Negative - 4(70) +++ mg/dL [facility] Blood, UA Negative Negative - 50 Efrain/mcL [facility] Clarity, UA Clear [facility] Color, UA Yellow [facility] Glucose, UA Negative Negative - 1999(110) ++++ mg/dL [facility] Interpretation and review of laboratory results Normal [facility] Ketones, UA Negative Negative - 160(16) ++++ mg/dL [facility] Leukocytes, UA Negative Negative - 500+++ Diana/mcL [facility] Nitrite, UA Negative Negative - Positive [facility] pH, UA 6.5 5 - 9 [facility] Protein, UA Negative Negative - 1999(20) ++++ mg/dL [facility] Spec Grav, UA 1.025 1 - 1.03 [facility] Urobilinogen, UA 0.2 0.2 - 12 mg/dL [facility] PREG QUANT HCGon 12-16- 025 HCG QUANTITATIVE <1 mIU/mL [facility] Comment on above: 5-50 0.2-1 WEEK 50-500 1-2 WEEKS 100-5,000 2-3 WEEKS 500-10,000 3-4 WEEKS 1,000-50,000 4-5 WEEKS 10,000-100,000 5-6 WEEKS 15,000-200,000 6-8 WEEKS 10,000-100,000 2-3 MONTHS [facility] US PELVIS W/ TRANSVAGINALon 10-05-2024 [place] [address] Ultrasound Report Signed Patient: TOI ROONEY MR#: [id number] : 1980 Acct:[id number] Age/Sex: 44 / F ADM Date: 10/04/24 Loc: US Attending Dr: Ash Santillan D.O. Ordering Physician: Ash Santillan D.O. Date of Service: 10/04/24 Procedure(s): US pelvis w/ transvaginal Accession Number(s): [id number] cc: Ash Santillan D.O.; Edison Timmons M.D. [place] [id number] Patient Name: TOI ROONEY MRN: [facility]:[id number] date: 1980 Sex: F Assigned Patient Location: US Current Patient Location: Accession/Order Number: [id number] Exam Date: 10/04/2024 17:50 Report Date: 10/05/2024 [...] Signed By: 10/05/24 0746 DD/ 0743 TD/TT: Bulb Weeder: [facility] Radiology, Radiologist, - 10/05/2024 [place] [address] Ultrasound Report Signed Patient: TOI ROONEY MR#: [id number] : 1980 Acct:[id number] Age/Sex: 44 / F ADM Date: 10/04/24 Loc: US Attending Dr: Ash Santillan D.O. Ordering Physician: Ash Santillan D.O. Date of Service: 10/04/24 Procedure(s): US pelvis w/ transvaginal Accession Number(s): [id number] cc: Ash Santillan D.O.; Edison Timmons M.D. The [place] [id number] Patient Name: TOI ROONEY MRN: [facility]:[id number] date: 1980 Sex: F Assigned Patient Location: Current Patient Location: Accession/Order Number: [id number] Exam Date: 10/04/2024 17:50 Report Date: 10/05/2024 [...] M.D. Signed By: 10/05/24 0746 DD/ TD/TT: Bulb Weeder: [facility] Radiology Study observation (narrative) [facility] US PELVIS W/ TRANSVAGINALOrd ered By: Radiologist Radiology on 10-05-2024 [facility] Work Phone: XR Calcaneus - left [facility] 06-27-2024 Imaging Result: One views of the left heel: Lateral were performed today in the office. Radiographs were read by myself and demonstrate: No evidence of acute fracture or dislocation. No coalition noted. Spur formation is noted at the plantar calcaneus [facility] Study observation (narrative) [facility] XR Calcaneus - right [facility] 06-27-2024 Imaging Result: One views of the right heel: Lateral were performed today in the office. Radiographs were read by myself and demonstrate: No evidence of acute fracture or dislocation. No coalition noted. Spur formation is noted at the plantar calcaneus [facility] Study observation (narrative) [facility] CBC AUTO DIFFon 06-13-2022 BASO # 0.0 103/ul Normal 0.0-0.1 [facility] Comment on above: Performed By: #### C BC #### [facility] [address] [place] [address] Dr. Amee Mckeon Basophils/100 WBC (Bld) 0.5 % Normal 0.2-2.0 [facility] Comment on above: Performed By: #### C BC #### [facility] [address] [place] [address] Dr. Amee Mckeon EO # 0.2 103/ul Normal 0.0-0.7 [facility] Comment on above: Performed By: #### C BC #### [facility] [address] [place] [address] Dr. Amee Mckeon Eosinophils/100 WBC (Bld) 1.9 % Normal 0.9-7.0 [facility] Comment on above: Performed By: #### C BC #### [facility] [address] [place] [address] Dr. Amee Mckeon Erythrocyte distribution width (RBC) [Ratio] 11.9 % Normal 11.0-15.0 [facility] Comment on above: Performed By: #### C BC #### [facility] [address] [place] [address] Dr. Amee Mckeon Hematocrit (Bld) [Volume fraction] 43.6 % Normal 36.0-48.0 [facility] Comment on above: Performed By: #### C BC #### [facility] [address] [place] [address] Dr. Amee Mckeon Hemoglobin (Bld) [Mass/Vol] 14.8 g/dL Normal 12.0-16.0 [facility] Comment on above: Performed By: #### C BC #### [facility] [address] [place] [address] Dr. Amee Mckeon IG # 0.03 10e3/ul Normal 0.00-0.03 [facility] Comment on above: Performed By: #### C BC #### [facility] [address] [place] [address] Dr. Amee Mckeon IG % 0.4 % Normal 0.0-0.5 [facility] Comment on above: Performed By: #### C BC #### [facility] [address] [place] [address] Dr. Amee Mckeon LYMPH # 2.5 103/ul Normal 1.2-3.8 [facility] Comment on above: Performed By: #### C BC #### [facility] [address] [place] [address] Dr. Amee Mckeon Lymphocytes/100 WBC (Bld) 31.4 % Normal 20.5-60.0 [facility] Comment on above: Performed By: #### C BC #### [facility] [address] [place] [address] Dr. Amee Mckeon MANUAL DIFF REQ NO Normal [facility] Comment on above: Performed By: #### C BC #### [facility] [address] [place] [address] Dr. Amee Mckeon MCH (RBC) [Entitic mass] 31.6 pg Normal 26.7-34.0 [facility] Comment on above: Performed By: #### C BC #### [facility] [address] [place] [address] Dr. Amee Mckeon MCHC (RBC) [Mass/Vol] 33.9 g/dL Normal 29.9-35.2 [facility] Comment on above: Performed By: #### C BC #### [facility] [address] [place] [address] Dr. Amee Mckeon MCV (RBC) [Entitic vol] 93.2 fL Normal 81.0-99.0 [facility] Comment on above: Performed By: #### C BC #### [facility] [address] [place] [address] Dr. Amee Mckeon MONO # 0.5 103/ul Normal 0.3-0.8 [facility] Comment on above: Performed By: #### C BC #### [facility] [address] [place] [address] Dr. Amee Mckeon Monocytes/100 WBC (Bld) 6.8 % Normal 1.7-12.0 [facility] Comment on above: Performed By: #### C BC #### [facility] [address] [place] [address] Dr. Amee Mckeon NEUT # 4.7 103/ul Normal 1.4-6.5 [facility] Comment on above: Performed By: #### C BC #### [facility] [address] [place] [address] Dr. Amee Mckeon Neutrophils/100 WBC (Bld) 59.0 % Normal 43.0-75.0 [facility] Comment on above: Performed By: #### C BC #### [facility] [address] [place] [address] Dr. Amee Mckeon Platelet mean volume (Bld) [Entitic vol] 9.6 fL Normal 9.5-13.5 [facility] Comment on above: Performed By: #### C BC #### [facility] [address] [place] [address] Dr. Amee Mckeon PLT 289 103/ul Normal 150-450 [facility] Comment on above: Performed By: #### C BC #### [facility] [address] [place] [address] Dr. Amee Mckeon RBC 4.68 106/ul Normal 4.20-5.40 [facility] Comment on above: Performed By: #### C BC #### [facility] [address] [place] [address] Dr. Amee Mckeon WBC 7.9 103/ul Normal 4.0-11.0 [facility] Comment on above: Performed By: #### C BC #### [facility] [address] [place] [address] Dr. Amee Mckeon PREG HCG QUALon 06-13-2022 , QUAL Negative Normal NEGATIVE [facility] Comment on above: Performed By: #### P REG #### [facility] [address] [place] [address] Dr. Amee Mckeon [facility] SARS-CoV-2 (COVID-19) RNA ADOLPH+probe Ql (Unsp spec) Not detected Normal NOT DETECTED [facility] Comment on above: Result Comment: This test is not yet approved or cleared by the [place] FDA. When there are no FDA-approved or cleared tests available, and other criteria are met, FDA can make tests available under an emergency access mechanism called an Emergency Use Authorization (EUA). The EUA for this test is supported by the [place] of Health and Human Service's (HHS's) declaration [...] SARS-CoV-2. Performed By: #### C VDTBH #### [facility] [address] [place] [address] Dr. Amee Mckeon [facility] CBC AUTO DIFFon 04-17-2022 BASO # 0.0 103/ul Normal 0.0-0.1 [facility] Comment on above: Performed By: #### H FPFCBC #### [facility] [address] [place] [address] [address] [address] Amee Mckeon Basophils/100 WBC (Bld) 0.3 % Normal 0.2-2.0 [facility] Comment on above: Performed By: #### H FPFCBC #### [facility] [address] [place] [address] Dr. Amee Mckeon EO # 0.1 103/ul Normal 0.0-0.7 [facility] Comment on above: Performed By: #### H FPFCBC #### [facility] [address] [place] [address] Dr. Amee Mckeon Eosinophils/100 WBC (Bld) 1.5 % Normal 0.9-7.0 [facility] Comment on above: Performed By: #### H FPFCBC #### [facility] [address] [place] [address] Dr. Amee Mckeon Erythrocyte distribution width (RBC) [Ratio] 12.5 % Normal 11.0-15.0 [facility] Comment on above: Performed By: #### H FPFCBC #### [facility] [address] [place] [address] Dr. Amee Mckeon Hematocrit (Bld) [Volume fraction] 41.6 % Normal 36.0-48.0 [facility] Comment on above: Performed By: #### H FPFCBC #### [facility] [address] [place] [address] Dr. Amee Mckeon Hemoglobin (Bld) [Mass/Vol] 14.1 g/dL Normal 12.0-16.0 [facility] Comment on above: Performed By: #### H FPFCBC #### [facility] [address] [place] [address] Dr. Amee Mckeon IG # 0.03 10e3/ul Normal 0.00-0.03 [facility] Comment on above: Performed By: #### H FPFCBC #### [facility] [address] [place] [address] Dr. Amee Mckeon IG % 0.3 % Normal 0.0-0.5 [facility] Comment on above: Performed By: #### H FPFCBC #### [facility] [address] [place] [address] Dr. Amee Mckeon LYMPH # 2.2 103/ul Normal 1.2-3.8 [facility] Comment on above: Performed By: #### H FPFCBC #### [facility] [address] [place] [address] Dr. Amee Mckeon Lymphocytes/100 WBC (Bld) 25.3 % Normal 20.5-60.0 [facility] Comment on above: Performed By: #### H FPFCBC #### [facility] [address] [place] [address] Dr. Amee Mckeon MCH (RBC) [Entitic mass] 31.3 pg Normal 26.7-34.0 [facility] Comment on above: Performed By: #### H FPFCBC #### [facility] [address] [place] [address] Dr. Amee Mckeon MCHC (RBC) [Mass/Vol] 33.9 g/dL Normal 29.9-35.2 [facility] Comment on above: Performed By: #### H FPFCBC #### [facility] [address] [place] [address] Dr. Amee Mckeon MCV (RBC) [Entitic vol] 92.4 fL Normal 81.0-99.0 [facility] Comment on above: Performed By: #### H FPFCBC #### [facility] [address] [place] [address] Dr. Amee Mckeon MONO # 0.5 103/ul Normal 0.3-0.8 [facility] Comment on above: Performed By: #### H FPFCBC #### [facility] [address] [place] [address] Dr. Amee Mckeon Monocytes/100 WBC (Bld) 5.5 % Normal 1.7-12.0 [facility] Comment on above: Performed By: #### H FPFCBC #### [facility] [address] [place] [address] Dr. Amee Mckeon NEUT # 5.8 103/ul Normal 1.4-6.5 [facility] Comment on above: Performed By: #### H FPFCBC #### [facility] [address] [place] [address] Dr. Amee Mckeon Neutrophils/100 WBC (Bld) 67.1 % Normal 43.0-75.0 [facility] Comment on above: Performed By: #### H FPFCBC #### [facility] [address] [place] [address] Dr. Amee Mckeon Platelet mean volume (Bld) [Entitic vol] 10.2 fL Normal 9.5-13.5 [facility] Comment on above: Performed By: #### H FPFCBC #### [facility] [address] [place] [address] Dr. Amee Mckeon PLT 278 103/ul Normal 150-450 [facility] Comment on above: Performed By: #### H FPFCBC #### [facility] [address] [place] [address] Dr. Amee Mckeon RBC 4.50 106/ul Normal 4.20-5.40 [facility] Comment on above: Performed By: #### H FPFCBC #### [facility] [address] [place] [address] Dr. Amee Mckeon WBC 8.6 103/ul Normal 4.0-11.0 [facility] Comment on above: Performed By: #### H FPFCBC #### [facility] [address] [place] [address] Dr. Amee Mckeon [facility] PROFILEon 022 Albumin [Mass/Vol] 3.8 g/dL Normal 3.4-5.[address] [facility] Comment on above: Performed By: #### H FPF #### [facility] [address] [place] [address] Dr. Amee Mckeon Albumin/Globulin [Mass ratio] 1.1 {ratio} Normal [facility] Comment on above: Performed By: #### H FPF #### [facility] [address] [place] [address] Dr. Amee Mckeon ALP [Catalytic activity/Vol] 50 U/L Normal 46-116 [facility] Comment on above: Performed By: #### H FPF #### [facility] [address] [place] [address] Dr. Amee Mckeon ALT [Catalytic activity/Vol] 31 U/L Normal 14-59 [facility] Comment on above: Performed By: #### H FPF #### [facility] [address] [place] [address] Dr. Amee Mckeon AST [Catalytic activity/Vol] 15 U/L Normal 15-37 [facility] Comment on above: Performed By: #### H FPF #### [facility] [address] [place] [address] Dr. Amee Mckeon Bilirubin [Mass/Vol] 0.6 mg/dL Normal 0.2-1.0 [facility] Comment on above: Performed By: #### H FPF #### [facility] [address] [place] [address] Dr. Amee Mckeon Calcium [Mass/Vol] 8.8 mg/dL Normal 8.5-10.[address] [facility] Comment on above: Performed By: #### H FPF #### [facility] [address] [place] [address] Dr. Amee Mckeon Chloride [Moles/Vol] 104 mmol/L Normal 98-107 [facility] Comment on above: Performed By: #### H FPF #### [facility] [address] [place] [address] Dr. Amee Mckeon CHOL-HDL RATIO NORM SEE BELOW Normal [facility] Comment on above: Result Comment: 3.3 - 4.4 LOW RISK 4.4 - 7.1 AVERAGE RISK 7.1 - 11.0 MODERATE RISK >11.0 HIGH RISK Performed By: #### H FPF #### [facility] [address] [place] [address] Dr. Amee Mckeon Cholesterol [Mass/Vol] 216 mg/dL Critically high <=200 [facility] Comment on above: Performed By: #### H FPF #### [facility] [address] [place] [address] Dr. Amee Mckeon Cholesterol in HDL [Mass/Vol] 51 mg/dL Normal 40-60 [facility] Comment on above: Performed By: #### H FPF #### [facility] [address] [place], [place] [id number] Dr. Amee Mckeon Cholesterol in LDL [Mass/Vol] 141.6 mg/dL Normal [facility] Comment on above: Performed By: #### H FPF #### [facility] [address] [address] [address] Amee Mckeon Cholesterol.total/Idalia sterol in HDL [Mass ratio] 4.2 {ratio} Normal [facility] Comment on above: Performed By: #### H FPF #### [facility] [address] [address] [address] Amee Mckeon CO2 [Moles/Vol] 26.1 mmol/L Normal 21.0-32.0 [facility] Comment on above: Performed By: #### H FPF #### [facility] [address] [address] [address] Amee Mckeon Creatinine [Mass/Vol] 0.75 mg/dL Normal 0.55-1.02 [facility] Comment on above: Performed By: #### H FPF #### [facility] [address] [address] [address] Amee Mckeon Globulin (S) [Mass/Vol] 3.4 g/dL Normal [facility] Comment on above: Performed By: #### H FPF #### [facility] [address] [address] [address] Amee Mckeon Glucose [Mass/Vol] 94 mg/dL Normal 74-[address] [facility] Comment on above: Performed By: #### H FPF #### [facility] [address] [address] [address] Amee Mckeon HDL NORMAL > or = 60 mg/dl - LOW CARDIOVASCULAR RISK <40 mg/dl - HIGH CARDIOVASCULAR RISK Normal [facility] Comment on above: Performed By: #### H FPF #### [facility] [address] [address] [address] Amee Mckeon LDL CALC NORMAL SEE BELOW Normal [facility] Comment on above: Result Comment: <100 mg/dl OPTIMAL 100 - 129 mg/dl NEAR OR ABOVE OPTIMAL 130 - 159 mg/dl BORDERLINE HIGH 160 - 189 mg/dl HIGH >190 mg/dl VERY HIGH Performed By: #### H FPF #### [facility] [address] [address] [address] Amee Mckeon Potassium [Moles/Vol] 3.7 mmol/L Normal 3.5-5.1 [facility] Comment on above: Performed By: #### H FPF #### [facility] [address] [address] [address] Amee Mckeon Protein [Mass/Vol] 7.2 g/dL Normal 6.4-8.[address] [facility] Comment on above: Performed By: #### H FPF #### [facility] [address] [address] [address] Amee Mckeon Sodium [Moles/Vol] 137 mmol/L Normal 136-[address] [facility] Comment on above: Performed By: #### H FPF #### [facility] [address] [address] [address] Amee Mckeon Triglyceride [Mass/Vol] 117 mg/dL Normal <=150 [facility] Comment on above: Performed By: #### H FPF #### [facility] [address] [address] [address] Amee Mckeon TSH 1.647 uIU/mL Normal 0.358-3.740 [facility] Comment on above: Performed By: #### H FPF #### [facility] [address] [address] [address] Amee Mckeon Urea nitrogen [Mass/Vol] 18.0 mg/dL Normal 7.0-18.0 [facility] Comment on above: Performed By: #### H FPF #### [facility] [address] [address] [address] Amee Mckeon Urea nitrogen/Creatinine [Mass ratio] 24.0 mg/mg Normal [facility] Comment on above: Performed By: #### H FPF #### [facility] [address] [address] [address] Amee Mckeon VLDL CALC 23.4 mg/dL [facility] Comment on above: Performed By: #### H FPF #### [facility] [address] [place] [address] Dr. Amee Mckeon PAP ACOG PANEL 2: 30 to 65on 03-26-2022 . . Normal [facility] Comment on above: Result Comment: Perf ormed at: WB Performed By: #### [id number] #### [facility] [address] [place] [address] Dr. Amee Mckeon Age Gdln ACOG Testing 30-65 Normal [facility] Comment on above: Performed By: #### [id number] #### [facility] [address] [place] [address] Dr. Amee Mckeon DIAGNOSIS: Comment Normal [facility] Comment on above: Result Comment: NEGA TIVE FOR INTRAEPITHELIAL LESION OR MALIGNANCY. Performed at: WB Performed By: #### [id number] #### [facility] [address] [place] [address] Dr. Amee Mckeon HPV Aptima Negative Normal Negative [facility] Comment on above: Result Comment: This nucleic acid amplification test detects fourteen high-risk HPV types (16,18,31,33,35,39,45,51,52,56,58,59,66,68) without differentiation. Performed at: =G Performed By: #### [id number] #### [facility] [address] [place] [address] Dr. Amee Mckeon Methodology: Comment Normal [facility] Comment on above: Result Comment: This liquid based ThinPrep(R) pap test was screened with the use of an image guided system. Performed at: WB Performed By: #### [id number] #### [facility] [address] [place] [address] Dr. Amee Mckeon Note: Comment Normal [facility] Comment on above: Result Comment: The Pap smear is a screening test designed to aid in the detection of premalignant and malignant conditions of the uterine cervix. It is not a diagnostic procedure and should not be used as the sole means of detecting cervical cancer. Both false-positive and false-negative reports do occur. . Performed at: WB Performed By: #### [id number] #### [facility] [address] [place], [place] [address] Dr. Amee Mckeon Performed by: Comment Normal [facility] Comment on above: Result Comment: Lourdes Farrell, Profiler Operator (ASCP) Performed at: WB Performed By: #### [id number] #### [facility] [address] [place], [place] [address] Dr. Amee Mckeon Specimen adequacy: Comment Normal [facility] Comment on above: Result Comment: Sati sfactory for evaluation. No endocervical component is identified. Performed at: WB Performed By: #### [id number] #### [facility] [address] [place], [place] [address] Dr. Amee Mckeon Vital Signs Date Time Vital Sign Value Performing Clinician Maxi harp 02-13-2025 10:17-0400 Body mass index (BMI) [Ratio] 38.08 kg/m2 Ash Tyrell DO Work Phone: [facility] 02-13-2025 10:17-0400 Body weight 88.45 kg Ash Tyrell DO Work Phone: [facility] 02-13-2025 10:17-0400 Diastolic blood pressure 74 mm[Hg] Ash Tyrell DO Work Phone: [facility] 02-13-2025 10:17-0400 Systolic blood pressure 120 mm[Hg] Ash Tyrell DO Work Phone: [facility] 01-09-2025 13:58-0400 Body mass index (BMI) [Ratio] 37.89 kg/m2 Ash Tyrell DO Work Phone: [facility] 01-09-2025 13:58-0400 Body weight 88 kg Ash Tyrell DO Work Phone: [facility] 01-09-2025 13:58-0400 Diastolic blood pressure 76 mm[Hg] Ash Tyrell DO Work Phone: [facility] 01-09-2025 13:58-0400 Systolic blood pressure 120 mm[Hg] Ash Tyrell DO Work Phone: [facility] 12-13-2024 11:02-0400 Body mass index (BMI) [Ratio] 37.55 kg/m2 [employer] Phone: [facility] 12-13-2024 11:02-0400 Body weight 87.2 kg [employer] Phone: [facility] Healthcare Encounters Encounter Date Encounter Type Care Provider Facility Start: 02-13-2025 End: 02-13-2025 Patient encounter procedure [employer] Phone: [facility] Start: 02-13-2025 End: 02-13-2025 Periodic preventive med est patient 40-64yrs [employer] Phone: [facility] Comment on above: PCOS (polycystic ova lisa syndrome) (Primary Dx); Well woman exam with routine gynecological exam; Pre-op examination; Pelvic pain; Menorrhagia with regular cycle; Abnormal uterine bleeding (AUB); Breast cancer screening by mammogram Start: 02-13-2025 End: 02-13-2025 Preprocedural examination done [employer] Phone: [facility] Start: 02-02-2025 End: 02-02-2025 ambulatory MARLENE MALONEY Not Available Start: 02-02-2025 End: 02-02-2025 Postop follow up visit related to original px Marlene Maloney DPM Work Phone: [facility] Comment on above: Post-operative state (Primary Dx); Plantar fasciitis; Pain of left heel Start: 02-02-2025 End: 02-02-2025 Bamboo flowsheet Marlene Maloney DPM Work Phone: [facility] Start: 02-02-2025 End: 02-02-2025 Bamboo flowsheet Marlene Maloney DPM Work Phone: [facility] Start: 01-27-2025 End: 01-27-2025 Clinisync Result Encounter [employer] Phone: [facility] External Department Unsolicited Start: 01-27-2025 End: 01-27-2025 Clinisync Result Encounter Ash Tyrell DO Work Phone: [facility] External Department Unsolicited Start: 01-26-2025 End: 01-26-2025 Postop follow up visit related to original px Boogie Kate DPM Work Phone: [facility] Comment on above: Post-operative state (Primary Dx) Start: 01-26-2025 End: 01-26-2025 ambulatory BOOGIE KATE Not Available Start: 01-26-2025 End: 01-26-2025 Bamboo flowsheet Boogie Kate DPM Work Phone: [facility] Start: 01-26-2025 End: 01-26-2025 Bamboo flowsheet Boogie Kate DPM Work Phone: [facility] Start: 01-16-2025 End: 01-16-2025 Bamboo flowsheet Marlene Maloney DPM Work Phone: [facility] Start: 01-16-2025 End: 01-16-2025 Bamboo flowsheet Marlene Maloney DPM Work Phone: [facility] Start: 01-16-2025 End: 01-16-2025 Postop follow up visit related to original px Marlene Maloney DPM Work Phone: [facility] Comment on above: Plantar fasciitis (P rimary Dx); Postoperative examination [Z09]; Pain of left heel Start: 01-16-2025 End: 01-16-2025 ambulatory MARLENE MALONEY Not Available Start: 01-09-2025 End: 01-09-2025 Bamboo flowsheet Ash Tyrell DO Work Phone: [facility] Start: 01-09-2025 End: 01-09-2025 Bamboo flowsheet Ash Tyrell DO Work Phone: [facility] Start: 01-09-2025 End: 01-09-2025 Office outpatient visit 15 minutes Ash Tyrell DO Work Phone: [facility] Comment on above: Pre-op examination; Pelvic pain in female; PCOS (polycystic ovarian syndrome); Abnormal uterine bleeding (AUB); Left lower quadrant abdominal pain Start: 01-09-2025 End: 01-09-2025 Preprocedural examination done Ash Tyrell DO Work Phone: [facility] Start: 01-09-2025 End: 01-09-2025 ambulatory ASH TYRELL Not Available Start: 12-29-2024 End: 12-29-2024 Office outpatient visit 15 minutes Marlene Maloney DPM Work Phone: [facility] Comment on above: Plantar fasciitis (P rimary Dx); Pain of left heel Start: 12-29-2024 End: 12-29-2024 ambulatory MARLENE MALONEY Not Available Start: 12-29-2024 End: 12-29-2024 Bamboo flowsheet Marlene Maloney DPM Work Phone: [facility] Start: 12-29-2024 End: 12-29-2024 Bamboo flowsheet Marlene Maloney DPM Work Phone: [facility] Start: 12-21-2024 End: 12-21-2024 Office outpatient visit 25 minutes Marlene Maloney DPM Work Phone: [facility] Comment on above: Plantar fasciitis (P rimary Dx); Pain of left heel; Pain of right heel Start: 12-21-2024 End: 12-21-2024 ambulatory MARLENE MALONEY Not Available Start: 12-21-2024 End: 12-21-2024 Bamboo flowsheet Marlene Maloney DPM Work Phone: [facility] Start: 12-21-2024 End: 12-21-2024 Bamboo flowsheet Marlene Maloney DPM Work Phone: [facility] Start: 12-20-2024 End: 12-20-2024 ambulatory URSULA [...] Bamboo flowsheet Marlene Maloney DPM Work Phone: [facility] Start: 11-21-2024 End: 11-21-2024 Bamboo flowsheet Marlene Maloney DPM Work Phone: [facility] Start: 10-20-2024 End: 10-20-2024 Bamboo flowsheet Marlene Maloney DPM Work Phone: [facility] Start: 10-20-2024 End: 10-20-2024 Bamboo flowsheet Marlene Maloney DPM Work Phone: [facility] Start: 10-20-2024 End: 10-20-2024 Office outpatient visit 15 minutes Marlene Maloney DPM Work Phone: [facility] Comment on above: Plantar fasciitis (P [...] Bamboo flowsheet Marlene Maloney DPM Work Phone: [facility] Start: 09-07-2024 End: 09-07-2024 Bamboo flowsheet Marlene Maloney DPM Work Phone: [facility] Start: 09-07-2024 End: 09-07-2024 ambulatory MARLENE MALONEY Not Available Start: 09-07-2024 End: 09-07-2024 Office outpatient visit 15 minutes Marlene Maloney DPM Work Phone: [facility] Comment on above: Plantar fasciitis (P rimary Dx); Pain of left heel; Pain of right heel Start: 07-26-2024 End: 07-26-2024 Bamboo flowsheet Marlene Maloney DPM Work Phone: [facility] Start: 07-26-2024 End: 07-26-2024 Bamboo flowsheet Marlene Maloney DPM Work Phone: [facility] Start: 07-26-2024 End: 07-26-2024 ambulatory MARLENE MALONEY Not Available Start: 07-26-2024 End: 07-26-2024 Office outpatient visit 15 minutes Marlene Maloney DPM Work Phone: [facility] Comment on above: Plantar fasciitis (P rimary Dx); Pain of left heel; Pain of right heel Start: 06-27-2024 End: 06-27-2024 Bamboo flowsheet Marlene Maloney DPM Work Phone: [facility] Start: 06-27-2024 End: 06-27-2024 Bamboo flowsheet Marlene Maloney DPM Work Phone: [facility] Start: 06-27-2024 End: 06-27-2024 Telephone encounter Marlene Maloney DPM Work Phone: [facility] Comment on above: script check Start: 06-27-2024 End: 06-27-2024 ambulatory MARLENE MALONEY Not Available Start: 06-27-2024 End: 06-27-2024 Office outpatient new 30 minutes Marlene Maloney DPM Work Phone: [facility] Comment on above: Plantar fasciitis (P rimary Dx); Pain of left heel; Pain of right heel; Pain of both heels Start: 06-13-2022 End: 06-13-[address] ASH SANTILLAN Facility:[facility] Start: 06-12-2022 Encounter for preprocedural laboratory examination DR ASH SANTILLAN [facility] Start: 06-10-2022 End: 06-11-[address] ASH SANTILLAN Facility:[facility] Start: 06-10-2022 End: 06-11-2022 Encounter for preprocedural laboratory examination DR ASH SANTILLAN Facility:[facility] Start: 06-06-2022 Encounter for other preprocedural examination DR ASH SANTILLAN [facility] Start: 06-04-2022 End: 06-05-[address] ASH SANTILLAN Facility:[facility] Start: 06-04-2022 End: 06-05-2022 Encounter for other preprocedural examination DR ASH SANTILLAN Facility:[facility] Start: 04-17-2022 End: 04-18-[address] EDISON TIMMONS Facility:[facility] Start: 03-24-2022 End: 03-24-[address] EDISON TIMMONS Facility:[facility] Procedures Date Procedure Procedure Detail Performing Clinician Start: 01-27-2025 ALL CBC WITH AUTO DIFF Ash Tyrell DO Work Phone: Start: 01-09-2025 Urnls dip stick/tabl et rgnt [...] Treatment Date Care Activity Detail Author Start: 02-20-2026 End: 02-20-2026 Patient encounter procedure 02/20/2026 10:00 AM EDT Office Visit [facility] [address] [place] [phone] Ash Santillan, DO [address] [place] [address] [facility] Start: 05-11-2025 End: 05-11-2025 Patient encounter procedure 05/11/2025 9:00 AM EDT Office Visit [facility] [address] [place] [phone] Ash Santillan, DO [address] [place] [address] [facility] Start: 03-22-2025 End: 03-22-2025 Patient encounter procedure 03/22/2025 10:50 AM EDT Office Visit [facility] [address] [place] [phone] Ash Santillan, DO [address] [place] [address] [facility] Start: 02-16-2025 End: 02-16-2025 Patient encounter procedure 02/16/2025 8:45 AM EDT Office Visit [facility] [address] [place] [phone] Marlene Maloney DPM [address] [place] [address] [facility] Start: 02-13-2025 End: 04-15-2026 MG Breast - bilateral Screening Bilateral screening mammogram Imaging Routine Breast cancer screening by mammogram Expected: 02/13/2025 (Approximate), Expires: 04/15/2026 [facility] Work Phone: Comment on above: Expected: 02/13/2025 (Approximate), Expires: 04/15/2026 Start: 02-13-2025 End: 02-13-2025 Patient encounter procedure [facility] Start: 02-02-2025 End: 02-02-2025 Patient encounter procedure 02/02/2025 3:45 PM EDT Office Visit [facility] [address] [place] [phone] Boogie Kate DPM [address] [place] [address] [facility] Start: 01-26-2025 End: 01-26-2025 Patient encounter procedure 01/26/2025 3:45 PM EDT Office Visit [facility] [address] [place] [phone] Boogie Kate DPM [address] [place] [address] Post-operative state (Primary Dx) [facility] Comment on above: Post-operative state (Primary Dx) Start: 01-24-2025 End: 01-24-2025 Patient encounter procedure 01/24/2025 11:30 AM EDT Office Visit [facility] [address] [place] [phone] Boogie Kate DPM [address] [place] [address] [facility] Start: 01-16-2025 End: 01-16-2025 Patient encounter procedure [facility] Comment on above: Arrived Start: 01-09-2025 End: 01-09-2025 Patient encounter procedure [facility] Comment on above: Arrived Start: 12-29-2024 End: 12-29-2024 Patient encounter procedure 12/29/2024 3:15 PM EDT Office Visit [facility] [address] [place] [phone] Marlene Maloney, DPM [address] [place] [address] Arrived [facility] Comment on above: Arrived Start: 12-29-2024 End: 12-29-2024 Patient encounter procedure 12/29/2024 10:40 AM EDT Office Visit [facility] [address] [place] [phone] Ash Santillan DO [address] [place] [address] [facility] Start: 12-28-2024 End: 12-28-2024 ambulatory 12/28/2024 5:00 PM EDT Treatment [facility] [address] [place] [address] Ursula Fall, PT [facility] Start: 12-21-2024 End: 12-21-2024 ambulatory 12/21/2024 5:00 PM EDT Treatment [facility] [address] [place] [address] Ursula Fall, PT [facility] Start: 12-21-2024 End: 12-21-2024 Patient encounter procedure 12/21/2024 2:15 PM EDT Office Visit [facility] [address] [place] [phone] Marlene Maloney, DPM [address] [place] [address] Arrived [facility] Comment on above: Arrived Start: 12-19-2024 End: 12-19-2024 ambulatory 12/19/2024 5:00 PM EDT Treatment [facility] [address] [facility] [address] [place] [address] Ursula Fall, PT [facility] Start: 12-14-2024 End: 12-14-2024 ambulatory 12/14/2024 5:00 PM EDT Treatment [facility] [address] [facility] [address] [place] [address] Ursula Fall, PT [facility] Start: [...] EDT Office Visit [facility] [address] [facility] [place] [address] Ash Santillan DO [address] [place] [address] [facility] Start: 12-07-2024 End: 12-07-2024 ambulatory 12/07/2024 5:00 PM EDT Treatment [facility] [address] [facility] [address] [place] [address] Ursula Fall, PT [facility] Start: 11-21-2024 End: 11-21-2024 [facility] Comment on above: Arrived Start: 10-20-2024 End: 10-20-2024 Patient encounter procedure 10/20/2024 11:00 AM EST Office Visit [facility] [address] [place] [address] Marlene Maloney, DPM [address] [place] [address] [facility]rived [facility] Comment on above: Arrived Start: 09-07-2024 End: 09-07-2024 Patient encounter procedure 09/07/2024 1:45 PM EST [facility] [address] [place] [address] Marlene Maloney, DPM [address] [place] [address] [facility] Start: 07-26-2024 End: 07-26-2024 Patient encounter procedure 07/26/2024 1:45 PM EST [facility] [address] [place] [address] Marlene Maloney, DPM [address] [place] [address] [facility] DHEA-sulfate DHEA-sulfate Lab Routine PCOS (polycystic ovarian syndrome) Ordered: 12/13/2024 [facility] Comment on above: Ordered: 12/13/2024 Follicle stimulating hormone Follicle stimulating hormone Lab Routine PCOS (polycystic ovarian syndrome) Ordered: 12/13/2024 [facility] Comment on above: Ordered: 12/13/2024 hCG, quantitative, hCG, quantitative, Lab Routine PCOS (polycystic ovarian syndrome) Ordered: 12/13/2024 [facility] Work Phone: Comment on above: Ordered: 12/13/2024 Hemoglobin A1c/Hemoglobin.total in Blood Hemoglobin A1c Lab Routine Pelvic pain in female Abnormal uterine bleeding (AUB) Ordered: 12/13/2024 [facility] Comment on above: Ordered: 12/13/2024 Luteinizing hormone Luteinizing hormone Lab Routine PCOS (polycystic ovarian syndrome) Ordered: 12/13/2024 [facility] Comment on above: Ordered: 12/13/2024 Prolactin Prolactin Lab Ro utine Pelvic pain in female Abnormal uterine bleeding (AUB) Ordered: 12/13/2024 [facility] Comment on above: Ordered: 12/13/2024 THIN PREP TIS PAP AN D HR HPV DNA THIN PREP TIS PAP AND HR HPV DNA Pathology and Cytology Routine Well woman exam with routine gynecological exam Ordered: 02/13/2025 [facility] Comment on above: Ordered: 02/13/2025 Payers Date Payer Category Payer Medicaid [id number] 2019 Private Health Insurance [id number] 1982 Unknown [id number] 2.16.84 0.1.872337.3.579.2.593 1982 Unknown [id number] 2.16.84 0.1.597650.3.579.2.593 1982 Unknown [id number] 2.16.84 0.1.892587.3.579.2.593 1982 Unknown [id number] 2.16.84 0.1.378365.3.579.2.593 1982 Unknown [id number] 2.16.8 40.1.668343.3.579.2.1259 1982 Unknown [id number] 2.16.84 0.1.452705.3.579.2.1259 1982 Unknown [id number] 2.16.84 0.1.074487.3.579.2.1259 1982 Unknown [id number] 2.16.84 0.1.659108.3.579.2.1259 1982 Unknown [id number] 2.16.84 0.1.301671.3.579.2.1258 1982 Unknown [id number] 2.16.84 0.1.943535.3.579.2.1258 1982 Unknown [id number] 2.16.84 0.1.776523.3.579.2.1258 1982 Unknown [id number] 2.16.84 0.1.952464.3.579.2.1258 1982 Unknown [id number] 2.16.84 0.1.993649.3.579.2.1258 1982 Unknown [id number] 2.16.84 0.1.275638.3.579.2.1258 1982 Unknown [id number] 2.16.84 0.1.552150.3.579.2.1258 1982 Unknown [id number] 2.16.84 0.1.038482.3.579.2.1258 1982 Unknown [id number] 2.16.84 0.1.099168.3.579.2.1258 1982 Unknown [id number] 2.16.84 0.1.391602.3.579.2.1258 1982 Unknown [id number] 2.16.84 0.1.830447.3.579.2.1258 1982 Unknown [id number] 2.16.84 0.1.790924.3.579.2.1258 1982 Unknown [id number] 2.16.84 0.1.287499.3.579.2.9 1959 Self-pay [id number] 1959 Unknown [id number] 1959 Unknown [id number] Unknown [id number] 2.16.84 0.1.556079.3.579.2.593 Social History Date Type Detail Facility Tobacco smoking stat [facility] Tobacco smoking consumption unknown [facility] Start: 1980 Sex assigned at Not on file [facility] Start: 07-26-2024 End: 02-02-2025 Gender identity Not on file [facility] Start: 07-26-2024 [facility] Ex-smoker [facility] History of tobacco use Current smoker [facility] History of tobacco use Cigarette Smoker [facility] Start: 07-26-2024 Tobacco use and exposure Smokeless t obacco non-user [facility] Start: 07-26-2024 End: 02-02-2025 History of Social function [facility] Clinical Notes 06-13-2022 to 02-13-2025 Herminia Luna, PULPWOOD DEALER - 02/13/2025 9:50 AM EDTCjeffrey Maloney, DPM - 02/02/2025 3:45 PM EDTMsancho Kate, DP - 01/26/2025 3:45 PM EDTPatient InstructionsPatient Instructions Note Date & Type Note Facility 02-13-2025 History of Presen t illness Narrative Reason for Appointment: Patient ID: Toi Rooney is a 44 y.o. female who presents for Gynecologic Exam (Pt present today for annual visit.) Patient presents today for Annual Exam. MEDICATIONS Current Outpatient Medications Medication Instructions ibuprofen 800 mg, Every 8 hours metFORMIN XR (GLUCOPHAGE-XR) 500 mg, Oral, Daily with evening meal, Do not crush, chew, or split. ALLERGIES No Known Allergies PROBLEMS Active Ambulatory [...] LOW TRANSVERSE 05/19/2014 SECTION, LOW TRANSVERSE 01/10/2011 DILATION AND CURETTAGE OF UTERUS 01/27/2025 D&C hysteroscopy w/myosure, dx laparoscopy w/lysis of adhesions TUBAL LIGATION 06/13/2022 REVIEW OF SYSTEMS Review of Systems: Review of Systems Constitutional: Negative. HENT: Negative. Eyes: Negative. Respiratory: Negative. Cardiovascular: Negative. Gastrointestinal: Negative. Genitourinary: Positive for menstrual problem, pelvic pain and vaginal bleeding. Musculoskeletal: Negative. Skin: Negative. Neurological: Negative. All [...] nursing note reviewed. Exam conducted with a rn internship present. Vitals: Estimated body mass index is 38.08 kg/m as calculated from the following: Height as of 06/26/22: 5'. Weight as of this encounter: 195 lb. BP: 120/74 No LMP recorded (approximate). ASSESSMENT & PLAN ICD-10-CM 1. PCOS (polycystic ovarian syndrome) E28.2 metFORMIN XR (Glucophage-XR) 500 MG 24 hr tablet 2. Well woman exam with routine gynecological exam Z01.419 THIN PREP TIS PAP AND HR HPV DNA 3. Pre-op examination Z01.818 4. Pelvic pain R10.2 5. Menorrhagia with regular cycle N92.0 6. Abnormal uterine bleeding (AUB) N93.9 7. Breast cancer screening by mammogram Z12.31 Bilateral screening mammogram Bilateral screening mammogram Annual Exam: Patient presents today for an annual exam. Patient states she is doing well and has no complaints. Pap was obtained without difficulty. Patient with continued abnormal bleeding and menorrhagia. She would also like to proceed with endometrial ablation. Patient would like to begin weight loss journey. She will begin on metformin and prescription will be sent to pharmacy. We will discuss beginning Adipex at postop ablation visit. Orders Placed This Encounter Procedures Bilateral screening mammogram Follow Up: Patient is to return in one year for annual unless needed otherwise. Documented by Herminia Luna NP on behalf of: Ash Santillan DO documented in this encounter [facility] 02-02-2025 History of Presen t illness Narrative Images from the original note were not included. HPI: Toi Rooney presents today for post-op appointment of EPF left foot. Surgery was performed on 01/13/2025 at [facility]. Patient complains of pain 0. Current [...] weeks for recheck. documented in this encounter [facility] 01-26-2025 History of Presen t illness Narrative [...] for this visit. No Known Allergies Objective: [facility] 01/07/2025 Patient presents WBAT in CAM to [...] week with Dr Maloney for suture removal. Boogie Kate DPM documented in this encounter [facility] 01-26-2025 Instructions Boogie Kate DPM - 01/26/2025 3:45 PM EDT Continue weight bearing as tolerated in CAM boot OK to remove at rest Continue gentle range of motion exercises Apply betadine and bandage to site daily Monitor for sign of infection documented in this encounter [facility] 01-16-2025 History of Presen t illness Narrative Images from the original note were not included. HPI: Toi Rooney presents today for post-op appointment of EPF left foot. Surgery was performed on 01/13/2025 at [facility]. Patient complains of pain 0. Current [...] for suture removal. documented in this encounter [facility] 01-09-2025 History of Presen t illness Narrative Reason for Appointment: Patient ID: Toi Rooney is a 44 y.o. female who presents for Pre-op Visit Patient presents today for Pre Op appointment. Patient is scheduled to undergo Diagnostic Laparoscopy, possible CYNDY, possible FOE, possible BSO and D&C Hysteroscopy, possible Myosure on 01/27/[address] Santillan at [facility]. MEDICATIONS No current outpatient medications ALLERGIES No [...] nursing note reviewed. Exam conducted with a rn internship present. Vitals: Estimated body mass index is [...] reviewed, and patient is to proceed to [facility] OR. Follow Up: Patient is to follow up between 1-2 weeks post operative to assess proper healing and recovery from procedure. Documented by Adriana Dale LPN on behalf of: Ash Santillan DO documented in this encounter [facility] 12-29-2024 History of Presen t illness Narrative Images from the original note were not included. HPI: Patient presents today for their pre-operative appointment. The patient is scheduled for EPF left foot at [facility] with Dr. Maloney on 01/13/2025 at [...] Patient was dispensed their postoperative prescriptions including: [place]. We discussed the postoperative instructions including protected [...] days after surgery. documented in this encounter [facility] 12-29-2024 Instructions Marlene Maloney DPM - 12/29/2024 3:15 PM EDT [facility] [address] [address] Arrive at 9:45 on 01/13 documented in this encounter [facility] 12-21-2024 History of Presen t illness Narrative [...] their surgery date. documented in this encounter [facility] 12-21-2024 Instructions Marlene Maloney DPM - 12/21/2024 2:15 PM EDT Instructions for Surgery Today you discussed surgery on your foot or ankle with Dr. Maloney. The following information is to help answer any questions that you may have prior to your surgery. If you have further questions prior to surgery, please contact the office at [phone]. PRE-OPERATIVELY Scheduling Once the paperwork is completed for your surgery, you will be contacted within the next 5-[address] Maloney's nurse/MA ([phone] ext [phone]) to schedule your surgery. The date is [...] the [facility] ([facility]) at the [facility]. Your surgery may also be scheduled at [facility] depending upon your insurance and what type [...] physical examination and the staff at the [facility] or hospital. Preparing your home This is [...] Surgery Parking is readily available at the [facility] and at the hospital. Please make sure [...] at that time. documented in this encounter [facility] 12-19-2024 History of Presen t illness Narrative [...] present. Does occasional massage at home. Precautions: [place] Subjective: Pt states she felt better after [...] to be instructed in home exercise program. Health Spa Manager Goals: To be met in 10 weeks [...] sign below. Date: documented in this encounter [facility] 12-14-2024 History of Presen t illness Narrative [...] present. Does occasional massage at home. Precautions: [place] Subjective: Pt states she felt better after [...] to be instructed in home exercise program. [facility] Goals: To be met in 10 weeks [...] sign below. Date: documented in this encounter [facility] 12-13-2024 History of Presen t illness Narrative [...] nursing note reviewed. Exam conducted with a rn internship present. Vitals: Estimated body mass index is [...] Ash Santillan DO documented in this encounter [facility] 12-07-2024 History of Presen t illness Narrative [...] present. Does occasional massage at home. Precautions: [place] Subjective: Pt states bilateral calf muscles and heels were sore after last session. Heels still a little painful today. Inserts were delivered today. Pain: 10 Objective: PT Evaluation (11/30/2024) Bilateral ANKLE AROM: [...] to be instructed in home exercise program. Health Spa Manager Goals: To be met in 10 weeks [...] sign below. Date: documented in this encounter [facility] 12-05-2024 History of Presen t illness Narrative [...] present. Does occasional massage at home. Precautions: [place] Subjective: Pt states heels feel about the [...] to be instructed in home exercise program. Health Spa Manager Goals: To be met in 10 weeks [...] sign below. Date: documented in this encounter [facility] 10-20-2024 History of Presen t illness Narrative [...] 4-6 weeks. documented in this encounter [facility] 09-07-2024 History of Presen t illness Narrative [...] other conservative measures including supportive shoes and szkd-hba-qeajteg inserts or custom inserts as applicable. We did discuss that there is a slight possibility of recurrence of the heel pain but to be very vigilant about continuing with the stretching exercises especially if they notice any recurrent symptoms. Patient should follow up as needed if they have any worsening pain or symptoms to the heel. documented in this encounter [facility] 07-26-2024 History of Presen t illness Narrative [...] 4-6 weeks. documented in this encounter [facility] 06-27-2024 Telephone encount er Note Rx was sent to [facility] in [place]. [facility] 06-27-2024 Miscellaneous Notes Formattin g of this note might be different from the original. Rx was sent to [facility] in [place]. Pt called to check in on script, and to change her preferred pharmacy to the [facility] in [place]. documented in this encounter [facility] 06-27-2024 Telephone encount er Note Pt called to check in on script, and to change her preferred pharmacy to the [facility] in [place]. [facility] 06-27-2024 History of Presen t illness Narrative [...] if needed. documented in this encounter [facility] 06-27-2024 Instructions Marlene Maloney DPM - 06/27/2024 [...] foot and heel over the water bottle. Xnlq-moc-wxphnac (OTC) arch supports: Spenco, Powerstep, UCOs Continued [...] The doctor may have given you an OT arch support called a UCO. This is [...] get them is at an online supplier. [employer] offers many options for night splints. There [...] wake up in the morning and provide superintendent marine oil terminal flexibility to help decrease the chance of [...] 6-8 weeks. documented in this encounter [facility] 06-13-2022 Note OPERATIVE NOTE OPERATION DATE: 06/13/2022 PROCEDURE: Bilateral laparoscopic salpingectomy, lysis of adhesions, omental adhesions from the anterior abdominal wall. PREOPERATIVE DIAGNOSIS: Desires permanent sterilization. POSTOPERATIVE DIAGNOSIS: Desire permanent sterilization. ANESTHESIA: General. SURGEON: Ash Santillan D.O. HEAD OF MARKETING ANALYTICS: SHAR Rdz URINE OUTPUT: Yellow and clear. [...] and needle counts were correct x2. [facility] Evaluation note Diagnosis Plantar fasciitis- Primary Plantar fascial fibromatosis Pain of left heel Pain of right heel Pain of both heels documented in this encounter [facility]* Diagnosis Plantar fasciitis- [...] Plantar fascial fibromatosis documented in this encounter [facility] Healthcare[facility] note* Diagnosis Pelvic pain in female Unspecified symptom associated with female genital organs PCOS (polycystic ovarian syndrome) Polycystic ovaries Abnormal uterine bleeding (AUB) documented in this encounter [facility] HealthcareEvaluation note* Diagnosis Plantar fasciitis, bilateral- Primary Plantar fasciitis Plantar fascial fibromatosis documented in this encounter [facility] note* Diagnosis Plantar fasciitis, bilateral- Primary Plantar fasciitis Plantar fascial fibromatosis documented in this encounter [facility] note* Diagnosis Plantar fasciitis- Primary Plantar fascial fibromatosis Pain of left heel Pain of right heel documented in this encounter [facility]* Diagnosis Plantar fasciitis- Primary Plantar fascial fibromatosis Pain of left heel documented in this encounter [facility]* Diagnosis Pre-op examination Pelvic pain in female Unspecified symptom associated with female genital organs PCOS (polycystic ovarian syndrome) Polycystic ovaries Abnormal uterine bleeding (AUB) Left lower quadrant abdominal pain documented in this encounter [facility]* Diagnosis Plantar fasciitis- Primary Plantar fascial fibromatosis Postoperative examination [Z09] Follow-up examination, following unspecified surgery Pain of left heel documented in this encounter [facility]* Diagnosis Post-operative state- Primary Other postprocedural status documented in this encounter [facility]* Diagnosis Post-operative state- Primary Other postprocedural status Plantar fasciitis Plantar fascial fibromatosis Pain of left heel documented in this encounter [facility] note* Diagnosis PCOS (polycystic ovarian syndrome)- Primary Polycystic ovaries Well woman exam with routine gynecological exam Routine gynecological examination Pre-op examination Pelvic pain Menorrhagia with regular cycle Abnormal uterine bleeding (AUB) Breast cancer screening by mammogram documented in this encounter [facility] HealthcareReason for visit Narrative* Rehabilitation - Outpatient (Routine) - Pending Review Specialty Diagnoses / Procedures Referred By Long redding Referred To Contact Physical Therapy Diagnoses Plantar fasciitis Procedures [place] OFFICE/OUTPATIENT [facility] HIGH MDM 60 MINUTES Marlene Maloney, COREY [address] [place] [address] Phone: tel: fax: Ursula Fall PT Referral ID Status Reason Start Date Expiration Date Visits Requested Visits Authorized [id number] Pending Review Specialty Services Required 11/21/2024 05/20/2025 2 2 [facility] - Outpatient (Routine) - Authorized Specialty Diagnoses / Procedures Referred By Long redding Referred To Contact Physical Therapy Diagnoses Plantar fasciitis Procedures MT OFFICE/OUTPATIENT NEW HIGH MDM 60 MINUTES Marlene Maloney, DPM [address] [place] [address] Phone: tel: fax: Ursula Fall PT Referral ID Status Reason Start Date Expiration Date Visits Requested Visits Authorized [id number] Authorized Specialty Services Required 11/21/2024 08/30/2025 12 12 [facility] Summary Purpose Family History No Family History Records FoundNo Family History Records Found Advance Directives No Advanced Directives Records FoundNo Advanced Directives Records Found Additional Source Comments INFORMATION SOURCE (unrecogn ized section and content) DATE CREATED AUTHOR 08/07/2022 [facility] p[facility] DATE CREATED AUTHOR AUTHOR'S ORGANIZ ATION 02/04/2025 [facility] d[facility] Specialists EPIC Care Teams (unrecognized sec tion and content) Wood Floor Layer Relationship Specialty Start Date End Date Edison Timmons MD [address] [place] [address] PCP - General Family Medicine 06/27/24 Wood Floor Layer Relationship Specialty Start Date End Date Edison Timmons MD [address] [place] [address] PCP - General Family Medicine 06/27/24 Wood Floor Layer Relationship Specialty Start Date End Date Edison Timmons MD [address] [place] [address] PCP - General Family Medicine 06/27/24 Wood Floor Layer Relationship Specialty Start Date End Date Edison Timmons MD [address] [place] [address] PCP - General Family Medicine 06/27/24 Wood Floor Layer Relationship Specialty Start Date End Date Edison Timmons MD [address] [place] [facility] [address] PCP - General Family Medicine 06/27/24 Wood Floor Layer Relationship Specialty Start Date End Date Edison Timmons MD [address] [place] [facility] [address] PCP - General Family Medicine 06/27/24 Wood Floor Layer Relationship Specialty Start Date End Date Edison Timmons MD [address] [place] [facility] [address] PCP - General Family Medicine 06/27/24 Wood Floor Layer Relationship Specialty Start Date End Date Edison Timmons MD [address] [place] [facility] [address] PCP - General Family Medicine 06/27/24 Wood Floor Layer Relationship Specialty Start Date End Date Edison Timmons MD [address] [place] [facility] [address] PCP - General Family Medicine 06/27/24 Wood Floor Layer Relationship Specialty Start Date End Date Edison Timmons MD [address] [place] [facility] [address] PCP - General Family Medicine 06/27/24 Wood Floor Layer Relationship Specialty Start Date End Date Edison Timmons MD [address] [place] [facility] [address] PCP - General Family Medicine 06/27/24 Wood Floor Layer Relationship Specialty Start Date End Date Edison Timmons MD [address] [place] [facility] [place] [address] PCP - General Family Medicine 06/27/24 Wood Floor Layer Relationship Specialty Start Date End Date Edison Timmons MD [address] [place] [facility] [address] PCP - General Family Medicine 06/27/24 Wood Floor Layer Relationship Specialty Start Date End Date Edison Timmons MD [address] [place] [facility] [address] PCP - General Family Medicine 06/27/24 Wood Floor Layer Relationship Specialty Start Date End Date Edison Timmons MD [address] [place] [facility] [address] PCP - General Family Medicine 06/27/24 Wood Floor Layer Relationship Specialty Start Date End Date Edison Timmons MD PCP - General Family Medicine 06/27/24 Wood Floor Layer Relationship Specialty Start Date End Date Edison Timmons MD PCP - General Family Medicine 06/27/24 Wood Floor Layer Relationship Specialty Start Date End Date Edison Timmons MD PCP - General Family Medicine 06/27/24 Wood Floor Layer Relationship Specialty Start Date End Date Edison Timmons MD PCP - General Family Medicine 06/27/24 Wood Floor Layer Relationship Specialty Start Date End Date Edison Timmons MD [address] [place] [address] PCP - General Family Medicine 01/26/25 Wood Floor Layer Relationship Specialty Start Date End Date Edison Timmons MD [address] [place] [address] PCP - General Family Medicine 01/26/25 Wood Floor Layer Relationship Specialty Start Date End Date Edison Timmons MD [address] [place] [address] PCP - General Family Medicine 01/26/25 Wood Floor Layer Relationship Specialty Start Date End Date Edison Timmons MD [address] [place] [address] PCP - General Family Medicine 01/26/25 Wood Floor Layer Relationship Specialty Start Date End Date Edison Timmons MD [address] [place] [address] PCP - General Family Medicine 01/26/25 Reason for Visit (unrecogniz ed section and content) Reason Onset Date Comments script check 06/27/2024 Reason Comments Pelvic Pain Reason Comments Pre-op Visit Reason Comments Gynecologic Exam Pt present today for annual visit. FOR RECORDS PERTAINING TO PATIENTS WHO ARE [...] BE BASED ON THE PRIMARY CLINICAL RECORDS. [facility] [employer] [facility]. provides no warranty or guarantee of the accuracy or completeness of information in this document.
[2025-02-16 09:08] LABS: Age Gdln ACOG Testing Note (.); HPV Aptima Negative (Negative); IGP, Aptima HPV, rfx 16/18,45 Note (.)
== END 2025-02-13 12:58 | disposition home or self-care (01) ==
LOC: LAB 12:57
PROVIDERS: PCP Family Medicine; Visit Provider Obstetrics & Gynecology
DX: Z01.419 Encounter for gynecological examination (general) (routine) without abnormal findings (principal)
CPT/HCPCS: 87624; 88175

== ENCOUNTER 2025-03-01 12:28 | Outpatient (OUT) | payer OTHER, SELFPAY ==
--- OUTSIDE RECORDS SUMMARY | 2024-12-19 12:49 | XMS_ITS ---
Author Organization The [facility] in [place] Address [address] [place] [address] Care Team Providers Care Bakeshop Cleaner Name Role Phone Francis Timmons Primary Care Provider [phone] REASON FOR VISIT Holter Results Encounters Encounter Location Date Provider Diagnosis [facility] [address] [place] [address] 12/19/2024 Francis Timmons Encounter for other preprocedural examination Z01.818 Assessments Encounter Date Diagnosis (ICD Code) Assessment Notes Treatment Notes Treatment Clinical Notes Section Notes 12/19/2024 Encounter for other preprocedural examination (ICD-10 - Z01.818) Plan Of Treatment Pending Test Test Name Order Date PT (PROTIME), INR AND PTT (PT/INR AND PT T) 12/19/2024 Progress Notes * Racheal KNIGHT LDOB:[birth year] (44 yo F)Acc No.[id number]:12/19/2024 Patient: Chaparro CJ Racheal Desouza :1980 A ge:44 Y S ex:Female Address:[address] [place] [phone] Subjective: * Chief Complaints: * H olter Results * Medical History: * Surgical History: * Hospitalization/Major Diagno stic Procedure: * Medications: Objective: * Vitals: * Physical Examination: Assessment: * Assessment: 1. E ncounter for other preprocedural examination - Z01.818 (Primary) Plan: * Treatment: * Procedure Codes: * true * Date: Generated for Charles delgado/Sander/Octaviano on: 0 03/01/2025 12:30 PM EDT
--- OUTSIDE RECORDS SUMMARY | 2024-12-21 16:15 | XMS_ITS ---
Author Organization [facility] in [place] Address [address] [place] [address] Care Team Providers Care Decal Decorator Name Role Phone Francis Timmons Primary Care Provider REASON FOR VISIT Holter results Encounters Encounter Location Date Provider Diagnosis [facility] [address] [place] [address] 12/21/2024 Francis Timmons Plan Of Treatment No Information Progress Notes * Racheal KNIGHT LDOB:[birth year] (44 yo F)Acc No.[id number]:12/21/2024 Patient: Chaparro Racheal CORONA :1980 A ge:44 Y S ex:Female Address:[address] [place] [phone] * true * Date: Generated for Charles delgado/Sander/eTransmitting on: 0 03/01/2025 12:30 PM EDT
--- OUTSIDE RECORDS SUMMARY | 2025-01-09 07:30 | XMS_ITS ---
Author Organization [facility] [place] Address [address] [place] [address] Care Team Providers Care Gasoline Finisher Name Role Phone Francis Timmons Primary Care Provider Allergies No Known Allergies REASON FOR VISIT Presents to office for surgery clearance with Dr. Maloney at [facility] in [place]. Plantar fasciitis left foot Social History Tobacco Use: Social History Observation Description Date Details (start date - stop date) Former Smoker 10/29/2001 - 10/29/2012 Tobacco Control (Standard) Question Answer Notes Tobacco use: Former smoker When did you start smoking? 10/29/2001 When did you stop smoking? 10/29/2012 How long has it been since you last smoked? Grea ter than 10 years AUDIT-C (Standard) Question Answer Notes Did you have a drink contain ing alcohol in the past year? Yes How often did you have six o r more drinks on one occasion in the past year? Never (0 point) How many drinks did you have on a typical day when you were drinking in the past year? 1 or 2 drinks (0 point) How often did you have a dri nk containing alcohol in the past year? Monthly or less (1 point) Points 1 Interpretation Negative Problems Problem Type SNOMED Code ICD Code Onset Dates Problem Status W/U Status Risk Notes Problem Plantar fasciitis, left (M72.2) Active confirmed Vital Signs Weight 194.4 lbs 01/09/2025 Height 61 in 01/09/2025 Blood pressure systolic 122 mm Hg 01/10/20 25 Blood pressure diastolic 78 mm Hg 025 BMI 36.73 kg/m2 01/09/2025 Encounters Encounter Location Date Provider Diagnosis [facility] [address] [place] [address] 01/09/2025 Francis Timmons Plantar fasciitis, left M72.2 Assessments Encounter Date Diagnosis (ICD Code) Assessment Notes Treatment Notes Treatment Clinical Notes Section Notes 01/09/2025 Plantar fasciitis, left (ICD-10 - M72.2) clered for OR Plan Of Treatment Treatment Notes Assessment Notes Plantar fasciitis, left clered for OR Progress Notes * Racheal KNIGHT LDOB:[birth year] (44 yo F)Acc No.[id number]:01/09/2025 Progress Note Patient: Racheal COLLINS Provider: Jose Antonio Timmons ([facility])MD :1980 A ge:44 Y S ex:Female Date:01/09/2025 Address:[address] [place], [place] [phone] Check In:11:29 AM ESTCheck O ut:12:13 PM EST Subjective: * Chief Complaints: * P resents to office for surgery clearance with Dr. Maloney at [facility] surgery [facility] in [place]. Plantar fasciitis left foot * HPI: G eneral: Lft foot plantar fasciititis - hacving surgeyr no acurt changes - NO Hx - CAD, no CVA in the past - cleraerd for or -. * ROS: E ENT: hearing changes d enies. v isual changes d enies.?non-healing mouth sores d enies. s wollen glands or neck lumps d enies. h oarseness d enies. s ore throat d enies. d ifficulty swallowing d enies. n ose bleeds d enies. n jose elias congestion d enies. e ar ache d enies. e ar discharge?denies. r inging in ears d enies. l ight sensitivity d enies. e ye pain d enies. b lurring d enies. e ye irritation d enies. d ouble vision d enies.?vision loss d enies. G eneral/Constitutional: Sweats: D enies. F atigue d enies. S leep problems d enies. A norexia d enies. M alaise d enies. W eight loss d enies.?Fatigue or Weakness d enies. F ever or Chills d enies. C ardiovascular: Shortness of Breath w/lying flat d enies. L ightheadedness/dizziness d enies. C hest tightness/ heavy pressure d enies. S welling of legs, ankles, or feet d enies. W aking up with shortness of breath d enies. C hest pain denies. P alpitations d enies. W eight gain d enies. R espiratory: Chronic or frequent cough d enies. C oughing up blood?denies. D ifficulty breathing d enies. P roductive cough d enies. S noring?denies. S hortness of breath that awakens from sleep (PND) d enies. C hest pain d enies. S putum production d enies. W heezing d enies. M usculoskeletal: Joint pain d enies. J oint Fluid d enies. B ack pain d enies. K nee pain d enies. N alona pain d enies. J oint Stiffness d enies. M uscle cramps d enies. W eakness of muscles d enies. A rthritis d enies. M uscle aches d enies. P ain in shoulder(s) d enies. S wollen joints d enies. * Active Problem List E78.1 Hypertriglyceridemia Modified On:04/18/2024W/U Status:confirmed R00.2 Palpitation Modified On:11/17/2024W/U Status:confirmed M72.2 Plantar fasciitis, l eft Modified On:01/09/2025W/U Status:confirmed * Medical History: * Surgical History: C -Section x2 tubal ligation * Hospitalization/Major Diagno stic Procedure: s ee above * Family History: F ather: alive. M other: alive, diagnosed with Unspecified essential hypertension. M aternal Grandmother: alive, diagnosed with Other malignant neoplasm of unspecified site. Helen garnica aunt: alive, breast cancer. * Social History: T obacco Use: T obacco Control (Standard) T obacco use: F ormer smoker W hen did you start smoking? 0 10/29/2001 W hen did you stop smoking? 0 10/29/2012 H ow long has it been since you last smoked??Greater than 10 years D rug/Alcohol: A JON-C (Standard) D id you have a drink containing alcohol in the past year? Y es H ow often did you have six or more drinks on one occasion in the past year? N ever (0 point) H ow many drinks did you have on a typical day when you were drinking in the past year? 1 or 2 drinks (0 point) H ow often did you have a drink containing alcohol in the past year? M onthly or less (1 point) P oints 1 I nterpretation N egative * Medications: * Allergies: N .K.D.A.no[Allergies Verified] Objective: * Vitals: W t:194.4lbs, Ht: 61 in, BP:122/78mm Hg, BMI:36.73Index, Ht-cm: 154.94 cm, Wt-k.18 kg. * Examination: P hysical Exam: GENERAL: w ell developed, well nourished, in no acute distress. HEAD: n ormocephalic/atraumatic. EYES: p upils equal, round and reactive to light, conjunctivae and sclerae normal. EARS: n o deformity or lesion of external ear, canals and TM appear normal bilaterally, TM's intact, not inflamed with normal light reflex, hearing grossly normal to conversational speech. NOSE: n o deformity, discharge, inflammation, or lesions.? MOUTH: m ucous membranes moist, normal oropharynx and posterior pharynx without lesions or exudates, tongue normal, dentition normal. NECK: n alona supple, no masses or palpable cervical nodes, trachea midline, thyroid without nodules, masses, tenderness, or enlargement. CHEST: n o chest wall deformity, no chest wall tenderness.? LUNGS: n ormal respiratory effort and clear to auscultation, no wheezes, rales, or rhonchi, good air exchange. CARDIO: r egular rate and rhythm, normal S1 and S2, nor murmur, rub, or gallop. PULSES: n ormal capillary refill. ABDOMEN: s oft, non-distended, non-tender, no masses. MUSCULOSKELETAL: n o deformity or scoliosis noted, normal range of motion, joints normal, no erythema, edema, effusion, or ecchymosis. EXTREMITY: n o clubbing, cyanosis, edema, or deformity with normal ROM in both upper and lower bilateral extremities. NEUROLOGIC: g rossly normal. SKIN: n o rashes, ulcerations, or suspicious lesions. LYMPH NODES: n o cervical adenopathy, nodes normal. MENTAL STATUS: a lert and oriented x3, normal mood and affect. Assessment: * Assessment: 1. P lantar fasciitis, left - M72.2 (Primary) Plan: * Treatment: * Procedure Codes: * Preventive Medicine: Screenings/Counseling: B NC ACTION PLAN Above Normal BMI Follow-up D ietary management education, guidance, and counseling See treatment section of progress note for complete details of management plan. * * Sign off status: Completed Visit Status: C HK (Check Out) true * Provider: Jose Antonio Timmons ([facility])MD Date: 0 01/09/2025 Generated for Printi ng/Farufinag/eTransmitting on: 0 03/01/2025 12:30 PM EDT History and Physical Notes * HPI (History of Present Illness) Category Sub-Category Detail Notes Category Not es General Lft foot plantar fasciititis - hacving surgeyr no acurt changes - NO Hx - CAD, no CVA in the past - cleraerd for or - Examination Category Sub-Category Detail Notes Category Not es Physical Exam GENERAL: well developed, well nourished, in no acute distress HEAD: normocephalic/atraum atic EYES: pupils equal, round and reactive to light, conjunctivae and sclerae normal EARS: no deformity or lesi on of external ear, canals and TM appear normal bilaterally, TM's intact, not inflamed with normal light reflex, hearing grossly normal to conversational speech NOSE: no deformity, discha rge, inflammation, or lesions MOUTH: mucous membranes epi st, normal oropharynx and posterior pharynx without lesions or exudates, tongue normal, dentition normal NECK: neck supple, no mass es or palpable cervical nodes, trachea midline, thyroid without nodules, masses, tenderness, or enlargement CHEST: no chest wall deform ity, no chest wall tenderness LUNGS: normal respiratory e ffort and clear to auscultation, no wheezes, rales, or rhonchi, good air exchange CARDIO: regular rate and rhy thm, normal S1 and S2, nor murmur, rub, or gallop PULSES: normal capillary ref ill ABDOMEN: soft, non-distended, non-tender, no masses RECTAL: MUSCULOSKELETAL: no deformity or scol iosis noted, normal range of motion, joints normal, no erythema, edema, effusion, or ecchymosis EXTREMITY: no clubbing, cyanosi s, edema, or deformity with normal ROM in both upper and lower bilateral extremities NEUROLOGIC: grossly normal SKIN: no rashes, ulceratio ns, or suspicious lesions LYMPH NODES: no cervical adenopat hy, nodes normal MENTAL STATUS: alert and oriented x 3, normal mood and affect
--- OUTSIDE RECORDS SUMMARY | 2025-02-16 08:45 | XMS_ITS | Encounter Summary ---
Author Organization [facility] Address [address] [place] [address] Care Team Providers Care Resident In Diagnostic Radiology Name Role Phone Harsha Timmons MD Primary Care Provider [phone] Encounter Details Date Type Department Care Team (Late st Contact Info) Description 02/16/2025 8:45 AM EDT Office Visit [facility] [address] [facility] [address] [place] [phone] Nikkie Maloney DPM [address] [facility] [address] [place] [address] Post-operative state (Primary Dx); Plantar fasciitis; Pain [...] Progress Notes * Nikkie Maloney DPM - 02/16/2025 8:45 AM EDT Images from the original note were not included. HPI: Racheal Rooney presents today for post-op appointment of EPF left foot. Surgery was performed on 01/13/[address] [facility]. Patient complains of pain 0. Current [...] the medial and lateral heel are well healed. HYPERKERATOSIS: none NAIL PATHOLOGY: digits 1-5 bilateral [...] Calcaneal spur, right: Plan: Surgery Follow-up Examination: Discussed with the patient continued use of the walking boot, stretching and home treatment following the plantar fascial release. Advised that it can take 6-8 weeks post-op for a majority of the pain and symptoms to resolve, some patients up to 12 weeks. I encouraged her to continue with the stretching exercises and use of the walking boot as needed. She can start to transition out of the boot once her symptoms are improved and that she may be more comfortable with a cushioned inserts rather than some thing firm or hard. We discussed use of the boot when doing more increased activity to helpreduce her symptoms. She will follow-up in 4 weeks for recheck. documented in this encounter Plan of Treatment Upcoming Encounters Date Type Department Care Team (Late st Contact Info) Description 03/16/2025 9:15 AM EDT Office Visit [facility] [address] [place] [address] Nikkie Maloney, DPM [address] [place] [address] 03/22/2025 10:50 AM EDT Office Visit [facility] [address] [place] [phone] Jhon Santillan, DO [address] [facility] [place] [address] 02/20/2026 10:00 AM EDT Office Visit [facility] [address] [place] [phone] Jhon Santillan, DO [address] [facility] [place] [address] documented as of this encounter Visit Diagnoses Diagnosis Post-operative state- Primary Other postprocedural status Plantar fasciitis Plantar fascial fibromatosis Pain of left heel documented in this encounter Care Teams Resident In Diagnostic Radiology Relationship Specialty Start Date End Date Harsha Timmons MD [address] [facility] [place] [address] PCP - General Family Medicine 01/26/25 documented as of this encounter
--- OUTSIDE RECORDS SUMMARY | 2025-03-01 12:31 | XMS_ITS | Encounter Summary ---
Author Organization [facility] Address [address] [facility] [place] [address] Care Team Providers Care Repairer Welding Equipment Name Role Phone Harsha Timmons MD Primary Care Provider [phone] Encounter Details Date Type Department Care Team (Latest Contact Info) Description 02/16/2025 Travel Social History Tobacco Use Types Packs/Day [...] Office Visit [facility] [address] [facility] [address] [place] [address] Nikkie Maloney, DPM [address] [facility] [address] [place] [address] 03/22/2025 10:50 AM EDT Office Visit [facility] [address] [place] [address] Jhon Santillan, DO [address] [place] [place], [place] [id number] 02/20/2026 10:00 AM EDT Office Visit [facility] [address] [place] [address] Jhon Santillan, DO [address] [place] [address] documented as of this encounter Visit Diagnoses Not on filedocumented in this encounter Care Teams Repairer Welding Equipment Relationship Specialty Start Date End Date Harsha Timmons MD [address] [facility] [place] [address] PCP - General Family Medicine 01/26/25 documented as of this encounter
--- OUTSIDE RECORDS SUMMARY | 2025-03-01 12:31 | XMS_ITS | Encounter Summary ---
Author Organization [facility] Address [address] [place] [address] Care Team Providers Care Technical Instructor Name Role Phone Harsha Timmons MD Primary Care Provider [phone] Reason for Visit * Reason Onset Date Comments Questions 02/24/2025 Encounter Details Date Type Department Care Team ([facility] st Contact Info) Description 02/24/2025 Telephone [facility] [address] [facility] [address] [place] [phone] Dariela Goldman MA Questions Social History Tobacco Use Types Packs/Day Years Used Date Smoking Tobacco: Former Cigarettes Smokeless Tobacco: Never Comments No Sex and Gender Information Value Date Recorded Sex Assigned at Not on file Legal Sex Female 7:08 PM EDT Gender Identity Not on file Sexual Orientation Not on file documented as of this encounter Miscellaneous Notes * Telephone Encounter - Dariela Goldman MA - 02/27/2025 10:34 AM EDT Patient was called and advised of the above. Patient verbally acknowledged and expressed understanding. * Telephone Encounter - Nikkie Maloney DPM - 02/27/2025 9:49 AM EDT Yes stationary bike is good to start for exercise. I don't see a problem with the vibration plate which can help with direct circulation to the area. She can fully submerge her foot as her incision sites were fully healed. * Telephone Encounter - Dariela Goldman MA - 02/24/2025 12:29 PM EDT Patient called regarding a few questions she had. She was wondering if: - She can start out easy on a stationary bike - She can stand on a vibration plate - She can submerge foot into the pool and or at the beach Thank you! documented in this encounter Plan of Treatment Upcoming Encounters Date Type Department Care Team (Late st Contact Info) Description 03/16/2025 9:15 AM EDT Office Visit [facility] [address] [place] [address] [place] [phone] Nikkie Maloney DPM [address] [place] [address] [place] [address] 03/22/2025 10:50 AM EDT Office Visit [facility] [address] [place] [phone] Jhon Santillan, DO [address] [place] [address] 02/20/2026 10:00 AM EDT Office Visit [facility] [address] [facility] [place] [phone] Jhon Santillan, DO [address] [facility] [place] [address] documented as of this encounter Visit Diagnoses Not on filedocumented in this encounter Care Teams Technical Instructor Relationship Specialty Start Date End Date Harsha Timmons MD [address] [place] [address] PCP - General Family Medicine 01/26/25 documented as of this encounter
--- OUTSIDE RECORDS SUMMARY | 2025-03-01 12:31 | XMS_ITS | Encounter Summary ---
Author Organization [facility] Address [address] [place] [address] Care Team Providers Care Registered Nurse First Assistant Name Role Phone Harsha Timmons MD Primary Care Provider + Harsha Timmons MD Primary Care Provider + Encounter Details Date Type Department Care Team (Late st Contact Info) Description 01/12/2025 Abstract [facility] [address] [facility] [place] [address] Jhon Santillan DO [address] [facility] [place] [address] Social History Tobacco Use Types Packs/Day Years [...] Department Care Team (Late Contact Info) Description 03/16/2025 9:15 AM EDT Office Visit [facility] [address] [facility] 100 [place] [phone] Nikkie Maloney DPM [address] [place] [address] [place] [address] 03/22/2025 10:50 AM EDT Office Visit [facility] [address] [facility] [place] [phone] Jhon Santillan DO [address] [facility] [place] [address] 02/20/2026 10:00 AM EDT Office Visit [facility] [address] [facility] [place] [phone] Jhon Santillan, DO [address] [facility] [address] [place], [place] [phone] documented as of this encounter Visit Diagnoses Not on filedocumented in this encounter Care Teams Registered Nurse First Assistant Relationship Specialty Start Date End Date Harsha Timmons MD PCP - General Family Medicine 06/27/24 01/25/25 [place] [address] [place] [address] [place] [address] PCP - General Family Medicine 01/26/25 documented as of this encounter
--- OUTSIDE RECORDS SUMMARY | 2025-03-01 12:31 | XMS_ITS | Encounter Summary ---
Author Organization [facility] Address [address] [place] [address] Care Team Providers Care Diesel Engine I Pipe Fitter Name Role Phone Harsha Timmons MD Primary Care Provider [phone] Encounter Details Date Type Department Care Team (Late Contact Info) Description 02/16/2025 Bamboo flowsheet [facility] [address] [facility] 100 [place] [phone] Nikkie Maloney DPM [address] [facility] 100 [place] [address] Social History Tobacco Use Types Packs/Day Years [...] [facility] [address] [facility] [address] [place] [phone] Nikkie Maloney DPM [address] [place] [address] [place] [address] 03/22/2025 10:50 AM EDT Office Visit [facility] [address] [facility] [place] [place] [phone] Jhon Santillan DO [address] [place], [place] [phone] 02/20/2026 10:00 AM EDT Office Visit [facility] [address] [address] Jhon Santillan DO [address] [facility] [place] [address] documented as of this encounter Visit Diagnoses Not on filedocumented in this encounter Care Teams Diesel Engine I Pipe Fitter Relationship Specialty Start Date End Date Harsha Timmons MD [address] [place] [address] PCP - General Family Medicine 01/26/25 documented as of this encounter
--- OUTSIDE RECORDS SUMMARY | 2025-03-01 12:31 | XMS_ITS | Encounter Summary ---
Author Organization [facility] Address [address] [place] [address] Care Team Providers Care Real Estate Services Coordinator Name Role Phone Harsha Timmons MD Primary Care Provider [phone] Encounter Details Date Type Department Care Team (Late Contact Info) Description 02/23/2025 Orders Only [facility] [address] [facility] [place] [phone] Alka Martinez LPN [address] [place] [address] Social History Tobacco Use Types Packs/Day Years [...] PODIATRY [address] [place] [address] [place] [phone] Nikkie Maloney DPM [address] [place] [address] [place] [address] 03/22/2025 10:50 AM EDT Office Visit [facility] [address] [facility] [place] [phone] Jhon Santillan DO [address] [place], [place] [phone] 02/20/2026 10:00 AM EDT Office Visit [facility] [address] [facility] [place] [phone] Jhon Santillan DO [address] [place] [address] [place] [address] documented as of this encounter Procedures Procedure Name Priority Date/Time Associated Diagnosis Comments PAP SMEAR Routine 02/13/2025 12:00 AM EDT documented in this encounter Results * Pap Smear (02/13/2025 12:00 AM EDT) Swab Cervical swab / Unknown [facility]rell Nurse [facility] LAB CYTOLOGY ORDERABLES Final Result EXTERNAL LAB documented in this encounter Visit Diagnoses Not on filedocumented in this encounter Care Teams Real Estate Services Coordinator Relationship Specialty Start Date End Date Harsha Timmons MD [address] [facility] [place] [address] PCP - General Family Medicine 01/26/25 documented as of this encounter
--- OUTSIDE RECORDS SUMMARY | 2025-03-01 12:31 | XMS_ITS | Patient Health Record ---
Author Organization [facility] [place] Address [address] [place] [address] Care Team Providers Care Tin Stacker Name Role Phone Francis Timmons Primary Care Provider Allergies No Known Allergies Results Component Value Reference Range Notes CBC AUTO DIFF Reviewed date:11/17/2024 06:24:49 PM Interpretation: Performing Lab: Notes/Report: [facility] , White Blood Count 9.4 4.0-11.0 [...] Performing Lab: see note ML - [facility] FREE T3 Reviewed date:11/17/2024 06:24:49 PM Interpretation: Performing Lab: Notes/Report: [facility] , Free T3 2.59 2.18-3.98 pg/mL Performing Lab: see note ML - [facility] LB IRON Reviewed date:11/17/2024 06:24:49 PM Interpretation: Performing Lab: Notes/Report: [facility] , Iron 82.0 50.0-170.0 ug/dL Performing Lab: see note ML - [facility] LB PROF 14(COMP METB) Reviewed date:11/17/2024 06:24:49 PM Interpretation: Performing Lab: Notes/Report: [facility] , Sodium 142 136-145 mmol/L Potassium 3.9 [...] 1.2 Performing Lab: see note ML - [facility] LB T4 Reviewed date:11/17/2024 06:24:49 PM Interpretation: Performing Lab: Notes/Report: [facility] , T4 Thyroxine 10.30 4.80-13.90 ug/dL Performing Lab: see note - [facility] LB TSH Reviewed date:11/17/2024 06:24:49 PM Interpretation: Performing Lab: Notes/Report: [facility] , Thyroid Stimulating Hormone 1.604 0.358-3.740 uIU/mL Performing Lab: see note - [facility] LB US pelvis w/ transvaginal Reviewed date:11/17/2024 06:24:49 PM Interpretation: Performing Lab: Notes/Report: Source Facility: [place] [address] Ultrasound Report Signed Patient: BONNIE KNIGHT MR#: [id number] : 1980 Acct:[id number] Age/Sex: 44 / F ADM Date: 11/17/24 Loc: US Attending Dr: Ash Santillan D.O. Ordering Physician: Ash Santillan D.O. Date of Service: 11/17/24 Procedure(s): US pelvis w/ transvaginal Accession Number(s): [id number] cc: Ash Santillan D.O.; Harsha Timmons M.D. [place] [address] Patient Name: BONNIE KNIGHT MRN: [id number] date: 1980 Sex: F Assigned Patient Location: US Current Patient Location: LAB Accession/Order Number: [id number] Exam Date: 11/17/2024 11:04 Report Date: 11/17/2024 [...] Atwood Jr., D.O.11/17/2024 11:06 AM Dictation Location: [place] [address] Electronically authenticated by: [id number] Y Date: 11/17/2024 11:06 Dictated By: Ankit Atwood M.D. Signed By: 11/17/24 1109 DD/ 1106 TD/TT: Sinter Machine Operator: [place] [address] Ultrasound Report Signed Patient: TANYA KNIGHT MR#: [id number] : 1980 Acct:[id number] Age/Sex: 44 / F ADM Date: 11/17/24 Loc: US Attending Dr: Ash Santillan D.O. Ordering Physician: Ash Santillan D.O. Date of Service: 11/17/24 Procedure(s): US pelvis w/ transvaginal Accession Number(s): [id number] cc: Ash Santillan D.O. ; Harsha Timmons M.D. [place] [phone] Patient Name: BONNIE KNIGHT MRN: [id number] date: 1980 Sex: F Assigned Patient Location: US Current Patient Location: LAB Accession/Order Number: [id number] Exam Date: 11/17/2024 11:04 Report Date: 11/17/2024 [...] Atwood Jr., D.O.11/17/2024 11:06 AM Dictation Location: [place] [address] Electronically authenticated by: [id number] Y Date: 11/17/2024 11:06 Dictated By: Ankit Atwood M.D. Signed By: 11/17/24 1109 DD/ 1106 TD/TT: Sinter Machine Operator: CBC AUTO DIFF Reviewed date:01/29/2025 04:18:15 PM Interpretation: Performing Lab: Notes/Report: [facility] , White Blood Count 12.5 4.0-11.0 10 3/uL Red Blood Count 4.57 4.20-5.40 10 6/uL Hemoglobin 14.4 12.0-16.0 g/dL Hematocrit 41.3 36.0-48.0 % Mean Corpuscular Volume 90.4 81.0-99.0 fL Mean Corpuscular Hemoglobin 31.5 26.7-34.0 pg Mean Corpuscular HGB Conc 34.9 29.9-35.2 g/dL Red Cell Distribution Width 12.2 11.0-15.0 % Platelet Count 284 150-450 10 3/uL Mean Platelet Volume 9.8 9.5-13.5 fL Neutrophils Percent Auto 65.0 43.0-75.0 % Lymphocytes Percent Auto 24.8 20.5-60.0 % Monocytes Percent Auto 6.2 1.7-12.0 % Eosinophils Percent Auto 2.9 0.9-7.0 % Basophils Percent Auto 0.6 0.2-2.0 % Immature Granulocytes Pct Auto 0.5 0.0-0.5 % Neutrophils Absolute Auto 8.1 1.4-6.5 10 3/uL Lymphocytes Absolute Auto 3.1 1.2-3.8 10 3/uL Monocytes Absolute Auto 0.8 0.3-0.8 10 3/uL Eosinophils Absolute Auto 0.4 0.0-0.7 10 3/uL Basophils Absolute Auto 0.1 0.0-0.1 10 3/uL Immature Granulocytes Abs Auto 0.06 0.00-0.03 10 3/uL Performing Lab: see note ML - [facility] PREG QUANT HCG Reviewed date:01/29/2025 04:18:15 PM Interpretation: Performing Lab: Notes/Report: [facility] , HCG Quantitative <1 50-500 1-2 WEEKS 10,000-100,000 2-3 MONTHS 100-5,000 2-3 WEEKS 10,000-100,000 5-6 WEEKS 15,000-200,000 6-8 WEEKS 500-10,000 3-4 WEEKS 1,000-50,000 4-5 WEEKS 5-50 0.2-1 WEEK Performing Lab: see note ML - [facility] PREG QUANT HCG Reviewed date:12/17/2024 11:42:21 AM Interpretation: Performing Lab: Notes/Report: [facility] , HCG Quantitative <1 500-10,000 3-4 WEEKS 5-50 0.2-1 WEEK 10,000-100,000 2-3 MONTHS 50-500 1-2 WEEKS 15,000-200,000 6-8 WEEKS 1,000-50,000 4-5 WEEKS 10,000-100,000 5-6 WEEKS 100-5,000 2-3 WEEKS Performing Lab: see note ML - [facility] GLYCOHEMOGLOBIN A1C Reviewed date:12/17/2024 11:42:21 AM Interpretation: Performing Lab: Notes/Report: [facility] , Glycohemoglobin A1C 5.2 4.5-6.2 % ADA RECOMMENDED LIMIT 4.0 - 6.0 ACTION SUGGESTED > 7.0 ADA THERAPEUTIC TARGET < 7.0 Estimated Average Glucose 103 Performing Lab: see note ML - [facility] US pelvis w/ transvaginal Reviewed date:10/19/2024 06:57:01 PM Interpretation: Performing Lab: Notes/Report: Source Facility: [place] [address] Ultrasound Report Signed Patient: BONNIE KNIGHT MR#: [id number] : 1980 Acct:[id number] Age/Sex: 44 / F ADM Date: 10/04/24 Loc: US Attending Dr: Ash Santillan D.O. Ordering Physician: Ash Santillan D.O. Date of Service: 10/04/24 Procedure(s): US pelvis w/ transvaginal Accession Number(s): [id number] cc: Ash Santillan D.O.; Harsha Timmons M.D. [place] [address] Patient Name: BONNIE KNIGHT MRN: [id number] date: 1980 Sex: F Assigned Patient Location: Current Patient Location: Accession/Order Number: [id number] Exam Date: 10/04/2024 17:50 Report Date: 10/05/2024 [...] weeks to document resolution. Electronically authenticated by: ABLTAZAR DENNY Date: 10/05/2024 07:43 Dictated By: Baltazar Denny M.D. Signed By: 10/05/24745 DD/ 2 TD/TT: Sinter Machine Operator: [place] [address] Ultrasound Report Signed Patient: TANYA KNIGHT MR#: [id number] : 1980 Acct:[id number] Age/Sex: 44 / F ADM Date: 10/04/24 Loc: US Attending Dr: Ash Santillan D.O. Ordering Physician: Ash Santillan D.O. Date of Service: 10/04/24 Procedure(s): US pelvis w/ transvaginal Accession Number(s): [id number] cc: Ash Santillan D.O. ; Harsha Timmons M.D. [place] [id number] Patient Name: BONNIE KNIGHT MRN: [id number] date: 1980 Sex: F Assigned Patient Location: US Current Patient Location: Accession/Order Number: [id number] Exam Date: 10/04/2024 17:50 Report Date: 10/05/2024 [...] Signed By: 10/05/24 0746 DD/ 0743 TD/TT: Sinter Machine Operator: TSH Reviewed date:04/17/2024 05:03:25 PM Interpretation: Performing Lab: Notes/Report: [facility] , Thyroid Stimulating Hormone 2.517 0.358-3.740 uIU/mL Performing Lab: see note ML - [facility] LB PROF 14(COMP METB) Reviewed date:04/17/2024 05:03:25 PM Interpretation: Performing Lab: Notes/Report: [facility] , Sodium 138 136-145 mmol/L Potassium 4.2 [...] 1.2 Performing Lab: see note ML - [facility] LB LIPID PROFILE Reviewed date:04/17/2024 05:03:25 PM Interpretation: Performing Lab: Notes/Report: [facility] , Triglycerides 255 <=150 mg/dL Cholesterol 216 [...] RISK Performing Lab: see note ML - [facility] LB CBC AUTO DIFF Reviewed date:04/17/2024 05:03:25 PM Interpretation: Performing Lab: Notes/Report: [facility] , White Blood Count 9.8 [...] Performing Lab: see note ML - [facility] LB DHEA, Serum Reviewed date:12/27/2024 12:22:11 PM Interpretation: Performing Lab: Notes/Report: [facility] , DHEA, Serum 47 31-701 ng/dL approved by the Food and Drug Administration. Performed at: [facility] Body Man: Roxanna Manrique MD, Phone: [phone] [facility] [place], [place] [id number] This test was developed and its performance characteristics determined by [facility]. It has not been cleared or Performing Lab: see note - [facility] LB IGP,Aptima HPV,Age Gdln Reviewed date:02/16/2025 06:52:43 PM Interpretation: Performing Lab: Notes/Report: BRUSH-SPATULA CERVIX ENDOCERVIX [facility] , Age Gdln ACOG Testing Note . Clinician Provided Cytology Information TESTS RESULT FLAG UNITS REF RANGE LAB Performed at: Meghann Henry MD, L-Low Normal,H-High Normal,LL-Alert Low,HH-Alert High Age Algo ACOG Radha... 30-65 01 FLAG LEGEND: [address] [place] [address] 01 =G [facility] [place] No. of containers..01 ThinPrep Vial <-Panic Low,>-Panic High,A-Abnormal,AA-Cri tical Abnormal Source.............Cer vix;Endocervix IGP, Aptima HPV, rfx 16/18,45 Note . DIAGNOSIS: 02 FLAG LEGEND: TESTS RESULT FLAG UNITS REF RANGE LAB This liquid based ThinPrep(R) pap test was screened with L-Low Normal,H-High Normal,LL-Alert Low,HH-Alert High cancer. Both false-positive and false-negative reports do Specimen adequacy: 02 The Pap smear is a screening test designed to aid in the THIS SPECIMEN WAS RESCREENED PART OF OUR CONCILIATION COURT JUDGE PROGRAM. Criteria not met, HPV Genotype not performed. Lori Gracia, Theater Set Production Designer (ASCP) [address] [place] [address] occur. Note: Note 02 02 [facility] [place] Meghann Henry MD, the use of an image guided system. <-Panic Low,>-Panic High,A-Abnormal,AA-Cri tical Abnormal should not be used as the sole means of detecting cervical Performed by: 02 Performed at: QC reviewed by: Test Methodology: Note 02 Satisfactory for evaluation. No endocervical component is identified. Jessica Love, Theater Set Production Designer (ASCP) detection of premalignant and malignant conditions of the NEGATIVE FOR INTRAEPITHELIAL LESION OR MALIGNANCY. HPV Genotype Reflex Note 02 uterine cervix. It is not a diagnostic procedure and HPV Aptima Negative Negative [address] [facility] [place] [place], [place] [id number] [address] [facility], [place] [id number] Performed at: =[facility] This nucleic acid amplification test detects fourteen high- Body Man: Meghann Henry MD, Phone: [phone] Body Man: Meghann Henry MD, Phone: [phone] Performed at: [facility] risk HPV types (16,18,31,33,35,39,45, 51,52,56,58,59,66,68) without differentiation. Performing Lab: see note - [facility] Prothrombin Time INR Reviewed date:12/27/2024 06:59:41 PM Interpretation: Performing Lab: Notes/Report: [facility] , Prothrombin Time 10.4 9.0-11.6 sec INR 0.98 2.5-3.5 RECURRENT THROMBOSIS DESIRED INR: 2.0-3.0 CONDITIONS NOT LISTED BELOW 2.5-3.5 FOR PROSTHETIC HEART VALVE REPLACEMENT Performing Lab: see note ML - [facility] LB PTT Reviewed date:12/27/2024 06:59:41 PM Interpretation: Performing Lab: Notes/Report: [facility] , Partial Thromboplastin Time 23.7 22.3-36.2 sec Performing Lab: see note ML - [facility] DHEA-Sulfate Reviewed date:12/19/2024 02:04:58 PM Interpretation: Performing Lab: Notes/Report: [facility] DHEA-Sulfate 34.4 57.3-279.2 ug/dL Performing Lab: see note [facility] FSH Reviewed date:12/19/2024 02:04:58 PM Interpretation: Performing Lab: Notes/Report: [facility] FSH 7.1 . mIU/mL Follicular phase 3.5 - 12.5 Adult Female Range Postmenopausal 25.8 - 134.8 Ovulation phase 4.7 - 21.5 Luteal phase 1.7 - 7.7 Performing Lab: see note - [facility] LB Luteinizing Hormone(LH) Reviewed date:12/19/2024 02:04:58 PM Interpretation: Performing Lab: Notes/Report: [facility] , Luteinizing Hormone(LH) 15.5 . mIU/mL Luteal phase 1.0 - 11.4 Postmenopausal 7.7 - 58.5 Follicular phase 2.4 - 12.6 Adult Female Range Ovulation phase 14.0 - 95.6 Performing Lab: see note - [facility] LB PROLACTIN Reviewed date:12/19/2024 02:04:58 PM Interpretation: Performing Lab: Notes/Report: [facility] , Prolactin 12.7 4.8-33.4 ng/mL [address] [place] [phone] Body Man: Leonardo House PhD, Phone: [phone] Performed at: [facility] Performing Lab: see note [facility] LB CORTISOL AM Reviewed date:12/19/2024 02:04:58 PM Interpretation: Performing Lab: Notes/Report: [facility] , Cortisol - AM 17.0 6.2-19.4 ug/dL [address] [place] [phone] Body Man: Leonardo House PhD, Phone: [phone] Performed at: [facility] Performing Lab: see note - [facility] LB Reason For Referral No Information Social [...] Problem Status W/U Status Risk Notes Problem Palpitation (R00.2) Active confirmed Problem Hypertriglyceridemia (805457752) Hypertriglyceridemia (E78.1) Active confirmed Problem Plantar fascial fibromatosis (59844919) Plantar fasciitis, left (M72.2) Active confirmed Vital Signs Blood pressure diastolic 78 mm Hg 01/09/2025 Height 61 in 01/09/2025 Blood pressure systolic 122 mm Hg 01/09/2025 Weight 194.4 lbs 01/09/2025 BMI 36.73 kg/m2 01/09/2025 Procedures Procedure Date Ordered Date Performed Result Body Sit e Holter Monitor - 3 days up to 14 days 11/17/2024 N/A Encounters Encounter Location Date Provider Diagnosis [place] [address] [place] [address] 04/17/2024 Francis Timmons [place] [address] [place] [address] 11/17/2024 [facility] [address] [place] [address] 12/19/2024 Francis Timmons Encounter for other preprocedural examination Z01.818 [place] [address] [place] [address] 12/21/2024 Francis Timmons [facility] [address] [place] [address] 01/09/2025 Francis Timmons Plantar fasciitis, l eft M72.2 [place] [address] [place] [address] 11/17/2024 Francis Timmons Palpitation R00.2 Assessments Encounter [...] Date MMO [employer] [address] [place] [address] [id number] Bonnie Knight Self - patient is the insured [employer] [place] MEDICA[employer] [address] [place] [address] [id number] Bonnie Knight Self - patient is the insured Medical (General) History Medical History History ICD Code Hypertriglyceridemia E78.1 Surgical History Surgery Date(Month/Year) tubal ligation x2 Hospitalization History Reason Date(Month/Year) see above
--- OUTSIDE RECORDS SUMMARY | 2025-03-01 12:31 | XMS_ITS | Encounter Summary ---
Author Organization [facility] Address [address] [place] [address] Care Team Providers Care Supervisor Public Message Service Name Role Phone Harsha Timmons MD Primary Care Provider [phone] Encounter Details Date Type Department Care Team (Late Contact Info) Description 02/13/2025 Clinisync Result Encounter [facility] External Department Unsolicited Jhon Santillan, DO [address] [place] [address] Social History Tobacco Use Types Packs/Day Years [...] [address] [place] [phone] Nikkie Maloney DPM [address] [place] [address] 03/22/2025 10:50 AM EDT Office Visit [facility] OB [address] [facility] [place] [phone] Jhon Santillan, DO [address] [facility] [place] [address] 02/20/2026 10:00 AM EDT Office Visit [facility] OB [address] [facility] [place] [address] Jhon Santillan, [address] [facility] [place] [address] documented as of this encounter Procedures Procedure Name Priority Date/Time Associated Diagnosis Comments IGP,APTIMA HPV,AGE GDLN Routine 02/13/2025 9:58 AM EDT documented in this encounter Results * IGP,APTIMA HPV,AGE GDLN (02/13/2025 9:58 AM EDT) AGE GDLN ACOG TESTING Note . [facility] Comment: TESTS RESULT FLAG UNITS REF RANGE LAB Clinician Provided Cytology Information Source.............Cervix;Endocervix No. of containers..01 ThinPrep Vial Age Algo ACOG Radha... 30-65 01 FLAG LEGEND: L-Low Normal,H-High Normal,LL-Alert Low,HH-Alert High <-Panic Low,>-Panic High,A-Abnormal,AA-Critical Abnormal Performed at: 01 =G [address] [place] [address] Meghann Henry MD, IGP, APTIMA HPV, RFX 16/18,45 Note . [facility] Comment: TESTS RESULT FLAG UNITS REF RANGE LAB DIAGNOSIS: 02 NEGATIVE FOR INTRAEPITHELIAL LESION OR MALIGNANCY. THIS SPECIMEN WAS RESCREENED PART OF OUR DERRICK OPERATOR PROGRAM. Specimen adequacy: 02 Satisfactory for evaluation. No endocervical component is identified. Performed by: 02 Lori Gracia, Cone Machine Feeder (ASC) QC reviewed by: 02 Jessica Lvoe, Cone Machine Feeder (ASC) . 02 Note: Note 02 The Pap smear is a screening test designed to aid in the detection of premalignant and malignant conditions of the uterine cervix. It is not a diagnostic procedure and should not be used as the sole means of detecting cervical cancer. Both false-positive and false-negative reports do occur. Test Methodology: Note 02 This liquid based ThinPrep(R) pap test was screened with the use of an image guided system. HPV Genotype Reflex Note 02 Criteria not met, HPV Genotype not performed. FLAG LEGEND: L-Low Normal,H-High Normal,LL-Alert Low,HH-Alert High <-Panic Low,>-Panic High,A-Abnormal,AA-Critical Abnormal Performed at: [address] [address] Meghann Henry MD, HPV APTIMA Negative Negative [facility] Comment: This nucleic acid amplification test detects fourteen high- risk HPV types (16,18,31,33,35,39,45,51,52,56,58,59,66,68) without differentiation. Performed at: =G - [facility] [address] [id number] Clean Up Worker: Meghann Henry MD, Phone: [phone] Performed at: - [facility] [id number] Clean Up Worker: Meghann Henry MD, Phone: [phone] 02/13/2025 9:58 AM EDT 02/13/2025 1:10 PM EDT Narrative CLINISYNC - 02/16/2025 9:08 AM EDT BRUSH-SPATULA CERVIX ENDOCERVIX us Jhon Santillan DO LAB BLOOD ORDERABLES Final Resul t [facility] documented in this encounter Visit Diagnoses Not on filedocumented in this encounter Care Teams Supervisor Public Message Service Relationship Specialty Start Date End Date Harsha Timmons MD [address] [place] [address] PCP - General Family Medicine 01/26/25 documented as of this encounter
--- OUTSIDE RECORDS SUMMARY | 2025-03-01 12:31 | XMS_ITS | Clinical Summary ---
Author Organization [facility] Address [address] [facility] [place] [address] Care Team Providers Care Commercial Finance Analyst Name Role Phone Harsha Timmons MD Primary Care Provider [phone] Allergies No known active allergies Medications ibuprofen [...] Encounters Date Type Department Care Team Description 02/24/2025 Telephone [facility] [address] [facility] [address] [place] [address] Dariela Goldman MA Questions 02/23/2025 Orders Only [facility] OB [address] [place] [address] [place] [address] Alka Martinez LPN 02/16/2025 8:45 AM EDT Office Visit [facility] [address] [place] [address] Nikkie Maloney DPM Post-operative state (Primary Dx); Plantar fasciitis; Pain of left heel 02/16/2025 Bamboo flowsheet [facility] [address] [place] [address] Nikkie Maloney DPM 02/16/2025 Travel 02/13/2025 9:50 AM EDT Office Visit NOMS [address] [place] [address] Jhon Santillan, DO PCOS (polycystic ovarian syndrome) (Primary Dx); Well woman exam with routine gynecological exam; Pre-op examination; Pelvic pain; Menorrhagia with regular cycle; Abnormal uterine bleeding (AUB); Breast cancer screening by mammogram 02/13/2025 Clinisync Result Encounter [facility] External Department Unsolicited Jhon Santillan, 02/06/[address] [address] [place] [address] Brenda Moore MA 02/02/2025 3:45 PM EDT Office Visit [facility] [address] [place] [address] Nikkie Maloney, COREY Post-operative state (Primary Dx); Plantar fasciitis; Pain of left heel 02/02/2025 Bamboo flowsheet [facility] [address] [place] [address] Nikkie Maloney DPM 02/02/2025 Travel 01/30/[address] [place] [address] Samia Cueto PA 01/27/20[address] Abstract [facility] [address] [place] [address] Jhon Santillan, 01/27/2025 Clinisync Result Encounter [facility]S External Department Unsolicited Jhon Santillan, 01/26/2025 3:45 PM EDT Office Visit [facility] [address] [place] [address] Candelario Rojas, COREY Post-operative state (Primary Dx) 01/26/2025 Bamboo flowsheet [facility] [address] [place] [address] Candelario Rojas, DPM 01/26/2025 Travel 01/20/2025 Telephone [facility] [address] [place] [address] Dariela Goldman MA Refill Rx 01/16/2025 10:45 AM EDT Office Visit [facility] [address] [place] [address] Nikkie Maloney, DPHelen Plantar fasciitis (Primary Dx); Postoperative examination [Z09]; Pain of left heel 01/16/2025 Bamboo flowsheet [facility] [address] [place] [address] Nikkie Maloney, DPM 01/16/2025 Travel 01/12/20[address] Abstract [facility] [address] [place] [address] Jhon Santillan DO 01/09/2025 1:30 PM EDT Consult [facility] [address] [place] [address] Jhon Santillan DO Pre-op examination; Pelvic pain in female; PCOS (polycystic ovarian syndrome); Abnormal uterine bleeding (AUB); Left lower quadrant abdominal pain 01/09/2025 Bamboo flowsheet NOM[facility] [address] [place] [address] Jhon Santillan DO 12/29/2024 3:15 PM EDT Office Visit [facility] [address] [place] [address] Nikkie Maloney, COREY Plantar fasciitis (Primary Dx); Pain of left heel 12/29/2024 Bamboo flowsheet [facility] [address] [place] [address] Nikkie Maloney, DPM 12/29/2024 Travel 12/26/2024 Telephone [facility] OB [address] [facility] [place] [address] Angeline Donato MA 12/21/2024 2:15 PM EDT Office Visit [facility] [address] [place] [address] Nikkie Maloney, DPM Plantar fasciitis (Primary Dx); Pain of left heel; Pain of right heel 12/21/2024 Bamboo flowsheet [facility] [address] [place] [address] Nikkie Maloney, DPM 12/21/2024 Travel 12/20/2024 Travel 12/19/2024 5:00 PM EDT Treatment [facility] [address] [facility] [address] [place] [address] Natalya Fall, PT Plantar fasciitis, bilateral (Primary Dx); Plantar fasciitis 12/16/2024 Clinisync Result Encounter NOMS External Department Unsolicited Jhon Santillan, 12/14/2024 5:00 PM EDT Treatment [facility] [address] [facility] [address] [place] [address] Natalya Fall, PT Plantar fasciitis, bilateral (Primary Dx); Plantar fasciitis 12/14/2024 Travel 12/13/2024 10:50 AM EDT Office Visit [facility] OB [address] [facility] [place] [address] Jhon Santillan DO Pelvic pain in female; PCOS (polycystic ovarian syndrome); Abnormal uterine bleeding (AUB) 12/13/2024 Bamboo flowsheet [facility] OB [address] [facility] [place] [address] Jhon Santillan DO 12/07/2024 5:00 PM EDT Treatment [facility] [address] [facility] [address] [place] [address] Natalya Fall, PT Plantar fasciitis, bilateral (Primary Dx); Plantar fasciitis 12/07/2024 Travel 12/05/2024 5:00 PM EDT Treatment [facility] [address] [facility] [address] [place] [address] Natalya Fall, PT Plantar fasciitis, bilateral (Primary Dx) 12/05/2024 Travel 12/01/2024 Plan of Care Documentation [facility] [address] [facility] [address] [place] [address] 11/30/2024 5:00 PM EDT Evaluation [facility] [address] [facility] [address] [place] [address] Natalya Fall, PT Plantar fasciitis, bilateral (Primary Dx); Plantar fasciitis 11/30/2024 Bamboo flowsheet [facility] [address] [facility] [address] [place] [address] Natalya Fall, PT 11/30/2024 Travel from Last 3 Months Social History Tobacco [...] [address] [place] [address] Nikkie Maloney, DPM [address] [place] [address] 03/22/2025 10:50 AM EDT Office Visit [facility] B[facility] OB [address] [facility] [place] [address] Jhon Santillan, DO [address] [facility] [place] [address] 02/20/2026 10:00 AM EDT Office Visit [facility] BCP OB [address] [facility] [address] Jhon Santillan, DO [address] [facility] [address] [place], [place] [phone] Procedures Procedure Name Priority Date/Time Associated Diagnosis Comments IGP,APTIMA HPV,AGE GDLN Routine 02/14/20 9:58 AM EDT PAP SMEAR Routine 02/13/2025 12:00 AM EDT [facility] PREG QUANT HCG Routine 01/27/2025 6: 20 AM EDT ALL CBC WITH AUTO DIFF Routine 6:20 AM EDT POCT URINALYSIS DIPSTICK Routine 2:04 PM EDT Pre-op examination POCT , [...] HCG Routine 12/16/2024 8: 05 AM EDT from Last 3 Months Results * IGP,APTIMA HPV,AGE GDLN (02/13/2025 9:58 AM EDT) AGE GDLN ACOG TESTING Note . [facility] Comment: TESTS RESULT FLAG UNITS REF RANGE LAB Clinician Provided Cytology Information Source.............Cervix;Endocervix No. of containers..01 ThinPrep Vial Age Algo ACOG Radha... 30-65 01 FLAG LEGEND: L-Low Normal,H-High Normal,LL-Alert Low,HH-Alert High <-Panic Low,>-Panic High,A-Abnormal,AA-Critical Abnormal Performed at: 01 =G [facility] [address] [place] [address] Meghann Henry MD, IGP, APTIMA HPV, RFX 16/18,45 Note . [facility] Comment: TESTS RESULT FLAG UNITS REF RANGE LAB DIAGNOSIS: 02 NEGATIVE FOR INTRAEPITHELIAL LESION OR MALIGNANCY. THIS SPECIMEN WAS RESCREENED PART OF OUR NURSES SUPERVISOR PROGRAM. Specimen adequacy: 02 Satisfactory for evaluation. No endocervical component is identified. Performed by: 02 Lori Gracia, Crew Boat Operator (ASC) QC reviewed by: 02 Jessica Love, Crew Boat Operator ([facility]) . 02 Note: Note 02 The Pap [...] Low,>-Panic High,A-Abnormal,AA-Critical Abnormal Performed at: 02 [facility] [address] [place] [address] Meghann Henry MD, HPV APTIMA Negative Negative [facility] Comment: This nucleic acid amplification test detects fourteen high- risk HPV types (16,18,31,33,35,39,45,51,52,56,58,59,66,68) without differentiation. Performed at: = - [address] [id number] Research Associate Policy: Meghann Henry MD, Phone: [phone] Performed at: [address] [id number] Research Associate Policy: Meghann Henry MD, Phone: [phone] 02/13/2025 9:58 AM EDT 02/13/2025 1:10 PM EDT Narrative CLINISYNC - 02/16/2025 9:08 AM EDT BRUSH-SPATULA CERVIX ENDOCERVIX Jhon Tyrell DO LAB BLOOD ORDERABLES Final Resul t [facility] * Pap Smear (02/13/2025 12:00 AM EDT) Swab Cervical swab / Unknown Tyrell Nurse [facility] Ob LAB CYTOLOGY ORDERABLES Final Result Performing Organization Address City/[facility] Co de Phone Number EXTERNAL LAB * [facility] PREG QUANT HCG (01/27/2025 6:20 AM EDT) Only the most recent of2 resultswithin the time period is included. Pathologist [facility] HCG QUANTITATIVE <1 mIU/mL [facility] Comment: 5-50 0.2-1 WEEK 50-500 1-2 WEEKS 100-5,000 2-3 WEEKS 500-10,000 3-4 WEEKS 1,000-50,000 4-5 WEEKS 10,000-100,000 5-6 WEEKS 15,000-200,000 6-8 WEEKS 10,000-100,000 2-3 MONTHS 01/27/2025 6:20 AM EDT 01/27/2025 6:20 AM EDT Narrative CLINISYNC - 01/27/2025 6:46 AM EDT us Jhon Roacho DO CLINISYNC Final Result CLINISYNC TB * (ABNORMAL) ALL CBC WITH AUTO DIFF (01/27/2025 6:20 AM EDT) [facility] WBC 12.5(H) 4.0 - 11.0 10 [...] Narrative CLINISYNC - 01/27/2025 6:25 AM EDT [facility] Tyrell DO CLINISYNC Final Result BRAYDONISYNC [facility] * POCT , urine manually resulted (01/09/2025 2:04 PM EDT) Preg Test, Ur Negative Negative Urine 01/09/2025 2:04 PM EDT Jhon Tyrell DO POINT OF CARE TEST ENTER/EDIT [...] - Positive Urine 01/09/2025 2:04 PM EDT Jhon Tyrell DO POINT OF CARE TEST ENTER/EDIT OR DERABLES Final Result * [facility] PROLACTIN (12/16/2024 8:05 AM EDT) PROLACTIN 12.7 4.8 - 33.4 ng/mL [facility] Comment: Performed at: [address] [id number] Research Associate Policy: Leonardo House PhD, Phone: [phone] 12/16/2024 8:05 AM EDT 12/16/2024 8:07 AM EDT Narrative CLINISYNC - 12/19/2024 12:08 PM EDT Jhon Tyrell DO CLINISYNC Final Result Performing Organization Address [facility]/ZIP Co de Phone Number [facility] * [facility] CORTISOL AM (12/16/2024 8:05 AM EDT) CORTISOL - AM 17.0 6.2 - 19.4 ug/dL TB Comment: Performed at: - [address] [id number] Research Associate Policy: Leonardo House PhD, Phone: [phone] 12/16/2024 8:05 AM EDT 12/16/2024 8:07 AM EDT Narrative CLINISYNC - 12/19/2024 12:08 PM EDT Jhon Roacho DO CLINISYNC Final Result Performing Organization Address [facility] Co de Phone Number [facility] * MLR HEMOGLOBIN A1C (12/16/2024 8:05 AM EDT) GLYCOHEMOGLOBIN A1C 5.2 4.5 - 6.2 % TB Comment: ADA RECOMMENDED LIMIT 4.0 - 6.0 ADA THERAPEUTIC TARGET < 7.0 ACTION SUGGESTED > 7.0 ESTIMATED AVERAGE GLUCOSE 103 mg/dL TB 12/16/2024 8:05 AM EDT 12/16/2024 8:07 AM EDT Narrative CLINISYNC - 12/16/2024 9:50 AM EDT Jhon Tyrell DO CLINISYNC Final Result Performing Organization Address City/[facility] Co de Phone [facility] * ALL LUTEINIZING HORMONE (12/16/2024 8:05 AM EDT) LUTEINIZING HORMONE(LH) 15.5 . mIU/mL TB Comment: Adult Female Range Follicular phase 2.4 - 12.6 Ovulation phase 14.0 - 95.6 Luteal phase 1.0 - 11.4 Postmenopausal 7.7 - 58.5 12/16/2024 8:05 AM EDT 12/16/2024 8:07 AM EDT Narrative CLINISYNC - 12/19/2024 12:08 PM EDT Jhon Tyrell DO CLINISYNC Final Result Performing Organization Address [facility] Co de Phone Number [facility] * ALL FOLLICLE STIMULATING HORMONE (12/16/2024 8:05 AM EDT) FSH 7.1 . mIU/mL [facility] Comment: Adult Female Range Follicular phase 3.5 - 12.5 Ovulation phase 4.7 - 21.5 Luteal phase 1.7 - 7.7 Postmenopausal 25.8 - 134.8 12/16/2024 8:05 AM EDT 12/16/2024 8:07 AM EDT Narrative CLINISYNC - 12/19/2024 12:08 PM EDT [facility] CL[facility] Final Result Performing Organization Address [facility] Phone Number [facility] * (ABNORMAL) ALL DHEA SULFATE (12/16/2024 8:05 AM EDT) DHEA-SULFATE 34.4(A) 57.3 - 279.2 ug/dL [facility] 12/16/2024 8:05 AM EDT 12/16/2024 8:07 AM EDT Narrative CLINISYNC - 12/19/2024 12:08 PM EDT [facility] Final Result Performing Organization Address [facility] de Phone Number [facility] * ALL DEHYDROEPIANDROSTERONE (12/16/2024 8:05 AM EDT) DHEA, SERUM 47 31 - 701 ng/dL [facility] Comment: This test was developed and its performance characteristics determined by [facility]. It has not been cleared or approved by the Food and Drug Administration. Performed at: [facility] [address] [id number] Research Associate Policy: Roxanna Manrique MD, Phone: [phone] 12/16/2024 8:05 AM EDT 12/16/2024 8:07 AM EDT Narrative CLINISYNC - 12/27/2024 10:10 AM EDT Jhon Tyrell DO CLINISYNC Final Result CLINISYNC [facility] from Last 3 Months Insurance [employer] [place] [employer] MED[employer] Care Teams Commercial Finance Analyst Relationship Specialty Start Date End Date Harsha Timmons MD [address] [place] [address] PCP - General Family Medicine 01/26/25
== END 2025-03-01 12:29 | disposition home or self-care (01) ==
LOC: PST 12:29
PROVIDERS: PCP Family Medicine; Visit Provider Obstetrics & Gynecology
DX: Z01.818 Encounter for other preprocedural examination (principal); N92.0 Excessive and frequent menstruation with regular cycle; N93.9 Abnormal uterine and vaginal bleeding, unspecified; R10.2 Pelvic and perineal pain

== ENCOUNTER 2025-03-10 07:01 | Day surgery (SDC) | payer OTHER, SELFPAY ==
--- OUTSIDE RECORDS SUMMARY | 2024-12-19 12:49 | XMS_ITS ---
Author Organization The [facility] in [place] Address [address] [place] [address] Care Team Providers Care Sales Engagement Manager Name Role Phone Francis Timmons Primary Care Provider REASON FOR VISIT Holter Results Encounters Encounter Location Date Provider Diagnosis [facility] [address] [place] [address] 12/19/2024 Francis Timmons Encounter for other preprocedural examination Z01.818 Assessments Encounter Date Diagnosis (ICD Code) Assessment Notes Treatment Notes Treatment Clinical Notes Section Notes 12/19/2024 Encounter for other preprocedural examination (ICD-10 - Z01.818) Plan Of Treatment Pending Test Test Name Order Date PT (PROTIME), INR AND PTT (PT/INR AND PT T) 12/19/2024 Progress Notes * Racheal KNIGHT LDOB:[birth year] (44 yo F)Acc No.[id number]:12/19/2024 Patient: Chaparro CJ Racheal Desouza :1980 A ge:44 Y S ex:Female Address:[address] [place] [phone] Subjective: * Chief Complaints: * H olter Results * Medical History: * Surgical History: * Hospitalization/Major Diagno stic Procedure: * Medications: Objective: * Vitals: * Physical Examination: Assessment: * Assessment: 1. E ncounter for other preprocedural examination - Z01.818 (Primary) Plan: * Treatment: * Procedure Codes: * true * Date: Generated for Charles delgado/Sander/Octaviano on: 0 03/10/2025 07:03 AM EDT
--- OUTSIDE RECORDS SUMMARY | 2024-12-21 16:15 | XMS_ITS ---
Author Organization The [facility] in [place] Address [address] [place] [address] Care Team Providers Care Financial Analyst Name Role Phone Francis Timmons Primary Care Provider [phone] REASON FOR VISIT Holter results Encounters Encounter Location Date Provider Diagnosis [facility] [address] [place] [address] 12/21/2024 Francis Timmons Plan Of Treatment No Information Progress Notes * Racheal KNIGHT LDOB:[birth year] (44 yo F)Acc No.[id number]:12/21/2024 Patient: Chaparro Racheal CORONA :1980 A ge:44 Y S ex:Female Address:[address] [place] [phone] * true * Date: Generated for Charles delgado/Sander/eTransmitting on: 0 03/10/2025 07:03 AM EDT
--- OUTSIDE RECORDS SUMMARY | 2025-01-09 07:30 | XMS_ITS ---
Author Organization [facility] [place] Address [address] [place] [address] Care Team Providers Care Tilt Wall Supervisor Name Role Phone Francis Timmons Primary Care Provider [phone] Allergies No Known Allergies REASON FOR VISIT Presents to office for surgery clearance with Dr. Maloney at [facility] in [place]. Plantar fasciitis left foot Social History Tobacco [...] 01/09/2025 Encounters Encounter Location Date Provider Diagnosis [facility] [address] [place] [address] 01/09/2025 Francis Timmons Plantar fasciitis, left M72.2 Assessments Encounter Date Diagnosis (ICD Code) Assessment Notes Treatment Notes Treatment Clinical Notes Section Notes 01/09/2025 Plantar fasciitis, left (ICD-10 - M72.2) clered for OR Plan Of Treatment Treatment Notes Assessment Notes Plantar fasciitis, left clered for OR Progress Notes * Racheal KNIGHT LDOB:[birth year] (44 yo F)Acc No.[id number]:01/09/2025 Progress Note Patient: Racheal COLLINS Provider: Jose Antonio Timmons ([facility])MD :1980 A ge:44 Y S ex:Female Date:01/09/2025 Address:[address] [place], [place] [phone] Check In:11:29 AM ESTCheck O ut:12:13 PM EST Subjective: * Chief Complaints: * P resents to office for surgery clearance with Dr. Maloney at [facility] in [place]. Plantar fasciitis left foot * HPI: G [...] Procedure Codes: * Preventive Medicine: Screenings/Counseling: B UT ACTION PLAN Above Normal BMI Follow-up D ietary management education, guidance, and counseling See treatment section of progress note for complete details of management plan. * * Sign off status: Completed Visit Status: C HK (Check Out) true * Provider: Jose Antonio Timmons ([facility])MD Date: 0 01/09/2025 Generated for Printi ng/Farufinag/eTransmitting on: 0 03/10/2025 07:03 AM EDT History and Physical Notes * HPI [...]
[2025-03-01 12:53] VITALS: BP 125/83; PULSE 81; TEMP 36.2; O2SAT 96; BMI 36.2
[2025-03-10] VITALS (7 sets, daily range): BP systolic 108–147; BP diastolic 63–88; PULSE 66–88; TEMP 36.1–36.6; O2SAT 93–100
--- OUTSIDE RECORDS SUMMARY | 2025-03-10 07:03 | XMS_ITS | CCD ---
Author Organization [facility] Care Team Providers Care Digital Director Name Role Phone ENRIQUE, DR HOGAN Admitting [...] Unavailable Edison Timmons MD Primary Care Provider [phone] Edison Timmons MD Primary Care Provider [phone] Edison Timmons MD Primary Care Provider [phone] MARLENE MALONEY Attending Unavailable MARLENE MALONEY Attending [...] MARLENE MALONEY Attending Unavailable BOOGIE KATE Attending Unavailchana e MARLENE MALONEY Attending Unavailable ASH SANTILLAN Attending [...] 12/21/2024 Active ibuprofen 800 mg oral tablet (8 sources) Nonsteroidal Anti-inflammatory Drug Start: 01-27-2025 take 1 tablet by mouth every eight hours ibuprofen 800 MG tablet Take 800 mg by mouth every 8 (eight) hours 01/27/2025 Active 24 hr metFORMIN hydrochloride 500 mg extended release oral tablet (4 sources) Biguanide Start: 02-13-2025 End: 03-15-2025 take [...] every six hours for pain HYDROcodone-acetami nophen ([place]) 5-325 MG tablet Indications: Plantar fasciitis Take [...] fibromatosis] 06-27-2024 Episodic Other connective tissue disease (18 sources) Pain of left heel; Translations: [Pain [...] status] Onset: 03-24-2022 Episodic Residual codes; unclassified (6 sources) Postoperative state; Translations: [Other specified postprocedural [...] Test Name Value Interpretation Reference Range Facility IGP,APTIMA HPV,AGE GDLNon AGE GDLN ACOG TESTING Note . [facility] Comment on above: TESTS RESULT FLAG UN ITS REF RANGE LAB Clinician Provided Cytology Information Source.............Cervix;Endocervix No. of containers..01 ThinPrep Vial Age Algo ACOG Radha... 3065 FLAG LEGEND: L-Low Normal,H-High Normal,LL-Alert Low,HH-Alert High <-Panic Low,>-Panic High,A-Abnormal,AA-Critical Abnormal Performed at: 01 =[address] [id number] Meghann Henry MD, HPV APTIMA Negative Negative [facility] Comment on above: This nucleic acid am plification test detects fourteen high- risk HPV types (16,18,31,33,35,39,45,51,52,56,58,59,66,68) without differentiation. Performed at: =[address] [id number] Education Liaison: Meghann Henry MD, Phone: [phone] Performed at: [address] [id number] Education Liaison: Meghann Henry MD, Phone: [phone] IGP, APTIMA HPV, RFX 16/18,45 Note . [facility] Comment on above: TESTS RESULT FLAG U NITS REF RANGE LAB DIAGNOSIS: 02 NEGATIVE FOR INTRAEPITHELIAL LESION OR MALIGNANCY. THIS SPECIMEN WAS RESCREENED PART OF OUR WELDER HELPER PROGRAM. Specimen adequacy: 02 Satisfactory for evaluation. No endocervical component is identified. Performed by: 02 Lori Gracia, Cottrell Blower (ASCP) QC reviewed by: 02 Jessica Love, Cottrell Blower (ASCP) . 02 Note: Note 02 The Pap [...] High,A-Abnormal,AA-Critical Abnormal Performed at: 02 [facility] [address] [place] [address] Meghann Henry MD, BRUSH-SPATULA CERVIX ENDOCERVIX [facility] ALL CBC WITH AUTO DIFFon BASOPHILS ABSOLUTE AUTO 0.1 N S [facility] Basophils/100 WBC (Bld) 0.6 % 0.2 - 2.0 % [facility] Eosinophils/100 WBC (Bld) 2.9 % 0.9 - 7.0 % [facility] Erythrocyte distribution width (RBC) [Ratio] 12.2 % 11.0 - 15.0 % [facility] Hematocrit (Bld) [Volume fraction] 41.3 % 36.0 - 48.0 % [facility] Hemoglobin (Bld) [Mass/Vol] 14.4 g/dL 12.0 - 16.0 g/dL [facility] IMMATURE GRANULOCYTES ABS AUTO 0.06 High [facility] Immature granulocytes/100 WBC (Bld) 0.5 % 0.0 - 0.5 % [facility] Interpretation and review of laboratory results Abnormal [facility] LYMPHOCYTES ABSOLUTE AUTO 3.1 [facility] Lymphocytes/100 WBC (Bld) 24.8 % 20.5 - 60.0 % [facility] MCH (RBC) [Entitic mass] 31.5 pg 26.7 - 34.0 pg [facility] MCHC (RBC) [Mass/Vol] 34.9 g/dL 29.9 - 35.2 g/dL [facility] MCV (RBC) [Entitic vol] 90.4 fL 81.0 - 99.0 fL [facility] MONOCYTES ABSOLUTE AUTO 0.8 N [facility] Monocytes/100 WBC (Bld) 6.2 % 1.7 - 12.0 % [facility] NEUTROPHILS ABSOLUTE AUTO 8.1 High [facility] Neutrophils/100 WBC (Bld) 65 % 43.0 - 75.0 % [facility] Platelet mean volume (Bld) [Entitic vol] 9.8 fL 9.5 - 13.5 fL [facility] TBH EO # 0.4 [facility] TBH PLT 284 [facility] TB RBC 4.57 [facility] TB WBC 12.5 High [facility] HCG ( test) Ql (U)O rdered By: Alka Martinez on 01-09-2025 Interpretation and review of laboratory results Normal [facility] Work Phone: Preg Test, Ur Negative Negative [facility] Work Phone: [facility] Work Phone: Urinalysis macro (dipstick) panel (U)on 01-09-2025 Bilirubin, UA Negative Negative - 4(70) +++ mg/dL [facility] Blood, UA Negative Negative - 50 Efrain/mcL [facility] Clarity, UA Clear [facility] Color, UA Yellow [facility] Glucose, UA Negative Negative - 1999(110) ++++ mg/dL [facility] Interpretation and review of laboratory results Normal [facility] Ketones, UA Negative Negative - 160(16) ++++ mg/dL [facility] Leukocytes, UA Negative Negative - 500+++ Diana/mcL [facility] Nitrite, UA Negative Negative - Positive [facility] pH, UA 6.5 5 - 9 [facility] Protein, UA Negative Negative - 1999(20) ++++ mg/dL [facility] Spec Grav, UA 1.025 1 - 1.03 [facility] Urobilinogen, UA 0.2 0.2 - 12 mg/dL [facility]H PREG QUANT HCGon 025 HCG QUANTITATIVE <1 mIU/mL [facility] Comment on above: 5-50 0.2-1 WEEK 50-500 1-2 WEEKS 100-5,000 2-3 WEEKS 500-10,000 3-4 WEEKS 1,000-50,000 4-5 WEEKS 10,000-100,000 5-6 WEEKS 15,000-200,000 6-8 WEEKS 10,000-100,000 2-3 MONTHS [facility] US PELVIS W/ TRANSVAGINALon 10-05-2024 [place] [address] Ultrasound Report Signed Patient: TOI ROONEY MR#: [id number] : 1980 Acct:[id number] Age/Sex: 44 / F ADM Date: 10/04/24 Loc: US Attending Dr: Ash Santillan D.O. Ordering Physician: Ash Santillan D.O. Date of Service: 10/04/24 Procedure(s): US pelvis w/ transvaginal Accession Number(s): [id number] cc: Ash Santillan D.O.; Edison Timmons M.D. [place] [id number] Patient Name: TOI ROONEY MRN: [facility]:[id number] date: 1980 Sex: F Assigned Patient Location: Current Patient Location: Accession/Order Number: [id number] Exam Date: 10/04/2024 17:50 Report Date: 10/05/2024 [...] Signed By: 10/05/24 0746 DD/ 0743 TD/TT: Natural Resource Technician: [facility] Radiology, Radiologist, - 10/05/2024 [place] [address] Ultrasound Report Signed Patient: TOI ROONEY MR#: [id number] : 1980 Acct:[id number] Age/Sex: 44 / F ADM Date: 10/04/24 Loc: US Attending Dr: Ash Santillan D.O. Ordering Physician: Ash Santillan D.O. Date of Service: 10/04/24 Procedure(s): US pelvis w/ transvaginal Accession Number(s): [id number] cc: Ash Santillan D.O.; Edison Timmons M.D. [place] [id number] Patient Name: TOI ROONEY MRN: [facility]:[id number] date: 1980 Sex: F Assigned Patient Location: Current Patient Location: Accession/Order Number: [id number] Exam Date: 10/04/2024 17:50 Report Date: 10/05/2024 [...] Signed By: 10/05/24 0746 DD/ 0743 TD/TT: Natural Resource Technician: [facility] [employer] Radiology Study observation (narrative) [facility] US PELVIS W/ TRANSVAGINALOrd ered By: Radiologist Radiology on 10-05-2024 [facility] [employer] Work Phone: XR Calcaneus - left Viewson 06-27-2024 Imaging Result: One views of the left heel: Lateral were performed today in the office. Radiographs were read by myself and demonstrate: No evidence of acute fracture or dislocation. No coalition noted. Spur formation is noted at the plantar calcaneus [facility] Radiology Study observation (narrative) [facility] XR Calcaneus - right Viewson 06-27-2024 Imaging Result: One views of the right heel: Lateral were performed today in the office. Radiographs were read by myself and demonstrate: No evidence of acute fracture or dislocation. No coalition noted. Spur formation is noted at the plantar calcaneus [facility] Study observation (narrative) [facility] CBC AUTO DIFFon 06-13-2022 BASO # 0.0 103/ul Normal 0.0-0.1 [facility] Comment on above: Performed By: #### C BC #### [facility] [address] [place] [address] Dr. Amee cMkeon Basophils/100 WBC (Bld) 0.5 % Normal 0.2-2.[address] [facility] Comment on above: Performed By: #### C BC #### [facility] [address] [place] [address] Dr. Amee Mckeon EO # 0.2 103/ul Normal 0.0-0.7 [facility] Comment on above: Performed By: #### C BC #### [facility] [address] [place] [address] Dr. Amee Mckeon Eosinophils/100 WBC (Bld) 1.9 % Normal 0.9-7.0 [facility] Comment on above: Performed By: #### C BC #### [facility] [address] [place] [address] Dr. Amee Mckeon Erythrocyte distribution width (RBC) [Ratio] 11.9 % Normal 11.0-15.0 [facility] Comment on above: Performed By: #### C BC #### [facility] [address] [place] [address] Dr. Amee Mckeon Hematocrit (Bld) [Volume fraction] 43.6 % Normal 36.0-48.0 [facility] Comment on above: Performed By: #### C BC #### [facility] [address] [place] [address] Dr. Amee Mckeon Hemoglobin (Bld) [Mass/Vol] 14.8 g/dL Normal 12.0-16.0 [facility] Comment on above: Performed By: #### C BC #### [facility] [address] [place] [address] Dr. Amee Mckeon IG # 0.03 10e3/ul Normal 0.00-0.03 [facility] Comment on above: Performed By: #### C BC #### [facility] [address] [place] [address] Dr. Amee Mckeon IG % 0.4 % Normal 0.0-0.5 [facility] Comment on above: Performed By: #### C BC #### [facility] [address] [place] [address] Dr. Amee Mckeon LYMPH # 2.5 103/ul Normal 1.2-3.8 [facility] Comment on above: Performed By: #### C BC #### [facility] [address] [place] [address] Dr. Amee Mckeon Lymphocytes/100 WBC (Bld) 31.4 % Normal 20.5-60.0 [facility] Comment on above: Performed By: #### C BC #### [facility] [address] [place] [address] Dr. Amee Mckeon MANUAL DIFF REQ NO Normal [facility] Comment on above: Performed By: #### C BC #### [facility] [address] [place] [address] Dr. Amee Mckeon MCH (RBC) [Entitic mass] 31.6 pg Normal 26.7-34.0 [facility] Comment on above: Performed By: #### C BC #### [facility] [address] [place] [address] Dr. Amee Mckeon MCHC (RBC) [Mass/Vol] 33.9 g/dL Normal 29.9-35.2 [facility] Comment on above: Performed By: #### C BC #### [facility] [address] [place] [address] Dr. Amee Mckeon MCV (RBC) [Entitic vol] 93.2 fL Normal 81.0-99.[address] [facility] Comment on above: Performed By: #### C BC #### [facility] [address] [place] [address] Dr. Amee Mckeon MONO # 0.5 103/ul Normal 0.3-0.8 [facility] Comment on above: Performed By: #### C BC #### [facility] [address] [place] [address] Dr. Amee Mckeon Monocytes/100 WBC (Bld) 6.8 % Normal 1.7-12.[address] [facility] Comment on above: Performed By: #### C BC #### [facility] [address] [place] [address] Dr. Amee Mckeon NEUT # 4.7 103/ul Normal 1.4-6.5 [facility] Comment on above: Performed By: #### C BC #### [facility] [address] [place] [address] Dr. Amee Mckeon Neutrophils/100 WBC (Bld) 59.0 % Normal 43.0-75.0 [facility] Comment on above: Performed By: #### C BC #### [facility] [address] [place] [address] Dr. Amee Mckeon Platelet mean volume (Bld) [Entitic vol] 9.6 fL Normal 9.5-13.5 [facility] Comment on above: Performed By: #### C BC #### [facility] [address] [place] [address] Dr. Amee Mckeon PLT 289 103/ul Normal 150-450 [facility] Comment on above: Performed By: #### C BC #### [facility] [address] [place] [address] Dr. Amee Mckeon RBC 4.68 106/ul Normal 4.20-5.40 [facility] Comment on above: Performed By: #### C BC #### [facility] [address] [place] [address] Dr. Amee Mckeon WBC 7.9 103/ul Normal 4.0-11.0 [facility] Comment on above: Performed By: #### C BC #### [facility] [address] [place] [address] Dr. Amee Mckeon PREG HCG QUALon 06-13-2022 , QUAL Negative Normal NEGATIVE [facility] Comment on above: Performed By: #### P REG #### [facility] [address] [place] [address] Dr. Amee Mckeon Covid-19 PCR (CVDTB)on 05-31 SARS-CoV-2 (COVID-19) RNA ADOLPH+probe Ql (Unsp spec) Not detected Normal NOT DETECTED [facility] Comment on above: Result Comment: This test is not yet approved or cleared by the [place] FDA. When there are no FDA-approved or cleared tests available, and other criteria are met, FDA can make tests available under an emergency access mechanism called an Emergency Use Authorization (EUA). The EUA for this test is supported by the [place] of Health and Human Service's (HHS's) declaration [...] SARS-CoV-2. Performed By: #### C VDTBH #### [facility] [address] [place] [address] Dr. Amee Mckeon [facility] CBC AUTO DIFFon 04-17-2022 BASO # 0.0 103/ul Normal 0.0-0.1 [facility] Comment on above: Performed By: #### H FPFCBC #### [facility] [address] [place] [address] Dr. Amee Mckeon Basophils/100 WBC (Bld) 0.3 % Normal 0.2-2.[address] [facility] Comment on above: Performed By: #### H FPFCBC #### [facility] [address] [place] [address] Dr. Amee Mckeon EO # 0.1 103/ul Normal 0.0-0.7 [facility] Comment on above: Performed By: #### H FPFCBC #### [facility] [address] [place] [address] Dr. Amee Mckeon Eosinophils/100 WBC (Bld) 1.5 % Normal 0.9-7.0 [facility] Comment on above: Performed By: #### H FPFCBC #### [facility] [address] [place] [address] Dr. Amee Mckeon Erythrocyte distribution width (RBC) [Ratio] 12.5 % Normal 11.0-15.0 [facility] Comment on above: Performed By: #### H FPFCBC #### [facility] [address] [place] [address] Dr. Amee Mckeon Hematocrit (Bld) [Volume fraction] 41.6 % Normal 36.0-48.0 [facility] Comment on above: Performed By: #### H FPFCBC #### [facility] [address] [place] [address] Dr. Amee Mckeon Hemoglobin (Bld) [Mass/Vol] 14.1 g/dL Normal 12.0-16.0 [facility] Comment on above: Performed By: #### H FPFCBC #### [facility] [address] [place] [address] Dr. Amee Mckeon IG # 0.03 10e3/ul Normal 0.00-0.03 [facility] Comment on above: Performed By: #### H FPFCBC #### [facility] [address] [place] [address] Dr. Amee Mckeon IG % 0.3 % Normal 0.0-0.5 [facility] Comment on above: Performed By: #### H FPFCBC #### [facility] [address] [place] [address] Dr. Amee Mckeon LYMPH # 2.2 103/ul Normal 1.2-3.8 [facility] Comment on above: Performed By: #### H FPFCBC #### [facility] [address] [place] [address] Dr. Amee Mckeon Lymphocytes/100 WBC (Bld) 25.3 % Normal 20.5-60.0 [facility] Comment on above: Performed By: #### H FPFCBC #### [facility] [address] [place] [address] Dr. Amee Mckeon MCH (RBC) [Entitic mass] 31.3 pg Normal 26.7-34.0 [facility] Comment on above: Performed By: #### H FPFCBC #### [facility] [address] [place] [address] Dr. Amee Mckeon MCHC (RBC) [Mass/Vol] 33.9 g/dL Normal 29.9-35.2 [facility] Comment on above: Performed By: #### H FPFCBC #### [facility] [address] [place] [address] Dr. Amee Mckeon MCV (RBC) [Entitic vol] 92.4 fL Normal 81.0-99.[address] [facility] Comment on above: Performed By: #### H FPFCBC #### [facility] [address] [place] [address] Dr. Amee Mckeon MONO # 0.5 103/ul Normal 0.3-0.8 [facility] Comment on above: Performed By: #### H FPFCBC #### [facility] [address] [place] [address] Dr. Amee Mckeon Monocytes/100 WBC (Bld) 5.5 % Normal 1.7-12.[address] [facility] Comment on above: Performed By: #### H FPFCBC #### [facility] [address] [place] [address] Dr. Amee Mckeon NEUT # 5.8 103/ul Normal 1.4-6.5 [facility] Comment on above: Performed By: #### H FPFCBC #### [facility] [address] [place] [address] Dr. Amee Mckeon Neutrophils/100 WBC (Bld) 67.1 % Normal 43.0-75.0 [facility] Comment on above: Performed By: #### H FPFCBC #### [facility] [address] [place] [address] Dr. Amee Mckeon Platelet mean volume (Bld) [Entitic vol] 10.2 fL Normal 9.5-13.5 [facility] Comment on above: Performed By: #### H FPFCBC #### [facility] [address] [place] [address] Dr. Amee Mckeon PLT 278 103/ul Normal 150-450 [facility] Comment on above: Performed By: #### H FPFCBC #### [facility] [address] [place] [address] Dr. Amee Mckeon RBC 4.50 106/ul Normal 4.20-5.40 [facility] Comment on above: Performed By: #### H FPFCBC #### [facility] [address] [place] [address] Dr. Amee Mckeon WBC 8.6 103/ul Normal 4.0-11.0 [facility] Comment on above: Performed By: #### H FPFCBC #### [facility] [address] [place] [address] Dr. Amee Mckeon [employer] PROFILEon 022 Albumin [Mass/Vol] 3.8 g/dL Normal 3.4-5.0 [facility] Comment on above: Performed By: #### H FPF #### [facility] [address] [place] [address] Dr. Amee Mckeon Albumin/Globulin [Mass ratio] 1.1 {ratio} Normal [facility] Comment on above: Performed By: #### H FPF #### [facility] [address] [place] [address] Dr. Amee Mckeon ALP [Catalytic activity/Vol] 50 U/L Normal 46-116 [facility] Comment on above: Performed By: #### H FPF #### [facility] [address] [place] [address] Dr. Amee Mckeon ALT [Catalytic activity/Vol] 31 U/L Normal 14-59 [facility] Comment on above: Performed By: #### H FPF #### [facility] [address] [place] [address] [address] Amee Mckeon AST [Catalytic activity/Vol] 15 U/L Normal 15-37 [facility] Comment on above: Performed By: #### H FPF #### [facility] [address] [place] [address] [address] Amee Mckeon Bilirubin [Mass/Vol] 0.6 mg/dL Normal 0.2-1.0 [facility] Comment on above: Performed By: #### H FPF #### [facility] [address] [place] [address] Dr. Amee Mckeon Calcium [Mass/Vol] 8.8 mg/dL Normal 8.5-10.1 [facility] Comment on above: Performed By: #### H FPF #### [facility] [address] [place] [address] Dr. Amee Mckeon Chloride [Moles/Vol] 104 mmol/L Normal 98-107 [facility] Comment on above: Performed By: #### H FPF #### [facility] [address] [place] [address] Dr. Amee Mckeon CHOL-HDL RATIO NORM SEE BELOW Normal [facility] Comment on above: Result Comment: 3.3 - 4.4 LOW RISK 4.4 - 7.1 AVERAGE RISK 7.1 - 11.0 MODERATE RISK >11.0 HIGH RISK Performed By: #### H FPF #### [facility] [address] [place] [address] Dr. Amee Mckeon Cholesterol [Mass/Vol] 216 mg/dL Critically high <=200 [facility] Comment on above: Performed By: #### H FPF #### [facility] [address] [place] [address] Dr. Amee Mckeon Cholesterol in HDL [Mass/Vol] 51 mg/dL Normal 40-60 [facility] Comment on above: Performed By: #### H FPF #### [facility] [address] [place] [address] Dr. Amee Mckeon Cholesterol in LDL [Mass/Vol] 141.6 mg/dL Normal [facility] Comment on above: Performed By: #### H FPF #### [facility] [address] [place] [address] [address] Amee Mckeon Cholesterol.total/[place] sterol in HDL [Mass ratio] 4.2 {ratio} Normal [facility] Comment on above: Performed By: #### H FPF #### [facility] [address] [place] [address] [address] Amee Mckeon CO2 [Moles/Vol] 26.1 mmol/L Normal 21.0-32.0 [facility] Comment on above: Performed By: #### H FPF #### [facility] [address] [place] [address] Dr. Amee Mckeon Creatinine [Mass/Vol] 0.75 mg/dL Normal 0.55-1.02 [facility] Comment on above: Performed By: #### H FPF #### [facility] [address] [place] [address] [address] Amee Mckeon Globulin (S) [Mass/Vol] 3.4 g/dL Normal [facility] Comment on above: Performed By: #### H FPF #### [facility] [address] [place] [address] Dr. Amee Mckeon Glucose [Mass/Vol] 94 mg/dL Normal 74-106 [facility] Comment on above: Performed By: #### H FPF #### [facility] [address] [place] [address] Dr. Amee Mckeon HDL NORMAL > or = 60 mg/dl - LOW CARDIOVASCULAR RISK <40 mg/dl - HIGH CARDIOVASCULAR RISK Normal [facility] Comment on above: Performed By: #### H FPF #### [facility] [address] [place] [address] Dr. Amee Mckeon LDL CALC NORMAL SEE BELOW Normal [facility] Comment on above: Result Comment: <100 mg/dl OPTIMAL 100 - 129 mg/dl NEAR OR ABOVE OPTIMAL 130 - 159 mg/dl BORDERLINE HIGH 160 - 189 mg/dl HIGH >190 mg/dl VERY HIGH Performed By: #### H FPF #### [facility] [address] [address] [address] Amee Mckeon Potassium [Moles/Vol] 3.7 mmol/L Normal 3.5-5.1 [facility] Comment on above: Performed By: #### H FPF #### [facility] [address] [address] [address] Amee Mckeon Protein [Mass/Vol] 7.2 g/dL Normal 6.4-8.2 [facility] Comment on above: Performed By: #### H FPF #### [facility] [address] [address] [address] Amee Mckeon Sodium [Moles/Vol] 137 mmol/L Normal 136-145 [facility] Comment on above: Performed By: #### H FPF #### [facility] [address] [address] [address] Amee Mckeon Triglyceride [Mass/Vol] 117 mg/dL Normal <=150 T [facility] Comment on above: Performed By: #### H FPF #### [facility] [address] [address] [address] Amee Mckeon TSH 1.647 uIU/mL Normal 0.358-3.740 [facility] Comment on above: Performed By: #### H FPF #### [facility] [address] [place] [address] Dr. Amee Mckeon Urea nitrogen [Mass/Vol] 18.0 mg/dL Normal 7.0-18.0 [facility] Comment on above: Performed By: #### H FPF #### [facility] [address] [address] [address] Amee Mckeon Urea nitrogen/Creatinine [Mass ratio] 24.0 mg/mg Normal [facility] Comment on above: Performed By: #### H FPF #### [facility] [address] [address] [address] Amee Mckeon VLDL CALC 23.4 mg/dL Normal [facility] Comment on above: Performed By: #### H FPF #### [facility] [address] [place] [address] Dr. Amee Mckeon PAP ACOG PANEL 2: 30 to 65on 03-26-2022 . . Normal [facility] Comment on above: Result Comment: Perf ormed at: WB Performed By: #### [id number] #### [facility] [address] [place] [address] Dr. Amee Mckeon Age Gdln ACOG Testing 30-65 [facility] Comment on above: Performed By: #### [id number] #### [facility] [address] [place] [address] Dr. Amee Mckeon DIAGNOSIS: Comment Normal [facility] Comment on above: Result Comment: NEGA TIVE FOR INTRAEPITHELIAL LESION OR MALIGNANCY. Performed at: WB Performed By: #### [id number] #### [facility] [address] [place] [address] Dr. Amee Mckeon HPV Aptima Negative Normal Negative [facility] Comment on above: Result Comment: This nucleic acid amplification test detects fourteen high-risk HPV types (16,18,31,33,35,39,45,51,52,56,58,59,66,68) without differentiation. Performed at: =G Performed By: #### [id number] #### [facility] [address] [place] [address] Dr. Amee Mckeon Methodology: Comment [facility] Comment on above: Result Comment: This liquid based ThinPrep(R) pap test was screened with the use of an image guided system. Performed at: WB Performed By: #### [id number] #### [facility] [address] [place] [address] Dr. Amee Mckeon Note: Comment Normal [facility] Comment on above: Result Comment: The Pap smear is a screening test designed to aid in the detection of premalignant and malignant conditions of the uterine cervix. It is not a diagnostic procedure and should not be used as the sole means of detecting cervical cancer. Both false-positive and false-negative reports do occur. . Performed at: WB Performed By: #### [id number] #### [facility] [address] [place] [address] Dr. Amee Mckeon Performed by: Comment Normal [facility] Comment on above: Result Comment: Lourdes Farrell, Technical Applications Scientist (ASCP) Performed at: WB Performed By: #### [id number] #### [facility] [address] [place], [place] [address] Dr. Amee Mckeon Specimen adequacy: Comment Normal [facility] Comment on above: Result Comment: Sati sfactory for evaluation. No endocervical component is identified. Performed at: WB Performed By: #### [id number] #### [facility] [address] [place], [place] [address] Dr. Amee Mckeon Vital Signs Date Time Vital Sign Value Performing Clinician Maxi martinez 02-13-2025 10:17-0400 Body mass index (BMI) [Ratio] 38.08 kg/m2 Ash Tyrell DO Work Phone: [facility] 02-13-2025 10:17-0400 Body weight 88.45 kg Ash Tyrell DO Work Phone: [facility] 02-13-2025 10:17-0400 Diastolic blood pressure 74 mm[Hg] Ash Tyrell DO Work Phone: [facility] 02-13-2025 10:17-0400 Systolic blood pressure 120 mm[Hg] Ash Tyrell DO Work Phone: [facility] 01-09-2025 13:58-0400 Body mass index (BMI) [Ratio] 37.89 kg/m2 Ash Tyrell DO Work Phone: [facility] 01-09-2025 13:58-0400 Body weight 88 kg Ash Tyrell DO Work Phone: [facility] 01-09-2025 13:58-0400 Diastolic blood pressure 76 mm[Hg] Ash Tyrell DO Work Phone: [facility] 01-09-2025 13:58-0400 Systolic blood pressure 120 mm[Hg] Ash Tyrell DO Work Phone: [facility] 12-13-2024 11:02-0400 Body mass index (BMI) [Ratio] 37.55 kg/m2 [employer] Work Phone: [facility] 12-13-2024 11:020400 Body weight 87.2 kg [employer] Work Phone: [facility] Healthcare Encounters Encounter Date Encounter Type Care Provider Facility Start: 02-16-2025 End: 02-16-2025 Bamboo flowsheet Marlene Maloney DPM Work Phone: [facility] Start: 02-16-2025 End: 02-16-2025 Bamboo flowsheet Marlene Maloney DPM Work Phone: [facility] Start: 02-16-2025 End: 02-16-2025 ambulatory MARLENE MALONEY Not Available Start: 02-16-2025 End: 02-16-2025 Postop follow up visit related to original px Marlene Maloney DPM Work Phone: [facility] Comment on above: Post-operative state (Primary Dx); Plantar fasciitis; Pain of left heel Start: 02-13-2025 End: 02-16-2025 Clinisync Result Encounter [employer] Work Phone: [facility] External Department Unsolicited Start: 02-13-2025 End: 02-16-2025 Clinisync Result Encounter [employer] Work Phone: [facility] External Department Unsolicited Start: 02-13-2025 End: 02-13-2025 Patient encounter procedure [employer] Work Phone: [facility] Healthcare Start: 02-13-2025 End: 02-13-2025 Periodic preventive med est patient 40-64yrs [employer] Work Phone: [facility] Comment on above: PCOS (polycystic ova lisa syndrome) (Primary Dx); Well woman exam with routine gynecological exam; Pre-op examination; Pelvic pain; Menorrhagia with regular cycle; Abnormal uterine bleeding (AUB); Breast cancer screening by mammogram Start: 02-13-2025 End: 02-13-2025 Preprocedural examination done Ash Tyrell DO Work Phone: [facility] Start: 02-13-2025 End: 02-13-2025 ambulatory ASH TYRELL Not Available Start: 02-02-2025 End: 02-02-2025 ambulatory MARLENE MALONEY Not Available Start: 02-02-2025 End: 02-02-2025 Postop follow up visit related to original px Marlene Maloney DPM Work Phone: [facility] Comment on above: Post-operative state (Primary Dx); Plantar fasciitis; Pain of left heel Start: 02-02-2025 End: 02-02-2025 Bamboo flowsheet Marlene Maloney DPM Work Phone: [facility] Start: 02-02-2025 End: 02-02-2025 Bamboo flowsheet Marlene Maloney DPM Work Phone: [facility] Start: 01-27-2025 End: 01-27-2025 Clinisync Result Encounter Ash Tyrell DO Work Phone: [facility] External Department Unsolicited Start: 01-27-2025 End: 01-27-2025 Clinisync Result Encounter Ash Tyrell DO Work Phone: [facility] External Department Unsolicited Start: 01-26-2025 End: 01-26-2025 Postop follow up visit related to original px Boogie Kate DPM Work Phone: [facility] Comment on above: Post-operative state (Primary Dx) Start: 01-26-2025 End: 01-26-2025 ambulatory BOOGIE KATE Not Available Start: 01-26-2025 End: 01-26-2025 Bamboo flowsheet Boogie Kate DPM Work Phone: [facility] Start: 01-26-2025 End: 01-26-2025 Bamboo flowsheet Boogie KristinRazaKinga DPM Work Phone: [facility] Start: 01-16-2025 End: 01-16-2025 Bamboo flowsheet Marlene Maloney DPM Work Phone: [facility] Start: 01-16-2025 End: 01-16-2025 Bamboo flowsheet Marlene Maloney DPM Work Phone: [facility] Start: 01-16-2025 End: 01-16-2025 Postop follow up visit related to original px Marlene Maloney DPM Work Phone: [facility] Comment on above: Plantar fasciitis (P rimary Dx); Postoperative examination [Z09]; Pain of left heel Start: 01-16-2025 End: 01-16-2025 ambulatory MARLENE MALONEY Not Available Start: 01-09-2025 End: 01-09-2025 Bamboo flowsheet Ash Tyrell DO Work Phone: [facility] Start: 01-09-2025 End: 01-09-2025 Bamboo flowsheet Ash Tyrell DO Work Phone: [facility] Start: 01-09-2025 End: 01-09-2025 Office outpatient visit 15 minutes Ash Tyrell DO Work Phone: [facility] Comment on above: Pre-op examination; Pelvic pain in female; PCOS (polycystic ovarian syndrome); Abnormal uterine bleeding (AUB); Left lower quadrant abdominal pain Start: 01-09-2025 End: 01-09-2025 Preprocedural examination done Ash Tyrell DO Work Phone: [facility] Healthcare Start: 01-09-2025 End: 01-09-2025 ambulatory ASH TYRELL [...] Phone: [facility] Start: 12-29-2024 End: 12-29-2024 Bamboo flowsheet Marlene Maloney DPM Work Phone: [facility] Start: 12-21-2024 End: 12-21-2024 Office outpatient visit 25 minutes Marlene Maloney DPM Work Phone: [facility] Comment on above: Plantar fasciitis (P rimary Dx); Pain of left heel; Pain of right heel Start: 12-21-2024 End: 12-21-2024 ambulatory MARLENE MALONEY Not Available Start: 12-21-2024 End: 12-21-2024 Bamboo flowsheet Marlene Maloney DPM Work Phone: [facility] Start: 12-21-2024 End: 12-21-2024 Bamboo flowsheet Marlene Maloney DPM Work Phone: [facility] Start: 12-20-2024 End: 12-20-2024 ambulatory [...] fasciitis Start: 11-30-2024 End: 11-30-2024 Bamboo flowsheet rUsula Fall PT [facility] Start: 11-30-2024 End: 11-30-2024 Bamboo flowsheet Ursula Fall PT [facility] Start: 11-21-2024 End: 11-21-2024 ambulatory MARLENE MALONEY Not Available Start: 11-21-2024 End: 11-21-2024 Bamboo flowskeshia Maloney DPM Work Phone: [facility] Start: 11-21-2024 End: 11-21-2024 Bamboo flowskeshia Maloney DPM Work Phone: [facility] Start: 10-20-2024 End: 10-20-2024 Bamboo flowskeshia Maloney DPM [facility] Phone: [facility] [...] Result Encounter Ash Tyrell DO Work Phone: [facility] External Department Unsolicited Start: 10-05-2024 End: 10-05-2024 Clinisync Result Encounter Ash Tyrell DO Work Phone: [facility] External Department Unsolicited Start: 09-07-2024 End: 09-07-2024 Bamboo flowskeshia Maloney DPM [facility] Phone: [facility] [...] Start: 06-27-2024 End: 06-27-2024 Bamboo flowsheet Marlene aMloney DPM Work Phone: [facility] [...] for preprocedural laboratory examination DR ASH SANTILLAN [facility] Start: 06-10-2022 End: 06-11-[address] ASH SANTILLAN Facility:[facility] Start: 06-10-2022 End: 06-11-2022 Encounter for preprocedural laboratory examination DR ASH SANTILLAN Facility:[facility] Start: 06-06-2022 Encounter for other preprocedural examination DR ASH SANTILLAN [facility] Start: 06-04-2022 End: 06-05-[address] ASH SANTILLAN Facility:[facility] Start: 06-04-2022 End: 06-05-2022 Encounter for other preprocedural examination DR ASH SANTILLAN Facility:[facility] Start: 04-17-2022 End: 04-18-[address] EDISON TIMMONS Facility:[facility] Start: 03-24-2022 End: 03-24-[address] EDISON TIMMONS Facility:[facility] Procedures Date Procedure Procedure Detail Performing Clinician Start: 02-13-2025 IGP,APTIMA HPV,AGE GDLN Ash Tyrell DO Work Phone: Start: 01-27-2025 ALL CBC WITH AUTO DIFF [...] [facility] [address] [place] [phone] Ash Santillan, DO [address] [place] [address] [facility] Start: 05-11-2025 End: 05-11-2025 Patient encounter procedure 05/11/2025 9:00 AM EDT Office Visit [facility] [address] [phone] Ash Santillan, DO [address] [facility] [place] [address] [facility] Start: 03-22-2025 End: 03-22-2025 Patient encounter procedure 03/22/2025 10:50 AM EDT Office Visit [facility] [address] [place] [phone] Ash Santillan, DO [address] [facility] [place] [address] [facility] Start: 03-16-2025 End: 03-16-2025 Patient encounter procedure 03/16/2025 9:15 AM EDT Office Visit [facility] [address] [place] [address] Marlene Maloney DPM [address] [place] [address] [facility] Start: 02-16-2025 End: 02-16-2025 Patient encounter procedure 02/16/2025 8:45 AM EDT Office Visit [facility] [address] [place] [address] Marlene Maloney DPM [address] [place] [address] [facility] Start: 02-13-2025 End: 04-15-2026 MG Breast - bilateral Screening Bilateral screening mammogram Imaging Routine Breast cancer screening by mammogram Expected: 02/13/2025 (Approximate), Expires: 04/15/2026 [facility] Work Phone: Comment on above: Expected: 02/13/2025 (Approximate), Expires: 04/15/2026 Start: 02-13-2025 End: 02-13-2025 Patient encounter procedure [facility] Start: 02-02-2025 End: 02-02-2025 Patient encounter procedure 02/02/2025 3:45 PM EDT Office Visit [facility] [address] [place] [address] Boogie Kate, DPM [address] [place] [address] [facility] Start: 01-26-2025 End: 01-26-2025 Patient encounter procedure 01/26/2025 3:45 PM EDT Office Visit [facility] [address] [place] [phone] Boogei Kate, DPM [address] [place] [address] Post-operative state (Primary Dx) [facility] Comment on above: Post-operative state (Primary Dx) Start: 01-24-2025 End: 01-24-2025 Patient encounter procedure 01/24/2025 11:30 AM EDT Office Visit [facility] [address] [place] [address] Boogie Kate, DPM [address] [place] [address] [facility] Start: 01-16-2025 End: 01-16-2025 Patient encounter procedure [facility] Comment on above: Arrived Start: 01-09-2025 End: 01-09-2025 Patient encounter procedure [facility] Comment on above: Arrived Start: 12-29-2024 End: 12-29-2024 Patient encounter procedure 12/29/2024 3:15 PM EDT Office Visit [facility] [address] [place] [phone] Marlene Maloney, DPM [address] [place] [address] Arrived [facility] Comment on above: Arrived Start: 12-29-2024 End: 12-29-2024 Patient encounter procedure 12/29/2024 10:40 AM EDT Office Visit [facility] [address] [facility] [place] [address] Ash aSntillan DO [address] [facility] [place] [address] [facility] Start: 12-28-2024 End: 12-28-2024 ambulatory 12/28/2024 5:00 PM EDT Treatment [facility] [address] [place] [address] Ursula Fall, PT [facility] Start: 12-21-2024 End: 12-21-2024 ambulatory 12/21/2024 5:00 PM EDT Treatment [facility] [address] [place] [address] Ursula Fall, PT [facility] Start: 12-21-2024 End: 12-21-2024 Patient encounter procedure 12/21/2024 2:15 PM EDT Office Visit [facility] [address] [place] [phone] Marlene Maloney, DPM [address] [place] [address] Arrived [facility] Comment on above: Arrived Start: 12-19-2024 End: 12-19-2024 ambulatory 12/19/2024 5:00 PM EDT Treatment [facility] [address] [facility] [address] [place] [address] Ursula Fall, PT [facility] Start: 12-14-2024 End: 12-14-2024 ambulatory 12/14/2024 5:00 PM EDT Treatment [facility] [address] [facility] [address] [place] [address] Ursula Fall, PT [facility] Start: [...] Office Visit [facility] [address] [place] [phone] Ash Santillan, [address] [facility] [place] [address] [facility] Start: 12-07-2024 End: 12-07-2024 ambulatory 12/07/2024 5:00 PM EDT Treatment [facility] [address] [facility] [address] [place] [address] Ursula Fall, PT [facility] Start: 11-21-2024 End: 11-21-2024 Patient encounter procedure [facility] Comment on above: Arrived Start: 10-20-2024 End: 10-20-2024 Patient encounter procedure 10/20/2024 11:00 AM EST [facility] [address] [place] [address] Marlene Maloney, DPM [address] [place] [address] Arrived [facility] Comment on above: Arrived Start: 09-07-2024 End: 09-07-2024 Patient encounter procedure 09/07/2024 1:45 PM EST Office Visit [facility] [address] [place] [address] Marlene Maloney, DPM [address] [place] [address] [facility] Start: 07-26-2024 End: 07-26-2024 Patient encounter procedure 07/26/2024 1:45 PM EST Office Visit [facility] [address] [place] [address] Marlene Maloney, DPM [address] [place] [address] [facility] DHEA-sulfate DHEA-sulfate Lab Routine PCOS (polycystic ovarian syndrome) Ordered: 12/13/2024 [facility] Comment on above: Ordered: 12/13/2024 Follicle stimulating hormone Follicle stimulating hormone Lab Routine PCOS (polycystic ovarian syndrome) Ordered: 12/13/2024 [facility] Comment on above: Ordered: 12/13/2024 hCG, quantitative, hCG, quantitative, Lab Routine PCOS (polycystic ovarian syndrome) Ordered: 12/13/2024 [facility] Work Phone: Comment on above: Ordered: 12/13/2024 Hemoglobin A1c/Hemoglobin.total in Blood Hemoglobin A1c Lab Routine Pelvic pain in female Abnormal uterine bleeding (AUB) Ordered: 12/13/2024 [facility] Comment on above: Ordered: 12/13/2024 Luteinizing hormone Luteinizing hormone Lab Routine PCOS (polycystic ovarian syndrome) Ordered: 12/13/2024 [facility] Comment on above: Ordered: 12/13/2024 Prolactin Prolactin Lab Ro utine Pelvic pain in female Abnormal uterine bleeding (AUB) Ordered: 12/13/2024 [facility] Comment on above: Ordered: 12/13/2024 THIN PREP TIS PAP AN D HR HPV DNA THIN PREP TIS PAP AND HR HPV DNA Pathology and Cytology Routine Well woman exam with routine gynecological exam Ordered: 02/13/2025 [facility] Comment on above: Ordered: 02/13/2025 Payers Date Payer Category Payer Medicaid [id number] 2019 Private Health Insurance [id number] 1982 Unknown [id number] 2.16.84 0.1.333754.3.579.2.593 1982 Unknown [id number] 2.16.84 0.1.997325.3.579.2.593 1982 Unknown [id number] 2.16.84 0.1.551562.3.579.2.593 1982 Unknown [id number] 2.16.84 0.1.452151.3.579.2.593 1982 Unknown [id number] 2.16.8 40.1.285073.3.579.2.9 1982 Unknown [id number] 2.16.8 40.1.166579.3.579.2.1259 1982 Unknown [id number] 2.16.8 40.1.844944.3.579.2.1259 1982 Unknown [id number] 2.16.84 0.1.999909.3.579.2.9 1982 Unknown [id number] 2.16.84 0.1.615026.3.579.2.1259 1982 Unknown [id number] 2.16.84 0.1.686128.3.579.2.9 1982 Unknown [id number] 2.16.84 0.1.739338.3.579.2.9 1982 Unknown [id number] 2.16.84 0.1.764873.3.579.2.1258 1982 Unknown [id number] 2.16.84 0.1.011213.3.579.2.1258 1982 Unknown [id number] 2.16.84 0.1.119710.3.579.2.1258 1982 Unknown [id number] 2.16.84 0.1.862472.3.579.2.1258 1982 Unknown [id number] 2.16.84 0.1.717654.3.579.2.1258 1982 Unknown [id number] 2.16.84 0.1.686980.3.579.2.1258 1982 Unknown [id number] 2.16.84 0.1.289517.3.579.2.1258 1982 Unknown [id number] 2.16.84 0.1.751103.3.579.2.1258 1982 Unknown [id number] 2.16.84 0.1.195207.3.579.2.1258 1982 Unknown [id number] 2.16.84 0.1.627144.3.579.2.1258 1982 Unknown [id number] 2.16.84 0.1.641696.3.579.2.1258 1982 Unknown [id number] 2.16.84 0.1.200330.3.579.2.1259 1959 Self-pay [id number] 1959 Unknown [id number] 1959 Unknown [id number] Unknown [id number] 2.16.84 0.1.128229.3.579.2.593 Social History Date Type Detail Facility Tobacco smoking stat [facility] Tobacco smoking consumption unknown [facility] Start: 1980 Sex assigned at Not on file [facility] Start: 07-26-2024 End: 02-02-2025 Gender identity Not on file [facility] Start: 07-26-2024 Tobacco smoking stat NHIS Ex-smoker [facility] History of tobacco use Current smoker [facility] History of tobacco use Cigarette Smoker [facility] Start: 07-26-2024 Tobacco use and exposure Smokeless t obacco non-user [facility] Start: 07-26-2024 End: 02-02-2025 History of Social function [facility] Clinical Notes 06-13-2022 to 02-16-2025 Marlene Maloney, DPM - 02/16/2025 8:45 AM EDTHerminia Luna, BRILLIANDEER LOOPER - 02/13/2025 9:50 AM EDTCjeffrey Maloney, DP - 02/02/2025 3:45 PM EDTMsancho Kate, AGGIEM - 01/26/2025 3:45 PM EDT Note Date & Type Note Facility 02-16-2025 History of Presen t illness Narrative Images from the original note were not included. HPI: Toi Rooney presents today for post-op appointment of EPF left foot. Surgery was performed on 01/13/2025 at [facility]. Patient complains of pain 0. Current [...] boot when doing more increased activity to help reduce her symptoms. She will follow-up in 4 weeks for recheck. documented in this encounter [facility] 02-13-2025 History of Presen t illness Narrative [...] nursing note reviewed. Exam conducted with a councilor present. Vitals: Estimated body mass index is [...] Ash Santillan DO documented in this encounter [facility] 02-02-2025 History of Presen t illness Narrative Images from the original note were not included. HPI: Toi Rooney presents today for post-op appointment of EPF left foot. Surgery was performed on 01/13/2025 at [facility]. Patient complains of pain 0. Current [...] weeks for recheck. documented in this encounter [facility] 01-26-2025 History of Presen t illness Narrative [...] for this visit. No Known Allergies Objective: [facility] 01/07/2025 Patient presents WBAT in CAM [...] Boogie Kate DPM documented in this encounter [facility] 01-26-2025 Instructions Boogie Kate DPM - 01/26/2025 3:45 PM EDT Continue weight bearing as tolerated in CAM boot OK to remove at rest Continue gentle range of motion exercises Apply betadine and bandage to site daily Monitor for sign of infection documented in this encounter [facility] 01-16-2025 History of Presen t illness Narrative Images from the original note were not included. HPI: Toi Rooney presents today for post-op appointment of EPF left foot. Surgery was performed on 01/13/2025 at [facility]. Patient complains of pain 0. Current [...] for suture removal. documented in this encounter [facility] 01-09-2025 History of Presen t illness Narrative Reason for Appointment: Patient ID: Toi oRoney is a 44 y.o. female who presents for Pre-op Visit Patient presents today for Pre Op appointment. Patient is scheduled to undergo Diagnostic Laparoscopy, possible CYNDY, possible FOE, possible BSO and D&C Hysteroscopy, possible Myosure on 01/27/[address] Santillan at [facility]. MEDICATIONS No current outpatient medications [...] nursing note reviewed. Exam conducted with a councilor present. Vitals: Estimated body mass index is [...] reviewed, and patient is to proceed to [facility] OR. Follow Up: Patient is to follow up between 1-2 weeks post operative to assess proper healing and recovery from procedure. Documented by Adriana Dale LPN on behalf of: Ash Santillan DO documented in this encounter [facility] 12-29-2024 History of Presen t illness Narrative Images from the original note were not included. HPI: Patient presents today for their pre-operative appointment. The patient is scheduled for EPF left foot at [facility] with Dr. Maloney on 01/13/2025 at [...] Patient was dispensed their postoperative prescriptions including: [place]. We discussed the postoperative instructions including protected [...] days after surgery. documented in this encounter [facility] 12-29-2024 Instructions Marlene Maloney DPM - 12/29/2024 3:15 PM EDT [facility] [place] [address] [place] [address] [place] [address] Arrive at 9:45 on 01/13 documented in this encounter [facility] 12-21-2024 History of Presen t illness [...] their surgery date. documented in this encounter [facility] 12-21-2024 Instructions Marlene Maloney DPM - 12/21/2024 2:15 PM EDT Instructions for Surgery Today you discussed surgery on your foot or ankle with Dr. Maloney. The following information is to help answer any questions that you may have prior to your surgery. If you have further questions prior to surgery, please contact the office at [phone]. PRE-OPERATIVELY Scheduling Once the paperwork is completed for your surgery, you will be contacted within the next 5-[address] Maloney's nurse/MA ([phone]) to schedule your surgery. The date is [...] the [facility] ([facility] at the [facility]. Your surgery may also be scheduled at [facility] depending upon your insurance and what [...] physical examination and the staff at the [facility] or hospital. Preparing your home This is [...] Surgery Parking is readily available at the [facility] and at the hospital. Please make sure [...] at that time. documented in this encounter [facility] 12-19-2024 History of Presen t illness [...] present. Does occasional massage at home. Precautions: [place] Subjective: Pt states she felt better after [...] to be instructed in home exercise program. Compensation Programs Manager Goals: To be met in 10 [...] sign below. Date: documented in this encounter [facility] 12-14-2024 History of Presen t illness [...] present. Does occasional massage at home. Precautions: [place] Subjective: Pt states she felt better after [...] to be instructed in home exercise program. Compensation Programs Manager Goals: To be met in 10 [...] sign below. Date: documented in this encounter [facility] 12-13-2024 History of Presen t illness [...] nursing note reviewed. Exam conducted with a councilor present. Vitals: Estimated body mass index is [...] Ash Santillan DO documented in this encounter [facility] 12-07-2024 History of Presen t illness [...] present. Does occasional massage at home. Precautions: [place] Subjective: Pt states bilateral calf muscles and [...] to be instructed in home exercise program. Correction Goals: To be met in 10 weeks [...] sign below. Date: documented in this encounter [facility] 12-05-2024 History of Presen t illness [...] present. Does occasional massage at home. Precautions: [place] Subjective: Pt states heels feel about the [...] to be instructed in home exercise program. Correction Goals: To be met in 10 weeks [...] sign below. Date: documented in this encounter [facility] 10-20-2024 History of Presen t illness [...] RTC: 4-6 weeks. documented in this encounter [facility] 09-07-2024 History of Presen t illness [...] other conservative measures including supportive shoes and hdml-jqa-[id number] inserts or custom inserts as applicable. We did discuss that there is a slight possibility of recurrence of the heel pain but to be very vigilant about continuing with the stretching exercises especially if they notice any recurrent symptoms. Patient should follow up as needed if they have any worsening pain or symptoms to the heel. documented in this encounter [facility] 07-26-2024 History of Presen t illness [...] RTC: 4-6 weeks. documented in this encounter [facility] 06-27-2024 Telephone encount er Note Rx was sent to [facility] in [place]. [facility] 06-27-2024 Miscellaneous Notes Formattin g of this note might be different from the original. Rx was sent to [facility] in [place]. Pt called to check in on script, and to change her preferred pharmacy to the [facility] in [place]. documented in this encounter [facility] 06-27-2024 Telephone encount er Note Pt called to check in on script, and to change her preferred pharmacy to the [facility] in [place]. [facility] 06-27-2024 History of Presen t illness [...] therapy if needed. documented in this encounter [facility] 06-27-2024 Instructions Marlene Maloney, DPM - 06/27/2024 1:00 PM EDT Images [...] foot and heel over the water bottle. Rykq-tmh-pbwmonb (OTC) arch supports: Sea Martinez, Renaldo Continued Treatment: Local anesthetic steroid injections Custom [...] get them is at an online supplier. [employer] offers many options for night splints. There [...] wake up in the morning and provide terminal press operator flexibility to help decrease the chance of [...] of 6-8 weeks. documented in this encounter [facility] 06-13-2022 Note OPERATIVE NOTE OPERATION DATE: 06/13/2022 PROCEDURE: Bilateral laparoscopic salpingectomy, lysis of adhesions, omental adhesions from the anterior abdominal wall. PREOPERATIVE DIAGNOSIS: Desires permanent sterilization. POSTOPERATIVE DIAGNOSIS: Desire permanent sterilization. ANESTHESIA: General. SURGEON: Ash Santillan D.O. MONOGRAM MACHINE OPERATOR: SHAR Rdz URINE OUTPUT: Yellow and clear. [...] and needle counts were correct x2. [facility] Evaluation note Diagnosis Plantar fasciitis- Primary Plantar fascial fibromatosis Pain of left heel Pain of right heel Pain of both heels documented in this encounter [facility]* Diagnosis Plantar fasciitis- Primary Plantar fascial fibromatosis Pain of left heel Pain of right heel documented in this encounter [facility]* Diagnosis Plantar fasciitis- Primary Plantar fascial fibromatosis Pain of left heel Pain of right heel documented in this encounter [facility]* Diagnosis Plantar fasciitis, bilateral- Primary Plantar fasciitis Plantar fascial fibromatosis documented in this encounter [facility]* Diagnosis Plantar fasciitis, bilateral- Primary documented in this encounter [facility]* Diagnosis Plantar fasciitis, bilateral- Primary Plantar fasciitis Plantar fascial fibromatosis documented in this encounter [facility]* Diagnosis Pelvic pain in female Unspecified symptom associated with female genital organs PCOS (polycystic ovarian syndrome) Polycystic ovaries Abnormal uterine bleeding (AUB) documented in this encounter [facility]* Diagnosis Plantar fasciitis, bilateral- Primary Plantar fasciitis Plantar fascial fibromatosis documented in this encounter [facility]* Diagnosis Plantar fasciitis, bilateral- Primary Plantar fasciitis Plantar fascial fibromatosis documented in this encounter [facility]* Diagnosis Plantar fasciitis- Primary Plantar fascial fibromatosis Pain of left heel Pain of right heel documented in this encounter [facility]* Diagnosis Plantar fasciitis- Primary Plantar fascial fibromatosis Pain of left heel documented in this encounter [facility]* Diagnosis Pre-op examination Pelvic pain in female Unspecified symptom associated with female genital organs PCOS (polycystic ovarian syndrome) Polycystic ovaries Abnormal uterine bleeding (AUB) Left lower quadrant abdominal pain documented in this encounter [facility]* Diagnosis Plantar fasciitis- Primary Plantar fascial fibromatosis Postoperative examination [Z09] Follow-up examination, following unspecified surgery Pain of left heel documented in this encounter [facility]* Diagnosis Post-operative state- Primary Other postprocedural status documented in this encounter [facility]* Diagnosis Post-operative state- Primary Other postprocedural status Plantar fasciitis Plantar fascial fibromatosis Pain of left heel documented in this encounter [facility]* Diagnosis PCOS (polycystic ovarian syndrome)- Primary Polycystic ovaries Well woman exam with routine gynecological exam Routine gynecological examination Pre-op examination Pelvic pain Menorrhagia with regular cycle Abnormal uterine bleeding (AUB) Breast cancer screening by mammogram [facility] Diagnosis Post-operative state- Primary Other postprocedural status Plantar fasciitis Plantar fascial fibromatosis Pain of left heel [facility] Rehabilitation - Outpatient (Routine) - Pending Review Specialty Diagnoses / Procedures Referred By Contac t Referred To Contact Physical Therapy Diagnoses Plantar fasciitis Procedures IA OFFICE/OUTPATIENT NEW HIGH MDM 60 MINUTES Marlene Maloney, DPM [address] [place] [address] Phone: tel: fax: Ursula Fall, SINDY Referral ID Status Reason Start Date Expiration Date Visits Requested Visits Authorized [id number] Pending Review Specialty Services Required 11/21/2024 05/20/2025 2 2 [facility] - Outpatient (Routine) - Authorized Specialty Diagnoses / Procedures Referred By Contac t Referred To Contact Physical Therapy Diagnoses Plantar fasciitis Procedures IA OFFICE/OUTPATIENT NEW HIGH MDM 60 MINUTES Marlene Maloney, DPM [address] [place] [address] Phone: tel: fax: Ursula Fall, PT Referral ID Status Reason Start Date Expiration Date Visits Requested Visits Authorized [id number] Authorized Specialty Services Required 11/21/2024 08/30/2025 12 12 [facility] Summary Purpose Family History No Family History Records FoundNo Family History Records Found Advance Directives No Advanced Directives Records FoundNo Advanced Directives Records Found Additional Source Comments INFORMATION SOURCE (unrecogn ized section and content) DATE CREATED AUTHOR 08/07/2022 [facility] DATE CREATED AUTHOR AUTHOR'S ORGANIZ ATION 02/19/2025 [facility] EPIC Care Teams (unrecognized sec tion and content) Digital Director Relationship Specialty Start Date End Date Edison Timmons MD [address] [place] [address] PCP - General Family Medicine 06/27/24 Digital Director Relationship Specialty Start Date End Date Edison Timmons MD [address] [place] [facility] [address] PCP - General Family Medicine 06/27/24 Digital Director Relationship Specialty Start Date End Date Edison Timmons MD [address] [place] [facility] [address] PCP - General Family Medicine 06/27/24 Digital Director Relationship Specialty Start Date End Date Edison Timmons MD [address] [place] [facility] [address] PCP - General Family Medicine 06/27/24 Digital Director Relationship Specialty Start Date End Date Edison Timmons MD [address] [facility], [facility] PCP - General Family Medicine 06/27/24 Digital Director Relationship Specialty Start Date End Date Edison Timmons MD [address] [place] [facility] [address] PCP - General Family Medicine 06/27/24 Digital Director Relationship Specialty Start Date End Date Edison Timmons MD [address] [place] [facility] [address] PCP - General Family Medicine 06/27/24 Digital Director Relationship Specialty Start Date End Date Edison Timmons MD [address] [place] [facility] [address] PCP - General Family Medicine 06/27/24 Digital Director Relationship Specialty Start Date End Date Edison Timmons MD [address] [place] [facility] [address] PCP - General Family Medicine 06/27/24 Digital Director Relationship Specialty Start Date End Date Edison Timmons MD [address] [place] [facility] [address] PCP - General Family Medicine 06/27/24 Digital Director Relationship Specialty Start Date End Date Edison Timmons MD [address] [place] [facility] [address] PCP - General Family Medicine 06/27/24 Digital Director Relationship Specialty Start Date End Date Edison Timmons MD [address] [place] [facility] [address] PCP - General Family Medicine 06/27/24 Digital Director Relationship Specialty Start Date End Date Edison Timmons MD [address] [place] [facility] [address] PCP - General Family Medicine 06/27/24 Digital Director Relationship Specialty Start Date End Date Edison Timmons MD [address] [place] [facility] [address] PCP - General Family Medicine 06/27/24 Digital Director Relationship Specialty Start Date End Date Edison Timmons MD [address] [place] [facility] [address] PCP - General Family Medicine 06/27/24 Digital Director Relationship Specialty Start Date End Date Edison Timmons MD PCP - General Family Medicine 06/27/24 Digital Director Relationship Specialty Start Date End Date Edison Timmons MD PCP - General Family Medicine 06/27/24 Digital Director Relationship Specialty Start Date End Date Edison Timmons MD PCP - General Family Medicine 06/27/24 Digital Director Relationship Specialty Start Date End Date Edison Timmons MD PCP - General Family Medicine 06/27/24 Digital Director Relationship Specialty Start Date End Date Edison Timmons MD [address] [place] [facility] [address] PCP - General Family Medicine 01/26/25 Digital Director Relationship Specialty Start Date End Date Edison Timmons MD [address] [place] [facility] [address] PCP - General Family Medicine 01/26/25 Digital Director Relationship Specialty Start Date End Date Edison Timmons MD [address] [place] [facility] [address] PCP - General Family Medicine 01/26/25 Digital Director Relationship Specialty Start Date End Date Edison Timmons MD [address] [place] [facility] [address] PCP - General Family Medicine 01/26/25 Digital Director Relationship Specialty Start Date End Date Edison Timmons MD [address] [place] [facility] [address] PCP - General Family Medicine 01/26/25 Digital Director Relationship Specialty Start Date End Date Edison Timmons MD [address] [place] [phone] PCP - General Family Medicine 01/26/25 Reason [...] BE BASED ON THE PRIMARY CLINICAL RECORDS. [facility] [employer] provides no warranty or guarantee of the accuracy or completeness of information in this document.
--- OUTSIDE RECORDS SUMMARY | 2025-03-10 07:04 | XMS_ITS | Encounter Summary ---
Author Organization [facility] Address [address] [place] [address] Care Team Providers Care Infection Control Preventionist Name Role Phone Harsha Timmons MD Primary Care Provider + Harsha Timmons MD Primary Care Provider + Encounter Details Date Type Department Care Team (Late Contact Info) Description 01/12/2025 Abstract [facility] [address] [place] [phone] [address]hon Santillan [address] [place], [place] [id number] Social History Tobacco Use Types Packs/Day Years [...] Department Care Team (Late Contact Info) Description 03/22/2025 10:50 AM EDT Office Visit [facility] [address] [place] [phone] Jhon Santillan DO [address] [place], [place] [address], [place] [id number] 03/28/2025 8:30 AM EDT Office Visit [facility] [address] [place] [phone] Nikkie Maloney, DPM [address] [facility] [address] [place] [address] 02/20/2026 10:00 AM EDT Office Visit [facility] [address] [facility] [address] Jhon Santillan, DO [address] [facility] [place] [address] documented as of this encounter Visit Diagnoses Not on filedocumented in this encounter Care Teams Infection Control Preventionist Relationship Specialty Start Date End Date Harsha Timmons MD PCP - General Family Medicine 06/27/24 01/25/25 Harsha Timmons MD [address] [facility] [place] [address] PCP - General Family Medicine 01/26/25 documented as of this encounter
--- OUTSIDE RECORDS SUMMARY | 2025-03-10 07:04 | XMS_ITS | Clinical Summary ---
Author Organization [facility] Address [address] [place] [address] Care Team Providers Care Chemical Lab Supervisor Name Role Phone Harsha Timmons MD [...] chew, or split. 30 tablet 11 02/13/2025 5 Active Active Problems No known active problems Encounters Date Type Department Care Team Description 02/24/2025 Telephone [facility] [address] [facility] [address] [place] [address] Dariela Goldman MA Questions 02/23/2025 Orders Only [facility] OB [address] [facility] [place] [address] Alka Martinez LPN 02/16/2025 8:45 AM EDT Office Visit [facility] [address] [place] [address] Nikkie Maloney DPM Post-operative state (Primary Dx); Plantar fasciitis; Pain of left heel 02/16/2025 Bamboo flowsheet [facility] [address] [place] [address] Nikkie Maloney DPM 02/16/2025 Travel 02/13/2025 9:50 AM EDT Office Visit [facility] [address] [place] [address] Jhon Santillan, PCOS (polycystic ovarian syndrome) (Primary Dx); Well woman exam with routine gynecological exam; Pre-op examination; Pelvic pain; Menorrhagia with regular cycle; Abnormal uterine bleeding (AUB); Breast cancer screening by mammogram 02/13/2025 Clinisync Result Encounter [facility] External Department Unsolicited Jhon Santillan, 02/06/2025 Telephone [facility] [address] [place] [address] Brenda Moore MA 02/02/2025 3:45 PM EDT Office Visit [facility] [address] [place] [address] Nikkie Maloney, DPM Post-operative state (Primary Dx); Plantar fasciitis; Pain of left heel 02/02/2025 Bamboo flowsheet [facility] [address] [place] [address] Nikkie Maloney, DPM 02/02/2025 Travel 01/30/[address] Telephone [facility] [address] [place] [address] Samia Cueto PA 01/27/2025 Abstract [facility] [address] [place] [address] Jhon Santillan DO 01/27/2025 Clinisync Result Encounter [facility] External Department Unsolicited Jhon Santillan, 01/26/2025 3:45 PM EDT Office Visit [facility] [address] [place] [address] Candelario Rojas, DPM Post-operative state (Primary Dx) 01/26/2025 Bamboo flowsheet [facility] [address] [place] [address] Candelario Rojas, DPM 01/26/2025 Travel 01/20/2025 Telephone [facility] [address] [place] [address] Susi DarielaALANNA henry Refill Rx 01/16/2025 10:45 AM EDT Office Visit [facility] [address] [place] [address] Nikkie Maloney, DPM Plantar fasciitis (Primary Dx); Postoperative examination [Z09]; Pain of left heel 01/16/2025 Bamboo flowsheet [facility] [address] [place] [address] Nikkie Maloney, DPM 01/16/2025 Travel 01/12/2025 Abstract [facility] [address] [place] [address] Jhon Santillan DO 01/09/2025 1:30 PM EDT Consult [facility] [address] [place] [address] Jhon Santillan DO Pre-op examination; Pelvic pain in female; PCOS (polycystic ovarian syndrome); Abnormal uterine bleeding (AUB); Left lower quadrant abdominal pain 01/09/2025 Bamboo flowsheet [facility] [address] [place] [address] Jhon Santillan DO 12/29/2024 3:15 PM EDT Office Visit [facility] [address] [place] [address] Nikkie Maloney, COREY Plantar fasciitis (Primary Dx); Pain of left heel 12/29/2024 Bamboo flowsheet [facility] [address] [place] [address] Nikkie Maloney, DPM 12/29/2024 Travel 12/26/2024 Telephone [facility] OB [address] [facility] [place] [address] Angeline Donato MA 12/21/2024 2:15 PM EDT Office Visit [facility] [address] [place] [address] Nikkie Maloney, DPM Plantar fasciitis (Primary Dx); Pain of left heel; Pain of right heel 12/21/2024 Bamboo flowsheet [facility] [address] [place] [address] Nikkie Maloney, DPM 12/21/2024 Travel 12/20/2024 Travel 12/19/2024 5:00 PM EDT Treatment [facility] [address] [facility] [address] [place] [address] Natalya Fall, PT Plantar fasciitis, bilateral (Primary Dx); Plantar fasciitis 12/16/2024 Clinisync Result Encounter [facility] External Department Unsolicited Jhon Santillan DO 12/14/2024 5:00 PM EDT Treatment [facility] [address] [facility] [address] [place] [address] Natalya Fall, PT Plantar fasciitis, bilateral (Primary Dx); Plantar fasciitis 12/14/2024 Travel 12/13/2024 10:50 AM EDT Office Visit [facility] [address] [place] [phone] Jhon Santillan DO Pelvic pain in female; PCOS (polycystic ovarian syndrome); Abnormal uterine bleeding (AUB) 12/13/2024 Bamboo flowsheet [facility] [address] [place] [address] Jhon Santillan DO from Last 3 Months Social [...] Care Team (Late st Contact Info) Description 03/22/2025 10:50 AM EDT Office Visit [facility] OB [address] [facility] [place] [address] Jhon Santillan, [address] [place] [address] 03/28/2025 8:30 AM EDT Office Visit [facility] [address] [place] [address] Nikkie Maloney, DPM [address] [place] [address] 02/20/2026 10:00 AM EDT Office Visit [facility] [address] [facility] [place] [address] Jhon Santillan, [address] [place] [address] Procedures Procedure Name Priority Date/Time Associated Diagnosis [...] AM EDT ALL LUTEINIZING HORMONE Routine 12/17/19 8:05 AM EDT ALL DHEA SULFATE Routine 12/16/2024 8:05 AM EDT MLR HEMOGLOBIN A1C Routine 12/16/2024 8: 05 AM EDT TBH PREG QUANT HCG Routine 12/16/2024 8: 05 AM EDT from Last 3 Months Results * IGP,APTIMA HPV,AGE GDLN (02/13/2025 9:58 AM EDT) AGE GDLN ACOG TESTING Note . [facility] Comment: TESTS RESULT FLAG UNITS REF RANGE LAB Clinician Provided Cytology Information Source.............Cervix;Endocervix No. of containers..01 ThinPrep Vial Age Algo ACOG Radha... 30-65 01 FLAG LEGEND: L-Low Normal,H-High Normal,LL-Alert Low,HH-Alert High <-Panic Low,>-Panic High,A-Abnormal,AA-Critical Abnormal Performed at: 01 =[facility] [address] Meghann Henry MD, IGP, APTIMA HPV, RFX 16/18,45 Note . [facility] Comment: TESTS RESULT FLAG UNITS REF RANGE LAB DIAGNOSIS: 02 NEGATIVE FOR INTRAEPITHELIAL LESION OR MALIGNANCY. THIS SPECIMEN WAS RESCREENED PART OF OUR SETTER OFF PROGRAM. Specimen adequacy: 02 Satisfactory for evaluation. No endocervical component is identified. Performed by: 02 Lori Gracia, Finisher Tailor Apprentice (ASC) QC reviewed by: 02 Jessica Love, Finisher Tailor Apprentice (ASCP) . 02 Note: Note 02 The [...] <-Panic Low,>-Panic High,A-Abnormal,AA-Critical Abnormal Performed at: [address] [address] Meghann Henry MD, HPV APTIMA Negative Negative [facility] Comment: This nucleic acid amplification test detects fourteen high- risk HPV types (16,18,31,33,35,39,45,51,52,56,58,59,66,68) without differentiation. Performed at: =[address] [id number] Coffee Host: Meghann Henry MD, Phone: [phone] Performed at: [address] [id number] Coffee Host: Meghann Henry MD, Phone: [phone] 02/13/2025 9:58 AM EDT 02/13/2025 1:10 PM EDT Narrative CLINISYNC - 02/16/2025 9:08 AM EDT BRUSH-SPATULA CERVIX ENDOCERVIX Jhon Santillan DO LAB BLOOD ORDERABLES Final Resul t Performing Organization Address [facility]/ZIP Co de Phone Number CLINISYNC TB * Pap Smear (02/13/2025 12:00 AM EDT) Swab Cervical swab / Unknown Tyrell Nurse [facility] Ob LAB CYTOLOGY ORDERABLES Final Result Performing Organization Address [facility]/ZIP Co de Phone Number EXTERNAL LAB * TBH PREG QUANT HCG (01/27/2025 6:20 AM EDT) Only the most recent of2 resultswithin the time period is included. Pathologist [facility] HCG QUANTITATIVE <1 mIU/mL TBH Comment: 5-50 0.2-1 WEEK 50-500 1-2 WEEKS 100-5,000 2-3 WEEKS 500-10,000 3-4 WEEKS 1,000-50,000 4-5 WEEKS 10,000-100,000 5-6 WEEKS 15,000-200,000 6-8 WEEKS 10,000-100,000 2-3 MONTHS 01/27/2025 6:20 AM EDT 01/27/2025 6:20 AM EDT Narrative CLINISYNC - 01/27/2025 6:46 AM EDT Jhon Tyrell DO CLINISYNC Final Result [facility] * (ABNORMAL) ALL CBC WITH AUTO DIFF (01/27/2025 6:20 AM EDT) Pathologist [facility] TBH WBC 12.5(H) 4.0 - 11.0 10 3/uL TBH TB RBC 4.57 4.20 - 5.40 10 6/uL TBH TB HGB 14.4 12.0 - 16.0 g/dL TB TB HCT 41.3 36.0 - 48.0 % TBH TB MCV 90.4 81.0 - 99.0 fL TB TB MCH 31.5 26.7 - 34.0 pg TBH TB MCHC 34.9 29.9 - 35.2 g/dL TB TB RDW 12.2 11.0 - 15.0 % TBH TBH PLT 284 150 - 450 10 3/uL TBH TB MPV 9.8 9.5 - 13.5 fL TBH [...] Narrative CLINISYNC - 01/27/2025 6:25 AM EDT [facility] DO CLINISYNC Final Result [facility]INIS[facility]NC [facility] * POCT , urine manually resulted (01/09/2025 2:04 PM EDT) Preg Test, Ur Negative Negative Urine 01/09/2025 2:04 PM EDT [facility]INT [facility]ARE TEST ENTER/EDIT OR DERABLES Final Result * POCT urinalysis dipstick manually resulted (01/09/2025 2:04 PM EDT) Color, UA Yellow Clarity, UA Clear Glucose, UA Negative Negative - 1999(110) ++++ mg/dL Bilirubin, UA Negative Negative - 4(70) +++ mg/dL Ketones, UA Negative Negative - 160(16) ++++ mg/dL Spec Grav, UA 1.025 1 - 1.03 Blood, UA Negative Negative - 50 Efrain/mcL pH, UA 6.5 5 - 9 Protein, UA Negative Negative - 1999(20) ++++ mg/dL Urobilinogen, UA 0.2 0.2 - 12 mg/dL Leukocytes, UA Negative Negative - 500+++ Diana/mcL Nitrite, UA Negative Negative - Positive Urine 01/09/2025 2:04 PM EDT Jhon Tyrell DO POINT OF CARE TEST ENTER/EDIT OR DERABLES Final Result * TBH PROLACTIN (12/16/2024 8:05 AM EDT) PROLACTIN 12.7 4.8 - 33.4 ng/mL [facility] Comment: Performed at: [address] [id number] Coffee Host: Leonardo House PhD, Phone: [phone] 12/16/2024 8:05 AM EDT 12/16/2024 8:07 AM EDT Narrative CLINISYNC - 12/19/2024 12:08 PM EDT Jhon Tyrell DO CLINISYNC Final Result Performing Organization Address [facility]/RUST Co de Phone Number [facility] * TBH CORTISOL AM (12/16/2024 8:05 AM EDT) CORTISOL - AM 17.0 6.2 - 19.4 ug/dL [facility] Comment: Performed at: [address] [id number] Coffee Host: Leonardo House PhD, Phone: [phone] 12/16/2024 8:05 AM EDT 12/16/2024 8:07 AM EDT Narrative CLINISYNC - 12/19/2024 12:08 PM EDT Jhon Tyrell DO CLINISYNC Final Result Performing Organization Address City/[facility]/ZIP Co de Phone Number [facility] * MLR HEMOGLOBIN A1C (12/16/2024 8:05 AM EDT) GLYCOHEMOGLOBIN A1C 5.2 4.5 - 6.2 % [facility] Comment: ADA RECOMMENDED LIMIT 4.0 - 6.0 ADA THERAPEUTIC TARGET < 7.0 ACTION SUGGESTED > 7.0 ESTIMATED AVERAGE GLUCOSE 103 mg/dL TB 12/16/2024 8:05 AM EDT 12/16/2024 8:07 AM EDT Narrative CLINISYNC - 12/16/2024 9:50 AM EDT Jhon Tyrell DO CLINISYNC Final Result [facility] * ALL LUTEINIZING HORMONE (12/16/2024 8:05 AM EDT) LUTEINIZING HORMONE(LH) 15.5 . mIU/mL [facility]H Comment: Adult Female Range Follicular phase 2.4 - 12.6 Ovulation phase 14.0 - 95.6 Luteal phase 1.0 - 11.4 Postmenopausal 7.7 - 58.5 12/16/2024 8:05 AM EDT 12/16/2024 8:07 AM EDT Narrative CLINISYNC - 12/19/2024 12:08 PM EDT Jhon Tyrell DO CLINISYNC Final Result Performing Organization Address City/[facility]/ZIP Co de Phone Number [facility] * ALL FOLLICLE STIMULATING HORMONE (12/16/2024 8:05 AM EDT) Pathologist [facility] FSH 7.1 . mIU/mL [facility] Comment: Adult Female Range Follicular phase 3.5 - 12.5 Ovulation phase 4.7 - 21.5 Luteal phase 1.7 - 7.7 Postmenopausal 25.8 - 134.8 12/16/2024 8:05 AM EDT 12/16/2024 8:07 AM EDT Narrative CLINISYNC - 12/19/2024 12:08 PM EDT Jhon Tyrell DO CLINISYNC Final Result [facility] * (ABNORMAL) ALL DHEA SULFATE (12/16/2024 8:05 AM EDT) Pathologist [facility] DHEA-SULFATE 34.4(A) 57.3 - 279.2 ug/dL TBH 12/16/2024 8:05 AM EDT 12/16/2024 8:07 AM EDT Narrative CLINISYNC - 12/19/2024 12:08 PM EDT us Jhon Tyrell DO CLINISYNC Final Result CLINISYNC TB * ALL DEHYDROEPIANDROSTERONE (12/16/2024 8:05 AM EDT) DHEA, SERUM 47 31 - 701 ng/dL [facility] Comment: This test was developed and its performance characteristics determined by [facility]. It has not been cleared or approved by the Food and Drug Administration. Performed at: [address] [id number] Coffee Host: Roxanna Manrique MD, Phone: [phone] 12/16/2024 8:05 AM EDT 12/16/2024 8:07 AM EDT Narrative CLINISYNC - 12/27/2024 10:10 AM EDT Jhon Tyrell DO CLINISYNC Final Result CLINISYNC TB from Last 3 Months Insurance [employer] [place] Care Teams Chemical Lab Supervisor Relationship Specialty Start Date End Date Harsha Timmons MD [address] [place] [address] PCP - General Family Medicine 01/26/25
--- OUTSIDE RECORDS SUMMARY | 2025-03-10 07:04 | XMS_ITS | Encounter Summary ---
Author Organization [facility] Address [address] [place] [address] Care Team Providers Care Certified Surgical Technologist Name Role Phone Harsha Timmons MD Primary Care Provider [phone] Reason for Visit * Reason Onset Date Comments Questions 02/24/2025 Encounter Details Date Type Department Care Team ([facility] st Contact Info) Description 02/24/2025 Telephone [facility] [address] [facility] [address] [place] [phone] Dariela Goldman MA Questions Social History Tobacco [...] Visit [facility] OB [address] [facility] [address] [address] Jhon Santillan, [address] [facility] [address] [place] [address] 03/28/2025 8:30 AM EDT Office Visit [facility] [address] [place] [address] Nikkie Maloney, DPM [address] [place] [address] 02/20/2026 10:00 AM EDT Office Visit [facility] [address] [facility] [place] [phone] Jhon Santillan, DO [address] [place] [address] documented as of this encounter Visit Diagnoses Not on filedocumented in this encounter Care Teams Certified Surgical Technologist Relationship Specialty Start Date End Date Harsha Timmons MD [address] [facility] [place] [address] PCP - General Family Medicine 01/26/25 documented as of this encounter
--- OUTSIDE RECORDS SUMMARY | 2025-03-10 07:04 | XMS_ITS | Patient Health Record ---
Author Organization [facility] in [place] Address [address] [place] [address] Care Team Providers Care Ehs Engineer Name Role Phone Francis Timmons Primary Care Provider Allergies No Known Allergies Results Component Value Reference Range Notes CBC AUTO DIFF Reviewed date:04/17/2024 05:03:25 PM Interpretation: Performing Lab: Notes/Report: [facility] , White Blood Count 9.8 [...] Performing Lab: see note ML - [facility] FREE T3 Reviewed date:11/17/2024 06:24:49 PM Interpretation: Performing Lab: Notes/Report: [facility] , Free T3 2.59 2.18-3.98 pg/mL Performing Lab: see note ML - [facility] LB IRON Reviewed date:11/17/2024 06:24:49 PM Interpretation: Performing Lab: Notes/Report: [facility] , Iron 82.0 50.0-170.0 ug/dL Performing Lab: see note ML - [facility] LB PROF 14(COMP METB) Reviewed date:11/17/2024 06:24:49 PM Interpretation: Performing Lab: Notes/Report: [facility] , Sodium 142 136-145 mmol/L Potassium [...] Lab: see note ML - [facility] LB T4 Reviewed date:11/17/2024 06:24:49 PM Interpretation: Performing Lab: Notes/Report: [facility] , T4 Thyroxine 10.30 4.80-13.90 ug/dL Performing Lab: see note - [facility] LB TSH Reviewed date:11/17/2024 06:24:49 PM Interpretation: Performing Lab: Notes/Report: [facility] , Thyroid Stimulating Hormone 1.604 0.358-3.740 uIU/mL Performing Lab: see note - [facility] LB Luteinizing Hormone(LH) Reviewed date:12/19/2024 02:04:58 PM Interpretation: Performing Lab: Notes/Report: [facility] , Luteinizing Hormone(LH) 15.5 . mIU/mL Adult Female Range Follicular phase 2.4 - 12.6 Ovulation phase 14.0 - 95.6 Luteal phase 1.0 - 11.4 Postmenopausal 7.7 - 58.5 Performing Lab: see note - [facility] LB FSH Reviewed date:12/19/2024 02:04:58 PM Interpretation: Performing Lab: Notes/Report: [facility] , FSH 7.1 . mIU/mL Adult Female Range Follicular phase 3.5 - 12.5 Ovulation phase 4.7 - 21.5 Luteal phase 1.7 - 7.7 Postmenopausal 25.8 - 134.8 Performing Lab: see note - [facility] LB DHEA-Sulfate Reviewed date:12/19/2024 02:04:58 PM Interpretation: Performing Lab: Notes/Report: [facility] , DHEA-Sulfate 34.4 57.3-279.2 ug/dL Performing Lab: see note - [facility] LB Prothrombin Time INR Reviewed date:12/27/2024 06:59:41 PM Interpretation: Performing Lab: Notes/Report: [facility] , Prothrombin Time 10.4 9.0-11.6 sec INR 0.98 DESIRED INR: 2.0-3.0 CONDITIONS NOT LISTED BELOW 2.5-3.5 FOR PROSTHETIC HEART VALVE REPLACEMENT 2.5-3.5 RECURRENT THROMBOSIS Performing Lab: see note [facility] LB PTT Reviewed date:12/27/2024 06:59:41 PM Interpretation: Performing Lab: Notes/Report: [facility] , Partial Thromboplastin Time 23.7 22.3-36.2 sec Performing Lab: see note - [facility] LB PROLACTIN Reviewed date:12/19/2024 02:04:58 PM Interpretation: Performing Lab: Notes/Report: [facility] , Prolactin 12.7 4.8-33.4 ng/mL Performed at: [address] [id number] Housekeeper: Leonardo House PhD, Phone: [phone] Performing Lab: see note [facility] PREG QUANT HCG Reviewed date:12/17/2024 11:42:21 AM Interpretation: Performing Lab: Notes/Report: [facility] , HCG Quantitative <1 5-50 0.2-1 WEEK 50-500 1-2 WEEKS 100-5,000 2-3 WEEKS 500-10,000 3-4 WEEKS 1,000-50,000 4-5 WEEKS 10,000-100,000 5-6 WEEKS 15,000-200,000 6-8 WEEKS 10,000-100,000 2-3 MONTHS Performing Lab: see note - [facility] GLYCOHEMOGLOBIN A1C Reviewed date:12/17/2024 11:42:21 AM Interpretation: Performing Lab: Notes/Report: [facility] , Glycohemoglobin A1C 5.2 4.5-6.2 % ADA RECOMMENDED LIMIT 4.0 - 6.0 ADA THERAPEUTIC TARGET < 7.0 ACTION SUGGESTED > 7.0 Estimated Average Glucose 103 Performing Lab: see note - [facility] CORTISOL AM Reviewed date:12/19/2024 02:04:58 PM Interpretation: Performing Lab: Notes/Report: [facility] , Cortisol - AM 17.0 6.2-19.4 ug/dL Performed at: [address] [id number] Housekeeper: Leonardo House PhD, Phone: [phone] Performing Lab: see note [facility] LB CBC AUTO DIFF Reviewed date:11/17/2024 06:24:49 PM Interpretation: Performing Lab: Notes/Report: [facility] , White Blood Count 9.4 4.0-11.0 [...] Performing Lab: see note ML - [facility] US pelvis w/ transvaginal Reviewed date:10/19/2024 06:57:01 PM Interpretation: Performing Lab: Notes/Report: Source Facility: [facility] [place] [address] [place] [address] Ultrasound Report Signed Patient: BONNIE KNIGHT MR#: [id number] : 1980 Acct:[id number] Age/Sex: 44 / F ADM Date: 10/04/24 Loc: US Attending Dr: Ash Santillan D.O. Ordering Physician: Ash Santillan D.O. Date of Service: 10/04/24 Procedure(s): US pelvis w/ transvaginal Accession Number(s): [id number] cc: Ash Santillan D.O.; Harsha Timmons M.D. The [address] [address] Patient Name: BONNIE KNIGHT MRN: [id number] date: 1980 Sex: F Assigned Patient Location: US Current Patient Location: Accession/Order Number: [id number] Exam Date: 10/04/2024 17:50 Report Date: 10/05/2024 [...] M.D. Signed By: 10/05/24 0746 DD/ TD/TT: Cooker Mechanic: [place] [address] Ultrasound Report Signed Patient: TANYA KNIGHT MR#: [id number] : 1980 Acct:[id number] Age/Sex: 44 / F ADM Date: 10/04/24 Loc: US Attending Dr: Ash Santillan D.O. Ordering Physician: Ash Santillan D.O. Date of Service: 10/04/24 Procedure(s): US pelvis w/ transvaginal Accession Number(s): [id number] cc: Ash Santillan D.O. ; Harsha Timmons M.D. [place] [address] Patient Name: BONNIE KNIGHT MRN: [id number] date: 1980 Sex: F Assigned Patient Location: US Current Patient Location: Accession/Order Number: [id number] Exam Date: 10/04/2024 17:50 Report Date: 10/05/2024 [...] Denny M.D. Signed By: 10/05/2446 DD/ TD/TT: Cooker Mechanic: TSH Reviewed date:04/17/2024 05:03:25 PM Interpretation: Performing Lab: Notes/Report: [facility] , Thyroid Stimulating Hormone 2.517 0.358-3.740 uIU/mL Performing Lab: see note ML - [facility] LB PROF 14(COMP METB) Reviewed date:04/17/2024 05:03:25 PM Interpretation: Performing Lab: Notes/Report: [facility] , Sodium 138 136-145 mmol/L Potassium [...] Performing Lab: see note ML - [facility] LB LIPID PROFILE Reviewed date:04/17/2024 05:03:25 PM Interpretation: Performing Lab: Notes/Report: [facility] , Triglycerides 255 <=150 mg/dL Cholesterol [...] Performing Lab: see note ML - [facility] LB IGP,Aptima HPV,Age Gdln Reviewed date:02/16/2025 06:52:43 PM Interpretation: Performing Lab: Notes/Report: BRUSH-SPATULA CERVIX ENDOCERVIX [facility] , Age Gdln ACOG Testing Note . TESTS RESULT FLAG UNITS REF RANGE LAB Clinician Provided Cytology Information Source.............Cer vix;Endocervix No. of containers..01 ThinPrep Vial Age Algo ACOG Radha... 30-65 01 FLAG LEGEND: L-Low Normal,H-High Normal,LL-Alert Low,HH-Alert High <-Panic Low,>-Panic High,A-Abnormal,AA-Cri tical Abnormal Performed at: 01 =G [facility] [address] [place] [address] Meghann Henry MD, IGP, Aptima HPV, rfx 16/18,45 Note . TESTS RESULT FLAG UNITS REF RANGE LAB DIAGNOSIS: 02 NEGATIVE FOR INTRAEPITHELIAL LESION OR MALIGNANCY. THIS SPECIMEN WAS RESCREENED PART OF OUR ORGAN PIPE MAKER METAL PROGRAM. Specimen adequacy: 02 Satisfactory for evaluation. No endocervical component is identified. Performed by: 02 Lori Gracia, Electronics Tech (ASCP) QC reviewed by: 02 Jessica Love, Electronics Tech (ASC) . 02 Note: Note 02 The [...] L-Low Normal,H-High Normal,LL-Alert Low,HH-Alert High <-Panic Low,>-Panic High,A-Abnormal,AA-Cri tical Abnormal Performed at: [address] [facility] [place] [address] Meghnan Henry MD, HPV Aptima Negative Negative This nucleic acid amplification test detects fourteen high- risk HPV types (16,18,31,33,35,39,45, 51,52,56,58,59,66,68) without differentiation. Performed at: =G - [facility] [address] [id number] Housekeeper: Meghann Henry MD, Phone: [phone] Performed at: WB - [facility] [address] [id number] Housekeeper: Meghann Henry MD, Phone: [phone] Performing Lab: see note LC - [facility] LB PREG QUANT HCG Reviewed date:01/29/2025 04:18:15 PM Interpretation: Performing Lab: Notes/Report: [facility] , HCG Quantitative <1 5-50 0.2-1 WEEK 50-500 1-2 WEEKS 100-5,000 2-3 WEEKS 500-10,000 3-4 WEEKS 1,000-50,000 4-5 WEEKS 10,000-100,000 5-6 WEEKS 15,000-200,000 6-8 WEEKS 10,000-100,000 2-3 MONTHS Performing Lab: see note - [facility] LB US pelvis w/ transvaginal Reviewed date:11/17/2024 06:24:49 PM Interpretation: Performing Lab: Notes/Report: Source Facility: [facility] [place] [address] Ultrasound Report Signed Patient: BONNIE KNIGHT MR#: [id number] : 1980 Acct:[id number] Age/Sex: 44 / F ADM Date: 11/17/24 Loc: US Attending Dr: Ash Santillan D.O. Ordering Physician: Ash Santillan D.O. Date of Service: 11/17/24 Procedure(s): US pelvis w/ transvaginal Accession Number(s): [id number] cc: Ash Santillan D.O.; Harsha Timmons M.D. [place] [address] Patient Name: BONNIE KNIGHT MRN: [id number] date: 1980 Sex: F Assigned Patient Location: US Current Patient Location: LAB Accession/Order Number: [id number] Exam Date: 11/17/2024 11:04 Report Date: 11/17/2024 [...] Atwood Jr., D.O.11/17/2024 11:06 AM Dictation Location: [place] [address] Electronically authenticated by: [id number] Y Date: 11/17/2024 11:06 Dictated By: Ankit Atwood M.D. Signed By: 11/17/24 1109 DD/ 1106 TD/TT: Cooker Mechanic: [place] [address] Ultrasound Report Signed Patient: TANYA KNIGHT MR#: [id number] : 1980 Acct:[id number] Age/Sex: 44 / F ADM Date: 11/17/24 Loc: US Attending Dr: Ash Santillan D.O. Ordering Physician: Ash Santillan D.O. Date of Service: 11/17/24 Procedure(s): US pelvis w/ transvaginal Accession Number(s): [id number] cc: Ash Santillan D.O. ; Harsha Timmons M.D. [place] [address] Patient Name: BONNIE KNIGHT MRN: [facility]:[id number] date: 1980 Sex: F Assigned Patient Location: Current Patient Location: LAB Accession/Order Number: [id number] Exam Date: 11/17/2024 11:04 Report Date: 11/17/2024 [...] Atwood Jr., D.O.11/17/2024 11:06 AM Dictation Location: [place] [address] Electronically authenticated by: [id number] Y Date: 11/17/2024 11:06 Dictated By: Ankit Atwood M.D. Signed By: 11/17/24 1109 DD/ 1106 TD/TT: Cooker Mechanic: CBC AUTO DIFF Reviewed date:01/29/2025 04:18:15 PM Interpretation: Performing Lab: Notes/Report: [facility] , White Blood Count 12.5 4.0-11.0 10 [...] 0.00-0.03 10 3/uL Performing Lab: see note - [facility] LB DHEA, Serum Reviewed date:12/27/2024 12:22:11 PM Interpretation: Performing Lab: Notes/Report: [facility] , DHEA, Serum 47 31-701 ng/dL This test was developed and its performance characteristics determined by [facility]. It has not been cleared or approved by the Food and Drug Administration. Performed at: [address] [id number] Housekeeper: Roxanna Manrique MD, Phone: [phone] Performing Lab: see note - [facility] LB [...] Status W/U Status Risk Notes Problem Palpitations (84981240) Palpitation (R00.2) Active confirmed Problem Hypertriglyceridemia (458263004) Hypertriglyceridemia (E78.1) Active confirmed Problem Plantar fascial fibromatosis (81463951) Plantar fasciitis, left (M72.2) Active confirmed Vital Signs Blood pressure diastolic 78 mm Hg 01/09/2025 Height 61 in 01/09/2025 Blood pressure systolic 122 mm Hg 01/09/2025 Weight 194.4 lbs 01/09/2025 BMI 36.73 kg/m2 01/09/2025 Procedures Procedure Date Ordered Date Performed Result Body Sit e Holter Monitor - 3 days up to 14 days 11/17/2024 N/A Encounters Encounter Location Date Provider Diagnosis [place] [address] [place] [address] 01/09/2025 Francis Hoy Plantar fasciitis, l eft M72.2 [place] [address] [place] [address] 11/17/2024 Francis Hoy Palpitation R00.2 [facility] [address] [place] [address] 04/17/2024 Francis Hoy [facility] [address] [place] [address] 11/17/2024 Francis Hoy [facility] [address] [place] [address] 12/19/2024 Francis Timmons Encounter for other preprocedural examination Z01.818 [place] [address] [place] [address] 12/21/2024 Francis Timmons Assessments Encounter Date Diagnosis (ICD Code) Assessment [...] PT T) 12/19/2024 THYROID PANEL (T4/TSH/FREE T3) Holter Monitor - 3 days up to 14 days CMP (COMP MET STOLL) w/eGFR CKD-EPI 2024 CBC WITH DIFF 11/17/2024 Insurance Providers Payer Name Payer Address Payer Phone Subscriber Number Group Number Insured Name Patient Relationship to Insured Coverage Start Date Coverage End Date MMO [employer] [address] [place] [address] [id number] Bonnie Knight Self - patient is the insured [employer] [place] [employer] [address] [place] [address] [id number] Bonnie Knight Self - patient is the insured Medical (General) History Medical History History ICD Code Hypertriglyceridemia E78.1 Surgical History Surgery Date(Month/Year) x2 tubal ligation Hospitalization History Reason Date(Month/Year) see above
--- OUTSIDE RECORDS SUMMARY | 2025-03-10 07:04 | XMS_ITS | Encounter Summary ---
Author Organization [facility] Address [address] [place] [address] Care Team Providers Care Quality Facilitator Name Role Phone Harsha Timmons MD Primary Care Provider [phone] Encounter Details Date Type Department Care Team (Late Contact Info) Description 02/23/2025 Orders Only [facility] [address] [place] [phone] Alka Martinze LPN [address] [facility] [place] [id number] Social History Tobacco Use Types Packs/Day Years [...] EDT Office Visit [facility] [address] [place] [phone] Jhon [facility]illan DO [address] [facility] [place] [id number] 03/28/2025 8:30 AM EDT Office Visit [facility] [address] [place] [phone] Nikkie Maloney DPM [address] [place] [address] 02/20/2026 10:00 AM EDT Office Visit [facility] [address] [place] [address] Jhon Santillan DO [address] [place] [address] [place] [address] documented as of this encounter Procedures Procedure Name Priority Date/Time Associated Diagnosis Comments PAP SMEAR Routine 02/13/2025 12:00 AM EDT documented in this encounter Results * Pap Smear (02/13/2025 12:00 AM EDT) Swab Cervical swab / Unknown [facility] Nurse [facility] LAB CYTOLOGY ORDERABLES Final Result EXTERNAL LAB documented in this encounter Visit Diagnoses Not on filedocumented in this encounter Care Teams Quality Facilitator Relationship Specialty Start Date End Date Harsha Timmons MD [address] [facility] [place] [address] PCP - General Family Medicine 01/26/25 documented as of this encounter
[2025-03-10 07:21] LABS: Hematocrit 42.4 % (36.0-48.0); Hemoglobin 14.4 g/dL (12.0-16.0); Immature Granulocytes Abs Auto 0.03 10^3/uL (0.00-0.03); Immature Granulocytes Pct Auto 0.3 % (0.0-0.5); Lymphocytes Absolute Auto 3.3 10^3/uL (1.2-3.8); Mean Corpuscular HGB Conc 34.0 g/dL (29.9-35.2); Mean Corpuscular Hemoglobin 31.4 pg (26.7-34.0); Mean Corpuscular Volume 92.6 fL (81.0-99.0); Platelet Count 294 10^3/uL (150-450); Red Blood Count 4.58 10^6/uL (4.20-5.40); White Blood Count 10.0 10^3/uL (4.0-11.0)
--- NOTE | 2025-03-10 10:16 | PM.ONB ---
Brief Operative Note Date of procedure: 03/10/25 Pre-op diagnosis general: menorrhagia Post-op diagnosis: same as pre-op Procedure: NAME OF PROCEDURE: [ ] Evy endometrial ablation with hysteroscopy. PROCEDURE: The patient was taken back to the OR where she was prepped and draped in the normal sterile fashion after being placed in the dorsal lithotomy position, after being placed under general anesthesia without difficulty.? A weighted speculum was placed into the vagina. The anterior lip was grasped with a single tooth tenaculum. The patient was then sounded to approximated 8cm. The patient?s cervix was gently dilated using hegardilators. The hysteroscope was passed through the cervix into the uterus where both ostia were seen. No gross evidence of polyps, fibroids or malignancy. The cervical length was noted to be 4 cm. The total cavity length is 4cm.? The Evy ablation apparatus was set to approximately 4cm in length. This was placed through the cervix and into the uterus. After the seal was tested, at that time the total ablation of 120 seconds was performed with the Evy withoutdifficulty. All instruments were removed from the vagina. Excellent hemostasis noted.? Sponge and lap count correct times 2.? Patient taken to recovery in stable condition. Anesthesia: MAC Surgeon: Jhon Santillan Estimated blood loss (mL): 5 Pathology: none sent Condition: stable Disposition: PACU Urinary Catheter Management Urinary Catheter Management Straight: Cath placed during this visit: no
[2025-03-10] MEDS: KETOROLAC TROMETHAMINE 30 MG/ML VIAL IVP (11:04)
--- NOTE | 2025-03-10 11:42 | PC.NURSE ---
Peripad has small amount bleeding noted; offered oral pain medication and refuses at this time
[2025-03-10] MEDS: HYDROCODONE/ACET 5-325 MG TABLET 1 TAB PO (11:57)
--- NOTE | 2025-03-10 12:00 | PC.NURSE ---
Up to bathroom and voided clear yellow without difficulty; sitting in chair
== END 2025-03-10 12:29 | disposition home or self-care (01) ==
LOC: SURGOUT 07:01
PROVIDERS: PCP Family Medicine; Visit Provider Obstetrics & Gynecology
PROC: (CPT 952; principal; 2025-03-10 08:20)
DX: N92.0 Excessive and frequent menstruation with regular cycle (principal); N93.9 Abnormal uterine and vaginal bleeding, unspecified; R10.2 Pelvic and perineal pain; Z87.891 Personal history of nicotine dependence; Z98.51 Tubal ligation status; K21.9 Gastro-esophageal reflux disease without esophagitis; F41.9 Anxiety disorder, unspecified
CPT/HCPCS: 58563; 36415; 82948; 84702; 85025; J1100; J1885; J2250; J2405; J2704; J3010

== ENCOUNTER 2025-07-21 11:29 | Outpatient (OUT) | payer OTHER, SELFPAY ==
--- NOTE | 2025-07-21 11:31 | MM_ITS ---
Patient Name: TOI KNIGHT MR#: [id number] : 1980 Exam Date: 07/21/2025 Ordering Doctor: DR ASH HAQ . RADIOLOGY REPORT PROCEDURE: MM TOMOSYNTHESIS SCREENING BI COMPARISON: MG MAMM LT DIAG W CAD, 06/09/2017. MG MAMM LE DIAG W CAD, 11/19/2016. INDICATIONS: Screening Calculator Name NCI Breast Cancer Risk Assessment Tool 5 Year Breast Cancer Risk 0.70% Lifetime Breast Cancer Risk 10.90% Personal Breast Cancer No Personal Ovarian Cancer No Treatments None Family Cancers Aunt-maternal with breast cancer at age ~45. LOCATION: [facility] BREAST COMPOSITION: The breasts are heterogeneously dense, which may obscure small masses. FINDINGS: RIGHT BREAST: No significant suspicious finding. LEFT BREAST: No significant suspicious finding. DIAGNOSTIC CATEGORY 1--NEGATIVE. NO CHANGE FROM COMPARISON ASSESSMENT. RECOMMENDATIONS: ROUTINE MAMMOGRAM AND CLINICAL EVALUATION IN 12 MONTHS. Dictated by: Terrance Bustamante MD on 07/21/2025 at 15:48 Approved by: Terrance Bustamante MD on 07/21/2025 at 15:52
--- OUTSIDE RECORDS SUMMARY | 2025-07-21 11:32 | XMS_ITS | Patient Health Record ---
Author Organization [facility] [place] Address [address] [place] [address] Care Team Providers Care Physics Technician Name Role Phone Francis Timmons Primary Care Provider Allergies No Known Allergies Results Component Value Reference Range Notes US pelvis w/ transvaginal Reviewed date:10/19/2024 06:57:01 PM Interpretation: Performing Lab: Notes/Report: Source Facility: [place] [address] Ultrasound Report Signed Patient: TOI ROONEY MR#: [id number] : 1980 Acct:[id number] Age/Sex: 44 / F ADM Date: 10/04/24 Loc: US Attending Dr: Ash Santillan D.O. Ordering Physician: Ash Santillan D.O. Date of Service: 10/04/24 Procedure(s): US pelvis w/ transvaginal Accession Number(s): [id number] cc: Ash Santillan D.O.; Harsha Timmons M.D. [place] [id number] Patient Name: TOI ROONEY MRN: [id number] date: 1980 Sex: F Assigned Patient Location: US Current Patient Location: Accession/Order Number: [id number] Exam Date: 10/04/2024 17:50 Report Date: 10/05/2024 [...] Signed By: 10/05/24 0746 DD/ 0743 TD/TT: Wardsperson: CORTISOL AM Reviewed date:12/19/2024 02:04:58 PM Interpretation: Performing Lab: Notes/Report: [facility] , Cortisol - AM 17.0 6.2-19.4 ug/dL [address] [place], [place] [id number] Tar Pot Man: Leonardo House PhD, Phone: [phone] Performed at: [facility] Performing Lab: see note - [facility] LBGLYCOHEMOGLOBIN A1C Reviewed date:12/17/2024 11:42:21 AM Interpretation: Performing Lab: Notes/Report: [facility] ,Glycohemoglobin A1C5.24.5-6.2 % ADA RECOMMENDED LIMIT 4.0 - 6.0 ACTION SUGGESTED > 7.0 ADA THERAPEUTIC TARGET < 7.0 Estimated Average Nkwrhhh242Cvdresfxrg Lab:see noteML - [facility] LB PREG QUANT HCG Reviewed date:12/17/2024 11:42:21 AM Interpretation: Performing Lab: Notes/Report: [facility] ,HCG Quantitative<1 500-10,000 3-4 WEEKS 5-50 0.2-1 WEEK 10,000-100,000 2-3 MONTHS 50-500 1-2 WEEKS 15,000-200,000 6-8 WEEKS 1,000-50,000 4-5 WEEKS 10,000-100,000 5-6 WEEKS 100-5,000 2-3 WEEKS Performing Lab:see noteML - [facility] LBPROLACTIN Reviewed date:12/19/2024 02:04:58 PM Interpretation: Performing Lab: Notes/Report: [facility] ,Vyjsdhnvs96.74.8-33.4 ng/mL [address] [place], [place] [id number] Tar [place] Man: Leonardo House PhD, Phone: [phone] Performed at: [facility] Performing Lab:see nae - [facility] LBLuteinizing Hormone(LH) Reviewed date:12/19/2024 02:04:58 PM Interpretation: Performing Lab: Notes/Report: [facility] ,Luteinizing Hormone(LH)15.5. mIU/mL Luteal phase 1.0 - 11.4 Postmenopausal 7.7 - 58.5 Follicular phase 2.4 - 12.6 Adult Female Range Ovulation phase 14.0 - 95.6 Performing Lab:see nae - [facility] LBFSH Reviewed date:12/19/2024 02:04:58 PM Interpretation: Performing Lab: Notes/Report: [facility] ,FSH7.1. mIU/mL Follicular phase 3.5 - 12.5 Adult Female Range Postmenopausal 25.8 - 134.8 Ovulation phase 4.7 - 21.5 Luteal phase 1.7 - 7.7 Performing Lab:see nae - [facility] LBDHEA-Sulfate Reviewed date:12/19/2024 02:04:58 PM Interpretation: Performing Lab: Notes/Report: [facility] ,DHEA-Tyftdra43.457.3-279.2 ug/dLPerforming Lab:see noteLC - [facility] LBPTT Reviewed date:12/27/2024 06:59:41 PM Interpretation: Performing Lab: Notes/Report: [facility] ,Partial Thromboplastin Time23.722.3-36.2 secPerforming Lab:see noteML - [facility] LBProthrombin Time INR Reviewed date:12/27/2024 06:59:41 PM Interpretation: Performing Lab: Notes/Report: [facility] ,Prothrombin Time10.49.0-11.6 secINR0.98 DESIRED INR: 2.5-3.5 RECURRENT THROMBOSIS 2.0-3.0 CONDITIONS NOT LISTED BELOW 2.5-3.5 FOR PROSTHETIC HEART VALVE REPLACEMENT Performing Lab:see noteML - [facility] LBIGP,Aptima HPV,Age Gdln Reviewed date:02/16/2025 06:52:43 PM Interpretation: Performing Lab: Notes/Report: BRUSH-SPATULA CERVIX ENDOCERVIX [facility] ,Age Gdln ACOG TestingNote. Clinician Provided Cytology Information TESTS RESULT FLAG UNITS REF RANGE LAB Performed at: Meghann Henry MD, Age Algo ACOG Radha... 30-65 01 L-Low Normal,H-High Normal,LL-Alert Low,HH-Alert High 01 =G [facility] [place] FLAG LEGEND: [address] [place] [address] No. of containers..01 ThinPrep Vial <-Panic Low,>-Panic High,A-Abnormal,AA-Critical Abnormal Source.............Cervix;Endocervix IGP, Aptima HPV, rfx 16/18,45Note. DIAGNOSIS: 02 FLAG LEGEND: TESTS RESULT FLAG UNITS REF RANGE LAB This liquid based ThinPrep(R) pap test was screened with L-Low Normal,H-High Normal,LL-Alert Low,HH-Alert High cancer. Both false-positive and false-negative reports do Specimen adequacy: 02 The Pap smear is a screening test designed to aid in the THIS SPECIMEN WAS RESCREENED PART OF OUR CALIBRATION ENGINEER PROGRAM. Criteria not met, HPV Genotype not performed. occur. Note: Note 02 Lori Gracia, Rubber Goods Inspector (ASCP) [address] [facility] [address] 02 WB [facility] [place] the use of an image guided system. <-Panic Low,>-Panic High,A-Abnormal,AA-Critical Abnormal Meghann Henry MD, should not be used as the sole means of detecting cervical Performed by: 02 . 02 Test Methodology: Note 02 Satisfactory for evaluation. No endocervical component is identified. Jessica Love, Rubber Goods Inspector (ASCP) Performed at: QC reviewed by: 02 uterine cervix. It is not a diagnostic procedure and detection of premalignant and malignant conditions of the NEGATIVE FOR INTRAEPITHELIAL LESION OR MALIGNANCY. HPV Genotype Reflex Note 02 HPV AptimaNegativeNegative [address] [place], [place] [id number] [address] [place], [place] [id number] Performed at: =[facility] This nucleic acid amplification test detects fourteen high- Tar Pot Man: Meghann Henry MD, Phone: [phone] Tar Pot Man: Meghann Henry MD, Phone: [phone] Performed at: [facility] without differentiation. risk HPV types (16,18,31,33,35,39,45,51,52,56,58,59,66,68) Performing Lab[facility] LBCBC AUTO DIFF Reviewed date:03/10/2025 01:02:25 PM Interpretation: Performing Lab: Notes/Report: [facility] ,White Blood Count10.04.0-11.0 10 3/uLRed Blood Count4.584.20-5.40 10 6/uL Xmpthqkffw64.412.0-16.0 g/sAEenfessbvv87.436.0-48.0 %Mean Corpuscular Yoyuvv32.6 81.0-99.0 fLMean Corpuscular Istfyjsylk64.426.7-34.0 pgMean Corpuscular HGB Conc 34.029.9-35.2 g/dLRed Cell Distribution Width12.311.0-15.0 %Platelet Jrqdy659 150-450 10 3/uLMean Platelet Bxfqfv73.09.5-13.5 fLNeutrophils Percent Auto56.7 43.0-75.0 %Lymphocytes Percent Auto33.120.5-60.0 %Monocytes Percent Auto6.21.7- 12.0 %Eosinophils Percent Auto3.00.9-7.0 %Basophils Percent Auto0.70.2-2.0 % Immature Granulocytes Pct Auto0.30.0-0.5 %Neutrophils Absolute Auto5.61.4-6.5 10 3/uLLymphocytes Absolute Auto3.31.2-3.8 10 3/uLMonocytes Absolute Auto0.60.3-0.8 10 3/uLEosinophils Absolute Auto0.30.0-0.7 10 3/uLBasophils Absolute Auto0.10.0- 0.1 10 3/uLImmature Granulocytes Abs Auto0.030.00-0.03 10 3/uLPerforming Lab:see noteML - [facility] LBPREG QUANT HCG Reviewed date:03/10/2025 01:02:25 PM Interpretation: Performing Lab: Notes/Report: [facility] ,HCG Quantitative<1 10,000-100,000 5-6 WEEKS 100-5,000 2-3 WEEKS 1,000-50,000 4-5 WEEKS 50-500 1-2 WEEKS 500-10,000 3-4 WEEKS 10,000-100,000 2-3 MONTHS 5-50 0.2-1 WEEK 15,000-200,000 6-8 WEEKS Performing Lab:see noteML - [facility] LBCBC AUTO DIFF Reviewed date:04/18/2025 07:23:30 PM Interpretation: Performing Lab: Notes/Report: [facility] ,White Blood Count9.34.0-11.0 10 3/uLRed Blood Count4.434.20-5.40 10 6/uL Juasuwfgro65.312.0-16.0 g/nMXzbevuymrc97.836.0-48.0 %Mean Corpuscular Slhymz33.1 81.0-99.0 fLMean Corpuscular Yoippbwprn85.326.7-34.0 pgMean Corpuscular HGB Conc 35.029.9-35.2 g/dLRed Cell Distribution Width12.311.0-15.0 %Platelet Ftfyx422 150-450 10 3/uLMean Platelet Lfbyne44.89.5-13.5 fLNeutrophils Percent Auto63.7 43.0-75.0 %Lymphocytes Percent Auto27.620.5-60.0 %Monocytes Percent Auto5.61.7- 12.0 %Eosinophils Percent Auto2.30.9-7.0 %Basophils Percent Auto0.50.2-2.0 % Immature Granulocytes Pct Auto0.30.0-0.5 %Neutrophils Absolute Auto5.91.4-6.5 10 3/uLLymphocytes Absolute Auto2.61.2-3.8 10 3/uLMonocytes Absolute Auto0.50.3-0.8 10 3/uLEosinophils Absolute Auto0.20.0-0.7 10 3/uLBasophils Absolute Auto0.10.0- 0.1 10 3/uLImmature Granulocytes Abs Auto0.030.00-0.03 10 3/uLPerforming Lab:see noteML - [facility] LBLIPID PROFILE Reviewed date:04/18/2025 07:23:30 PM Interpretation: Performing Lab: Notes/Report: [facility] ,Hqbhbtyxucwkz753<=150 mg/oXBxbvnbrzfpw638<=200 mg/dLHDL Frokkrmgftw1106-04 mg/dL <40 mg/dl - HIGH CARDIOVASCULAR RISK > or =60 mg/dl - LOW CARDIOVASCULAR RISK LDL Cholesterol Lsggzwhxwf422.0 <100 mg/dl OPTIMAL 130-159 mg/dl BORDERLINE HIGH 100-129 mg/dl NEAR OR ABOVE OPTIMAL >190 mg/dl VERY HIGH 160-189 mg/dl HIGH VLDL FKMPSKOBBLG95.0Chol HDL Ratio6.2 >11.0 HIGH RISK 3.3 - 4.4 LOW RISK 7.1 - 11.0 MODERATE RISK 4.4 - 7.1 AVERAGE RISK Performing Lab:see noteML - [facility] LBPROF 14(COMP METB) Reviewed date:04/18/2025 07:23:30 PM Interpretation: Performing Lab: Notes/Report: [facility] ,Usbxyz208276-781 mmol/LPotassium4.03.5-5.1 mmol/AFeqsbwib56510-216 mmol/LCarbon Rrnnqhj39.321.0-32.0 mmol/LAnion Gap10.9Xrpqmet8681-937 mg/dLBlood Urea Nitrogen 11.07.0-18.0 mg/dLCreatinine0.800.55-1.02 mg/dLEstimated GFR ( Chely>60 >=60 mL/min/1.73m 2Estimated GFR (Non- Anuja>60>=60 mL/min/1.73m 2BUN Creatinine Ratio13.3Jaylkox7.68.5-10.1 mg/dLBilirubin Total0.70.2-1.0 mg/dL Aspartate Amino Zmyqafuxoth6773-73 U/LAlanine Zqfhqgvaijlltlmb7789-05 U/L Alkaline Crlbidvntzb7088-819 U/LTotal Protein7.16.4-8.2 g/dLAlbumin Level3.73.4- 5.0 g/dLGlobulin3.4Albumin Globulin Ratio1.1Performing Lab:see noteML - [facility] LBTSH Reviewed date:04/18/2025 07:23:30 PM Interpretation: Performing Lab: Notes/Report: [facility] ,Thyroid Stimulating Hormone2.8570.358-3.740 uIU/mLPerforming Lab:see noteML - [facility] LBDHEA, Serum Reviewed date:12/27/2024 12:22:11 PM Interpretation: Performing Lab: Notes/Report: [facility] ,DHEA, Yobtj7277-150 ng/dL approved by the Food and Drug Administration. Performed at: [facility] Tar Pot Man: Roxanna Manrique MD, Phone: [phone] [address] [place] [phone] This test was developed and its performance characteristics determined by [facility]. It has not been cleared or Performing Lab:see noteLC - [facility] LBUS pelvis w/ transvaginal Reviewed date:11/17/2024 06:24:49 PM Interpretation: Performing Lab: Notes/Report: Source Facility: [place] [address] [place] [address] Ultrasound Report Signed Patient: TOI ROONEY MR#: [id number] : 1980 Acct:[id number] Age/Sex: 44 / F ADM Date: 11/17/24 Loc: US Attending Dr: Ash Santillan D.O. Ordering Physician: Ash Santillan D.O. Date of Service: 11/17/24 Procedure(s): US pelvis w/ transvaginal Accession Number(s): [id number] cc: Ash Santillan D.O.; Harsha Timmons M.D. [place] [address] Patient Name: TOI ROONEY MRN: [facility]:[id number] date: 1980 Sex: F Assigned Patient Location: Current Patient Location: LAB Accession/Order Number: [id number] Exam Date: 11/17/2024 11:04 Report Date: 11/17/2024 [...] Atwood Jr., D.O.11/17/2024 11:06 AM Dictation Location: [place] [address] Electronically authenticated by: [id number] Y Date: 11/17/2024 11:06 Dictated By: Ankit Atwood M.D. Signed By: 11/17/24 1109 DD/ 1106 TD/TT: Wardsperson:TSH Reviewed date:11/17/2024 06:24:49 PM Interpretation: Performing Lab: Notes/Report: [facility] ,Thyroid Stimulating Hormone1.6040.358-3.740 uIU/mLPerforming Lab:see noteML - [facility] LBT4 Reviewed date:11/17/2024 06:24:49 PM Interpretation: Performing Lab: Notes/Report: [facility] ,T4 Ydlbagcfk20.304.80-13.90 ug/dLPerforming Lab:see noteML - [facility] LBPROF 14(COMP METB) Reviewed date:11/17/2024 06:24:49 PM Interpretation: Performing Lab: Notes/Report: [facility] ,Tydffw844244-169 mmol/LPotassium3.93.5-5.1 mmol/PRxundpqn14853-195 mmol/LCarbon Wtdromy21.321.0-32.0 mmol/LAnion Gap8.9Whhdutg6057-403 mg/dLBlood Urea Nitrogen 14.07.0-18.0 mg/dLCreatinine0.830.55-1.02 mg/dLEstimated GFR ( Chely>60 >=60 mL/min/1.73m 2Estimated GFR (Non- Anuja>60>=60 mL/min/1.73m 2BUN Creatinine Ratio16.8Hcsconv0.38.5-10.1 mg/dLBilirubin Total0.60.2-1.0 mg/dL Aspartate Amino Pdgjttddlzh3165-61 U/LAlanine Xfqvzygzeqqikybe5276-14 U/L Alkaline Kraighqvhnr0784-716 U/LTotal Protein7.56.4-8.2 g/dLAlbumin Level4.13.4- 5.0 g/dLGlobulin3.4Albumin Globulin Ratio1.2Performing Lab:see noteML - [facility] LBIRON Reviewed date:11/17/2024 06:24:49 PM Interpretation: Performing Lab: Notes/Report: [facility] ,Iron82.050.0-170.0 ug/dLPerforming Lab:see noteML - [facility] LB FREE T3 Reviewed date:11/17/2024 06:24:49 PM Interpretation: Performing Lab: Notes/Report: [facility] ,Free T32.592.18-3.98 pg/mLPerforming Lab:see noteML - [facility] LB CBC AUTO DIFF Reviewed date:11/17/2024 06:24:49 PM Interpretation: Performing Lab: Notes/Report: [facility] ,White Blood Count9.44.0-11.0 10 3/uLRed Blood Count4.764.20-5.40 10 6/uL Gkjduxuvok79.312.0-16.0 g/sJAwihbaowyl16.336.0-48.0 %Mean Corpuscular Waaebe58.1 81.0-99.0 fLMean Corpuscular Ilbprxpwti24.126.7-34.0 pgMean Corpuscular HGB Conc 34.529.9-35.2 g/dLRed Cell Distribution Width11.811.0-15.0 %Platelet Mdddf924 150-450 10 3/uLMean Platelet Volume9.99.5-13.5 fLNeutrophils Percent Auto71.2 43.0-75.0 %Lymphocytes Percent Auto22.220.5-60.0 %Monocytes Percent Auto5.01.7- 12.0 %Eosinophils Percent Auto1.00.9-7.0 %Basophils Percent Auto0.40.2-2.0 % Immature Granulocytes Pct Auto0.20.0-0.5 %Neutrophils Absolute Auto6.71.4-6.5 10 3/uLLymphocytes Absolute Auto2.11.2-3.8 10 3/uLMonocytes Absolute Auto0.50.3-0.8 10 3/uLEosinophils Absolute Auto0.10.0-0.7 10 3/uLBasophils Absolute Auto0.00.0- 0.1 10 3/uLImmature Granulocytes Abs Auto0.020.00-0.03 10 3/uLPerforming Lab:see noteML - [facility] LBPREG QUANT HCG Reviewed date:01/29/2025 04:18:15 PM Interpretation: Performing Lab: Notes/Report: [facility] ,HCG Quantitative<1 50-500 1-2 WEEKS 10,000-100,000 2-3 MONTHS 100-5,000 2-3 WEEKS 10,000-100,000 5-6 WEEKS 15,000-200,000 6-8 WEEKS 500-10,000 3-4 WEEKS 1,000-50,000 4-5 WEEKS 5-50 0.2-1 WEEK Performing Lab:see noteML - [facility] LBCBC AUTO DIFF Reviewed date:01/29/2025 04:18:15 PM Interpretation: Performing Lab: Notes/Report: [facility] ,White Blood Count12.54.0-11.0 10 3/uLRed Blood Count4.574.20-5.40 10 6/uL Hhtghgkyer35.412.0-16.0 g/iMGmzytzfhdr72.336.0-48.0 %Mean Corpuscular Wounji42.4 81.0-99.0 fLMean Corpuscular Biadmaohzq77.526.7-34.0 pgMean Corpuscular HGB Conc 34.929.9-35.2 g/dLRed Cell Distribution Width12.211.0-15.0 %Platelet Urdip796 150-450 10 3/uLMean Platelet Volume9.89.5-13.5 fLNeutrophils Percent Auto65.0 43.0-75.0 %Lymphocytes Percent Auto24.820.5-60.0 %Monocytes Percent Auto6.21.7- 12.0 %Eosinophils Percent Auto2.90.9-7.0 %Basophils Percent Auto0.60.2-2.0 % Immature Granulocytes Pct Auto0.50.0-0.5 %Neutrophils Absolute Auto8.11.4-6.5 10 3/uLLymphocytes Absolute Auto3.11.2-3.8 10 3/uLMonocytes Absolute Auto0.80.3-0.8 10 3/uLEosinophils Absolute Auto0.40.0-0.7 10 3/uLBasophils Absolute Auto0.10.0- 0.1 10 3/uLImmature Granulocytes Abs Auto0.060.00-0.03 10 3/uLPerforming Lab:see noteML - [facility] Reason For Referral No Information Medications Medication SIG (Take, Route, Frequency, Duration) Notes Start Date End Date Status levoFLOXacin 750 MG 1 tablet Orally Once a day; Duration: 10 day(s) 5ActivemetFORMIN HCl 500 MG1 tablet with a meal Orally BIDActiveAdipex- P 37.5 MG1 tablet before breakfast Orally Once a dayActive Social History Tobacco Use: Social History Observation Description Date Details (start date - stop date) Former Smoker 10/29/2001 - 10/29/2012 Tobacco Control (Standard) Question Answer Notes Tobacco use: Former smoker When did you start smoking?10/29/2001When did you stop smoking?10/29/2012How long has it been since you last smoked?Greater than 10 yearsAUDIT-C (Standard) Question Answer Notes Did you have a drink containing alcohol in the p ast year? Yes How often did you have six or more drinks on one occasion in the past year?Never (0 point)How many drinks did you have on a typical day when you were drinking in the past year?1 or 2 drinks (0 point)How often did you have a drink containing alcohol in the past year?Monthly or less (1 point)Jcwvov9CyxxvsfevveyvoDcrtxxie Problems Problem Type SNOMED Code ICD Code Onset Dates Problem Status W/U Status Risk Notes Problem Palpitations (56013430) Palpitation (R00. 2) ActiveconfirmedProblemHypertriglyceridemia (263477267)Hypertriglyceridemia (E78.1)ActiveconfirmedProblemPlantar fascial fibromatosis (10218477)Plantar fasciitis, left (M72.2)Activeconfirmed Vital Signs Temperature 99.2 degrees Fahrenheit 04/28/2025 Blood pressure tjrcydplf40 mm Hg05/11/20255463Llnamz04 in05/11/2025lood pressure vsognjnf120 mm Hg05/11/20258620Ynsyjl401.8 lbs05/11/2025BMI34.16 kg/m205/11/2025 Procedures Procedure Date Ordered Date Performed Result Body Sit e Holter Monitor - 3 days up to 14 days 11/17/2024 N/A Encounters Encounter Location Date Provider Diagnosis [address] [address] 01/09/2025 Francis Hoy Plantar fasciitis, l eft M72.[address] [address] 04/28/2025 Francis Hoy Strep throat J02.0 a nd Acute infection of both ears H66.[address] [address] 05/11/2025 Francis Hoy Acute non-recurrent sinusitis, unspecified location J01.90 and Nasal congestion R09.[address] [address] 11/17/2024 Francis Hoy Palpitation R00.[address] [address] 11/17/2024 Francis Hoy [place] [address] [place] [address] 12/19/2024Francis Noelncounter for other preprocedural examination Z01.818[facility] [facility] [place] [address]/ [facility] [facility] [place] [address]/Francis Timmons Assessments Encounter Date Diagnosis (ICD Code) Assessment Notes Treatment Notes Treatment Clinical Notes Section Notes 11/17/2024 Palpitation (ICD-10 - R00.2) 01/09/2025Plantar fasciitis, left (ICD-10 - M72.2)clered for OR04/28/2025Strep throat (ICD-10 - J02.0)You have been prescribed antibiotics for strep throat. Antibiotics may bother your stomach, so try taking them with a light meal (unless instructed otherwise by your pharmacist). It is important to take them until they are finished. You can use heth-akz-qinneru acetaminophen or ibuprofen if needed for pain. You can also use throat lozenges or gargle warm water to help with the sore throat. You are contagious until you have been on antibiotics for 24 hours. You should be extra vigilant about hand washing or using hand wallpaper inspector and shipper gel. You should follow up with your Primary Care Physician or return to clinic if not improving in the next 3-5 days.5Acute infection of both ears (ICD-10 - H66.93)5Acute non-recurrent sinusitis, unspecified location (ICD-10 - J01.90)Rest and drink more liquids, especially water. You may use a humidifier or vaporizer to help keep the drainage moist. Kewc-qgt-blxsnse Nasal Saline may help the stuffy and runny nose. Use Ibuprofen and or Tylenol as needed for fever, chills, body aches or pain. Children 5 years old should not be given plzx-cty-kzoftpy cough and cold medications such as guaifenesin and dextromethorphan. If you're over age 5, you may try opjq-jqo-ctlptte cold medications such as guaifenesin and dextromethorphan, or multi-symptom cold reliever such as Dayquil to help reduce the symptoms. Antibiotics have been pre scribed. You should take these until completed and follow the directions. Antibiotics can sometimescause upset stomach, and in rare cases, serious allergic reactions or serious gastrointestinal problems. If you start having severe abdominal pain, severe vomiting, or bloody diarrhea, you should be r eevaluated by your physician or urgent care immediately. Follow up with your Primary Care Provider or return to clinic if symptoms do not improve within 3-5 days12/19/2024Encounter for other preprocedural examination (ICD-10 - Z01.818) 05/11/2025Nasal congestion (ICD-10 - R09.81) Plan Of Treatment Pending Test Test Name [...] Date MMO [employer] [address] [place] [address] [id number] Lacy Rooney - patient is the insuredUNITED HEALTH CARE [place] MEDICAIDPO [address] [place] [id number], Megan[employer] - patient is the insured Medical (General) History Medical History History ICD Code Hypertriglyceridemia E78.1 Surgical History Surgery Date(Month/Year) x2 tubal ligationMinerva endometrial ablation with hysterscopy03/10/25D&C with exp lap02/22Left foot fazqkfp69/25Hospitalization History Reason Date(Month/Year) see above
--- OUTSIDE RECORDS SUMMARY | 2025-07-21 11:32 | XMS_ITS | CCD ---
Author Organization [facility] CliniSyfl Care Team Providers Care Aurist Name Role Phone ENRIQUE, DR HOGAN Admitting [...] Unavailable Edison Timmons MD Primary Care Provider [phone] Edison Timmons MD Primary Care Provider [phone] Edison Timmons MD Primary Care Provider [id number] MARLENE MALONEY Attending Unavailable MARLENE MALONEY Attending Unavailable NATALYA FALL Attending Unavailable MARLENE MALONEY Referring Unavailable NATALYA FALL Attending Unavailable MARLENE MALONEY Referring Unavailable NATALYA FALL Attending Unavailable MARLENE MALONEY Referring Unavailable JHON SANTILLAN Attending Unavailable NATALYA FALL Attending Unavailable MARLENE MALONEY Referring Unavailable NATALYA FALL Attending Unavailable MARLENE MALONEY Referring Unavailable MARLENE MALONEY Attending Unavailable MARLENE MALONEY Attending Unavailable JHON SANTILLAN Attending Unavailable MARLENE MALONEY Attending Unavailable CANDELARIO KATE Attending UnavailMARLENE Ross Attending Unavailable MARLENE MALONEY Attending Unavailable MARLENE MALONEY Attending Unavailable MARLENE MALONEY Attending Unavailable JHON SANTILLAN Attending Unavailable MARLENE MALONEY Attending Unavailable JHON SANTILLAN Attending Unavailable MARLENE MALONEY Attending Unavailable SAMIA WU Attending Unavailable SAMIA WU Attending Unavailable Medications Current Medications MedicationDrug Class(es)DatesSig (Normalized)Sig (Original)acetaminophen 325 mg / oxyCODONE hydrochloride 5 mg oral tablet (3 sources)Opioid AgonistStart: 02-01-2025 End: 29-97-2972hhxm 1 tablet by mouth every eight hours for painoxyCODONE- acetaminophen (Percocet) 5-325 MG tablet Indications: Postoperative examination Take 1 tablet by mouth every 8 (eight) hours if needed for severe pain for up to 5 days 15 tablet 02/01/2025 02/06/2025 Activecelecoxib 200 mg oral capsule (17 sources)Nonsteroidal Anti-inflammatory DrugStart: 11-21-2024 End: 87-52-6329dtzk 1 capsule by mouth once dailycelecoxib (CeleBREX) 200 MG capsule Indications: Plantar fasciitis Take 1 capsule (200 mg) by mouthDaily 30 capsule 11/21/2024 12/21/2024 Activeibuprofen 800 mg oral tablet (20 sources)Nonsteroidal Anti-inflammatory DrugStart: 76-15-5857kgsz 1 tablet by mouth every eight hoursibuprofen 800 MG tablet Take 800 mg by mouth every 8 (eight) hours 01/27/2025 ActivelevoFLOXacin 750 mg oral tablet (2 sources)Quinolone AntimicrobialStart: 14-98-0244dfznCHFStghg (Levaquin) 750 MG tablet Take 250 mg by mouth 1 (one) time each day at the same time 05/11/2025 Fwxzit70 hr metFORMIN hydrochloride 500 mg extended release oral tablet (16 sources)BiguanideStart: 02-13-2025 End: 76-16-8742bmfl 1 tablet by mouth every twenty-four hours at mealtime metFORMIN XR (Glucophage-XR) 500 MG 24 hr tablet Indications: PCOS (polycystic ovarian syndrome) Take 1 tablet (500 mg) by mouth in the evening. Take with meals Do not crush, chew, or split. 30 tablet 11 02/13/2025 Active Completed/Discontinued Medications MedicationDrug Class(es)DatesSig (Normalized)Sig (Original)acetaminophen 325 mg / HYDROcodone bitartrate 5 mg oral tablet (3 sources)Opioid AgonistStart: 12-29-2024 End: 86-89-8864nogu 1 tablet by mouth every six hours for painHYDROcodone- acetaminophen ([place]) 5-325 MG tablet Indications: Plantar fasciitis Take 1 tablet by mouth every 6 (six) hours if needed for severe pain for up to 5 days 20 tablet 12/29/2024 01/09/2025 Discontinuedphentermine hydrochloride 37.5 mg oral tablet (18 sources)Sympathomimetic Amine AnorecticStart: 03-22-2025 End: 93-52-7450vqki 1 tablet by mouth before mealtimephentermine (Adipex-P) 37.5 MG tablet Indications: Encounter for weight management Take 1 tablet (37.5 mg) by mouth in the morning. Take before meals. 90 tablet 05/17/2025 05/17/2025 DiscontinuedpredniSONE 10 mg oral tablet (20 sources)Start: 06-27-2024 End: 79-61-9731xnpm 2 tablets by mouth twice daily, then take 1 tablet by mouth twice daily, then take 1 tablet bymouth once dailypredniSONE (Deltasone) 10 MG tablet Indications: Plantar fasciitis Take 2 pills by mouth twice daily for 5 days, take 1 pill twice daily for 5 days then 1 pill once daily for 5 days. 35 tablet 06/27/2024 12/13/2024 Discontinued (Therapy completed) Problems Active Problems Problem ClassificationProblemDateDocumented DateEpisodic/ChronicAbdominal pain (6 sources)Pain in female pelvis; Translations: [Pelvic and perineal pain] 09-35-7174IwaumvpyUzqmartgqvlslr/social admission (3 sources)Patient encounter status; Translations: [Persons encountering health services in other specified circumstances]13-33-0547RkxebzumGykwskvgnxgfz and procreative management (5 sources)Encounter for sterilization; Translations: [ENCOUNTER FOR STERILIZATION]Onset: 24-42-7979ZovkzplxJovbktthm disorders (2 sources)Menorrhagia; Translations: [Excessive and frequent menstruation with regular cycle]18-56-1223GygrtgqSwcyt aftercare (4 sources)Surgical follow-up; Translations: [Encounter for follow-up examination after completed treatment for conditions other than malignant neoplasm]59-39-5572EhqjrzwyLokda connective tissue disease (20 sources)Plantar fasciitis; Translations: [Plantar fascial fibromatosis] 82-88-8256LevmvnfqCluem connective tissue disease (18 sources)Pain of left heel; Translations: [Pain in left foot]06-27-2024 EpisodicOther connective tissue disease (10 sources)Pain in right heel; Translations: [Pain in right foot]06-27-2024 EpisodicOther connective tissue disease (4 sources)Bilateral heel pain; Translations: [Pain in right foot]06-27-2024 EpisodicOther connective tissue disease (5 sources)Bilateral plantar fasciitis; Translations: [Plantar fascial fibromatosis]36-35-5554PeyqhbweJvylr endocrine disorders (5 sources)Polycystic ovary syndrome; Translations: [Polycystic ovarian syndrome]17-11-4158FjgtnlgKqfli female genital disorders (5 sources)Abnormal uterine bleeding; Translations: [Abnormal uterine and vaginal bleeding, unspecified]67-05-3957IqafqieYtnfo gastrointestinal disorders (1 source)Peritoneal adhesions (postprocedural) (postinfection); Translations: [PERITONEAL ADHES POSTPROC POSTINF]Onset: 11-04-3831FsyvdtkeRwchf nutritional; endocrine; and metabolic disorders (1 source)Obesity, unspecified; Translations: [OBESITY UNSPECIFIED]Onset: 42-63-5498EurhnvyTdhse nutritional; endocrine; and metabolic disorders (1 source)Body mass index (BMI) 33.0-33.9, adult; Translations: [BODY MASS INDEX BMI 33.0-33.9 ADULT]Onset: 54-06-9198AjrfpodRjuoo nutritional; endocrine; and metabolic disorders (2 sources)Weight increased; Translations: [Abnormal weight gain]03-22-2025 EpisodicOther screening for suspected conditions (not mental disorders or infectious disease) (6 sources)Encounter for screening for malignant neoplasm of cervix; Translations: [Patient encounter status]Onset: 90-71-7425JjfdsvzmNtkrpqpm codes; unclassified (8 sources)Postoperative state; Translations: [Other specified postprocedural states]87-37-6423ArvebufuJhkqzbzev and history of mental health and substance abuse codes (1 source)Personal history of nicotine dependence; Translations: [PERSONAL HISTORY OF NICOTINE DEPEND]Onset: 42-95-1485QgfdnenwVyxtwveacmwx (1 source)CONTACT W/AND (SUSP) EXPOS COVID-19; Translations: [CONTACT W/AND (SUSP) EXPOS COVID-19]Onset: 06-12-2022 Past or Other Problems Problem ClassificationProblemDateDocumented DateEpisodic/ChronicImmunizations and screening for infectious disease (1 source)Encounter for screening for human papillomavirus (HPV); Translations: [ENC SCREENING HUMAN PAPILLOMAVIRUS]Onset: 25-27-5580Mdzcyjqk Results Test NameValueInterpretationReference RangeFacilityALL CBC WITH AUTO DIFFon 73-52-3150XBPMOYTGK ABSOLUTE AUTO0.1NOMS HealthcareBasophils/100 WBC (Bld)0.7 % 0.2 - 2.0 %NOMS HealthcareEosinophils/100 WBC (Bld)3 %0.9 - 7.0 %[facility] Erythrocyte distribution width (RBC) [Ratio]12.3 %11.0 - 15.0 %[facility] Hematocrit (Bld) [Volume fraction]42.4 %36.0 - 48.0 %NOMS HealthcareHemoglobin (Bld) [Mass/Vol]14.4 g/dL12.0 - 16.0 g/dLNOIN HealthcareIMMATURE GRANULOCYTES ABS AUTO0.03NOMS HealthcareImmature granulocytes/100 WBC (Bld)0.3 %0.0 - 0.5 % NOMS HealthcareLYMPHOCYTES ABSOLUTE AUTO3.3NOMS HealthcareLymphocytes/100 WBC (Bld)33.1 %20.5 - 60.0 %NOMS [facility] CenterMCH (RBC) [Entitic mass]31.4 pg26.7 - 34.0 pgNOMS [facility] SystemHC (RBC) [Mass/Vol]34 g/dL29.9 - 35.2 g/dLNOMS [facility] Medical CenterMCV (RBC) [Entitic vol]92.6 fL81.0 - 99.0 fLNOMS HealthcareMONOCYTES ABSOLUTE AUTO0.6NOMS HealthcareMonocytes/100 WBC (Bld)6.2 %1.7 - 12.0 %[facility] HealthcareNEUTROPHILS ABSOLUTE AUTO5.6NOMS HealthcareNeutrophils/100 WBC (Bld) 56.7 %43.0 - 75.0 %[facility] HealthcarePlatelet mean volume (Bld) [Entitic vol]10 fL 9.5 - 13.5 fLNOMS HealthcareTBH EO #0.3NOMS HealthcareTBH [id number] Healthcare TBH RBC4.58NOMS HealthcareTB [id number] HealthcareCLINISYNCNOMS Healthcare IGP,APTIMA HPV,AGE GDLNon 52-82-9963XLL GDLN ACOG TESTINGNote.[facility] Comment on above:TESTS RESULT FLAG UNITS REF RANGE LAB Clinician Provided Cytology Information Source.............Cervix;Endocervix No. of containers..01 ThinPrep Vial Age Algo ACOG Radha... 30-65 01 FLAG LEGEND: L-Low Normal,H-High Normal,LL-Alert Low,HH-Alert High <-Panic Low,>-Panic High,A-Abnormal,AA-Critical Abnormal Performed at: 01 =G [facility] [address] Meghann Henry MD, HPV APTIMANegativeNegativeUT[facility] VALLEY [facility] HealthcareComment on above:This nucleic acid amplification test detects fourteen high- risk HPV types (16,18,31,33,35,39,45,51,52,56,58,59,66,68) without differentiation. Performed at: =G - [facility], [place] [id number] Yarder: Meghann Henry MD, Phone: [phone] Performed at: - [facility], [place] [id number] Yarder: Meghann Henry MD, Phone: [phone] IGP, APTIMA HPV, RFX 16/18,45Note.NOMS HealthcareComment on above:TESTS RESULT FLAG UNITS REF RANGE LAB DIAGNOSIS: 02 NEGATIVE FOR INTRAEPITHELIAL LESION OR MALIGNANCY. THIS SPECIMEN WAS RESCREENED PART OF OUR ROAD ROLLER OPERATOR PROGRAM. Specimen adequacy: 02 Satisfactory for evaluation. No endocervical component is identified. Performed by: 02 Lori Gracia, Director Product Management (ASCP) QC reviewed by: 02 Jessica Love, Director Product Management (ASCP) . 02 Note: Note 02 The [...] Low,>-Panic High,A-Abnormal,AA-Critical Abnormal Performed at: [address] [facility] [address] Meghann Henry MD, BRUSH-SPATULA CERVIX ENDOCERVIX CLINISYNCMetropolitan Saint Louis Psychiatric CenterALL CBC WITH AUTO DIFFon 44-32-8337NFMFZRSZJ ABSOLUTE AUTO0.1NOMS HealthcareBasophils/100 WBC (Bld)0.6 %0.2 - 2.0 %[facility] Eosinophils/100 WBC (Bld)2.9 %0.9 - 7.0 %[facility] CenterErythrocyte distribution width (RBC) [Ratio]12.2 %11.0 - 15.0 %[facility] CenterHematocrit (Bld) [Volume fraction]41.3 %36.0 - 48.0 %[facility] CenterHemoglobin (Bld) [Mass/Vol]14.4 g/dL 12.0 - 16.0 g/dLMetropolitan Saint Louis Psychiatric CenterIMMATURE GRANULOCYTES ABS AUTO0.06HighMetropolitan Saint Louis Psychiatric CenterImmature granulocytes/100 WBC (Bld)0.5 %0.0 - 0.5 %[facility] Interpretation and review of laboratory resultsAbnormalMet[facility] LYMPHOCYTES ABSOLUTE AUTO3.1NOMS [facility] Medical CenterLymphocytes/100 WBC (Bld)24.8 %20.5 - 60.0 %[facility] HospitalH (RBC) [Entitic mass]31.5 pg26.7 - 34.0 pgSouthPointe HospitalHC (RBC) [Mass/Vol]34.9 g/dL29.9 - 35.2 g/dLSouthPointe HospitalV (RBC) [Entitic vol]90.4 fL81.0 - 99.0 fLMetropolitan Saint Louis Psychiatric CenterMONOCYTES ABSOLUTE AUTO0.8NOIN HealthcareMonocytes/100 WBC (Bld)6.2 %1.7 - 12.0 %[facility] CenterNEUTROPHILS ABSOLUTE AUTO8.1HighNOMS HealthcareNeutrophils/100 WBC (Bld)65 %43.0 - 75.0 % [facility] CenterPlatelet mean volume (Bld) [Entitic vol]9.8 fL9.5 - 13.5 fLNOIN HealthcareTB EO #0.4NOMS HealthcareTB [id number] HealthcareTB RBC4.57NOMS HealthcareTB WBC12.5HighNOIN HealthcareCLINISYNCNOMS HealthcareHCG ( test) Ql (U)Ordered By: Alka Martinez on 37-91-6900Rrgolwgmwmckbk and review of laboratory resultsNormalNOIN Healthcare Work Phone: preg Test, UrNegativeNegativeNOIN Healthcare Work Phone: [facility] Work Phone: Urinalysis macro (dipstick) panel (U)on 01-09-2025 Bilirubin, UANegativeNegative - 4(70) +++ mg/dLNOMS HealthcareBlood, UANegative Negative - 50 Efrain/mcLNOIN HealthcareClarity, UAClearNOMS HealthcareColor, UA YellowNOMS HealthcareGlucose, UANegativeNegative - 2000(110) ++++ mg/dLNOIN HealthcareInterpretation and review of laboratory resultsNoGeisinger[facility] Ketones, UANegativeNegative - 160(16) ++++ mg/dLUT[facility] VALLEY [facility]ITAL HealthcareLeukocytes, UA NegativeNegative - 500+++ Diana/mcLNOIN HealthcareNitrite, UANegativeNegative - PositiveNOIN HealthcarepH, UA6.55 - 9NOIN HealthcareProtein, UANegativeNegative - 2000(20) ++++ mg/dLNOMS HealthcareSpec Grav, UA1.0251 - 1.03NOIN Healthcare Urobilinogen, UA0.20.2 - 12 mg/dLNONevada Regional Medical CenterNOIN HealthcareTB PREG QUANT HCGon 10-95-9785DRU QUANTITATIVE<1mIU/mLNOMS HealthcareComment on above:5-50 0.2-1 WEEK 50-500 1-2 WEEKS 100-5,000 2-3 WEEKS 500-10,000 3-4 WEEKS 1,000-50,000 4-5 WEEKS 10,000-100,000 5-6 WEEKS 15,000-200,000 6-8 WEEKS 10,000-100,000 2-3 MONTHS CLINISYNCNOMS HealthcareUS PELVIS W/ TRANSVAGINALon 62-03-6292YdsK[place] [id number] Ultrasound Report Signed Patient: TOI ROONEY MR#: [id number] : 1980 Acct:[id number] Age/Sex: 44 / F ADM Date: 10/04/24 Loc: US Attending Dr: Jhon Santillan D.O. Ordering Physician: Jhon Santillan D.O. Date of Service: 10/04/24 Procedure(s): US pelvis w/ transvaginal Accession Number(s): [id number] cc: Jhon Santillan D.O.; Edison Timmons M.D. [address] [address] Patient Name: TOI ROONEY MRN: [id number] date: 1980 Sex: F Assigned Patient Location: US Current Patient Location: Accession/Order Number: [id number] Exam Date: 10/04/2024 17:50 Report Date: 10/05/2024 07:43 At the request of: JHON SANTILLAN Procedure: US pelvis w/ transvaginal EXAMINATION: [...] weeks to document resolution. Electronically authenticated by: EAN DENNY Date: 10/05/2024 07:43 Dictated By: Ean Denny M.D. Signed By: 10/05/2446 DD/ TD/TT: Seasonal Driver:TBHRadiology, Radiologist, MD - 10/05/2024 [place] [address] Ultrasound Report Signed Patient: TOI ROONEY MR#: [id number] : 1980 Acct:[id number] Age/Sex: 44 / F ADM Date: 10/04/24 Loc: US Attending Dr: Jhon Santillan D.O. Ordering Physician: Jhon Santillan D.O. Date of Service: 10/04/24 Procedure(s): US pelvis w/ transvaginal Accession Number(s): [id number] cc: Jhon Santillan D.O.; Edison Timmons M.D. [address] [place] [id number] Patient Name: TOI ROONEY MRN: [id number] date: 1980 Sex: F Assigned Patient Location: US Current Patient Location: Accession/Order Number: [id number] Exam Date: 10/04/2024 17:50 Report Date: 10/05/2024 07:43 At the request of: JHON SANTILLAN Procedure: US pelvis w/ transvaginal EXAMINATION: [...] weeks to document resolution. Electronically authenticated by: EAN DENNY Date: 10/05/2024 07:43 Dictated By: Ean Denny M.D. Signed By: 10/05/24 0746 DD/ 0743 TD/TT: Seasonal Driver: [facility] CenterRadiology Study observation (narrative)[facility] [employer] PELVIS W/ TRANSVAGINALOrdered By: Radiologist Radiology on 07-25-7303BCBIMetropolitan Saint Louis Psychiatric Center Work Phone: XR Calcaneus - left Viewson 41-48-7854Acfmgle Result: One views of the left heel: Lateral were performed today in the office. Radiographs were read by myself and demonstrate: No evidence of acute fracture or dislocation. No coalition noted. Spur formation is noted at the plantar calcaneusGranville Medical CenterRadiology Study observation (narrative)[facility] CenterXR Calcaneus - right Viewson 30-52-0544Covcsbu Result: One views of the right heel: Lateral were performed today in the office. Radiographs were read by myself and demonstrate: No evidence of acute fracture or dislocation. No coalition noted. Spur formation is noted at the plantar calcaneusGranville Medical CenterRadiology Study observation (narrative)[facility] CenterCBC AUTO DIFFon 15-26-2300XMDL #0.0 103/ulNormal 0.0-0.1The [facility] OhioComment on above:Performed By: #### CBC #### [facility] [address] [address] [address] Amee MckeonBasophils/100 WBC (Bld)0.5 %Normal0.2-2.0The [facility] Comment on above:Performed By: #### CBC #### [facility] [address] [place] [address] Dr. Amee Mccrary #0.2 103/ulNormal0.0-0.7The [facility] OhioComment on above: Performed By: #### CBC #### [facility] [address] [place] [address] Dr. Amee Fryeosinophils/100 WBC (Bld)1.9 %Normal0.9-7.0The [facility] Comment on above:Performed By: #### CBC #### [facility] [address] [place] [address] Dr. Amee Fryerythrocyte distribution width (RBC) [Ratio]11.9 %Uczuhr45.0-15.0 The [facility] OhioComment on above:Performed By: #### CBC #### [facility] [address] [place] [address] Dr. Amee MckeonHematocrit (Bld) [Volume fraction]43.6 %Pxnoge42.0-48.0The [facility] OhioComment on above:Performed By: #### CBC #### [facility] [address] [place] [address] Dr. Amee MckeonHemoglobin (Bld) [Mass/Vol]14.8 g/eRYddsvm60.0-16.0The [facility] OhioComment on above:Performed By: #### CBC #### [facility] [address] [place] [address] Dr. Amee Ortiz #0.03 10e3/ulNormal0.00-0.03The [facility] OhioComment on above:Performed By: #### CBC #### [facility] [address] [place] [address] Dr. Amee Ortiz %0.4 %Normal0.0-0.5The Lamin HospitalComment on above: Performed By: #### CBC #### [facility] [address] [address] [address] Amee Crouch #2.5 103/ulNormal1.2-3.8The [facility] OhioComhavenwyck hospital on above:Performed By: #### CBC #### [facility] [address] [address] [address] Amee Wagonerhocytes/100 WBC (Bld)31.4 %Dsasxs38.5-60.0The [facility] OhioComment on above:Performed By: #### CBC #### [facility] [address] [address] [address] Amee Richards DIFF REQNONormalThe [facility] OhioComhavenwyck hospital on above: Performed By: #### CBC #### [facility] [address] [place] [address] Dr. Amee Mcmillan (RBC) [Entitic mass]31.6 xwPsnbga47.7-34.0The [facility] OhioComment on above:Performed By: #### CBC #### [facility] [address] [place] [address] Dr. Amee Davidson (RBC) [Mass/Vol]33.9 g/uBKdlddm81.9-35.2[facility] on above:Performed By: #### CBC #### [facility] [address] [place] [address] Dr. Amee Davidson (RBC) [Entitic vol]93.2 wXDqiadq10.0-99.0The [facility] OhioComment on above:Performed By: #### CBC #### [facility] [address] [address] [address] Amee Ruiz #0.5 103/ulNormal0.3-0.8The [facility] OhioComhavenwy[facility] hospital on above:Performed By: #### CBC #### [facility] [address] [place] [address] Dr. Amee Ramirezocytes/100 WBC (Bld)6.8 %Normal1.7-12.0The [facility] Comment on above:Performed By: #### CBC #### [facility] [address] [address] [address] Amee Glaser #4.7 103/ulNormal1.4-6.5The [facility] OhioComment on above:Performed By: #### CBC #### [facility] [address] [address] [address] Amee Clarkutrophils/100 WBC (Bld)59.0 %Kxqaev53.0-75.0The [facility] OhioComment on above:Performed By: #### CBC #### [facility] [address] [address] [address] Amee Hernandezlet mean volume (Bld) [Entitic vol]9.6 fLNormal9.5-13.5The [facility] OhioComment on above:Performed By: #### CBC #### [facility] [address] [place] [address] Dr. Amee MckeonPLT289 103/qrKefezi034-973Bkx [facility] OhioComment on above: Performed By: #### CBC #### [facility] [address] [place] [address] Dr. Amee MckeonRBC4.68 106/ulNormal4.20-5.40The [facility] OhioComment on above:Performed By: #### CBC #### [facility] [address] [place] [address] Dr. Amee MckeonWBC7.9 103/ulNormal4.0-11.0The [facility] OhioComment on above: Performed By: #### CBC #### [facility] [address] [place] [address] Dr. Amee MckeonPREG HCG QUALon 81-52-5091DIVSXBKOQ, QUALNegativeNormalNEGATIVE The [facility] OhioComment on above:Performed By: #### PREG #### [facility] [address] [place] [address] Dr. Amee MckeonCovid-19 PCR (CVDTBH)on 80-09-8973QBKU-CoV-2 (COVID-19) RNA ADOLPH+probe Ql (Unsp spec)Not detectedNormalNOT DETECTEDThe [facility] Comment on above:Result Comment: This test is not yet approved or cleared by the [place] FDA. When there are no FDA-approved or cleared tests available, and other criteria are met, FDA can make tests available under an emergency access mechanism called an Emergency Use Authorization (EUA). The EUA for this test is supported by the [place] Worker of Health and Human Service's (HHS's) declaration that circumstances exist to justify the emergency use of in vitro diagnostics for the detection and/or diagnosis of the virus that causes COVID- 19. This EUA will remain in effect (meaning [...] of clinical signs and symptoms consistent with SARS-CoV-2.Performed By: #### CVDTBH #### [facility] [address] [place] [address] Dr. Amee MckeonSSM [facility] CBC AUTO DIFFon 52-31-4122KBBW #0.0 103/ulNormal 0.0-0.1[facility] – JacksonComment on above:Performed By: #### HFPFCBC #### [facility] [address] [place] [address] Dr. Amee MckeonBasophils/100 WBC (Bld)0.3 %Normal0.2-2.0The [facility] Comment on above:Performed By: #### HFPFCBC #### [facility] [address] [place] [address] Dr. Amee Mccrary #0.1 103/ulNormal0.0-0.7The [facility] OhioComment on above: Performed By: #### HFPFCBC #### [facility] [address] [place] [address] Dr. Amee Fryeosinophils/100 WBC (Bld)1.5 %Normal0.9-7.0The [facility] Comment on above:Performed By: #### HFPFCBC #### [facility] [address] [place] [address] Dr. Amee Fryerythrocyte distribution width (RBC) [Ratio]12.5 %Nasqtm61.0-15.0 The [facility] OhioComment on above:Performed By: #### HFPFCBC #### [facility] [address] [place] [address] Dr. Amee MckeonHematocrit (Bld) [Volume fraction]41.6 %Aekcfa86.0-48.0The [facility] OhioComment on above:Performed By: #### ROBERTBC #### [facility] [address] [place] [address] Dr. Amee MckeonHemoglobin (Bld) [Mass/Vol]14.1 g/pEUblxlr36.0-16.0The [facility] OhioComment on above:Performed By: #### ROBERTBC #### [facility] [place] [facility] [address] [place] [address] Dr. Amee rOtiz #0.03 10e3/ulNormal0.00-0.03The [facility] OhioComment on above:Performed By: #### ROBERTBC #### [facility] [place] [facility] [address] [place] [address] Dr. Amee Ortiz %0.3 %Normal0.0-0.5The [facility] OhioComment on above: Performed By: #### MARIA DEL CARMENFCBC #### [facility] [address] [place] [address] Dr. Amee WagonerH #2.2 103/ulNormal1.2-3.8The [facility] OhioComment on above:Performed By: #### HFPFCBC #### [facility] [address] [place] [address] Dr. Amee Phelpsmphocytes/100 WBC (Bld)25.3 %Kxzhya10.5-60.0The [facility] OhioComment on above:Performed By: #### MARIA DEL CARMENFCBC #### [facility] [address] [place] [address] Dr. Amee Davidson (RBC) [Entitic mass]31.3 qoHfpoms24.7-34.0The [facility] OhioComment on above:Performed By: #### HFPFCBC #### [facility] [address] [place] [address] Dr. Amee Davidson (RBC) [Mass/Vol]33.9 g/cRNscqpc85.9-35.2The [facility] HospitalComment on above:Performed By: #### HFPFCBC #### [facility] [address] [place] [address] Dr. Amee Davidson (RBC) [Entitic vol]92.4 lMRebyob57.0-99.0The [facility] OhioComment on above:Performed By: #### HFPFCBC #### [facility] [address] [place] [address] Dr. Amee Ruiz #0.5 103/ulNormal0.3-0.8The [facility] OhioComment on above:Performed By: #### HFPFCBC #### [facility] [address] [place] [address] Dr. Amee Ramirezocytes/100 WBC (Bld)5.5 %Normal1.7-12.0The [facility] [place] Comment on above:Performed By: #### HFPFCBC #### [facility] [address] [place] [address] Dr. Amee Glaser #5.8 103/ulNormal1.4-6.5The [facility] OhioComment on above:Performed By: #### HFPFCBC #### [facility] [address] [place] [address] Dr. Amee Clarkutrophils/100 WBC (Bld)67.1 %Llguwk44.0-75.0The [facility] OhioComment on above:Performed By: #### HFPFCBC #### [facility] [address] [place] [address] Dr. Amee Hernandezlet mean volume (Bld) [Entitic vol]10.2 fLNormal9.5-13.5The [facility] OhioComment on above:Performed By: #### HFPFCBC #### [facility] [address] [place] [address] Dr. Amee MckeonPLT278 103/dqQmerwz656-026Oak [facility] OhioComment on above: Performed By: #### HFPFCBC #### [facility] [address] [place] [address] Dr. Amee MckeonRBC4.50 106/ulNormal4.20-5.40The [facility] OhioComment on above:Performed By: #### HFPFCBC #### [facility] [address] [place] [address] Dr. Amee MckeonWBC8.6 103/ulNormal4.0-11.0The [facility] OhioComment on above: Performed By: #### HFPFCBC #### [facility] [address] [place] [address] Dr. Amee TurnerFAIR PROFILEon 19-72-1180Vaompol [Mass/Vol]3.8 g/dLNormal 3.4-5.0The [facility] OhioComment on above:Performed By: #### HFPF #### [facility] [address] [place] [address] Dr. Amee MckeonAlbumin/Globulin [Mass ratio]1.1 {ratio}NormalThe [facility] OhioComment on above:Performed By: #### HFPF #### [facility] [address] [place] [address] Dr. Amee Núñez [Catalytic activity/Vol]50 U/NMmaibm92-738Zby [facility] OhioComment on above:Performed By: #### HFPF #### [facility] [address] [place] [address] Dr. Amee Perez [Catalytic activity/Vol]31 U/IJsiqac25-66Rrj [facility] OhioComment on above:Performed By: #### HFPF #### [facility] [address] [place] [address] Dr. Amee Simeon [Catalytic activity/Vol]15 U/EQfzpab05-46Zns [facility] OhioComment on above:Performed By: #### HFPF #### [facility] [address] [place] [address] Dr. Amee MckeonBilirubin [Mass/Vol]0.6 mg/dLNormal0.2-1.0[facility] Comment on above:Performed By: #### HFPF #### [facility] [address] [place] [address] Dr. Amee MckeonCalcium [Mass/Vol]8.8 mg/dLNormal8.5-10.1The [facility] [place] Comment on above:Performed By: #### HFPF #### [facility] [address] [place] [address] Dr. Amee MckeonChloride [Moles/Vol]104 mmol/ERqwpfd81-693Qvs [facility] [place] Comment on above:Performed By: #### HFPF #### [facility] [address] [place] [address] Dr. Amee MckeonCHOL-HDL RATIO NORMSTriHealth McCullough-Hyde Memorial HospitalComment on above:Result Comment: 3.3 - 4.4 LOW RISK 4.4 - 7.1 AVERAGE RISK 7.1 - 11.0 MODERATE RISK >11.0 HIGH RISKPerformed By: #### HFPF #### [facility] [address] [place] [address] Dr. Amee MckeonCholesterol [Mass/Vol]216 mg/dLCritically high<=200The [facility] OhioComment on above:Performed By: #### HFPF #### [facility] [address] [place] [address] Dr. Amee MckeonCholesterol in HDL [Mass/Vol]51 mg/xAKfejiu94-65Lld [facility] OhioComment on above:Performed By: #### HFPF #### [facility] [address] [place] [address] Dr. Amee Knutsonesterol in LDL [Mass/Vol]141.6 mg/dLKettering Health – Soin Medical CenterComment on above:Performed By: #### HFPF #### [facility] [address] [place] [address] Dr. Amee MckeonCholesterol.total/Cholesterol in HDL [Mass ratio]4.2 {ratio} NormalThe [facility] OhioComhavenwyck hospital on above:Performed By: #### HFPF #### [facility] [address] [address] [address] Amee MckeonCO2 [Moles/Vol]26.1 mmol/NIqrmno03.0-32.0The [facility] [place] Comment on above:Performed By: #### HFPF #### [facility] [address] [place] [address] Dr. Amee MckeonCreatinine [Mass/Vol]0.75 mg/dLNormal0.55-1.02[facility] – JacksonComment on above:Performed By: #### HFPF #### [facility] [address] [place] [address] Dr. Amee MckeonGlobulin (S) [Mass/Vol]3.4 g/dLNoOhioHealth Pickerington Methodist HospitalComment on above:Performed By: #### HFPF #### [facility] [address] [place] [address] Dr. Amee MckeonGlucose [Mass/Vol]94 mg/xHSimiub17-005BsnHolzer Medical Center – [facility] Comment on above:Performed By: #### HFPF #### [facility] [address] [place] [address] Dr. Amee MckeonHDL NORMAL> or = 60 mg/dl - LOW CARDIOVASCULAR RISK <40 mg/dl - HIGH CARDIOVASCULAR RISKNoOhioHealth Pickerington Methodist HospitalComment on above:Performed By: #### HFPF #### [facility] [address] [place] [address] Dr. Amee MckeonLDL CALC NORMALSEE BELOWKettering Health – Soin Medical CenterComment on above:Result Comment: <100 mg/dl OPTIMAL 100 - 129 mg/dl NEAR OR ABOVE OPTIMAL 130 - 159 mg/dl BORDERLINE HIGH 160 - 189 mg/dl HIGH >190 mg/dl VERY HIGH Performed By: #### HFPF #### [facility] [address] [place] [address] Dr. Amee MckeonPotassium [Moles/Vol]3.7 mmol/LNormal3.5-5.1The [facility] Comment on above:Performed By: #### HFPF #### [facility] [address] [address] [address] Amee MckeonProtein [Mass/Vol]7.2 g/dLNormal6.4-8.2The [facility] Comment on above:Performed By: #### HFPF #### [facility] [address] [address] [address] Amee MckeonSodium [Moles/Vol]137 mmol/RQyjcvb908-383Glj [facility] [place] Comment on above:Performed By: #### HFPF #### [facility] [address] [place] [address] Dr. Amee MckeonTriglyceride [Mass/Vol]117 mg/dLNormal<=150The [facility] Comment on above:Performed By: #### HFPF #### [facility] [address] [place] [address] Dr. Amee MckeonTSH1.647 uIU/mLNormal0.358-3.740The [facility] OhioComment on above:Performed By: #### HFPF #### [facility] [address] [place] [address] Dr. Amee MckeonUrea nitrogen [Mass/Vol]18.0 mg/dLNormal7.0-18.0The [facility] OhioComment on above:Performed By: #### HFPF #### [facility] [address] [place] [address] Dr. Amee MckeonUrea nitrogen/Creatinine [Mass ratio]24.0 mg/mgNoOhioHealth Pickerington Methodist HospitalComment on above:Performed By: #### HFPF #### [facility] [address] [place] [address] Dr. Amee MckeonVLDL CALC23.4 mg/dLKettering Health – Soin Medical CenterComment on above: Performed By: #### HFPF #### [facility] [address] [place] [address] Dr. Amee CerratoP ACOG PANEL 2: 30 to 65on 03-26-2022..NormalThe [facility] on above:Result Comment: Performed at: WBPerformed By: #### [id number] #### [facility] [address] [place] [address] Dr. Amee Bah Gdln ACOG Hmopubg12-28BkwdqsSsyOhioHealth Pickerington Methodist HospitalComment on above:Performed By: #### [id number] #### [facility] [address] [place] [address] Dr. Amee MckeonDIAGNOSIS:CommentUniversity Hospitals Health System on above: Result Comment: NEGATIVE FOR INTRAEPITHELIAL LESION OR MALIGNANCY. Performed at: WBPerformed By: #### [id number] #### [facility] [address] [place] [address] Dr. Amee MckeonHPV AptimaNegativeNormalNegativeHolzer Medical Center – JacksonComhavenwyck hospital on above:Result Comment: This nucleic acid amplification test detects fourteen high-risk HPV types (16,18,31,33,35,39,45,51,52,56,58,59,66,68) without differentiation. Performed at: =GPerformed By: #### [id number] #### [facility] [address] [place] [address] Dr. Amee MckeonMethodology:CommentUniversity Hospitals Health System on above: Result Comment: This liquid based ThinPrep(R) pap test was screened with the use of an image guided system. Performed at: WBPerformed By: #### [id number] #### [facility] [address] [place] [address] Dr. Amee MckeonNote:CommentUniversity Hospitals Health System on above:Result Comment: The Pap smear is a screening test designed to aid in the detection of premalignant and malignant conditions of the uterine cervix. It is not a diagnostic procedure and should not be used as the sole means of detecting cervical cancer. Both false-positive and false-negative reports do occur. . Performed at: WBPerformed By: #### [id number] #### [facility] [address] [place] [address] Dr. Yilan ChangPerformed by:CommentKettering Health – Soin Medical CenterComment on above: Result Comment: Giselle Farrell, Tipple Boss (ASCP) Performed at: WBPerformed By: #### [id number] #### [facility] [address] [address] [address] Amee MckeonSpecimen adequacy:CommentKettering Health – Soin Medical CenterComhavenwyck hospital on above:Result Comment: Satisfactory for evaluation. No endocervical component is identified. Performed at: WBPerformed By: #### [id number] #### [facility] [address] [address] [address] Amee Mckeon Vital Signs Date TimeVital SignValuePerforming DetjookmoMrgmusza87-22-0578 11:30-0400Body mass index (BMI) [Ratio]34.8 kg/m2Amy Nory PA Work Phone: [phone]09-17-2025 11:30-0400Body .83 kgAmy Nory PA Work Phone: [phone]09-17-2025 11:30-0400Diastolic blood ozhdwnjk31 mm[Hg]Samia Wu PA Work Phone: [phone] [place], [place] [address]Ahikjjatgp43-54-7199 11:30-0400Systolic blood kxpiyabj473 mm[Hg]Samia Wu PA Work Phone: [phone] CenterQadrsfzago86-00-6092 09:44-0400Body mass index (BMI) [Ratio]36.52 kg/m2Amy Nory PA Work Phone: [phone] [place], [place] [address]Udckzdjtkx83-96-2852 09:44-0400Body elyrle84.82 kgAmy Nory PA Work Phone: [phone] CenterYungrjmxab59-54-3728 09:44-0400Diastolic blood aqgtmess73 mm[Hg]Samia Wu PA Work Phone: [phone] [place], [place] [address]Lsxuleefrh78-31-4580 09:44-0400Systolic blood kucasauq024 mm[Hg]Samia Wu PA Work Phone: [phone] [place], [place] [address]Vzxtytctyp25-26-1840 10:51-0400Body mass index (BMI) [Ratio]36.93 kg/j9Qoxue Tyrell DO Work Phone: [phone] [place], [place] [address]Drpczhlmat24-69-3146 10:51-0400Body wiatjr65.78 kgCorey Tyrell DO Work Phone: [phone] [place], [place] [address]Skccnarihj17-16-9962 10:51-0400Diastolic blood pysjmyoq33 mm[Hg]Jhon Tyrell DO Work Phone: [phone] [place], [place] [address]Nqmdsypfwm85-50-4222 10:51-0400Systolic blood wqxtjoek931 mm[Hg]Jhon Tyrell DO Work Phone: [phone] [place], [place] [address]Obgjmmkmsq08-05-6985 10:17-0400Body mass index (BMI) [Ratio]38.08 kg/z0Fgjbc Tyrell DO Work Phone: [phone] [place], [place] [address]Msxrubfkcp11-05-4502 10:17-0400Body obccvu30.45 kgCorey Tyrell DO Work Phone: [phone] [place], [place] 1850506-16-2025 10:17-0400Diastolic blood otilfwne54 mm[Hg]Jhon Tyrell DO Work Phone: [phone]06-16-2025 10:17-0400Systolic blood xfpigxkh346 mm[Hg]Jhon Tyrell DO Work Phone: [phone] [place], [place] [address]Gizdoojmdi14-02-4164 13:58-0400Body mass index (BMI) [Ratio]37.89 kg/f0Hscly Tyrell DO Work Phone: [phone] [place], [place] [address]Uhzhxbkpuy64-55-2662 13:58-0400Body znfohq50 kg Jhon Tyrell DO Work Phone: [phone] [place], [place] [address]Akcdkwouff82-57-0662 13:58-0400Diastolic blood ubvhnthz90 mm[Hg]Jhon Tyrell DO Work Phone: [phone] [place], [place] [address]Uqruglhhpv42-46-7202 13:58-0400Systolic blood mm[Hg]Jhon Tyrell DO Work Phone: [phone]04-15-2025 11:02-0400Body mass index (BMI) [Ratio]37.55 kg/y9Srnir Tyrell DO Work Phone: NONev[facility] Medical CenterGkbpvakisa90-53-0349 11:02-0400Body cfwfle53.2 kg Jhonsanjana Roacho DO Work Phone: [facility] Encounters Encounter DateEncounter TypeCare ProviderFacilityStart: 05-17-2025 End: 27-67-6219Xbpydj Anisa Wu PA Work Phone: NO [facility] OBGYNStart: 05-17-2025 End: 52-44-7687Jnffuz flowsSarah Beth Wu PA Work Phone: NO [facility] OBGYNStart: 05-17-2025 End: 36-20-7266xajcwoagsyVUF RAMEYNot AvailableStart: 05-17-2025 End: 48-46-0404Lznere outpatient visit 15 minutesAmy Nory PA Work Phone: [facility] OBGYNComment on above:Encounter for weight managementStart: 04-18-2025 End: 40-71-9112Wemryq flowsSarah Beth Wu PA Work Phone: NO [facility] OBGYNStart: 04-18-2025 End: 84-57-1886Skwrcf Anisa Wu PA Work Phone: NO [facility] OBGYNStart: 04-18-2025 End: 76-22-2130Gmkesv outpatient visit 5 minutesAmy Nory PA Work Phone: [facility] OBGYNComment on above:Encounter for weight managementStart: 04-18-2025 End: 79-61-9191ygdpyasnrvVFG RAMEYNot AvailableStart: 03-28-2025 End: 18-15-1227Parrsj flowsSlick MARCIALM Work Phone: [facility] PodiatryStart: 03-28-2025 End: 19-49-5774Kvlkcg flowsSlick Maloney DPM Work Phone: noms [facility] PodiatryStart: 03-28-2025 End: 88-67-3343Tjyhig follow up visit related to original Nohemy Maloney DPM Work Phone: noms Ivet PodiatryComment on above:Plantar fasciitis (Primary Dx); Post-operative state; Pain of both heelsStart: 03-28-2025 End: 86-71-1029fzpbwwlhboMDSQQAACF H SMITHNot AvailableStart: 03-22-2025 End: 40-78-8862Wmzcca flowsheetCorey Tyrell DO Work Phone: NOTW BCP OBStart: 03-22-2025 End: 10-17-4401Clsdht flowsheetCorey Tyrell DO Work Phone: noms BCP OBStart: 03-22-2025 End: 23-53-0780Izgtqg follow up visit related to original pxCorey Tyrell DO Work Phone: noms BCP OBComment on above:Postop check; Weight gainStart: 03-22-2025 End: 47-21-8741xwapzqcggeZXYAA FAZIONot AvailableStart: 03-10-2025 End: 44-32-4279Mijgjrgos Result EncounterCorey Tyrell DO Work Phone: NOUE External Department UnsolicitedStart: 03-10-2025 End: 10-72-8793Nydbmjnkc Result EncounterCorey Tyrell DO Work Phone: noms External Department UnsolicitedStart: 02-16-2025 End: 08-81-8397Ifwzjh flowsSlick Maloney DPM Work Phone: noms [facility] PODIATRYStart: 02-16-2025 End: 10-97-8394Rtosbg Angel Maloney DPM Work Phone: noms [facility]WS PODIATRYStart: 02-16-2025 End: 29-86-4816cbqrevyvydMVVTWVIAK H Diana AvailableStart: 02-16-2025 End: 32-28-7150Vkdsyf follow up visit related to original Nohemy Maloney DPM Work Phone: noms SWS PODIATRYComment on above:Post-operative state (Primary Dx); Plantar fasciitis; Pain of left heelStart: 02-13-2025 End: 54-27-2129Qfwpzuzam Result EncounterCorey Tyrell DO Work Phone: noms External Department UnsolicitedStart: 02-13-2025 End: 63-06-5272Gchtqjrfh Result EncounterCorey Tyrell DO Work Phone: noms External Department UnsolicitedStart: 02-13-2025 End: 56-64-0786Pkqyjjn encounter procedureCorey Ditto DO Work Phone: noms HealthcareStart: 02-13-2025 End: 89-83-5832Yiofmuxk preventive med est patient 40-64yrsCorey Tyrell DO Work Phone: noms BCP OBComment on above:PCOS (polycystic ovarian syndrome) (Primary Dx); Well woman exam with routine gynecological exam; Pre-op examination; Pelvic pain; Menorrhagia with regular cycle; Abnormal uterine bleeding (AUB); Breast cancer screening by mammogramStart: 02-13-2025 End: 23-68-7369Qsgunovokchen examination doneCorey [employer] Work Phone: noms HealthcareStart: 02-13-2025 End: 70-20-7662fmbaopzyjmUKPMC FAZIONot AvailableStart: 02-02-2025 End: 41-90-7258augocgphqvLHWGRQRAM H Diana AvailableStart: 02-02-2025 End: 54-56-9225Fkhhwr follow up visit related to original Nohemy Maloney DPHelen Work Phone: noms SWS PODIATRYComment on above:Post-operative state (Primary Dx); Plantar fasciitis; Pain of left heelStart: 02-02-2025 End: 88-93-1290Hzxnwu flowsSlick Maloney DPM Work Phone: [facility] PODIATRYStart: 02-02-2025 End: 12-30-6696Sfdmpl Angel Maloney DPM Work Phone: [facility] PODIATRYStart: 01-27-2025 End: 02-25-0694Haxzmmgbc Result EncounterCorey Tyrell DO Work Phone: noMS External Department UnsolicitedStart: 01-27-2025 End: 80-45-6064Pkdwweboy Result EncounterCorey Tyrell DO Work Phone: noMS External Department UnsolicitedStart: 01-26-2025 End: 21-12-8265Bxbiyk follow up visit related to original Aba WashburnLean-Brooksan DPM Work Phone: [facility] PODIATRYComment on above:Post-operative state (Primary Dx)Start: 01-26-2025 End: 54-10-3509vxdgtmqyldBDXFGL REMY-BERANNot AvailableStart: 01-26-2025 End: 86-34-7600Macroz flowsheetMorgan Remy-Beran DPM Work Phone: [facility] PODIATRYStart: 01-26-2025 End: 43-46-2801Klqpqp flowsheetMolyn WashburnLean-Brooksan DPM Work Phone: [facility] PODIATRYStart: 01-16-2025 End: 33-64-5376Aytlwb flowsSlick Maloney DPM Work Phone: [facility] PODIATRYStart: 01-16-2025 End: 88-64-4431Zyiggd Angel Maloney DPM Work Phone: [facility] PODIATRYStart: 01-16-2025 End: 80-20-5908Fjygfq follow up visit related to original Nohemy Maloney DPM Work Phone: [phone] SWS PODIATRYComment on above:Plantar fasciitis (Primary Dx); Postoperative examination [Z09]; Pain of left heelStart: 01-16-2025 End: 36-65-0222uibasuwteoDOUPIECUB H SMITHNot AvailableStart: 01-09-2025 End: 89-25-3968Xhbylm flowsheetCorey Tyrell DO Work Phone: noMS BCP OBStart: 01-09-2025 End: 96-27-9755Teorfk flowsheetCorey Tyrell DO Work Phone: noms BCP OBStart: 01-09-2025 End: 07-35-7613Brjoee outpatient visit 15 minutesCorey Tyrell DO Work Phone: noms [facility] OBComment on above:Pre-op examination; Pelvic pain in female; PCOS (polycystic ovarian syndrome); Abnormal uterine bleeding (AUB); Left lower quadrant abdominal painStart: 01-09-2025 End: 80-02-0255Uprwptmdpkkmf examination doneCorey Tyrell DO Work Phone: [facility] HealthcareStart: 01-09-2025 End: 69-37-9510jgkluvrvkdKKCAR FAZIONot AvailableStart: 12-29-2024 End: 59-10-0509Ixbzlj outpatient visit 15 minutesCaivan Maloney DPM Work Phone: noms [facility] PODIATRYComment on above:Plantar fasciitis (Primary Dx); Pain of left heelStart: 12-29-2024 End: 57-29-0074ekfvgunjwoDOVASPGWT H SMITHNot AvailableStart: 12-29-2024 End: 33-33-7896Mxhcvh flowsheetMarlene Maloney DPM Work Phone: noms SWS PODIATRYStart: 12-29-2024 End: 86-23-0385Lfixhf flowsheetMarlene Maloney DPM Work Phone: noms SWS PODIATRYStart: 12-21-2024 End: 08-89-5332Fqcjmd outpatient visit 25 minutesCassannette Maloney DPM Work Phone: noms [facility] PODIATRYComment on above:Plantar fasciitis (Primary Dx); Pain of left heel; Pain of right heelStart: 12-21-2024 End: 39-57-6656yqbwxaxckzCWEYLZRNR H SMITHNot AvailableStart: 12-21-2024 End: 32-82-9260Gkshqg flowsheetMarlene Maloney DPM Work Phone: noMS [facility] PODIATRYStart: 12-21-2024 End: 24-49-2944Fgozrf flowsSlick Maloney DPM Work Phone: noms [facility] PODIATRYStart: 12-20-2024 End: 35-94-5773mwesdgtcojOZNZEPIEL SALLIENot AvailableStart: 12-19-2024 End: 75-58-8351pzrctwbkxdYhyqmvtld Fall PTNOMS CI PTComment on above: Plantar fasciitis, bilateral (Primary Dx); Plantar fasciitisStart: 12-16-2024 End: 21-38-3050Ufuzbutqg Result EncounterCorey Tyrell DO Work Phone: [facility] External Department UnsolicitedStart: 12-16-2024 End: 82-93-2339Afcaoxgdq Result EncounterCorey Tyrell DO Work Phone: [facility] External Department UnsolicitedStart: 12-14-2024 End: 42-03-4684exprkgbyjnJfvulzdrq Fall PTNOMS CI PTComment on above: Plantar fasciitis, bilateral (Primary Dx); Plantar fasciitisStart: 12-13-2024 End: 07-44-9590Megwvy flowsheetCorey Tyrell DO Work Phone: [facility] BCP OBStart: 12-13-2024 End: 65-37-2820Eancvd flowsheetCorey Tyrell DO Work Phone: [facility] BCP OBStart: 12-13-2024 End: 40-81-8514etadnbymicSSCOU FAZIONot AvailableStart: 12-13-2024 End: 25-96-3475Peirob outpatient visit 15 minutesCorey Tyrell DO Work Phone: noms BCP OBComment on above:Pelvic pain in female; PCOS (polycystic ovarian syndrome); Abnormal uterine bleeding (AUB)Start: 12-07-2024 End: 75-59-3287nzrkpdxxjdRwoazehei Fall PTNOMS CI PTComment on above: Plantar fasciitis, bilateral (Primary Dx); Plantar fasciitisStart: 12-05-2024 End: 83-21-5763qjfidqflkjPzsfdjzgg Fall PTNOMS CI PTComment on above: Plantar fasciitis, bilateral (Primary Dx)Start: 11-30-2024 End: 60-92-5373kepokuqsycElkvybndy Fall PTNOMS CI PTComment on above: Plantar fasciitis, bilateral (Primary Dx); Plantar fasciitisStart: 11-30-2024 End: 40-45-2664Qcnkzd flowsheetSammantha Fall PTNOMS CI PTStart: 11-30-2024 End: 83-30-5326Monmao flowsheetSammantha Fall PTNOMS CI PTStart: 11-21-2024 End: 93-09-3311zawomughgtXDWQPCHSV H SMITHNot AvailableStart: 11-21-2024 End: 66-84-0320Mwcxwo flowsheetMarlene Maloney DPM Work Phone: noMS SWS PODIATRYStart: 11-21-2024 End: 87-73-0884Pqtdyb Angel Maloney DPM Work Phone: noMS SWS PODIATRYStart: 10-20-2024 End: 77-71-3251Ifhket Angel Maloney DPM Work Phone: [facility] SWS PODIATRYStart: 10-20-2024 End: 05-55-5692Qccoxt Angel Maloney DPM Work Phone: [facility] SWS PODIATRYStart: 10-20-2024 End: 69-99-1649Hyidgp outpatient visit 15 minutesCaivan MARCIALM Work Phone: [facility] PODIATRYComment on above:Plantar fasciitis (Primary Dx); Pain of left heel; Pain of right heelStart: 10-20-2024 End: 12-24-3611zfdzudixheSWFYCRBEB H SMITHNot AvailableStart: 10-05-2024 End: 53-84-7130Qcvchjote Result EncounterCorey Tyrell DO Work Phone: noms External Department UnsolicitedStart: 10-05-2024 End: 31-64-0067Sxjjqqqce Result EncounterCorey Tyrell DO Work Phone: noms External Department UnsolicitedStart: 09-07-2024 End: 15-11-1432Ifyrsv Angel Maloney DPM Work Phone: [facility] PODIATRYStart: 09-07-2024 End: 68-56-7068Mtrpld Angel Maloney DPM Work Phone: [facility] PODIATRYStart: 09-07-2024 End: 08-57-8565ortixljpeoEELWSBSMN H SMITHNot AvailableStart: 09-07-2024 End: 44-34-9450Fqrgtl outpatient visit 15 minutesMarlene Maloney DPM Work Phone: N[facility] PODIATRYComment on above:Plantar fasciitis (Primary Dx); Pain of left heel; Pain of right heelStart: 07-26-2024 End: 46-78-3594Vmtxip Angel Maloney DPM Work Phone: [facility] PODIATRYStart: 07-26-2024 End: 86-54-5229Fhwypc Angel Maloney DPM Work Phone: [facility] PODIATRYStart: 07-26-2024 End: 35-22-0747reroenytytQSSSNTNCB H SMITHNot AvailableStart: 07-26-2024 End: 60-04-9124Ojhhwn outpatient visit 15 minutesMarlene Maloney DPM Work Phone: noMS [facility] PODIATRYComment on above:Plantar fasciitis (Primary Dx); Pain of left heel; Pain of right heelStart: 06-27-2024 End: 73-46-7524Zckfer flowsSlick Maloney DPM Work Phone: [facility] PODIATRYStart: 06-27-2024 End: 42-72-8715Oaztho flowsheetMarlene Maloney DPM Work Phone: [facility] PODIATRYStart: 06-27-2024 End: 65-16-6201Dztdmkgiw encounterDeyaniraannette Maloney DPM Work Phone: n[facility] PODIATRYComment on above:script checkStart: 06-27-2024 End: 21-84-3247efdgpgstitVBWTJQINL H SMITHNot AvailableStart: 06-27-2024 End: 26-52-0685Tbqcxe outpatient new 30 minutesCaivan Maloney DPM Work Phone: noms [facility] PODIATRYComment on above:Plantar fasciitis (Primary Dx); Pain of left heel; Pain of right heel; Pain of both heelsStart: 06-13-2022 End: 60-02-8901lafedplvtkFK JHON FAZIOFacility:G8Jczaa: 03-29-5954Fsjlbssjf for preprocedural laboratory examinationDR [facility] HospitalStart: 06-10-2022 End: 67-36-4456jjakdndptnGA JHON FAZIOFacility:H9Mrnht: 06-10-2022 End: 53-69-9947Xkzrepiqs for preprocedural laboratory examinationDR JHON TYRELL Facility:I3Kpviy: 64-37-6402Ocjttzgvt for other preprocedural examinationDR [facility] HospitalStart: 06-04-2022 End: 86-95-9097jmoxdbfndeOT JHON FAZIOFacility:T3Otbem: 06-04-2022 End: 31-39-5627Xyevofyle for other preprocedural examinationDR JHON TYRELL Facility:W4Arewj: 04-17-2022 End: 92-41-7493ezqjqcnqdnHM EDISON HOYFacility:L3Gvcot: 03-24-2022 End: 50-13-1741gqxipxtvdiMX EDISON HOYFacility:H1 Procedures DateProcedureProcedure DetailPerforming ClinicianStart: 84-99-1914PBH CBC WITH AUTO DIFFCorey Tyrell DO Work Phone: Start: 32-47-5569XPZ,APTIMA HPV,AGE GDLNCorey Tyrell DO Work Phone: Start: 32-10-8632JVY CBC WITH AUTO DIFFCorey Tyrell DO Work Phone: Start: 23-15-2581Vbdvo dip stick/tablet rgnt non-auto w/o micrscpCorey Tyrell DO Work Phone: Start: 52-71-4900PTN PREG QUANT HCGCorey Tyrell DO Work Phone: Start: 78-88-2870PB PELVIS W/ TRANSVAGINALCorey Tyrell DO Work Phone: Start: 69-88-2705Fktfh calcaneus minimum 2 views Marlene Maloney DPM Work Phone: start: 53-29-7140Vhmlu calcaneus minimum 2 views Marlene Maloney DPM Work Phone: Plan of Treatment DateCare ActivityDetailAuthorStart: 02-20-2026 End: 09-45-3069Fuemcbj encounter procedureNOMS BCP OBStart: 08-09-2025 End: 14-12-0611Khwyqia encounter bovnxmjar15/10/2025 11:20 AM EST Office Visit LATHA GRANT [address] [place] [phone] Samia Wu PA [address] [place] [address] LATHA CASTANEDANStart: 08-08-2025 End: 35-16-9194Ejekstk encounter qudfspnct41/09/2025 4:45 PM EST Office Visit [facility] [place] [facility] [address] [place] [phone] Marlene Maloney, DPM [address] [place] [address] N[facility] [place] PodiatryStart: 07-03-2025 End: 73-10-8243Esvsgnz encounter akwlxaxla56/03/2025 4:15 PM EST Office Visit [facility] [place] [facility] [address] [place] [address] Marlene Maloney, DPM [address] [place] [address] N[facility] [place] PodiatryStart: 05-11-2025 End: 09-57-0849Sttgcdu encounter qcoefbxfj62/11/2025 9:00 AM EDT Office Visit [facility] [address] [place] [phone] Jhon Santillan DO [address] [place] [address] [facility] BCP OBStart: 04-18-2025 End: 68-78-1714Ieatvkj encounter procedureNOMS BCP OBComment on above:Arrived Start: 03-28-2025 End: 84-20-7091Lkqvbmy encounter procedureNOMS SWS PODIATRYComment on above: ArrivedStart: 03-22-2025 End: 48-49-6448Zbhmwrd encounter procedureNOMS BCP OBComment on above:Arrived Start: 03-16-2025 End: 74-83-7088Psklwhh encounter bczxmnhyk88/17/2025 9:15 AM EDT Office Visit [facility] [address] [place] [phone] Marlene Maloney, DPM [address] [place] [address] [facility] SWS PODIATRYStart: 02-16-2025 End: 60-78-8374Waakerl encounter peqyhccsd21/19/2025 8:45 AM EDT Office Visit [facility] [address] [place] [phone] Marlene Maloney DPM [address] [place] [address] [facility] SWS PODIATRYStart: 02-13-2025 End: 76-32-9345SP Breast - bilateral ScreeningBilateral screening mammogram Imaging Routine Breast cancer screening by mammogram Expected: 02/13/2025 (Approximate), Expires: 04/15/2026[facility] Work Phone: comment on above:Expected: 02/13/2025 (Approximate), Expires: 04/15/2026Start: 02-13-2025 End: 11-51-1097Gxmjxcl encounter procedureNOIN BCP OBStart: 02-02-2025 End: 26-12-0211Nyeartd encounter qmvcunwld71/05/2025 3:45 PM EDT Office Visit [facility] [address] [place] [phone] Candelario Kate, DPHelen [address] [place] [address] [facility] PODIATRYStart: 01-26-2025 End: 91-98-0385Mcjyxth encounter ypsnesxwi66/29/2025 3:45 PM EDT Office Visit [facility] [address] [place] [phone] Candelario Kate DPM [address] [place] [address] Post-operative state (Primary Dx)NOMS SWS PODIATRYComment on above:Post-operative state (Primary Dx)Start: 01-24-2025 End: 94-07-6151Jvgecyw encounter njyubcfvk95/27/2025 11:30 AM EDT Office Visit [facility] [address] [place] [address] Candelario Kate, DPM [address] [place] [address] [facility] SWS PODIATRYStart: 01-16-2025 End: 92-69-3696Nfoemqh encounter procedureNOMS SWS PODIATRYComment on above: ArrivedStart: 01-09-2025 End: 55-27-6264Gvufkgs encounter procedureNOMS BCP OBComment on above:Arrived Start: 12-29-2024 End: 35-22-1259Biadhdk encounter fobjothkc42/01/2025 3:15 PM EDT Office Visit [facility] [address] [place] [address] Marlene Maloney, DPM [address] [place] [address] ArrivedNOMS SWS PODIATRYComment on above:ArrivedStart: 12-29-2024 End: 14-18-4542Uwnekoo encounter amrlewtaw75/01/2025 10:40 AM EDT Office Visit [facility] [address] [place] [phone] Jhon Santillan, DO [address] [place] [address] NOMS BCP OBStart: 12-28-2024 End: 62-76-3343lcdtxvpecl86/30/2025 5:00 PM EDT Treatment [facility] [address] [place] [address] Natalya Fall, PTNOMS CI PTStart: 12-21-2024 End: 70-73-7747nymrjfxqcy93/23/2025 5:00 PM EDT Treatment [facility] [address] [place] [address] Natalya Fall PTNOMS CI PTStart: 12-21-2024 End: 99-79-2387Lqfdddl encounter wmmppezql64/23/2025 2:15 PM EDT Office Visit [facility] [address] [place] [address] Marlene Maloney DPM [address] [place] [address] ArrivedNOMS [facility] PODIATRYComment on above:ArrivedStart: 12-19-2024 End: 15-27-9642pfhobtgszr75/21/2025 5:00 PM EDT Treatment [facility] [address] [place] [address] Natalya Fall PTNOMS CI PTStart: 12-14-2024 End: 37-96-9592mywursceeu32/16/2025 5:00 PM EDT Treatment [facility] [address] [place] [address] Natalya Fall PTNOMS CI PTStart: 12-13-2024 End: 52-83-4154Qqluhovu AMCortisol AM Lab Routine Pelvic pain in female Abnormal uterine bleeding (AUB) Expected: 12/13/2024 (Approximate), Expires: 12/13/2025 NOMS HealthcareComment on above:Expected: 12/13/2024 (Approximate), Expires: 12/13/2025Start: 12-13-2024 End: 49-72-9434SDSGCRLN Lab Routine PCOS (polycystic ovarian syndrome) Expected: 12/13/2024 (Approximate), Expires: 12/13/2025NOMS HealthcareComment on above: Expected: 12/13/2024 (Approximate), Expires: 12/13/2025Start: 12-13-2024 End: 22-89-9026Tqyqbaa encounter kyipuipys40/15/2025 10:50 AM EDT Office Visit [facility] [address] [place] [phone] Jhon Santillan, DO [address] [place] [address] NOM[facility] BCP OBStart: 12-07-2024 End: 18-83-4880cpryjejgnk39/09/2025 5:00 PM EDT Treatment [facility] [address] [place] [address] Natalya Fall, PTNOMS CI PTStart: 11-21-2024 End: 82-71-3164Lnveuev encounter procedureNOMS SWS PODIATRYComment on above: ArrivedStart: 10-20-2024 End: 59-53-6492Pvyfily encounter mtwmedgvk76/20/2025 11:00 AM EST Office Visit [facility] [address] [place] [address] Marlene Maloney DPM [address] [place] [address] ArrivedNOMS SWS PODIATRYComment on above:ArrivedStart: 09-07-2024 End: 12-19-9512Jpkictw encounter mwewyqoqm22/08/2025 1:45 PM EST Office Visit [facility] [address] [place] [address] Marlene Maloney DPM [address] [place] [address] [facility] SWS PODIATRYStart: 07-26-2024 End: 24-51-1232Ertzkbh encounter wvuilfwvk85/26/2024 1:45 PM EST Office Visit [facility] [address] [place] [address] Marlene Maloney DPM [address] [place] [address] [facility] SWS LTULCOHUXSIF-gaqrvraSONW-cuvphsy Lab Routine PCOS (polycystic ovarian syndrome) Ordered: 12/13/2024[facility] HealthcareComment on above:Ordered: 12/13/2024Follicle stimulating hormoneFollicle stimulating hormone Lab Routine PCOS (polycystic ovarian syndrome) Ordered: 12/13/2024[facility] HealthcareComment on above:Ordered: 12/13/2024hCG, quantitative, pregnancyhCG, quantitative, Lab Routine PCOS (polycystic ovarian syndrome) Ordered: 12/13/2024[facility] Work Phone: comment on above:Ordered: 12/13/2024Hemoglobin A1c/Hemoglobin.total in BloodHemoglobin A1c Lab Routine Pelvic pain in female Abnormal uterine bleeding (AUB) Ordered: 12/13/2024[facility] HealthcareComment on above:Ordered: 12/13/2024Luteinizing hormoneLuteinizing hormone Lab Routine PCOS (polycystic ovarian syndrome) Ordered: 12/13/2024[facility] HealthcareComment on above:Ordered: 12/13/2024ProlactinProlactin Lab Routine Pelvic pain in female Abnormal uterine bleeding (AUB) Ordered: 12/13/2024[facility] HealthcareComment on above:Ordered: 12/13/2024THIN PREP TIS PAP AND HR HPV DNATHIN PREP TIS PAP AND HR HPV DNA Pathology and Cytology Routine Well woman exam with routine gynecol ogical exam Ordered: 02/13/2025[facility] HealthcareComment on above:Ordered: 02/13/2025 Payers DatePayer CategoryPayerPolicy [id number] 2019Private Health [id number] [id number] [id number] 2840.1.515691.3.57[id number] 2.0.1.420756.3.57[id number] 2.0.1.926298.3.57[id number] 2..1.012038.3.57[id number] 2..1.850169.3.57[id number] 2..1.781034.3.57[id number] 2..1.572635.3.57[id number] 2..1.766310.3.579.2.424072-48-8500Verobau79135781 2..1.131546.3.57[id number] 2..1.114697.3.579.2.824400-83-8734Yjyhbgc8914937 2..1.604697.3.579.2.780101-28-8452Gjaetbc0308075 2..1.273643.3.579.2.387379-23-1503Hsijmkh5466264 2..1.358211.3.579.2.151410-51-7342Onqgfps7645100 2..1.912924.3.579.2.579864-71-8278Hpgwwgb0468519 2..1.082741.3.579.2.[id number] 2..1.936158.3.579.2.[id number] 2.840.1.125803.3.579.2.403371-66-1319Vaovqzi3496969 2.840.1.512390.3.579.2.006921-12-8582Eypwjcq8515628 2.0.1.704165.3.579.2.967789-51-6790Liwvlzi6280392 2.840.1.353813.3.579.2.071574-48-8444Zowwets8907019 2.0.1.253729.3.579.2.745164-45-4302Iyfggim2876575 2.0.1.488877.3.579.2.667119-97-7163Oitnfcn5826372 2..1.968382.3.579.2.282905-31-0046Rnzcfph5313869 2..1.024137.3.579.2.619132-69-9781Etgvdwz4058846 2..1.735315.3.579.2.918353-61-8706Cbklpav7004352 2..1.853931.3.579.2.073574-03-6066Perh-qsw15812891648-51-0860Bjhhkqx 52235[id number] 2..1.608947.3.579.2.593 Social History DateTypeDetailFacilityTobacco smoking status NHISTobacco smoking consumption unknownNOIN HealthcareStart: 42-33-2982Ysp assigned at birthNot on [facility] HealthcareStart: 07-26-2024 End: 99-93-6720Bmgstx identityNot on [facility] HospitalStart: 73-57-3902Ytrmols smoking status NHISEx-smokerNOMS HealthcareHistory of tobacco useCurrent smoker [facility] HealthcareHistory of tobacco useCigarette SmokerUT[facility]LEY [facility] HealthcareStart: 04-71-1103Heglyvw use and exposureSmokeless tobacco non-userNOIN Healthcare Start: 07-26-2024 End: 82-93-1443Qxfrryq of Social functionNOIN Healthcare Clinical Notes 06-13-2022 to 05-17-2025 Note Date & ImguYyahRfndnewc37-52-5051 History of Present illness Narrative* MARC Weaver - 05/17/2025 11:10 AM EDT Reason for Appointment: Patient ID: Toi Rooney is a 44 y.o. female who presents for Encounter for weight management Patient presents today for Weight Management Consult. MEDICATIONS Current Outpatient Medications Medication Instructions celecoxib (CELEBREX) 200 mg, As needed ibuprofen 800 mg, Every 8 hours levoFLOXacin (LEVAQUIN) 250 mg, Every 24 hours metFORMIN XR (GLUCOPHAGE-XR) 500 mg, Oral, Daily with evening meal, Do not crush, chew, or split. phentermine (ADIPEX-P) 37.5 mg, Oral, Daily before breakfast ALLERGIES No Known Allergies PROBLEMS Active Ambulatory [...] hysteroscopy w/myosure, dx laparoscopy w/lysis of adhesions ENDOMETRIAL ABLATION 03/10/2025 TUBAL LIGATION 06/13/2022 REVIEW OF SYSTEMS Review of Systems: Review of Systems Constitutional: Negative. HENT: Negative. Eyes: Negative. Respiratory: Negative. Cardiovascular: Negative. Gastrointestinal: Negative. Genitourinary: Negative. Musculoskeletal: Negative. Skin: Negative. Neurological: Negative. All other systems reviewed and are negative. Hematological: Negative. Endocrine: Negative. Allergic/Immunologic: Negative. OBJECTIVE Objective: Physical Exam Constitutional: Appearance: Normal appearance. She is normal weight. HENT: Head: Normocephalic. Cardiovascular: Rate and Rhythm: Normal rate. Pulses: Normal pulses. Pulmonary: Effort: Pulmonary effort is normal. Breath sounds: Normal breath sounds. Abdominal: Palpations: Abdomen is soft. Musculoskeletal: General: Normal range of motion. Neurological: General: No focal deficit present. Mental Status: She is alert and oriented to person, place, and time. Psychiatric: Mood and Affect: Mood normal. Behavior: Behavior normal. Thought Content: Thought content normal. Judgment: Judgment normal. Vitals and nursing note reviewed. Vitals: Estimated body mass index is 34.8 kg/m as calculated from the following: Height as of 06/26/22: 5'. Weight as of this encounter: 178 lb 3.2 oz. BP: 110/70 No LMP recorded. Patient has had an ablation. ASSESSMENT & PLAN ICD-10-CM 1. Encounter for weight management Z76.89 phentermine (Adipex-P) 37.5 MG tablet DISCONTINUED: phentermine (Adipex-P) 37.5 MG tablet Patient presents today for Adipex prescription. Patient desires additional weigh loss and she is currently taking metformin along with working out to achieve further results. Weight and blood pressure has been captured and it has been discussed/reiterated the importance of keeping a food journal, proper nutrition/diet, and exercise regimen. Patient verbalized understanding. Patient has lost more than 5% of her initial body weight Follow Up: Patient is to return to the office in 3 month for further evaluation to assess patient progress. Patient scheduled for surgery in July will most likley stop adipex during recovery and restart once cleared with PT therapy for working out Documented by MARC Weaver on behalf of: MARC Weaver documented in this encounterMetropolitan Saint Louis Psychiatric CenterIoukjizjvf24-46-4161 History of Present illness Narrative* Ana M Thakkar LPN - 04/18/2025 9:30 AM EDT Reason for Appointment: Patient ID: Toi Rooney is a 44 y.o. female who presents for Weight Management Patient presents today for a weight management consultation. Patient has been prescribed Adipex andshe is here for her 2nd prescription. Today's Vitals: Estimated body mass index is 36.52 kg/m as calculated from the following: Height as of 06/26/22: 5'. Weight as of this encounter: 187 lb. Previous Weight/BMI: Wt Readings from Last 2 Encounters: 04/18/25 187 lb 03/22/25 189 lb 1.9 oz BMI Readings from Last 2 Encounters: 04/18/25 36.52 kg/m 03/22/25 36.93 kg/m Allergies as of 04/18/2025 (No Known Allergies) History reviewed. No pertinent past medical history. Past Surgical History: Procedure Laterality Date SECTION, LOW TRANSVERSE 05/19/2014 SECTION, LOW TRANSVERSE 01/10/2011 DILATION AND CURETTAGE OF UTERUS 01/27/2025 D&C hysteroscopy w/myosure, dx laparoscopy w/lysis of adhesions ENDOMETRIAL ABLATION 03/10/2025 TUBAL LIGATION 06/13/2022 Assessment/Plan Encounter Diagnosis Name Primary? Encounter for weight management Adipex: Patient presents today for 2nd Adipex prescription. Patients weight and blood pressure has been captured and discussed with the patient. I have discussed/reiterated the importance of keeping a food journal, proper nutrition/diet, and exercise regimen while taking Adipex. Patient verbalized understanding and was given a printed prescription signed by provider to take to their local pharmacy. Follow Up: Patient is to return to the office in 1 month for further evaluation to assess patient progress. Weight and blood pressure will need to be obtained in order for patient to receive 3rd prescription. Documented by: Ana M Thakkar LPN on behalf of MARC Weaver documented in this encounterMetropolitan Saint Louis Psychiatric CenterZumafzwbvl23-85-4443 History of Present illness Narrative* Marlene Maloney DPM - 03/28/2025 8:30 AM EDT Images from the original note were not included. HPI: Toi Rooney presents today for post-op appointment of EPF left foot. Surgery was performed on 01/13/2025 at [facility]. Patient complains of pain 0. [...] all pedal groups tested Assessments: Surgery follow-up examination ICD M72.2 - Plantar fasciitis ICD M79.672 - Pain in left foot ICD M77.32 - Calcaneal spur, left ICD M79.671 - Pain in right foot ICD M77.31 - Calcaneal spur, right Plan: Surgery Follow-up Examination: Patient is doing well post op and has transitioned back to normal shoes. She is increasing her activity as tolerated, but is still limited by some sharp intermittent nerve pain to the left heel as well as the pain in the right heel. Overall patient states that she does feel like her pain is improving over time and becoming less intense and frequent. She was instructed on use of topical creams such as Aspercreme, Capsaicin and other topicals to help with the nerve pain to the lateral foot. We also discussed lidocaine and TENS unit. If her symptoms persist we can consider formal PT if needed. Patient will follow-up in 1 month if still having symptoms. Patient is having trouble with the right heel and is still planning on surgery for the left heel over . She will follow-up in late May/July so that we can proceed with scheduling. documented in this encounterMetropolitan Saint Louis Psychiatric CenterUeoatgrgfn45-68-7891 History of Present illness Narrative* Katalina Ortega, REPULPING SUPERVISOR - 03/22/2025 10:50 AM EDT Reason for Appointment: Patient ID: Toi Rooney is a 44 y.o. female who presents for Post-op Visit Patient presents today for 2 Week Post Op Follow Up appointment. MEDICATIONS Current Outpatient Medications Medication Instructions ibuprofen [...] hysteroscopy w/myosure, dx laparoscopy w/lysis of adhesions ENDOMETRIAL ABLATION 03/10/2025 TUBAL LIGATION 06/13/2022 REVIEW OF SYSTEMS Review of Systems: Review of Systems Constitutional: Negative. HENT: Negative. Eyes: Negative. Respiratory: Negative. Cardiovascular: Negative. Gastrointestinal: Negative. Genitourinary: Negative. Musculoskeletal: Negative. Skin: Negative. Neurological: Negative. All [...] nursing note reviewed. Exam conducted with a ecology professor present. Vitals: Estimated body mass index is 36.93 kg/m as calculated from the following: Height as of 06/26/22: 5'. Weight as of this encounter: 189 lb 1.9 oz. BP: 116/74 No LMP recorded. ASSESSMENT & PLAN ICD-10-CM 1. Postop check Z09 Pt presents for postop appt from shannan ablation. Pt still having discharge. Discussed surgery with pt. Patient presents today for initial Adipex prescription. The importance of keeping a food journal, proper nutrition/diet, and exercise regimen while taking Adipex has been discussed. Patient verbalized understanding and signed consents to initiate (Adipex) medication therapy. Patient was given a printed prescription signed by provider to take to their local pharmacy. Follow Up: Patient is to return to the office in 1 month for further evaluation to assess patient progress. Weight and blood pressure will need to be captured in order for patient to receive 2nd prescription. Documented by Katalina Ortega LPN on behalf of: Jhon Santillan DO documented in this encounterMetropolitan Saint Louis Psychiatric CenterOzcgrytfwj40-22-2983 History of Present illness Narrative* Marlene Maloney DPM - 02/16/2025 8:45 AM EDT Images from the original note were not included. HPI: Toi Rooney presents today for post-op appointment of EPF left foot. Surgery was performed on 01/13/2025 at [facility]. Patient complains of pain 0. [...] 4 weeks for recheck. documented in this encounterMetropolitan Saint Louis Psychiatric CenterAcyfplhtju78-98-8773 History of Present illness Narrative* Herminia Luna NP - 02/13/2025 9:50 AM EDT Reason for Appointment: Patient ID: Toi Rooney is a 44 y.o. female who presents for Gynecologic Exam (Pt present todayfor annual visit.) Patient presents today for Annual [...] nursing note reviewed. Exam conducted with a ecology professor present. Vitals: Estimated body mass index is [...] by Herminia Luna NP on behalf of: Jhon Santillan DO documented in this encounterMetropolitan Saint Louis Psychiatric CenterMxxaxkeohx97-24-3036 History of Present illness Narrative* Marlene Maloney DPM - 02/02/2025 3:45 PM EDT Images from the original note were not included. HPI: Toi Rooney presents today for post-op appointment of EPF left foot. Surgery was performed on 01/13/2025 at [facility]. Patient complains of pain 0. [...] 3 weeks for recheck. documented in this encounterMetropolitan Saint Louis Psychiatric CenterAbniwnnjcj19-45-7732 History of Present illness Narrative* Candelario Kate DPM - 01/26/2025 3:45 PM EDT FOOT [...] for this visit. No Known Allergies Objective: LMP 01/07/2025 Patient presents WBAT in CAM to [...] with Dr Maloney for suture removal. Candelario Kate DPM documented in this [facility]05-29-2025 Instructions* Patient Instructions* Candelario Kate DPM - 01/26/2025 3:45 PM EDT Continue weight bearing as tolerated in CAM boot OK to remove at rest Continue gentle range of motion exercises Apply betadine and bandage to site daily Monitor for sign of infection documented in this [facility]05-19-2025 History of Present illness Narrative* Marlene Maloney DPM - 01/16/2025 10:45 AM EDT Images from the original note were not included. HPI: Toi Rooney presents today for post-op appointment of EPF left foot. Surgery was performed on 01/13/2025 at [facility]. Patient complains of pain 0. [...] 10-14 days for sutureremoval. documented in this encounterMetropolitan Saint Louis Psychiatric [id number] History of Present illness Narrative* Alanis Hill - 01/09/2025 1:30 PM EDT Reason for Appointment: Patient ID: Toi Rooney is a 44 y.o. female who presents for Pre-op Visit Patient presents today for Pre Op appointment. Patient is scheduled to undergo Diagnostic Laparoscopy, possible CYNDY, possible FOE, possible BSO and D&C Hysteroscopy, possible Myosure on 01/27/[address] Santillan at [facility]. MEDICATIONS No current outpatient medications ALLERGIES No [...] nursing note reviewed. Exam conducted with a ecology professor present. Vitals: Estimated body mass index is [...] reviewed, and patient is to proceed to [facility] OR. Follow Up: Patient is to follow up between 1-2 weeks post operative to assess proper healing and recovery fromprocedure. Documented by Adriana Dale LPN on behalf of: Jhon Santillan DO documented in this encounterMetropolitan Saint Louis Psychiatric [id number] History of Present illness Narrative* Marlene Maloney DPM - 12/29/2024 3:15 PM EDT Images from the original note were not included. HPI: Patient presents today for their pre-operative appointment. The patient is scheduled for EPF left foot at [facility] with Dr. Maloney on 01/13/2025 at 10:45am. The patient is here to sign surgery paperwork, receive post-operative shoe (if needed), post-operative instructions and any post- operative prescriptions. Patient relates pain in bottom of [...] palpation of the medial band of the plantarfascia. No pain noted with compression of the [...] care were discussed in detail with the patient.The elective nature of the procedure was also discussed in detail with the patient. Specific complications related to this surgery were also discussed including, but not limited to: possible infection, the need for oral or IV antibiotics, hospitalization, additional surgery including removal of hard kwok, prolonged pain, stiffness or reoccurrence. Other complications include blood clot, hematoma, loss of use, loss of toe, foot and or leg. Possible complications relating to over activity and limitations during the post- operative period were reviewed in detail. We have reviewed the fact that prol onged swelling is possible up to a year after surgery and could delay return to normal shoes and activities. Patient was dispensed their postoperative prescriptions including: [place]. We discussed thepostoperative instructions including protected weight bearing on the surgical foot for at least 6-8weeks with use of a walking boot. The [...] 3-5 days after surgery. documented in this [facility]05-01-2025 Instructions* Patient Instructions* Marlene Maloney DPM - 12/29/2024 3:15 PM EDT [facility] Surgery [address] [address] Arrive at 9:45 on 01/13 documented in this [facility]04-23-2025 History of Present illness Narrative* Marlene Maloney DPM - 12/21/2024 2:15 PM EDT Images from the original note [...] palpation of the medial band of the plantarfascia. No pain noted with compression of the [...] discussed including, but not limited to: possible infection,the need for oral or IV antibiotics, hospitalization, [...] could be made as to the outcome ofthe procedure patient consented to the proposed procedure: ENDOSCOPIC PLANTAR FASCIOTOMY left. The patient will be contacted for surgical scheduling. The patient will call if any problems or questions arise prior to their surgery date. documented in this encounterMetropolitan Saint Louis Psychiatric [id number] Instructions* Patient Instructions* Marlene Maloney DPM - 12/21/2024 2:15 PM EDT Instructions for Surgery Today you discussed surgery on your foot or ankle with Dr. Maloney. The following information is to help answer any questions that you may have prior to your surgery. If you have further questions prior to surgery, please contact the office at [phone]. PRE-OPERATIVELY Scheduling Once the paperwork is completed for your surgery, you will be contacted within the next 5-[address] Maloney's nurse/MA ([phone] ext [phone]) to schedule your surgery. The date is based on the days that Dr. Maloney performs surgery and when her surgery schedule is open. We will check yourinsurance benefits prior to surgery to ensure that this will be approved by your insurance. You will be informed about what your out of pocket cost will be prior to scheduling. Most outpatient surgeries are done at the [facility] ([facility]) at the [facility] on [facility]. Your surgery may also be scheduled at [facility] depending upon your insurance and what type of procedure is being performed. Pre-op Testing Once your surgery has been scheduled, you will need to contact your primary care physician (PCP) inorder to schedule an appointment for pre-surgical clearance. At this appointment, they will performa history & physical and obtain needed lab [...] medical history, physical examination and the staff atthe [facility]. Preparing your home This is the [...] eat or drink after midnight the night beforeyour surgery. Being under anesthesia with anything in your stomach places you at risk for complications. If you are having a procedure done under local then you can eat or drink as normal. Day of Surgery Parking is readily available at the [facility] and at the hospital. Please make sure to have a ride to and from your place of surgery. You are not allowed to drive following your procedure due to the medications that you will receive during anesthesia. Please bring with you your crutches or walker if they are needed following surgery. This will allowfor easy transport to and from your car [...] are taking the prescription pain medicine. Some anti- inflammatory medications (Motrin, Aleve, Advil, etc.) may impede bone healing and the doctor may ask you to stop these NSAID's during the postoperative period. You may also be given a prescription for an anti-nausea medication. If you have experienced nausea,upset stomach, vomiting or other problems with pain [...] thinner. This is reserved for surgeries that wouldrequire a significant amount of time in a cast and being immobilized following surgery. Driving You need to have a ride home the day of surgery. You also are not to drive while you are taking pain medications. When you no longer need medications for pain, you can return to driving. We recommendthat you do not drive with a cast [...] yourself from developing an infection at your surgicalsite. Ice Unless instructed not to do so, [...] above the level of your heart. This willhelp to reduce the swelling and associated pain to your foot and ankle. You may also want to do gentle range of motion exercises with your foot or ankle following surgery.If you are in a cast, you can [...] the pain medications or anesthesia. You can takeover the counter Benadryl 25mg if you need [...] activities depends upon the type of surgery thatyou had. Bathing: You will not be able to get the dressing on your foot wet. You will not be able to get thefoot wet until the stitches are removed. This is usually 2-3 weeks following surgery depending uponhow your skin heals. You can take a bath with the foot hanging over the outside, or you may want toconsider a plastic protector for your cast or [...] course at that time. documented in this encounterMetropolitan Saint Louis Psychiatric [id number] History of Present illness Narrative* Natalya Fall, PT - 12/19/2024 5:00 PM EDT Images from the original note [...] 2 injection since that time, each only lastabout 4 weeks. Pt is not currently using any time of inserts for support. Does do some stretching when pain is present. Does occasional massage at home. Precautions: [place] Subjective: Pt states she felt better after [...] minutes) Strength, Endurance, Flexibility, ROM, HEP, Neural Mobilization,Power, and Core Stability as needed. Reviewed and [...] to be instructed in home exercise program. [employer] Goals: To be met in 10 weeks [...] Please sign below. Date: documented in this encounterMetropolitan Saint Louis Psychiatric [id number] History of Present illness Narrative* Natalya Fall, PT - 12/14/2024 5:00 PM EDT Images from the original note [...] 2 injection since that time, each only lastabout 4 weeks. Pt is not currently using any time of inserts for support. Does do some stretching when pain is present. Does occasional massage at home. Precautions: [place] Subjective: Pt states she felt better after [...] minutes) Strength, Endurance, Flexibility, ROM, HEP, Neural Mobilization,Power, and Core Stability as needed. Reviewed and [...] to be instructed in home exercise program. [employer] Goals: To be met in 10 weeks [...] Please sign below. Date: documented in this encounterMetropolitan Saint Louis Psychiatric [id number] History of Present illness Narrative* Katalina Shannon, REPULPING SUPERVISOR - 12/13/2024 10:50 AM EDT Reason for Appointment: Patient ID: Toi Rooney [...] nursing note reviewed. Exam conducted with a ecology professor present. Vitals: Estimated body mass index is [...] Pt given labs to have obtained Pt hascomplaints of weight gain in face. Documented by Katalina Ortega LPN on behalf of: Jhon Santillan DO documented in this encounterMetropolitan Saint Louis Psychiatric [id number] History of Present illness Narrative* Natalya Fall, PT - 12/07/2024 5:00 PM EDT Images from the original note [...] 2 injection since that time, each only lastabout 4 weeks. Pt is not currently using any time of inserts for support. Does do some stretching when pain is present. Does occasional massage at home. Precautions: [place] Subjective: Pt states bilateral calf muscles and [...] minutes) Strength, Endurance, Flexibility, ROM, HEP, Neural Mobilization,Power, and Core Stability as needed. Reviewed and [...] to be instructed in home exercise program. [employer] Goals: To be met in 10 weeks [...] Please sign below. Date: documented in this encounterMetropolitan Saint Louis Psychiatric [id number] History of Present illness Narrative* Natalya Fall, PT - 12/05/2024 5:00 PM EDT Images from the original note [...] 2 injection since that time, each only lastabout 4 weeks. Pt is not currently using any time of inserts for support. Does do some stretching when pain is present. Does occasional massage at home. Precautions: [place] Subjective: Pt states heels feel about the [...] minutes) Strength, Endurance, Flexibility, ROM, HEP, Neural Mobilization,Power, and Core Stability as needed. Reviewed and [...] to be instructed in home exercise program. Mcfp Goals: To be met in 10 weeks [...] Please sign below. Date: documented in this encounterMetropolitan Saint Louis Psychiatric [id number] History of Present illness Narrative* Marlene Maloney DPM - 10/20/2024 11:00 AM EST Images from the original note were not [...] palpation of the medial band of the plantarfascia. No pain noted with compression of the [...] 4. RTC: 4-6 weeks. documented in this encounterMetropolitan Saint Louis Psychiatric [id number] History of Present illness Narrative* Marlene Maloney DPM - 09/07/2024 1:45 PM EST Images from the original note were not [...] palpation of the medial band of the plantarfascia. No pain noted with compression of the [...] advised importance of continued stretching exercises as wellas other conservative measures including supportive shoes and iqih-dqw-bgcsgmg inserts or custom inserts as applicable. We did discuss that there is a slight possibility of recurrence of the heel pain but to be very vigilant about continuing with the stretching exercises especially if they notice any recurrent symptoms. Patient should follow up as needed if they have any worsening pain or symptoms to the heel. documented in this [facility]11-26-2024 History of Present illness Narrative* Marlene Maloney DPM - 07/26/2024 1:45 PM EST Images from the original note were not [...] palpation of the medial band of the plantarfascia. No pain noted with compression of the [...] 4. RTC: 4-6 weeks. documented in this encounterMetropolitan Saint Louis Psychiatric [id number] Telephone encounter Note* Telephone Encounter - Marlene Maloney DPM - 06/27/2024 4:43 PM EDT Rx was sent to [facility] in [place]. [facility] [id number] Miscellaneous Notes* Telephone Encounter - Marlene Maloney DPM - 06/27/2024 4:43 PM EDT Rx was sent to [facility] in [place]. * Telephone Encounter - Rose Matthews - 06/27/2024 4:09 PM EDT Pt called to check in on script, and to change her preferred pharmacy to [facility] in [place]. documented in this encounterMetropolitan Saint Louis Psychiatric [id number] Telephone encounter Note* Telephone Encounter - Rose Matthews - 06/27/2024 4:09 PM EDT Pt called to check in on script, and to change her preferred pharmacy to [facility] [place]. [facility] [id number] History of Present illness Narrative* Marlene Maloney DPM - 06/27/2024 1:00 PM [...] palpation of the medial band of the plantarfascia. No pain noted with compression of the [...] icing, and to make appropriate shoe gear changesto include wearing athletic-type shoes with supportive insoles. [...] FO, therapy if needed. documented in this encounterMetropolitan Saint Louis Psychiatric [id number] Instructions* Patient Instructions* Marlene Maloney DPM - 06/27/2024 1:00 PM [...] of the intense, localized area of discomfort. Painalso occurs because of the extreme stretch in the fascia when standing after periods of rest that can cause tearing in the individual fibers of the fascia. The most common cause of plantar fasciitis is overuse, an excessive amount of activity over a givenperiod of time. This excessive activity causes a [...] months to completely resolve your pain if notlonger. Initial Treatment: Supportive/stable shoes, No barefoot walking Stretching exercises to stretch the Achilles tendon and plantar fascia. This should be done in the morning, before and after activity. Ice application after activity or at the end of the day. This can be combined with massage by usinga frozen water bottle and rolling the foot and heel over the water bottle. Wtcg-hay-rlayrbf (OTC) arch supports: Spenco, Powerstep, UCOs Continued [...] of time necessary for symptoms to improve significantly.Conservative treatment is curative 95% of the time for this problem. Detailed Treatment for Plantar Fasciitis Stretching - This is the most important treatment that you can do for plantar fasciitis. Wall Stretch: Stand an arm's length away from a wall, place your hands shoulder length apart on thewall with one foot in front of the [...] of the foot. Do this stretch in themorning before getting out of before and after [...] when you bend the shoe, the point ofbending is not in the arch. It should be at the ball of the foot or near the toes. This shows that t here is support in the arch. Also make sure that the back of the heel is stiff and that you cannot push it in with one finger. This will help to ensure that your heel stays in the shoe and in contactwith an arch support if you are using [...] placed in your shoe made from a moldthat is taken of your foot held in [...] passive stretch to the plantar fascia all nightlong. If interested in obtaining these, the best place is to get them is at an online supplier. [employer] offers many options for night splints. There are two main differences in the night splints offered, which are ones that goes along the back of the heel and ones that go on the front of the foot and ankle. The ones that go on the back of the heel and foot provides a better stretch because theheel cannot slide out of the device like [...] wake up in the morning and provide half-way flexibility to help decrease the chance of [...] It will also incorporate modalities such as ultrasoundand electrical stimulation to help reduce the pain and symptoms in the heel. Immobilization- This is one of the most effective treatments for plantar fasciitis. Immobilization is best done with a cast, but people can get relief with a walking boot if used properly for a totalperiod of immobilization of 6-8 weeks. documented in this encounterMetropolitan Saint Louis Psychiatric [id number] NoteOPERATIVE NOTE OPERATION DATE: 06/13/2022 PROCEDURE: Bilateral laparoscopic salpingectomy, lysis of adhesions, omental adhesions from the anterior abdominal wall. PREOPERATIVE DIAGNOSIS: Desires permanent sterilization. POSTOPERATIVE DIAGNOSIS: Desire permanent sterilization. ANESTHESIA: General. SURGEON: Jhon Santillan D.O. FULL FASHIONED GARMENT KNITTER: SHAR Rdz URINE OUTPUT: Yellow and clear. [...] Sponge, lap and needle counts were correct x2.[facility] Evaluation note* Diagnosis Plantar fasciitis- Primary Plantar fascial fibromatosis Pain of left heel Pain of right heel Pain of both heels [facility]* Diagnosis Plantar fasciitis- Primary Plantar [...] quadrant abdominal pain [facility]* Diagnosis Plantar fasciitis- Primary Plantar fascial fibromatosis Postoperative examination [Z09] Follow-up examination, following unspecified surgery Pain of left heel documented in [facility] encounter [facility]Evaluation [facility]* Diagnosis Post-operative state- Primary Other postprocedural status documented in this encounter [facility]Evaluation note* Diagnosis Post-operative state- Primary Other postprocedural status Plantar fasciitis Plantar fascial fibromatosis Pain of left heel documented in this encounter [facility]* Diagnosis PCOS (polycystic ovarian syndrome)- Primary Polycystic ovaries Well woman exam with routine gynecological exam Routine gynecological examination Pre-op examination Pelvic pain Menorrhagia with regular cycle Abnormal uterine bleeding (AUB) Breast cancer screening by mammogram documented in this encounter [facility] HealthcareEvaluation note* Diagnosis Post-operative state- Primary Other postprocedural status Plantar fasciitis Plantar fascial fibromatosis Pain of left heel documented in this encounter [facility] note* Diagnosis Postop check Follow-up examination, following unspecified surgery Weight gain Other symptoms concerning nutrition, metabolism, and development documented in this encounter [facility] HealthcareEvaluation note* Diagnosis Plantar fasciitis- Primary Plantar fascial fibromatosis Post-operative state Other postprocedural status Pain of both heels documented in this encounter [facility] note* Diagnosis Encounter for weight management documented in this encounter [facility]Evaluation note* Diagnosis Encounter for weight management documented in this encounter [facility] CenterReason for visit Narrative* Rehabilitation - Outpatient (Routine) - Pending ReviewSpecialtyDiagnoses / ProceduresReferred By ContactReferred To ContactPhysical Therapy Diagnoses Plantar fasciitis Procedures HI OFFICE/OUTPATIENT NEW HIGH MDM 60 MINUTES Marlene Maloney DPM [address] [place] [id number] Phone: tel: fax: Natalya Fall PT Referral IDStatusReoctavianoStabbey DateExpiration DateVisits RequestedVisits [id number] Review Specialty Services Required / [facility] CenterReason for visit Narrative* Rehabilitation - Outpatient (Routine) - AuthorizedSpecialtyDiagnoses / ProceduresReferred By ContactReferred To ContactPhysical Therapy Diagnoses Plantar fasciitis Procedures HI OFFICE/OUTPATIENT NEW HIGH MDM 60 MINUTES Marlene Maloney, DPM [address] [place] [address] Phone: tel: fax: Natalya Fall PT Referral IDStatusReasonStart DateExpiration DateVisits RequestedVisits [id number] Specialty Services Required [facility] Summary Purpose Family History No Family History Records FoundNo Family History Records Found Advance Directives No Advanced Directives Records FoundNo Advanced Directives Records Found Additional Source Comments INFORMATION SOURCE (unrecogn ized section and content) DATE CREATED AUTHOR 08/07/2022 [facility] DATE CREATED AUTHOR AUTHOR'S ORGANIZ ATION 05/18/2025 [facility] EPIC Care Teams (unrecognized sec tion and content) Team MemberRelationshipSpecialtyStart DateEnd Date Edison Timmons MD [address] [place] [phone] PCP - GeneralFamily Lihxcjyx91/28/24Team MemberRelationshipSpecialtyStart Date End Date Edison Timmons MD [address] [place] [address] PCP - GeneralFamily Zfsdybog83/28/24Team MemberRelationshipSpecialtyStart Date End Date Edison Timmons MD [address] [place] [address] PCP - GeneralFamily Hdwwqfxp22/28/24Team MemberRelationshipSpecialtyStart Date End Date Edison Timmons MD [address] [place] [address] PCP - GeneralFamily Laztixcq38/28/24Team MemberRelationshipSpecialtyStart Date End Date Edison Timmons MD [address] [facility] [address] PCP - GeneralFamily Ogvacnqa09/28/24Team MemberRelationshipSpecialtyStart Date End Date Edison Timmons MD [address] [place] [facility] [address] PCP - GeneralFamily Kahqdeuu12/28/24Team MemberRelationshipSpecialtyStart Date End Date Edison Timmons MD [address] [place] [facility] [address] PCP - GeneralFamily Ayjqfcny90/28/24Team MemberRelationshipSpecialtyStart Date End Date Edison Timmons MD [address] [place] [address] PCP - GeneralFamily Zyedujko36/28/24Team MemberRelationshipSpecialtyStart Date End Date Edison Timmons MD [address] [place] [facility] [address] PCP - GeneralFamily Alzngzex08/28/24Team MemberRelationshipSpecialtyStart Date End Date Edison Timmons MD [address] [place] [facility] [address] PCP - GeneralFamily Yqhcihfb56/28/24Team MemberRelationshipSpecialtyStart Date End Date Edison Timmons MD [address] [facility] [address] PCP - GeneralFamily Kcvxoptu83/28/24Team MemberRelationshipSpecialtyStart Date End Date Edison Timmons MD [address] [place] [address] PCP - GeneralFamily Vpiepwex81/28/24Team MemberRelationshipSpecialtyStart Date End Date Edison Timmons MD [address] [place] [address] PCP - GeneralFamily Rlutiwtr49/28/24Team MemberRelationshipSpecialtyStart Date End Date Edison Timmons MD [address] [place] [facility] [address] PCP - GeneralFamily Fbgxjeos65/28/24Team MemberRelationshipSpecialtyStart Date End Date Edison Timmons MD [address] [place] [facility] [place] [address] PCP - GeneralFamily Xcpsutkz42/28/24Team MemberRelationshipSpecialtyStart Date End Date Edison Timmons MD PCP - GeneralFamily Adqtrldn51/28/24Team MemberRelationshipSpecialtyStart Date End Date Edison Timmons MD PCP - GeneralFamily Jijxtrck57/28/24Team MemberRelationshipSpecialtyStart Date End Date Edison Timmons MD PCP - GeneralFamily Eouwavye05/28/24Team MemberRelationshipSpecialtyStart Date End Date Edison Timmons MD PCP - GeneralFamily Nrgzbpkf86/28/24Team MemberRelationshipSpecialtyStart Date End Date Edison Timmons MD [address] [place] [place] [address] PCP - GeneralFamily Medicine01/26/25Team MemberRelationshipSpecialtyStart DateEnd Date Edison Timmons MD [address] [place] [place] [address] PCP - GeneralFamily Medicine01/26/25Team MemberRelationshipSpecialtyStart DateEnd Date Edison Timmons MD [address] [place] [place] [address] PCP - GeneralFamily Medicine01/26/25Team MemberRelationshipSpecialtyStart DateEnd Date Edison Timmons MD [address] [place] [place] [address] PCP - GeneralFamily Medicine01/26/25Team MemberRelationshipSpecialtyStart DateEnd Date Edison Timmons MD [address] [place] [place] [address] PCP - GeneralFamily Medicine01/26/25Team MemberRelationshipSpecialtyStart DateEnd Date Edison Timmons MD [address] [place] [place] [address] PCP - GeneralFamily Medicine01/26/25Team MemberRelationshipSpecialtyStart DateEnd Date Edison Timmons MD [address] [place] [place] [address] PCP - [facility]01/26/25Team MemberRelationshipSpecialtyStart DateEnd Date Edison Timmons MD [address] [place] [place] [address] [facility] - [facility]/26/25Team MemberRelationshipSpecialtyStart DateEnd Date Edison Timmons MD [address] [place] [place] [address] PCP - Generalmi Medicine01/26/25Team MemberRelationshipSpecialtyStart DateEnd Date Edison Timmons MD [address] [place] [address] [facility] - [facility]01/26/25Team MemberRelationshipSpecialtyStart DateEnd Date Edison Timmons MD [address] [place] [place] [address] PCP - GeneralFamily Medicine01/26/25 Reason for Visit (unrecogniz ed section and content) ReasonOnset DateCommentsscript check4ReasonCommentsPelvic PainReason CommentsPre-op VisitReasonCommentsGynecologic ExamPt present today for annual visit.ReasonCommentsPost-op VisitReasonCommentsWeight ManagementReasonComments Encounter for weight management FOR RECORDS PERTAINING TO PATIENTS WHO ARE [...] BE BASED ON THE PRIMARY CLINICAL RECORDS. [facility]. provides no warranty or guarantee of the accuracy or completeness of information in this document.
--- OUTSIDE RECORDS SUMMARY | 2025-07-21 11:32 | XMS_ITS | Encounter Summary ---
Author Organization [facility] Address [address] [place] [address] Care Team Providers Care Flexographic Press Operator Name Role Phone Harsha Timmons MD Primary Care Provider [phone] Reason for Visit * ReasonOnset DateCommentsDec [facility] Encounter Details DateTypeDepartmentCare Team (Latest Contact Info)Cvgzybzyasz77/19/2025Telephone [facility] [facility] [address] [place] [phone] Nikkie Maloney DPM [address] [place] [address] Jul Social History Tobacco UseTypesPacks/DayYears UsedDateSmoking Tobacco: FormerCigarettes Smokeless Tobacco: NeverCommentsNoSex and Gender InformationValueDate RecordedSex Assigned at BirthNot on fileLegal TnmTmwnry11/15/2023 7:08 PM EDT Gender IdentityNot on fileSexual OrientationNot on filedocumented as of this encounter Miscellaneous Notes * Telephone Encounter - Lisa Lucas - 07/19/2025 4:04 PM EST Spoke with patient. Pt advised of NPAR, Estimate of $0 OOP, Patient verbalized understanding and would like to proceed. PST Checklist was gone over Pt needs no PST or specialist clearances. Pt aware of PCP Clearance andwill get an appt with PCP, Harsha Timmons MD, for that within the next couple weeks. Pt aware of Surgery date and possible estimated time of surgery. Definite time will be provided at Pre Op appt. 08/14/25 @ 4:45PM. OP date is: 08/18/25 @11AM Pt Post OP date is: 08/28/25 @11AM documented in this encounter Plan of Treatment DateTypeDepartmentCare Team (Latest Contact Info)Ygorqgwaael12/10/2025 11:20 AM ESTOffice Visit LATHA GRANT [address] [phone] Samia Cueto PA [address] [place], [place] [phone] 08/14/2025 4:45 PM ESTOffice Visit [facility] [address] [place] [address] Nikkie Maloney, DPM [address] [place] [address] 08/28/2025 11:00 AM ESTOffice Visit [facility] [place] [facility] [address] [place] [address] Nikkie Maloney, DPM [address] [place] [address] 02/20/2026 10:00 AM EDTOffice Visit LATHA GRANT [address] [phone] Jhon Santillan DO [address] [place] [address] documented as of this encounter Visit Diagnoses Not on filedocumented in this encounter Care Teams Team MemberRelationshipSpecialtyStart DateEnd Date Harsha Timmons MD [address] [facility] [place] [address] PCP - GeneralFamily Medicine01/26/25documented as of this encounter
--- OUTSIDE RECORDS SUMMARY | 2025-07-21 11:32 | XMS_ITS | Clinical Summary ---
Author Organization [facility] Address [address] [place] [address] Care Team Providers Care Field Crop Harvest Worker Name Role Phone Harsha Timmons MD Primary Care Provider [phone] Allergies No known active allergies Medications MedicationSigDispense QuantityRefillsLast FilledStart DateEnd DateStatus ibuprofen 800 MG tablet Take 800 mg by mouth every 8 (eight) hours5Active celecoxib (CeleBREX) 200 MG capsule Take 200 mg by mouth if needed for mild painActive levoFLOXacin (Levaquin) 750 MG tablet Take 250 mg by mouth 1 (one) time each day at the same time5Active phentermine (Adipex-P) 37.5 MG tablet Indications:Encounter for weight managementTake 1 tablet (37.5 mg) by mouth in the morning. Take before meals. 90 tablet 5Active metFORMIN XR (Glucophage-XR) 500 MG 24 hr tablet Indications:PCOS (polycystic ovarian syndrome)Take 2 tablets (1,000 mg) by mouth in the evening. Take with meals Do not crush, chew, or split. 180 tablet 6Active Active Problems No known active problems Encounters DateTypeDepartmentCare FodtNerlrsyygtp94/19/2025Telephone [facility] [place] [facility] [address] [place] [address] Nikkie Maloney DPM [facility] Telephone [facility] [address] [place] [address] Brenda Moore MA 05/29/2025Telephone [facility] [place] [facility] [address] [place] [address] Nikkie Maloney, DPM post-op /24/2025Telephone [facility] [place] [facility] [address] [place] [address] Jhon Santillan DO 05/17/2025 11:10 AM EDTOffice Visit LATHA GRANT [address] [address] Samia Cueto, PA Encounter for weight axjycjyzon10/17/2025amboo flowsheet [facility] [address] [place] [address] Samia Cueto PA from Last 3 Months Social History Tobacco UseTypesPacks/DayYears UsedDateSmoking Tobacco: FormerCigarettes Smokeless Tobacco: Never Tobacco Cessation:Counseling Given: Not Answered CommentsNoSex and Gender InformationValueDate RecordedSex Assigned at BirthNot on fileLegal XwwAqpbci41/15/2023 7:08 PM EDTGender IdentityNot on file Sexual OrientationNot on file Last Filed Vital Signs Vital SignReadingTime TakenCommentsBlood Unavaltq531/70005/17/2025 11:30 AM EDT Pulse--Temperature--Respiratory Rate--Oxygen Saturation--Inhaled Oxygen Concentration--Qhfsrl68.8 kg (178 lb 3.2 oz)05/17/2025 11:30 AM BEPSadqtg770.4 cm (5')06/26/2022 12:00 PM EDTBody Mass Index34.81 12:00 PM EDT Plan of Treatment DateTypeDepartmentCare Team (Latest Contact Info)Inivxkhdnhc33/10/2025 11:20 AM ESTOffice Visit LATHA GRANT [address] [place] [address] Samia Cueto, PA [address] [place] [address] 08/14/2025 4:45 PM ESTOffice Visit [facility] [place] [facility] [address] [place] [address] Nikkie Maloney, DPM [address] [place] [address] 08/28/2025 11:00 AM ESTOffice Visit [facility] [address] [place] [address] Nikkie Maloney, DPM [address] [place] [address] 02/20/2026 10:00 AM EDTOffice Visit [facility] [place] [facility] [address] [place] [phone] Jhon Santillan DO [address] [place] [address] Insurance Care Teams Team MemberRelationshipSpecialtyStart DateEnd Date Harsha Timmons MD [address] [place] [address] [facility] - [facility]01/26/25
== END 2025-07-21 11:30 | disposition home or self-care (01) ==
LOC: MAMMO 11:29
PROVIDERS: PCP Family Medicine; Visit Provider Obstetrics & Gynecology
DX: Z12.31 Encounter for screening mammogram for malignant neoplasm of breast (principal); Z80.3 Family history of malignant neoplasm of breast
CPT/HCPCS: 77063; 77067